=== PATIENT | female | born 1990 | race Caucasian/White ===

== ENCOUNTER 2022-01-03 20:36 | Emergency (ER) | payer OTHER, SELFPAY ==
--- NOTE | ~2022-01-03 | CT_ITS ---
CT lumbar spine wo con DATE: 01/03/2022 21:30 INDICATION: Acute low back pain radiating down both legs TECHNIQUE: Axial images through the lumbar spine. Sagittal and coronal reconstructions. Exam dose: 426.18 mGy-cm total exam DLP. COMPARISON: None FINDINGS: Normal alignment of the lumbar spine. No fracture or bone destruction, spondylolysis or spo ndylolisthesis. Lumbar and lumbosacral interspaces are well preserved. No herniated nucleus pulposus is evident. The sacroiliac joints appear normal. No osteolytic or osteoblastic lesions are detected. IMPRESSION: No significant abnormality Reviewed, dictated and finalized at [facility]. Reviewed, dictated and finalized at [facility]. IMPRESSION: No significant abnormality
[2022-01-03 20:51] VITALS: BP 116/71; PULSE 84; RESP 20; TEMP 36.2; O2SAT 99
--- NOTE | 2022-01-03 20:53 | ED.BACK ---
HPI - Back Pain/Injury General Chief Complaint: Back Pain/Injury Stated Complaint: back pain Time Seen by Provider: 01/03/22 20:54 Source: patient Mode of arrival: ambulatory History of Present Illness HPI Narrative: 31-year-old female, A1, with LMP of 12/28/2021 presents to the ER -- worsening of chronic low back pain. Her back pain started after 1st delivery. She has had it off and on. Recently she had been doing some cleaning at home which involved bending she developed worsening of her low back pain which radiates to both hips. The patient does not have any motor sensory deficits. The patient does not have any fever. No bladder or bowel involvement. MD elicited complaint: back pain Pertinent past history: prior back pain Onset (ago): day(s) ( Worse for the past 3 days) Timing: constant Similar Symptoms Previously: Yes Quality: aching Location: lumbar spine Radiation: other ( radiates to both hips.) Exacerbating factors: immobilization Relieving factors: immobilization Associated symptoms: denies other symptoms Related Data Home Medications Medication Instructions Recorded Confirmed No Home Medications 01/03/22 01/03/22 Allergies Allergy/AdvReac Type Severity Reaction Status Date / Time codeine Allergy Unknown Verified 01/03/22 20:50 Review of Systems Review of Systems: All systems reviewed & are unremarkable except as noted in HPI and below Constitutional: Constitutional: Reports as per HPI and Reports no additional constitutional complaints Eyes: Eyes: Reports as per HPI and Reports no additional eye complaints ENT: Reports system reviewed and no additional complaints, except as documented Cardiovascular: Cardiovascular: Reports as per HPI and Reports no additional cardiovascular complaints Respiratory: Respiratory: Reports as per HPI and Reports no additional respiratory complaints Gastrointestinal: Gastrointestinal: Reports as per HPI and Reports no additional gastrointestinal complaints Genitourinary: Genitourinary: Reports no additional female genitourinary complaints Comments: Had a recent miscarriage. Musculoskeletal: Musculoskeletal: Reports back pain Integumentary/Breasts: Skin/Breast: Reports system reviewed and no additional complaints, except as docu and Reports as per HPI Neurologic: Reports system reviewed and no additional complaints, except as documented Psychiatric: Psychiatric: Reports no additional psychiatric complaints and Reports as per HPI Endocrine: Endocrine: Reports no additional endocrine complaints and Reports as per HPI Hematologic/Lymphatic: Hematologic/Lymphatic: Reports no additional hematologic/lymphatic complaints and Reports as per HPI Allergic/Immunologic: Allergic/Immunologic: Reports no additional allergic/immunologic complaints and Reports as per HPI [facility] Surgical History Surgical History (Updated 01/03/22 @ 21:24 by Cuong Choudhury MD) History of ankle surgery Social History Social History Smoking status: Current every day smoker Exam Const: General: no acute distress and alert Orientation/consciousness: patient oriented x3 HENMT: Head: normal to inspection Eyes: Conjunctivae: conjunctivae normal Pupils: Equal, round and reactive pupils present Neck: Neck: normal visual inspection and no lymphadenopathy Chest: Chest palpation & inspection: normal inspection of the chest Resp: Effort & Inspection: normal respiratory effort Auscultation: clear to auscultation bilaterally Cardio: Rate: regular rate Rhythm: regular rhythm : General: Yes no CVA tenderness Back/Spine/Pelvis: Back: no CVA tenderness Other: no spinal tenderness. Normal range of motion of the lower back. Straight leg raising test is negative on both sides. Bilateral normal knee jerks and ankle jerks. Skin: General skin exam: normal color Rashes: no rashes Neuro: General: patient orient
[2022-01-03 21:13] LABS: Pregnancy On Board Control Positive; Urine Pregnancy Test Negative
[2022-01-03 21:34] LABS: Add Urine Microscopic? YES; Appearance Urine Clear (Clear); Bilirubin Urine Negative (Negative); Blood Urine 2+ (Negative); Color Urine Light Yellow (Yellow); Glucose Urine UA Negative (Negative); Ketones Urine Negative (Negative); Leukocyte Esterase Ur Negative (Negative); Nitrate Urine Negative (Negative); Protein Urine Negative (Negative); Specific Grav Ur >= 1.030 (1.010-1.020); Urobilinogen Urine 0.2 mg/dL (0.2-1.0)
[2022-01-03] MEDS: KETOROLAC 30 MG/ML VIAL (*BKC) IM (21:34)
[2022-01-03 21:38] LABS: Bacteria Urine Trace /hpf; Squamous Epithelial Cell Urine Moderate /hpf (Few); WBC Urine 0-3 /hpf (0-3)
[2022-01-03 22:13] VITALS: BP 118/67; PULSE 78; RESP 18; TEMP 36.2; O2SAT 99
== END 2022-01-03 22:16 | disposition home or self-care (01) ==
PROVIDERS: Emergency Provider Internal Medicine Critical Care Medicine; PCP Family Medicine
DX: M54.50 Low back pain, unspecified (principal)
CPT/HCPCS: 72131; 81001; 81025; 96372; 99284; J1885

== ENCOUNTER 2022-01-09 13:47 | Outpatient (CLI) | payer OTHER, SELFPAY ==
--- NOTE | ~2022-01-09 | XR_ITS ---
XR hip LT 2V w AP pelvis, XR sacrum coccyx min 2V 01/09/2022 14:11 Indication: Chronic low back pain extending to the left leg Procedure: 3 views left hip and 3 views of the sacrum/coccyx Comparison: No prior studies for comparison. Findings: There is anatomic alignment. Pelvic rings are intact. Sacrum and coccyx are within normal l imits without focal mass. Sacral foramen are symmetric. Sacroiliac joints are symmetric. No fracture or traumatic malalignment. No significant soft tissue abnormality. Impression: 1: No significant bone or joint abnormality. Reviewed, dictated and finalized at [facility]. Impression: 1: No significant bone or joint abnormality. Impression: 1: No significant bone or joint abnormality.
== END 2022-01-09 13:48 | disposition home or self-care (01) ==
LOC: CHSIMG 13:51
PROVIDERS: PCP Nurse Practitioner Family; Visit Provider Nurse Practitioner Family
DX: M54.50 Low back pain, unspecified (principal); G89.29 Other chronic pain
CPT/HCPCS: 72220; 73502

== ENCOUNTER 2024-10-03 07:23 | Observation (INO) | payer OTHER, SELFPAY ==
[2024-10-03 07:45] VITALS: BP 94/48; PULSE 78
[2024-10-03 08:00] VITALS: BP 98/54; PULSE 74
[2024-10-03 08:15] VITALS: BP 98/55; PULSE 74
[2024-10-03 08:30] VITALS: BP 112/70; PULSE 77
[2024-10-03 08:45] VITALS: BP 102/66; PULSE 66
[2024-10-03 09:52] VITALS: BMI 25.7
--- NOTE | 2024-10-03 09:53 | OBADM ---
This patient, Michelle Daniels, admitted to the OB room [facility] for observation. Patient/family oriented to hospital policies and general routines including ID bracelet, bed and alarms, visiting hours, pain management, procedures, bathroom and other care routines, personal items, smoking policy, room service/diet, and visiting hours. Patient/Family are encouraged to report perceived risks to care and to ask questions if they do not understand what they are told or what they should do.
--- OUTSIDE RECORDS SUMMARY | 2024-10-06 20:55 | XMS_ITS | Encounter Summary ---
Author Organization [facility] Address [address] [place] [address]. [place], [place] [id number] [place] [id number] Care Team Providers Care Lawyer Probate Name Role Phone Sid Ghosh MD Unavailable [phone] Sid Ghosh MD Primary Care Provider Reason for Referral * Imaging (Routine) - Closed Specialty Diagnoses / Procedures Referred By Tea kaufman Referred To Contact RADIOLOGY Diagnoses Abdominal pain Procedures US ABD LIMITED US RETROPERITONEAL LTD Sid Ghosh MD [address] [place] [phone] Phone: tel: fax: Referral ID Status Reason Start Date Expiration Date Visits Re quested Visits Authorized [id number] Closed 11/13/2022 11/13/2023 1 1 RAL MERCHANDISE MANAGER Reason for Visit * Reason Comments Low Back Pain * Auth/Cert (Routine) Specialty Diagnoses / Procedures Referred By Tea kaufman Referred To Contact Diagnoses Pyelonephritis affecting (HHS/HCC) Pyelonephritis affecting Procedures NONE Karson Santiago MD [address] [place] [phone] Phone: tel: fax: Referral ID Status Reason Start Date Expiration Date Visits Re quested Visits Authorized [id number] 1 1 Encounter Details Date Type Department Care Team (Late st Contact Info) Description 11/12/2022 6:50 PM GENERAL MERCHANDISE MANAGER - 11/13/2022 1:00 PM GENERAL MERCHANDISE MANAGER Hospital Encounter [facility] [address] [place] [address] Karson Santiago MD [address] [place] [phone] Sid Ghosh MD [address] [place] [phone] Low Back Pain Discharge Disposition: Home or Self Care (Routine Discharge) Social History Tobacco Use Types Packs/Day Years Used Date Smoking Tobacco: Every Day Cigarettes 1 15 Smokeless Tobacco: Never Tobacco Cessation:Ready to Q uit: Not Asked; Counseling Given: Not Answered Alcohol Use Standard Drinks/Week Comments Never 0 (1 standard drink = 0.6 oz pur e alcohol) Humiliation, Afraid, Rape, and Kick questionnair e Answer Date Recorded Within the last year, have y ou been afraid of your partner or ex-partner? No 02/10/2021 Within the last year, have y ou been humiliated or emotionally abused in other ways by your partner or ex-partner? No Within the last year, have y ou been kicked, hit, slapped, or otherwise physically hurt by your partner or ex-partner? No 02/10/2021 Within the last year, have y ou been raped or forced to have any kind of sexual activity by your partner or ex-partner? No 02/10/2021 Overall Financial Resource Strain (CARDIA) Answe r Date Recorded How hard is it for you to pa y for the very basics like food, housing, medical care, and heating? Not hard at all 02/10/2021 Hunger Vital Sign Answer Date Recorded Within the past 12 months, y ou worried that your food would run out before you got the money to buy more. Never true 02/11/20 21 Within the past 12 months, t he food you bought just didn't last and you didn't have money to get more. Never true 02/10/2021 PRAPARE - Transportation Answer Date Re corded In the past 12 months, has l ack of transportation kept you from medical appointments or from getting medications? No 01/20 In the past 12 months, has l ack of transportation kept you from meetings, work, or from getting things needed for daily living? No 02/10/2021 Comments Yes Sex and Gender Information Value Date Recorded Sex Assigned at Not on file Legal Sex Female 10:32 AM GENERAL MERCHANDISE MANAGER Gender Identity Not on file Sexual Orientation Not on file COVID-19 Exposure Response Date Recorded In the last 10 days, have yo u been in contact with someone who was confirmed or suspected to have Coronavirus/COVID-19? No / Unsure 11/12/2022 6:27 PM GENERAL MERCHANDISE MANAGER documented as of this encounter Last Filed Vital Signs Vital Sign Reading Time Taken Comments Blood Pressure 88/53 11/13/2022 7:52 AM GENERAL MERCHANDISE MANAGER Pulse 83 11/13/2022 7:52 AM GENERAL MERCHANDISE MANAGER Temperature 36.5 ??C (97.7 ??F) 11/13/2022 12:[address] Respiratory Rate 16 11/13/2022 7:52 AM GENERAL MERCHANDISE MANAGER Oxygen Saturation - - Inhaled Oxygen Concentration - - Weight 70.8 kg (156 lb) 11/12/2022 6:52 PM GENERAL MERCHANDISE MANAGER Height 160 cm (5' 3 ) 11/12/2022 6:52 PM GENERAL MERCHANDISE MANAGER Body Mass Index 27.63 11/12/2022 6:52 PM GENERAL MERCHANDISE MANAGER documented in this encounter Functional Status * RETIRED Are you deaf or do you have serious difficulty hearing Answer Date of Assessment Author Status No 02/10/2021 6:38 AM CDT Activ e * RETIRED Are you blind or do you have serious difficulty seeing, even when wearing glasses? Answer Date of Assessment Author Status No 02/10/2021 6:38 AM CDT Activ e * Do you have serious difficulty walking or climbing stairs? Answer Date of Assessment Author Status No 02/10/2021 6:38 AM CDT Courtney Munguia RN Active * Do you have difficulty dressing or bathing? Answer Date of Assessment Author Status No 02/10/2021 6:38 AM ALDAIRT Courtney Munguia RN Active * Because of a physical, mental, or emotional condition, do you have difficulty doing errands alone such as visiting a doctor's office or shopping? Answer Date of Assessment Author Status No 02/10/2021 6:38 AM ALDAIRT Courtney Munguia RN Active documented as of this encounter Mental Status * Because of a physical, mental, or emotional condition, do you have serious difficulty concentrating, remembering, or making decisions? Answer Entry Date Author Status No 02/10/2021 6:38 AM CDT Courtney Munguia RN Active documented in this encounter Discharge Summaries * Sid Ghosh MD - 11/13/2022 12:22 PM CSTSummary: 28 weeks. cramping. dehydration Images from the original note were not included. Hospital Discharge Summary - SID GHOSH MD Michelle Briones female 1990 Admit Date: 11/12/2022 6:50 PM Discharge Date and Time: 11/13/2022 Admitting Physician: Karson Santiago MD Primary Care Physician: SID GHOSH MD Discharge Physician:SID GHOSH MD Admission Diagnosis: Pyelonephritis affecting [O23.00] Discharge Diagnosis: Principal Problem: Dehydration Active Problems: Cramping affecting , antepartum 28 weeks gestation of Pyelonephritis affecting Resolved Problems: * No resolved hospital problems. * HOSPITAL COURSE: admited at 28 3/7 weeks gestation. She was admitted with a lower abdomen, pelvis and back discomfort. Her urine was dark, but urinalysis showed specific gravity to 1.030 and wbc 0-5 and rbc 0-5. She was treated with IV fluid and IV antibiotics. Monitoring showed no uterine activity. Cervical exam showed a closed long high cervix with no evidence for cervical change. FHR was reassuring. OB US ordered with results pending. She is requesting discharge today. OBJECTIVE: Vitals: Filed Vitals: 11/13/22 0552 11/13/22 0752 11/13/22 0752 11/13/22 1200 BP: (!) 88/53 Pulse: 83 Resp: 16 Temp: 98.8 ??F (37.1 ??C) 98.2 ??F (36.8 ??C) 97.7 ??F (36.5 ??C) TempSrc: Tympanic Weight: Height: Discharge Physical Exam: ?? Constitutional: No acute distress, non-toxic appearance. ?? HEENT: No acute change ?? Respiratory: No respiratory distress, normal breath sounds. No rales. No wheezing. No rhonchi. ?? Cardiovascular: Normal rate, normal rhythm. No murmurs, gallops, or rubs. No chest wall tenderness. ?? GI: Soft. Non-tender. Bowel sounds present. No hepatomegaly, splenomegaly, mass, rebound or guarding. No pulsatile mass. No suprapubic tenderness. ?? Cervix: Spec exam negative. Cervix on single digital exam demonstrated cervix was closed, long, firm and high. ?? Musculoskeletal: No change. ?? Skin: Well hydrated this morning., no rash. ?? Neurologic: Alert & oriented x 3. ?? Psychiatric: Speech and behavior appropriate. Mood normal. Significant Diagnostic Studies: Us pending. Urine culture pending. Discharge Medications: Medication List ASK your doctor about these medications Morning Afternoon Evening Bedtime As Needed ferrous sulfate (65 mg elemental) 325 (65 FE) MG tablet Take 325 mg by mouth daily with breakfast. Last time this was given: 325 mg on November 13, 2022 8:59 AM vitamin (low iron) 27-0.8 MG tablet Take 1 tablet by mouth daily. Last time this was given: 1 tablet on November 13, 2022 8:59 AM Disposition: Home assuming US is reassuring. PATIENT INSTRUCTIONS: Adequate oral hydration. labor precautions reviewed. Follow up within [address] Ghosh. Signed SID GHOSH MD 11/13/2022 RAL MERCHANDISE MANAGER documented in this encounter Medications at Time of Discharge vitamin, low iron, 27-0.8 MG tablet Take 1 tablet by mouth daily. ferrous sulfate, 65 mg elemental, 325 (65 FE) MG tablet Take 1 tablet (325 mg total) by mouth daily with breakfast. 07/04/2023 documented as of this encounter Progress Notes * Sid Ghosh MD - 11/13/2022 12:19 PM CST Subjective Objective RAL MERCHANDISE MANAGER documented in this encounter H&P Notes * Karson Santiago MD - 11/12/2022 9:38 PM CST [facility] OB Admit H&P Michelle Briones / 1990 Date of Admit: 11/12/2022 Attending: Eriberto Santiago cc / Reason for Admit: generalized achiness w/ some localizing left flank pain. HPI: 32-year-old at 28w3d, presenting to L&D c/o Left flank pain w/ generalized aching pain for just over 1 day. Onset y/d with progression then through the day today. Also felt like urine looked different and had some lower abdominal cramping, so came to hospital this evening. Good movement, no vaginal bleeding. No fevers, no nausea. has been overall uncomplicated. labs: B+, antibody neg, HIV Neg, RPR NR, Rub immune - early US: IUP at 8w0d (done on 06/20/22 for GHADA 01/30/23) = LMP date of 06/03/23 - GC/CT Neg 06/14/22 - HepC antibdoy neg - 1hr GTT 129 - 20wkUS: Placenta Posterior. Normal anatomy (cardiac outtracks not well seen) - B12 level 327 (nmL) Medical and Obstetric Hx: x4 at term (uncomplicated). Meds: PNV, iron supplement Allergies: Codeine (suspected rash, as a child) Vitals: Temp 99.1, BP 124/59, p81 Gen: NAD, alert, oriented. Abd: soft, gravid. Nontender SSE: no cervical dilation apparent per RN LABS - CBC: WBC 11.8, Hb 10.0, plt 187 - CMP: AST 18, ALT 13, creat 0.62, glc 94 - UA: +Nit's, +1 protein, 2+ blood, spec grav 1.030, 2+ bacteria A/P 32y/o at 28w3d admitted for generalized achiness w/ concern for possible pyelonephritis 1) Pyelonephritis - dx suspected by abnmL UA with generalized achiness and temp in the 99's as softsymptoms but possible reflexion of systemic signs. In an abundance of caution, it is prudent to tx w/ IV antibiotic (ceftriaxone) and observe through the night (along with IV fluid hydration). - kidney stone would be possible alternative, but +nitrites in the UA make UTI / pyelo more likely. - SSE helps rule out PreTermLabor. 2) FWB- FHT's appropriate for gestational age, reassuring. 3) Dispo - observation admit for IV fluid and ABX as listed above. Cautiously optimistic, if no worsening overnight, likely d/c home tomorrow w/ transition to PO antibiotics. Karson Santiago M.D. RAL MERCHANDISE MANAGER documented in this encounter Plan of Treatment Not on file documented as of this encounter Procedures Procedure Name Priority Date/Time Associated Diagnosis Comments US ABD LIMITED Routine 11/14/2022 3:54 PM GENERAL MERCHANDISE MANAGER Abdominal pain TYPE & SCREEN STAT 11/12/2022 8:15 PM GENERAL MERCHANDISE MANAGER Back pain affecting (HHS/HCC) COMPREHENSIVE METABOLIC PANEL STAT 11/12/2022 8:15 PM GENERAL MERCHANDISE MANAGER Back pain affecting (HHS/HCC) CBC W/DIFF AUTOMATED STAT 11/12/2022 8:15 PM GENERAL MERCHANDISE MANAGER Back pain affecting (HHS/HCC) HC URINALYSIS AUTO W/MICRO Routine 11/12/2022 6:54 PM GENERAL MERCHANDISE MANAGER Back pain affecting (HHS/HCC) URINE BACTERIA CULTURE STAT 6:54 PM GENERAL MERCHANDISE MANAGER Back pain affecting (HHS/HCC) documented in this encounter Results * US ABD LIMITED (11/14/2022 3:54 PM GENERAL MERCHANDISE MANAGER) Anatomical Region Laterality Modality Abdomen Ultrasound 11/14/2022 4:06 PM GENERAL MERCHANDISE MANAGER Impressions 11/14/2022 4:11 PM GENERAL MERCHANDISE MANAGER IMPRESSION: 1. ??Probable left nephrolithiasis. 2. ??Minimal splenomegaly, likely hypervolemia of . 3. ??Otherwise unremarkable. Referred By: SID GHOSH Interpreted By: Mitch Noble MD, 11/14/2022 4:06 PM Narrative 11/14/2022 4:11 PM GENERAL MERCHANDISE MANAGER Examination: Ultrasound of the spleen and left kidney. Exam time: 1500 hours. Clinical history: Left-sided pain. ??Currently . Comparison: Ultrasound of the kidneys and urinary bladder, 2020. Technique: Grayscale and color Doppler images. Findings: The left kidney is normal in size measuring 11.8 x 4.8 x 4.8 cm, similar to previous. ??Cortical thickness and echogenicity appear normal. ??Flow to the left kidney is documented on color Doppler. ??There is a 4-5 mm bright reflector in the interpolar region suspicious for a calculus. ??No renal mass is identified. ??There is no hydronephrosis. ??The spleen is minimally enlarged, measuring 13-14 cm in length, most likely hypervolemia of . ??Splenic echotexture is normal. ??Flow to the spleen is documented on color Doppler. ??Sections through the pancreas are unremarkable. ??No free fluid is seen. Procedure Note Mitch Noble MD - 11/14/2022 Examination: Ultrasound of the spleen and left kidney. Exam time: 1500 hours. Clinical history: Left-sided pain. Currently . Comparison: Ultrasound of the kidneys and urinary bladder, 2020. Technique: Grayscale and color Doppler images. Findings: The left kidney is normal in size measuring 11.8 x 4.8 x 4.8 cm,similar to previous. Cortical thickness and echogenicity appear normal.Flow to the left kidney is documented on color Doppler. There is a 4-5 mmbright reflector in the interpolar region suspicious for a calculus. Norenal mass is identified. There is no hydronephrosis. The spleen isminimally enlarged, measuring 13-14 cm in length, most likely hypervolemiaof . Splenic echotexture is normal. Flow to the spleen isdocumented on color Doppler. Sections through the pancreas areunremarkable. No free fluid is seen. IMPRESSION: 1. Probable left nephrolithiasis. 2. Minimal splenomegaly, likely hypervolemia of . 3. Otherwise unremarkable. Referred By: SID GHOSH Interpreted By: Mitch Noble MD, 11/14/2022 4:06 PM Sid Ghosh MD ULTRASOUND Final Resul t * TYPE & SCREEN (11/12/2022 8:15 PM GENERAL MERCHANDISE MANAGER) ABO/RH B POSITIVE 11/12/2022 9:05 PM GENERAL MERCHANDISE MANAGER [facility] ANTIBODY SCREEN NEGATIVE 11/12/2022 9:05 PM GENERAL MERCHANDISE MANAGER [facility] SAMPLE EXPIRATION 11/15/2022,2 359 11/12/2022 9:05 PM GENERAL MERCHANDISE MANAGER [facility] 11/12/2022 8:15 PM GENERAL MERCHANDISE MANAGER Karson Santiago MD BLOOD BANK TEST ORDERABLES Fi nal Result [facility] [address] [place] [address], * (ABNORMAL) CBC W/DIFF AUTOMATED (11/12/2022 8:15 PM GENERAL MERCHANDISE MANAGER) WBC 11.76(H) 4.00 - 10.80 x10'3/uL 11/12/2022 8:25 PM GENERAL MERCHANDISE MANAGER [facility] RBC 3.37(L) 4.10 - 5.40 x10'6/uL 11/12/2022 8:25 PM GENERAL MERCHANDISE MANAGER [facility] HGB 10.0(L) 12.0 - 16.0 G/DL 11/12/2022 8:25 PM GENERAL MERCHANDISE MANAGER [facility] HCT 30.0(L) 36.0 - 47.0 % 11/12/2022 8:25 PM GENERAL MERCHANDISE MANAGER [facility] MCV 89.0 78.0 - 100.0 FL 11/12/2022 8:25 PM GENERAL MERCHANDISE MANAGER [facility] MCH 29.7 27.0 - 31.0 PG 11/12/2022 8:25 PM GENERAL MERCHANDISE MANAGER [facility] MCHC 33.3 33.0 - 36.0 G/DL 11/12/2022 8:25 PM [facility] RDW 13.5 11.5 - 14.5 % 11/12/2022 8:25 PM GENERAL MERCHANDISE MANAGER [facility] PLT 187 150 - 350 x10'3/uL 11/12/2022 8:25 PM [facility] MPV 10.2 7.4 - 10.4 FL 11/12/2022 8:25 PM GENERAL MERCHANDISE MANAGER [facility] CBC COMMENT NORMAL REFERENCE RANGE NOT ESTABLISHED FOR THE PROPORTIONAL LEUKOCYTE DIFFERENTIAL. 11/12/2022 8:25 PM GENERAL MERCHANDISE MANAGER [facility] NEUTROPHILS % 75.6 % 11/12/2022 8:25 PM [facility] LYMPHOCYTES % 15.4 % 11/12/2022 8:25 PM [facility] MONOCYTES % 5.9 % 11/12/2022 8:25 PM [facility] EOSINOPHILS % 1.4 % 11/12/2022 8:25 PM [facility] BASOPHILS % 0.2 % 11/12/2022 8:25 PM [facility] IMMATURE GRANS % 1.5 % 11/12/19 8:25 PM [facility] NRBC 0.0 % 11/12/2022 8:25 PM [facility] ABS. NEUTROPHILS 8.90(H) 1.60 - 8.30 x10'3/uL 11/12/2022 8:25 PM [facility] ABS. LYMPHOCYTES 1.81 0.80 - 4.70 x10'3/uL 11/12/2022 8:25 PM [facility] ABS. MONOCYTES 0.69 0.00 - 1.50 x10'3/uL 11/12/2022 8:25 PM GENERAL MERCHANDISE MANAGER [facility] ABS. EOSINOPHILS 0.16 0.00 - 0.40 x10'3/uL 11/12/2022 8:25 PM [facility] ABS. BASOPHILS 0.02 0.00 - 0.20 x10'3/uL 11/12/2022 8:25 PM [facility] ABS. IMMATURE GRANULOCYTES 0.18(H) 0.00 - 0.03 x10'3/uL 11/12/2022 8:25 PM GENERAL MERCHANDISE MANAGER [facility] ABS. NUCLEATED RBC'S 0.00 0.00 x10'3/uL 11/12/2022 8:25 PM [facility] 11/12/2022 8:15 PM GENERAL MERCHANDISE MANAGER Karson Santiago MD LABORATORY Final Result [facility] [address] [place] [address], * (ABNORMAL) COMPREHENSIVE METABOLIC PANEL (11/12/2022 8:15 PM GENERAL MERCHANDISE MANAGER) SODIUM S/P/B 135(L) 136 - 145 MMOL/L 11/12/2022 8:38 PM [facility] POTASSIUM S/P/B 3.6 3.5 - 5.1 MMOL/L 11/12/2022 8:38 PM [facility] CHLORIDE S/P/B 101 98 - 107 MMOL/L 11/12/2022 8:38 PM [facility] CO2 27.0 21.0 - 32.0 MMOL/L 11/12/2022 8:38 PM [facility] GLUCOSE 94 70 - 99 MG/DL 11/12/2022 8:38 PM [facility] Comment: FASTING GLUCOSE 100 TO 125 MG/DL IS CONSISTENT WITH IMPAIRED FASTING GLUCOSE. FASTING GLUCOSE >125 MG/DL IS CONSISTENT WITH DIABETES. RANDOM GLUCOSE >200 MG/DL WITH HYPERGLYCEMIC SYMPTOMS IS CONSISTENT WITH DIABETES. PER ADA GUIDELINES BUN 6 6 - 24 MG/DL 11/12/2022 8:38 PM GENERAL MERCHANDISE MANAGER [facility] CREATININE S/P/B 0.62 0.55 - 1.02 MG/DL 11/12/2022 8:38 PM [facility] CALCIUM S/P/B 8.8 8.4 - 10.5 MG/DL 11/12/2022 8:38 PM [facility] BILIRUBIN TOTAL S/P/B 0.2 0.2 - 1.0 MG/DL 11/12/2022 8:38 PM [facility] Comment: THIS ASSAY IS NOT RECOMMENDED FOR PATIENTS UNDERGOING TREATMENT WITH ELTROMBOPAG DUE TO THE POTENTIAL FOR FALSELY ELEVATED RESULTS. ALKALINE PHOSPHATASE S/P/B 93 37 - 98 U/L 11/12/2022 8:38 PM [facility] AST 18 15 - 37 U/L 11/12/2022 8:38 PM [facility] ALT 13(L) 14 - 59 U/L 11/12/2022 8:38 PM [facility] TOTAL PROTEIN S/P/B 6.7 6.4 - 8.2 G/DL 11/12/2022 8:38 PM [facility] ALBUMIN S/P/B 2.7(L) 3.4 - 5.0 G/DL 11/12/2022 8:38 PM [facility] ANION GAP 7.0 5.0 - 15.0 MMOL/L 11/12/2022 8:38 PM [facility] OSMOLALITY (CALC) 277 MOSM/KG 023 8:38 PM [facility] Comment:REFERENCE RANGE NOT ESTABLISHED GFR ESTIMATE >90 >89 ML/MIN/1. 73 M2 11/12/2022 8:38 PM [facility] GFR NOTES GFR REFERENCE S: 11/12/2022 8:38 PM [facility] Comment: THE ESTIMATED GFR IS CALCULATED USING THE 2020 CKD-EPI EQUATION. THE FOLLOWING CATEGORIES FOR GRADING RENAL FUNCTION ARE RECOMMENDED BY THE INTERNATIONAL SOCIETY OF NEPHROLOGY (KDIGO 2012 CLINICAL PRACTICE GUIDELINE). G1,NORMAL OR HIGH: >89 ml/min/1.73 m2 G2,MILDLY DECREASED: 60-89 ml/min/1.73 m2 G3A,MILDLY TO MODERATELY DECREASED: 45-59 ml/min/1.73 m2 G3B,MODERATELY TO SEVERELY DECREASED: 30-44 ml/min/1.73 m2 G4,SEVERELY DECREASED: 15-29 ml/min/1.73 m2 G5,KIDNEY FAILURE: <15 ml/min/1.73 m2 11/12/2022 8:15 PM GENERAL MERCHANDISE MANAGER Karson Santiago MD LABORATORY Final Result Performing Organization Address [facility]/ZIP Co de Phone Number [facility] [address] [place] [id number], * CULTURE URINE (11/12/2022 6:54 PM GENERAL MERCHANDISE MANAGER) SPEC DESCRIPTION URINE CLEAN CATCH 11/12/2022 10:16 PM GENERAL MERCHANDISE MANAGER [facility] SPECIAL REQUESTS NO SPECIAL REQUEST 11/12/2022 10:16 PM GENERAL MERCHANDISE MANAGER [facility] CULTURE RESULT NO GROWTH (< OR = 1,000 CFU/ML) 11/14/2022 10:06 AM GENERAL MERCHANDISE MANAGER [facility] URINE SPECIMEN OBTAINED BY CLEAN CATCH PROCEDURE / Unknown 11/12/2022 6:54 PM GENERAL MERCHANDISE MANAGER 11/13/2022 6:03 AM GENERAL MERCHANDISE MANAGER Karson Santiago MD MICROBIOLOGY - GENERAL ORDERA BLES Final Result Performing Organization Address [facility] Co de Phone Number [facility] [address] [place] [address], [place] [phone] [facility] [address] [place] [address], [place] [phone] * (ABNORMAL) URINALYSIS (11/12/2022 6:54 PM GENERAL MERCHANDISE MANAGER) COLOR (U) DARK YELLOW 11/12/2022 7:34 PM GENERAL MERCHANDISE MANAGER [facility] TRANSPARENCY CLOUDY 11/12/2022 7:34 PM GENERAL MERCHANDISE MANAGER [facility] SPECIFIC GRAVITY (U) 1.030(H) 1.000 - 1.025 11/12/2022 7:34 PM GENERAL MERCHANDISE MANAGER [facility] Comment:EQUAL TO OR GREATER THAN U PH 5.5 5.0 - 8.0 11/12/2022 7:34 PM GENERAL MERCHANDISE MANAGER [facility] LEUKOCYTES (U) NEGATIVE NEGATIVE 11/12/2022 7:34 PM GENERAL MERCHANDISE MANAGER [facility] NITRITES POSITIVE(A) NEGATIVE 11/12/2022 7:34 PM GENERAL MERCHANDISE MANAGER [facility] PROTEIN (U) 1+(A) NEGATIVE 11/12/2022 7:34 PM GENERAL MERCHANDISE MANAGER [facility] URINE GLUCOSE NEGATIVE NEGATIVE 11/12/2022 7:34 PM GENERAL MERCHANDISE MANAGER [facility] KETONES MG/DL (U) 1+(A) NEGATIVE 11/12/2022 7:34 PM GENERAL MERCHANDISE MANAGER [facility] UROBILINOGEN 1.0(H) <1.0 EU/DL 11/12/2022 7:34 PM GENERAL MERCHANDISE MANAGER [facility] BLOOD (U) 2+(A) NEGATIVE 11/12/2022 7:34 PM GENERAL MERCHANDISE MANAGER [facility] WBC/HPF 0-5 0 - 5 /HPF 11/12/2022 7:34 PM GENERAL MERCHANDISE MANAGER [facility] RBC/HPF 0-5 0 - 5 /HPF 11/12/2022 7:34 PM GENERAL MERCHANDISE MANAGER [facility] EPI/LPF MODERATE /LPF 11/12/2022 7:34 PM GENERAL MERCHANDISE MANAGER [facility] BACTERIA (U) 2+ /HPF 11/12/2022 7:34 PM GENERAL MERCHANDISE MANAGER [facility] MUCUS PRESENT 11/12/2022 7:34 PM GENERAL MERCHANDISE MANAGER [facility] BILIRUBIN CONF ICTO (U) NEGATIVE NEGATIVE 11/12/2022 7:34 PM [facility] URINE SPECIMEN OBTAINED BY CLEAN CATCH PROCEDURE / Unknown 11/12/2022 6:54 PM GENERAL MERCHANDISE MANAGER Karson Santiago MD URINE ORDERABLES Final Result [facility] [address] [place] [address], documented in this encounter Visit Diagnoses Diagnosis Dehydration- Primary Back pain affecting (HHS/HCC) Abdominal pain Abdominal pain, unspecified site Pyelonephritis affecting (HHS/HCC) Cramping affecting , antepartum (HHS/HCC) 28 weeks gestation of (HHS/HCC) state, incidental Abdominal pain Abdominal pain, unspecified site documented in this encounter Admitting Diagnoses Diagnosis Pyelonephritis affecting (HHS/HCC) documented in this encounter Administered Medications Inactive Administered Medications - up to 3 most recent administrations Medication Order MAR Action Action Date Dose Rate Site cefTRIAXone (ROCEPHIN) 1 g in sodium chloride 0.9 % 50 mL IVPB 1 g, Intravenous, at 100 mL/hr, Every 24 hours, First dose on Sat11/12/22 at 2115, Until Discontinued New Bag 11/12/2022 10:08 PM GENERAL MERCHANDISE MANAGER 1 g 100 mL/hr cefTRIAXone (ROCEPHIN) 1 g in sodium chloride 0.9 % 50 mL IVPB 1 g, Intravenous, at 100 mL/hr, Every 12 hours, 1 dose, First dose (after last modification) on Sat11/13/22 at 1015 New Bag 11/13/2022 10:20 AM GENERAL MERCHANDISE MANAGER 1 g 100 mL/hr diphenhydrAMINE (BENADRYL) injection 25 mg 25 mg, Intravenous, Once, 1 dose, On Sat11/12/22 at 2315, For IV administration, give no faster than 25 mg/min. Given 11/12/2022 11:14 PM GENERAL MERCHANDISE MANAGER 25 mg diphenhydrAMINE (BENADRYL) injection 25 mg 25 mg, Intravenous, Every 6 hours PRN, Itching, Starting on Sat11/13/22 at 0525, Until Sat11/13/22 at 1541, For IV administration, give no faster than 25 mg/min. Given 11/13/2022 5:38 AM GENERAL MERCHANDISE MANAGER 25 mg ferrous sulfate (65 mg elemental) tablet 325 mg 325 mg, Oral, Daily with breakfast, First dose on Sat11/13/22 at 0800, Until Discontinued Given 11/13/2022 8:59 AM GENERAL MERCHANDISE MANAGER 325 mg vitamin (low iron) 27-0.8 MG tablet 1 tablet 1 tablet, Oral, Daily, First dose on Sat11/13/22 at 0900, Until Discontinued Given 11/13/2022 8:59 AM GENERAL MERCHANDISE MANAGER 1 tablet sodium chloride 0.9% infusion at 125 mL/hr, Intravenous, Continuous, Starting on Sat11/12/22 at 2115, Until Sat11/13/22 at 1541 documented in this encounter Active and Recently Administered Medications Times are shown in GENERAL MERCHANDISE MANAGER. Scheduled Medication Order 11/11/2022 11/12/2022 11/13/2022 cefTRIAXone (ROCEPHIN) 1 g in sodium chloride 0.9 % 50 mL IVPB (CANCELED) 1 g, Intravenous, at 100 mL/hr, Every 24 hours, First dose on Sat11/12/22 at 2115, Until Discontinued 2207 (New Bag - Provider: Nicki Portillo RN)2237 (Infusion Stop Time - Provider: Nicki Portillo RN) cefTRIAXone (ROCEPHIN) 1 g in sodium chloride 0.9 % 50 mL IVPB (COMPLETED) 1 g, Intravenous, at 100 mL/hr, Every 12 hours, 1 dose, First dose (after last modification) on Sat11/13/22 at 1015 1020 (New Bag - Provider: Cristy Menon RN)1050 (Due: Infusion Stop Time - Provider: Cristy Menon RN) diphenhydrAMINE (BENADRYL) injection 25 mg (COMPLETED) 25 mg, Intravenous, Once, 1 dose, On Sat11/12/22 at 2315, For IV administration, give no faster than 25 mg/min. 2314 (Given - Provider: Nicki Portillo RN) ferrous sulfate (65 mg elemental) tablet 325 mg 325 mg, Oral, Daily with breakfast, First dose on Sat11/13/22 at 0800, Until Discontinued 0859 (Given - Provid er: Cristy Menon RN) vitamin (low iron) 27-0.8 MG tablet 1 tablet 1 tablet, Oral, Daily, First dose on Sat11/13/22 at 0900, Until Discontinued 0859 (Given - Provid er: Cristy Menon RN) Continuous Medication Order 11/11/2022 11/12/2022 11/13/2022 sodium chloride 0.9% infusion at 125 mL/hr, Intravenous, Continuous, Starting on Sat11/12/22 at 2115, Until Sat11/13/22 at 1541 2115 (Canceled Entry - Provi christian: Automatic Discharge Provider - Comment: Automatically canceled at discontinue of medication order) PRN Medication Order 11/11/2022 11/12/2022 11/13/2022 diphenhydrAMINE (BENADRYL) injection 25 mg 25 mg, Intravenous, Every 6 hours PRN, Itching, Starting on Sat11/13/22 at 0525, Until Sat11/13/22 at 1541, For IV administration, give no faster than 25 mg/min. 0538 (Given - Provid er: Nicki Portillo RN) documented in this encounter Care Teams Lawyer Probate Relationship Specialty Start Date End Date Sid Ghosh MD [address] [place] [id number] PCP - General FAMILY PRACTICE 08/11/20 Sid Ghosh MD [address] [place] [phone] FAMILY PRACTICE 08/27/18 documented as of this encounter
--- OUTSIDE RECORDS SUMMARY | 2024-10-06 20:55 | XMS_ITS | Encounter Summary ---
Author Organization [facility] Address [address] [place] [address]. [place] [address] [place] [address] Care Team Providers Care Provider Engagement Executive Name Role Phone Sid Solis MD Unavailable [phone] Sid Solis MD Primary Care Provider Reason for Visit * Reason Onset Date Comments Post Call 02/24/2024 Encounter Details Date Type Department Care Team (Late st Contact Info) Description 02/24/[address] [facility] [address] [place] [address] Sid Solis MD [address] [place] [address] Post Call Social History Tobacco Use Types Packs/Day Years Used Date Smoking Tobacco: Every Day Cigarettes 1 15 Smokeless Tobacco: Never Alcohol Use Standard Drinks/Week Comments Not Currently 0 (1 standard drink = 0.6 oz pur e alcohol) B1300 Health Literacy Answer Date Recor ded How often do you need to hav e someone help you when you read instructions, pamphlets, or other written material from your doctor or pharmacy? Sometimes 02/01/2024 [facility] Utilities Answer Date Recorded In the past 12 months has e [employer], gas, oil, or water [employer] threatened to shut off services in your home? No 02/01/2024 Humiliation, Afraid, Rape, and Kick questionnair e Answer Date Recorded Within the last year, have y ou been afraid of your partner or ex-partner? No 02/01/2024 Within the last year, have y ou been humiliated or emotionally abused in other ways by your partner or ex-partner? No Within the last year, have y ou been kicked, hit, slapped, or otherwise physically hurt by your partner or ex-partner? No 02/01/2024 Within the last year, have y ou been raped or forced to have any kind of sexual activity by your partner or ex-partner? No 02/01/2024 Social Connection and Isolat ion Panel [NHANES] Answer Date Recorded In a typical week, how many times do you talk on the phone with family, friends, or neighbors? More than three times a week 02/01/2024 How often do you get togethe r with friends or relatives? Once a week 02/01/2024 How often do you attend chur or taoist services? Never 02/01/2024 Do you belong to any clubs o r organizations such as pentecostal groups, unions, fraternal or athletic groups, or school groups? No 02/01/2024 How often do you attend meet ings of the clubs or organizations you belong to? Never 02/01/2024 Are you , , di vorced, , never , or living with a partner? 02/01/2024 AUDIT-C Answer Date Recorded Q1: How often do you have a drink containing alcohol? Never 02/01/2024 Q2: How many drinks containi ng alcohol do you have on a typical day when you are drinking? Patient does not drink Q3: How often do you have si x or more drinks on one occasion? Never 02/01/2024 Overall Financial Resource Strain (CARDIA) Answe r Date Recorded How hard is it for you to pa y for the very basics like food, housing, medical care, and heating? Not hard at all 02/01/2024 [facility] Occupat ional Health - Occupational Stress Questionnaire Answer Date Recorded Do you feel stress - tense, restless, nervous, or anxious, or unable to sleep at night because your mind is troubled all the time - these days? Not at all 02/01/2024 Exercise Vital Sign Answer Date Recorde d On average, how many days pe r week do you engage in moderate to strenuous exercise (like a brisk walk)? 7 days 02/01/2024 On average, how many minutes do you engage in exercise at this level? 30 min 02/01/2024 Hunger Vital Sign Answer Date Recorded Within the past 12 months, y ou worried that your food would run out before you got the money to buy more. Never true 02/01/20 24 Within the past 12 months, t he food you bought just didn't last and you didn't have money to get more. Never true 02/01/2024 PRAPARE - Transportation Answer Date Re corded In the past 12 months, has l ack of transportation kept you from medical appointments or from getting medications? No 01/19 In the past 12 months, has l ack of transportation kept you from meetings, work, or from getting things needed for daily living? No 02/01/2024 Housing Stability Vital Sign Answer Titus e Recorded In the last 12 months, was t here a time when you were not able to pay the mortgage or rent on time? No 01/17/2023 In the last 12 months, how many places have you lived? 2 01/17/2023 In the last 12 months, was t here a time when you did not have a steady place to sleep or slept in a assisted (including now)? No 01/17/2023 Housing Stability Vital Sign Answer Titus e Recorded In the last 12 months, was t here a time when you were not able to pay the mortgage or rent on time? No 02/01/2024 In the past 12 months, how m any times have you moved where you were living? 1 02/01/2024 At any time in the past 12 m [facility], were you homeless or living in a assisted (including now)? No 02/01/2024 Depression Answer Date Recor ded Last EPDS Total Score 1 02/02/2024 Last EPDS Self Harm Result Hardly ever 02/01 Comments No Sex and Gender Information Value Date Recorded Sex Assigned at Not on file Legal Sex Female 10:32 AM PATIENT SERVICE COORDINATOR Gender Identity Not on file Sexual Orientation Not on file documented as of this encounter Functional Status * Are you deaf or do you have serious difficulty hearing Answer Date of Assessment Author Status No 02/01/2024 7:15 AM Maritza Moyer RN Active * Are you blind or do you have serious difficulty seeing, even when wearing glasses? Answer Date of Assessment Author Status No 02/01/2024 7:15 AM Maritza Moyer RN Active * Do you have serious difficulty walking or climbing stairs? Answer Date of Assessment Author Status No 02/01/2024 7:15 AM Maritza Moyer RN Active * Do you have difficulty dressing or bathing? Answer Date of Assessment Author Status No 02/01/2024 7:15 AM Maritza Moyer RN Active * Because of a physical, mental, or emotional condition, do you have difficulty doing errands alone such as visiting a doctor's office or shopping? Answer Date of Assessment Author Status No 02/01/2024 7:15 AM Maritza Moyer RN Active documented as of this encounter Mental Status * Because of a physical, mental, or emotional condition, do you have serious difficulty concentrating, remembering, or making decisions? Answer Entry Date Author Status No 02/01/2024 7:15 AM Maritza Moyer RN Active documented in this encounter Plan of Treatment Not on file documented as of this encounter Visit Diagnoses Not on filedocumented in this encounter Care Teams Provider Engagement Executive Relationship Specialty Start Date End Date Sid Solis MD [address] [place] [id number] PCP - General FAMILY PRACTICE 08/11/20 Sid Solis MD [address] [place] [phone] FAMILY [facility] 08/27/18 documented as of this encounter
--- OUTSIDE RECORDS SUMMARY | 2024-10-06 20:55 | XMS_ITS | Encounter Summary ---
Author Organization [facility] Address [address] [place] [address]. [place] [address] [place] [address] Care Team Providers Care Administrative Operations Coordinator Name Role Phone Sid Solis MD Unavailable [phone] Sid Solis MD Primary Care Provider Reason for Visit * Auth/Cert (Routine) Specialty Diagnoses / Procedures Referred By Contac t Referred To Contact Diagnoses Uterine contractions (HHS/HCC) Uterine contractions Procedures NONE Referral ID Status Reason Start Date Expiration Date Visits Re quested Visits Authorized [id number] 1 1 Encounter Details Date Type Department Care Team (Late st Contact Info) Description 01/17/2023 7:20 AM CDT Anesthesia Event [facility] [address] [facility] [place] [address] Diana Guillen, ELECTRIC WELL LOGGING OPERATOR [address] [place] [phone] (Work) Anesthesia Record Procedure Summary Procedure Name Responsible Anesthesiologist Anesthesia Start Time Anesthesia Stop Time LABOR EPIDURAL Events Date Time Event Comment 01/17/2023 0720 0720 AN Anesthesia Prepped 0720 Floor Procedure 0729 Epidural Start 08 An Epidural Placement Comple te 09 Epidural Stop Meds Name Total fentaNYL 2 mcg/mL-ROpivacaine 0.2 % epid ural 16.5 mL lidocaine 2%-EPINEPHrine 1:200,000 injec tion 3 mL lidocaine (XYLOCAINE) 1% injection 3 mg * Agents No agents on file. * Blood No blood administrations on file. Lines, Drains, and Airways Type Details Placement Removal Epidural Placement Date: 12/21 ; Placement Time: 802 (created via procedure documentation); Removal Date: 01/17/23; Removal Time: 1200 01/17/23 0803 by Diana Guillen CRNA 01/17/23 1200 by Miesha Zamarripa RN documented in this encounter Social History Tobacco Use Types Packs/Day Years Used Date Smoking Tobacco: Every Day Cigarettes 1 15 Smokeless Tobacco: Never Alcohol Use Standard Drinks/Week Comments Not Currently 0 (1 standard drink = 0.6 oz pur e alcohol) Humiliation, Afraid, Rape, and Kick questionnair e Answer Date Recorded Within the last year, have y ou been afraid of your partner or ex-partner? No 01/17/2023 Within the last year, have y ou been humiliated or emotionally abused in other ways by your partner or ex-partner? No Within the last year, have y ou been kicked, hit, slapped, or otherwise physically hurt by your partner or ex-partner? No 01/17/2023 Within the last year, have y ou been raped or forced to have any kind of sexual activity by your partner or ex-partner? No 01/17/2023 Social Connection and Isolat ion Panel [NHANES] Answer Date Recorded In a typical week, how many times do you talk on the phone with family, friends, or neighbors? More than three times a week 01/17/2023 How often do you get togethe r with friends or relatives? Once a week 01/17/2023 How often do you attend [facility] or orthodox services? Never 01/17/2023 Do you belong to any clubs o r organizations such as oriental orthodox groups, unions, fraternal or athletic groups, or school groups? No 01/17/2023 How often do you attend meet ings of the clubs or organizations you belong to? Never 01/17/2023 Are you , , di vorced, , never , or living with a partner? 01/17/2023 AUDIT-C Answer Date Recorded Q1: How often do you have a drink containing alcohol? Never 01/17/2023 Q2: How many drinks containi ng alcohol do you have on a typical day when you are drinking? Patient does not drink 03/30/202 3 Q3: How often do you have si x or more drinks on one occasion? Never 01/17/2023 Overall Financial Resource Strain (CARDIA) Answe r Date Recorded How hard is it for you to pa y for the very basics like food, housing, medical care, and heating? Not hard at all 01/17/2023 [facility] Occupat ional Health - Occupational Stress Questionnaire Answer Date Recorded Do you feel stress - tense, restless, nervous, or anxious, or unable to sleep at night because your mind is troubled all the time - these days? Not at all 01/17/2023 Exercise Vital Sign Answer Date Recorde d On average, how many days pe r week do you engage in moderate to strenuous exercise (like a brisk walk)? 7 days 01/17/2023 On average, how many minutes do you engage in exercise at this level? 30 min 01/17/2023 Hunger Vital Sign Answer Date Recorded Within the past 12 months, y ou worried that your food would run out before you got the money to buy more. Never true 01/18/20 23 Within the past 12 months, t he food you bought just didn't last and you didn't have money to get more. Never true 01/17/2023 PRAPARE - Transportation Answer Date Re corded In the past 12 months, has l ack of transportation kept you from medical appointments or from getting medications? No 12/21 In the past 12 months, has l ack of transportation kept you from meetings, work, or from getting things needed for daily living? No 01/17/2023 Housing Stability Vital Sign Answer [...] place to sleep or slept in a senior care (including now)? 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 No / Unsure 01/17/2023 6:20 AM CDT documented as of this encounter Functional Status * Question Answer Date of Assessment Author Status Do you have serious difficulty walking or climbing stairs? No 01/17/2023 10:36 AM ALDAIRT Erick Zamarripa i, RN Active * Question Answer Date of Assessment Author Status Do you have difficulty dressing or bathing? No 01/17/2023 10:36 AM CDT Eder Zamarripa RN Active Because of a physical, mental, or emotional condition, do you have difficulty doing errands alone such as visiting a doctor's office or shopping? No 01/17/2023 10:36 AM Erick Barnett i, RN Active * Are you deaf or do you have serious difficulty hearing Answer Date of Assessment Author Status No 01/17/2023 10:36 AM Miesha Barnett RN Active * Are you blind or do you have serious difficulty seeing, even when wearing glasses? Answer Date of Assessment Author Status No 01/17/2023 10:36 AM Miesha Barnett RN Active * Do you have serious difficulty walking or climbing stairs? Answer Date of Assessment Author Status No 01/17/2023 10:36 AM Miesha Barnett RN Active * Do you have difficulty dressing or bathing? Answer Date of Assessment Author Status No 01/17/2023 10:36 AM Miesha Barnett RN Active * Because of a physical, mental, or emotional condition, do you have difficulty doing errands alone such as visiting a doctor's office or shopping? Answer Date of Assessment Author Status No 01/17/2023 10:36 AM Miesha Barnett RN Active documented as of this encounter Mental Status * Question Answer Entry Date Author Status Because of a physical, mental, or emotional condition, do you have serious difficulty concentrating, remembering, or making decisions? No 01/17/2023 10:36 AM Miesha Barnett RN Active * Because of a physical, mental, or emotional condition, do you have serious difficulty concentrating, remembering, or making decisions? Answer Entry Date Author Status No 01/17/2023 10:36 AM CDT Miesha Zamarripa RN Active documented in this encounter Progress Notes * Ld Aviles MD - 01/20/2023 9:52 AM CDT By report, no problems documented in this encounter OR Notes * Anesthesia Postprocedure Evaluation - Ld Aviles MD - 01/20/2023 9:50 AM CDT Anesthesia Post-op Note Michelle Daniels Procedure(s): LABOR EPIDURAL Anesthesia type: epidural There were no vitals filed for this visit. There were no vitals filed for this visit. There were no vitals filed for this visit. There were no vitals filed for this visit. There were no vitals filed for this visit. Comments: By report, no issues No notable events documented. * Anesthesia Procedure Notes - Diana Guillen CRNA - 01/17/2023 8:02 AM CDT Associated Order(s): CSE CSE Date/Time: 01/17/2023 7:20 AM Performed by: Diana Guillen CRNA Authorized by: Diana Guillen CRNA Patient Location: OB Start Time: 01/17/2023 7:20 AM End Time: 01/17/2023 8:02 AM Reason for Block: labor analgesia Staff: Performed by: GERARDO Resident/ELECTRIC WELL LOGGING OPERATOR: Diana Guillen CRNA patient identified, IV checked, risks and benefits discussed, monitors and equipment checked, pre-op evaluation and timeout performed CSE Block: Patient Position: Sitting Prep: Betadine Sterility Prep: Cap, drape, gloves, hand hygiene and mask Sedation Level: no sedation Monitoring: Continuous pulse oximetry and heart rate Approach: Midline Guidance: landmarks Epidural Needle: Injection Technique: CHRIS saline Needle Type: Tuohy Needle Gauge: 18 G Needle Length: 9 cm Needle Insertion Depth: 7 Location: L3-L4 Spinal Needle: Needle Type: Pencil-tip Needle Gauge: 26 G Catheter: Catheter Type: Multi-orifice Catheter Size: 20 G Catheter at Skin Depth: 12 Securement Method: Clear occlusive dressing, stabilization device and surgical tape Test Dose: Negative Assessment: Block Outcome: pain improved Number of Attempts: 1 Procedure Assessment: patient tolerated procedure well with no complications Notes: Discussed risks and benefits of labor CSE with PT. PT voiced understanding. RN at bedside, monitors on, PT moved to sitting position. Lumbar interspace CSE placed: prep, drape. 3ml 1% lido local. Epidural space found without complication using CHRIS with saline. No CSF. Positive CSF with pencan needle. Spinal dose of 1ml 0.2% ropivacaine & 2mcg fentanyl placed without complication @ 0736, pt felt relief from contractions. Catheter advanced into epidural space without complication and test dose given with negative response, catheter secured. [id number] * Anesthesia Preprocedure Evaluation - Diana Guillen CRNA - 01/17/2023 7:20 AM CDT Anesthesia ROS/MED History Reviewed: Patient summary , Anesthesia history , Medications , Labs Pre-Anesthetic State: alert, awake and responds appropriately Pulmonary (+) smoker Cardiovascular neg cardio ROS Neuro/Psych (+) substance use, (marijuana use) GI/Hepatic/Renal neg GI/hepatic/renal ROS Endo/Other (+) blood dyscrasia, (Anemia) GENERAL COMMENTS HX=ANKLE ARTHROSCOPY OPEN RX PROX/MID FING SHFT FX 37weeks 6 days 01/17/23 07:00 WBC: 9.77 RBC: 3.25 (L) HGB: 9.2 (L) HCT: 28.6 (L) MCV: 88.0 MCH: 28.3 MCHC: 32.2 (L) RDW: 14.6 (H) PLT: 162 MPV: 11.1 (H) 01/17/23 06:15 AMPHETAMINE SCREEN (U): NEGATIVE BARBITURATES SCREEN (U): NEGATIVE BENZODIAZEPINES SCREEN (U): NEGATIVE CANNABINOIDS SCREEN (U): NEGATIVE COCAINE METABOLITES (U): NEGATIVE METHADONE (U): NEGATIVE METHAMPHETAMINE SCREEN (U): NEGATIVE OPIATE SCREEN (U): NEGATIVE OXYCODONE SCREEN (U): NEGATIVE PHENCYCLIDINE PCP (U): NEGATIVE TRICYCLIC ANTIDEPRESSANT SCREEN (U): NEGATIVE Physical Evaluation Airway Mallampati: unable to assess Dental No notable dental history Pulmonary Pulmonary exam normal Cardiovascular Cardiovascular exam normal Anesthesia Plan ASA 2 Intravenous Induction Anesthesia type: epidural Plan for Post-op Pain Plan: as per surgeon Informed Consent Anesthetic plan and risks discussed with patient of whom consent was obtained. Consent of blood products not discussed. . documented in this encounter Plan of Treatment Not on file documented as of this encounter Procedures Procedure Name Priority Date/Time Associated Diagnosis Comments CSE BLOCK Routine 01/17/2023 7:20 AM CDT documented in this encounter Results * CSE BLOCK (01/17/2023 7:20 AM CDT) Narrative Diana Guillen CRNA - 01/17/2023 7:20 AM CDT Diana Guillen CRNA ? 01/17/2023 ??8:03 AM CSE Date/Time: 01/17/2023 7:20 AM Performed by: Diana Guillen CRNA Authorized by: Diana Guillen CRNA Patient Location: ??OB Start Time: ??01/17/2023 7:20 AM End Time: ??01/17/2023 8:02 AM Reason for Block: labor analgesia ?? Staff: ??Performed by: ??ELECTRIC WELL LOGGING OPERATOR ??Resident/ELECTRIC WELL LOGGING OPERATOR: ??Diana Guillen CRNA patient identified, IV checked, risks and benefits discussed, monitors and equipment checked, pre-op evaluation and timeout performed ?? CSE Block: ??Patient Position: ??Sitting ??Prep: Betadine ?Sterility Prep: ??Cap, drape, gloves, hand hygiene and mask ??Sedation Level: no sedation ?Monitoring: ??Continuous pulse oximetry and heart rate ??Approach: ??Midline ??Guidance: landmarks ?? Epidural Needle: ??Injection Technique: ??CHRIS saline ??Needle Type: ??Tuohy ??Needle Gauge: ??18 G ??Needle Length: ??9 cm ??Needle Insertion Depth: ??7 ??Location: ??L3-L4 Spinal Needle: ??Needle Type: ??Pencil-tip ??Needle Gauge: ??26 G Catheter: ??Catheter Type: ??Multi-orifice ??Catheter Size: ??20 G ??Catheter at Skin Depth: ??12 ??Securement Method: ??Clear occlusive dressing, stabilization device and surgical tape ??Test Dose: ??Negative Assessment: ??Block Outcome: pain improved ?Number of Attempts: ??1 ??Procedure Assessment: patient tolerated procedure well with no complications ?? Notes: ??Discussed risks and benefits of labor CSE with PT. PT voiced understanding. RN at bedside, monitors on, PT moved to sitting position. Lumbar interspace CSE placed: prep, drape. 3ml 1% lido local. Epidural space found without complication using CHRIS with saline. No CSF. Positive CSF with pencan needle. Spinal dose of 1ml 0.2% ropivacaine & 2mcg fentanyl placed without complication @ 0736, pt felt relief from contractions. Catheter advanced into epidural space without complication and test dose given with negative response, catheter secured. [id number] us Diana Guillen CRNA OR ANESTHESIA Edited Res ult - Final documented in this encounter Visit Diagnoses Not on filedocumented in this encounter Administered Medications Inactive Administered Medications - up to 3 most recent administrations Medication Order MAR Action Action Date Dose Rate Site fentaNYL 2 mcg/mL-ROpivacaine 0.2 % epidural 10 mL/hr, Epidural, Continuous, Starting on Laura 01/17/23 at 0830, Until Sat01/18/23 at 1321, Bolus dose of 5 mL Lockout interval 15 minutes 4 hour limit 80mL *High Alert*, Pre-Delivery New Bag 01/17/2023 7:43 AM CDT 10 mL/hr 10 m L/hr lidocaine (XYLOCAINE) 1 % injection SOLN Infiltration, PRN, Starting on Laura 01/17/23 at 0729, Until 01/20/23 at 0952, Anesthesia Intra-Op Given 01/17/2023 7:29 AM CDT 3 mg lidocaine-EPINEPHrine 2 %-[id number] injection Epidural, PRN, Starting on Laura 01/17/23 at 0739, Until 4/2/23 at 0952, Anesthesia Intra-Op Given 01/17/2023 7:39 AM CDT 3 mLs documented in this encounter Care Teams Administrative Operations Coordinator Relationship Specialty Start Date End Date Sid Solis MD [address] [phone] PCP - General FAMILY PRACTICE 08/11/20 Sid Solis MD [address] [phone] [facility] 08/27/18 documented as of this encounter
--- OUTSIDE RECORDS SUMMARY | 2024-10-06 20:55 | XMS_ITS | Encounter Summary ---
Author Organization [facility] Address [address] [place] [address]. [place], [place] [address] [place], [place] [id number] Care Team Providers Care Metal Cabinet Finisher Name Role Phone Sid Solis MD Unavailable [phone] Sid Solis MD Primary Care Provider [phone] Encounter Details Date Type Department Care Team (Latest Contact Info) Description 02/10/2021 Travel Social History Tobacco Use Types Packs/Day Years Used Date Smoking Tobacco: Every Day Cigarettes Smokeless Tobacco: Never Humiliation, Afraid, Rape, and Kick questionnair e [...] needed for daily living? No 02/10/2021 Comments No Sex and Gender Information Value Date Recorded Sex Assigned at Not on file Legal Sex Female 10:32 AM CCNA Gender Identity Not on file Sexual Orientation Not on file COVID-19 Exposure Response Date Recorded In the last month, have you been in contact with someone who was confirmed or suspected to have Coronavirus / COVID-19? No / Unsure 02/10/2021 6:23 AM CDT documented as of this encounter Functional Status * Question Answer Date of Assessment Author Status Do you have serious difficulty walking or climbing stairs? No 02/10/2021 6:38 AM CDT Courtney Munguia RN A ctive * Question Answer Date of Assessment Author Status Do you have difficulty dressing or bathing? No 02/10/2021 6:38 AM CDT Courtney Munguia RN Active Because of a physical, mental, or emotional condition, do you have difficulty doing errands alone such as visiting a doctor's office or shopping? No 02/10/2021 6:38 AM ALDAIRT Courtney Munguia RN Ac tive * RETIRED Are you deaf or do [...] AM ALDAIRT Courtney Munguia RN Active * Do you have difficulty dressing or bathing? Answer Date of Assessment Author Status No 02/10/2021 6:38 AM ALDAIRT Courtney Munguia RN Active * Because of a physical, mental, or emotional condition, do you have difficulty doing errands alone such as visiting a doctor's office or shopping? Answer Date of Assessment Author Status No 02/10/2021 6:38 AM Courtney Grant RN Active documented as of this encounter Mental Status * Question Answer Entry Date Author Status Because of a physical, mental, or emotional condition, do you have serious difficulty concentrating, remembering, or making decisions? No 02/10/2021 6:38 AM Courtney Grant RN Active * Because of a physical, mental, or emotional condition, do you have serious difficulty concentrating, remembering, or making decisions? Answer Entry Date Author Status No 02/10/2021 6:38 AM Courtney Grant RN Active documented in this encounter Plan of Treatment Not on file documented as of this encounter Visit Diagnoses Not on filedocumented in this encounter Care Teams Metal Cabinet Finisher Relationship Specialty Start Date End Date Sid Solis MD [address] [place] [phone] PCP - General FAMILY PRACTICE 08/11/20 Sid Solis MD [address] [phone] FAMILY PRACTICE 08/27/18 documented as of this encounter
--- OUTSIDE RECORDS SUMMARY | 2024-10-06 20:55 | XMS_ITS | Encounter Summary ---
Author Organization [facility] Address [address] [place] [address]. 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 No / Unsure 02/03/2021 9:21 AM CDT documented as of this encounter Functional Status * Question Answer Date of Assessment Author Status Do you have serious difficulty walking or climbing stairs? No 02/03/2021 6:56 AM CDT Alexa Kumar RN Acti ve * Question Answer Date of Assessment Author Status Do you have difficulty dressing or bathing? No 02/03/2021 6:56 AM CDT Alexa Kumar RN Active Because of a physical, mental, or emotional condition, do you have difficulty doing errands alone such as visiting a doctor's office or shopping? No 02/03/2021 6:56 AM ALDAIRT Chucho Kumar RN Active * RETIRED Are you deaf or do you have serious difficulty hearing Answer Date of Assessment Author Status No 02/03/2021 6:56 AM CDT Activ e * RETIRED Are you blind or do you have serious difficulty seeing, even when wearing glasses? Answer Date of Assessment Author Status No 02/03/2021 6:56 AM CDT Activ e * Do you have serious difficulty walking or climbing stairs? Answer Date of Assessment Author Status No 02/03/2021 6:56 AM CDT Alexa Kumar R N Active * Do you have difficulty dressing or bathing? Answer Date of Assessment Author Status No 02/03/2021 6:56 AM CDT Alexa Kumar R N Active * Because of a physical, mental, or emotional condition, do you have difficulty doing errands alone such as visiting a doctor's office or shopping? Answer Date of Assessment Author Status No 02/03/2021 6:56 AM CDT Alexa Kumar R N Active documented as of this encounter Mental Status * Question Answer Entry Date Author Status Because of a physical, mental, or emotional condition, do you have serious difficulty concentrating, remembering, or making decisions? No 02/03/2021 6:56 AM Alexa Linder RN Active * Because of a physical, mental, or emotional condition, do you have serious difficulty concentrating, remembering, or making decisions? Answer Entry Date Author Status No 02/03/2021 6:56 AM CDAlexa Nova R N Active documented in this encounter Plan of Treatment Not on file documented as of this encounter Visit Diagnoses Not on filedocumented in this encounter Care Teams Bulk Filler Relationship Specialty Start Date End Date Sid Solis MD [address] [place] [phone] PCP - General FAMILY PRACTICE 08/11/20 Sid Solis MD [address] [phone] FAMILY PRACTICE 08/27/18 documented as of this encounter
--- OUTSIDE RECORDS SUMMARY | 2024-10-06 20:55 | XMS_ITS | Encounter Summary ---
Author Organization [facility] Address [address] [place] [address]. [place], [place] [id number] [place] [address] Care Team Providers Care Senior Data Mining Analyst Name Role Phone Sid Ghosh MD Unavailable [phone] Sid Ghosh MD Primary Care Provider [phone] Reason for Referral * Imaging (Routine) - Closed Specialty Diagnoses / Procedures Referred By Contac t Referred To Contact RADIOLOGY Diagnoses Positive test (HHS/HCC) Procedures US OB <14WKS Sid Roca MD [address] [place] [address] Phone: tel: fax: Referral ID Status Reason Start Date Expiration Date V isits Requested Visits Authorized [id number] Closed Ultrasound 07/04/2023 07/04/2024 1 1 Reason for Visit * Imaging (Routine) - Closed Specialty Diagnoses / Procedures Referred By Contac t Referred To Contact RADIOLOGY Diagnoses Positive test (HHS/HCC) Procedures US OB <14WKS Sid Roca MD [address] [place] [address] Phone: tel: fax: Referral ID Status Reason Start Date Expiration Date V isits Requested Visits Authorized [id number] Closed Ultrasound 07/04/2023 07/04/2024 1 1 Encounter Details Date Type Department Care Team (Late st Contact Info) Description 07/05/2023 1:20 PM CDT - 07/05/2023 11:59 PM CDT Hospital Encounter [facility] [address] [place] [address] Sid Ghosh MD [address] [place] [id number] Discharge Disposition: Home or Self Care (Routine [...] week 01/17/2023 How often do you attend chur or baptism services? Never 01/17/2023 Do you belong to any clubs o r organizations such as gnosticist groups, unions, fraternal or athletic groups, or [...] and heating? Not hard at all 01/17/2023 [facility] - Occupational Stress Questionnaire Answer [...] place to sleep or slept in a prison (including now)? No 01/17/2023 Comments Yes Sex and Gender Information Value Date Recorded Sex Assigned at Not on file Legal Sex Female 10:32 AM REMOTE SENSING ANALYST Gender Identity Not on file Sexual Orientation [...] Author Status No 01/17/2023 10:36 AM Miesha Barentt RN Active * Because of a physical, [...] Date Author Status No 01/17/2023 10:36 AM Miesha Barnett RN Active documented in this encounter Medications at Time of Discharge vitamin, low iron, 27-0.8 MG tablet Take 1 tablet by mouth daily. documented as of this encounter Plan of Treatment Not on file documented as of this encounter Procedures Procedure Name Priority Date/Time Associated Diagnosis Comments US OB <14WKS TA Routine 07/05/2023 1:56 PM CDT Positive test (HHS/HCC) documented in this encounter Results * US OB <14WKS TA (07/05/2023 1:56 PM CDT) Anatomical Region Laterality Modality Abdomen Ultrasound 07/05/2023 4:33 PM CDT Impressions 07/05/2023 4:41 PM CDT IMPRESSION: 1. ??Single live intrauterine gestation, size equals dates as detailed above. 2. ??Embryonic heart rate at the upper limits of normal. 3. ??Nonspecific focal heterogeneity uterine body myometrium. Consider short interval follow-up ultrasound in 7-10 days with transvaginal ultrasound as well to better characterize. 4. ??Cervix not demonstrated. Ordered By: SID GHOSH Interpreted By: Nathalie Cintron MD, 07/05/2023 4:33 PM Narrative 07/05/2023 4:41 PM CDT EXAM: OBSTETRIC ULTRASOUND FIRST TRIMESTER Exam Date: 07/05/2023 1:20 PM INDICATION: Gravid female presents for dating ADDITIONAL PERTINENT HISTORY: G 7 ??P 5 Beta-hCG: Not documented Reported LMP: 04/24/2023 TECHNIQUE: Static grayscale transabdominal images obtained and supplemented with Doppler. COMPARISON: None during this UTERUS-PRODUCTS OF CONCEPTION FINDINGS: Enlarged uterus consistent with gravid status. Within the endometrial cavity a gestational sac identified at the level of the fundus. Yolk sac and single live embryo confirmed. Embryonic heart beat is present. Embryonic heart rate measures 169 bpm. This is at the upper limits of normal. Mean crown-rump length measures 32.7 mm. Estimated ultrasound gestational age of 10 weeks weeks and 2 days, range not provided. Gestational age by LMP 10 weeks 2 days. GHADA by ultrasound and LMP both January 29, 2024 There is nonspecific focal heterogeneous mixed echogenicity anterior uterine body myometrium. Maternal cervical canal is not demonstrated ADNEXAE/CUL-DE-SAC FINDINGS: Maternal ovaries are within normal limits for size and morphology. Both ovaries demonstrate vascular spectral waveforms. No suspicious adnexal mass demonstrated. No significant amounts of cul-de-sac free fluid. Procedure Note Nathalie Cintron MD - 07/05/2023 EXAM: OBSTETRIC ULTRASOUND FIRST TRIMESTER Exam Date: 07/05/2023 1:20 PM INDICATION: Gravid female presents for dating ADDITIONAL PERTINENT HISTORY: G 7 P 5 Beta-hCG: Not documented Reported LMP: 04/24/2023 TECHNIQUE: Static grayscale transabdominal images obtained andsupplemented with Doppler. COMPARISON: None during this UTERUS-PRODUCTS OF CONCEPTION FINDINGS: Enlarged uterus consistent with gravid status. Within the endometrial cavity a gestational sac identified at the level ofthe fundus. Yolk sac and single live embryo confirmed. Embryonic heart beat is present. Embryonic heart rate measures 169 bpm. This is at the upper limits ofnormal. Mean crown-rump length measures 32.7 mm. Estimated ultrasound gestational age of 10 weeks weeks and 2 days, rangenot provided. Gestational age by LMP 10 weeks 2 days. GHADA by ultrasound and LMP both January 29, 2024 There is nonspecific focal heterogeneous mixed echogenicity anterioruterine body myometrium. Maternal cervical canal is not demonstrated ADNEXAE/CUL-DE-SAC FINDINGS: Maternal ovaries are within normal limits for size and morphology. Both ovaries demonstrate vascular spectral waveforms. No suspicious adnexal mass demonstrated. No significant amounts of cul-de-sac free fluid. IMPRESSION: 1. Single live intrauterine gestation, size equals dates as detailedabove. 2. Embryonic heart rate at the upper limits of normal. 3. Nonspecific focal heterogeneity uterine body myometrium. Considershort interval follow-up ultrasound in 7-10 days with transvaginalultrasound as well to better characterize. 4. Cervix not demonstrated. Ordered By: SID GHOSH Interpreted By: Nathalie Cintron MD, 07/05/2023 4:33 PM us Sid Ghosh MD ULTRASOUND Final Resul t documented in this encounter Visit Diagnoses Diagnosis Positive test ([facility]/HCC) examination or test, positive result documented in this encounter Care Teams Senior Data Mining Analyst Relationship Specialty Start Date End Date Sid Ghosh MD [address] [phone] PCP - General FAMILY PRACTICE 08/11/20 Sid Ghosh MD [address] [phone] FAMILY PRACTICE 08/27/18 documented as of this encounter
--- OUTSIDE RECORDS SUMMARY | 2024-10-06 20:55 | XMS_ITS | Encounter Summary ---
Author Organization [facility] Address [address] [place] [address]. [place] [address] [place] [address] Care Team Providers Care Chief Radiation Therapist Name Role Phone Sid Solis MD Unavailable [phone] Sid Solis MD Primary Care Provider [phone] Reason for Visit * Reason Comments Vaginal Bleeding Encounter Details Date Type Department Care Team (Late st Contact Info) Description 07/04/2023 7:14 PM CDT - 07/04/2023 8:[address] [facility] [facility] [place] [address] Jacey Guillen MD [address] [place] [address] Vaginal Bleeding Discharge Disposition: Left Against Medical Advice Social History Tobacco Use Types Packs/Day Years [...] How often do you attend chur or faith services? Never 01/17/2023 Do you belong to any clubs o r organizations such as confucianist groups, unions, fraternal or athletic groups, or [...] and heating? Not hard at all 01/17/2023 [facility] - Occupational Stress [...] place to sleep or slept in a chcf (including now)? 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 documented as of this encounter ED Notes * Jacey Guillen MD - 07/04/2023 8:30 PM CDT Chief Complaint Chief Complaint Patient presents with Vaginal Bleeding History of Present Illness Patient is a 32-year-old female presenting with vaginal bleeding. Labs ordered and patient eloped from the ER prior to being seen. Medical History ALLERGIES: Allergies Allergen Reactions Codeine Unknown MEDICATIONS: Prior to Admission medications Medication Sig Start Date End Date Taking? Authorizing Provider vitamin, low iron, 27-0.8 MG tablet Take 1 tablet by mouth daily. Doc [facility] Abstract PAST MEDICAL HISTORY: Past Medical History: Diagnosis Date Anemia PAST SURGICAL HISTORY: Past Surgical History: Procedure Laterality Date ANKLE ARTHROSCOPY Right OPEN RX PROX/MID FING SHFT FX 1998 ORIF FAMILY HISTORY: No family history on file. SOCIAL HISTORY: Social History Tobacco Use Smoking status: Every Day Packs/day: 1.00 Years: 15.00 Pack years: 15.00 Types: Cigarettes Smokeless tobacco: Never Vaping Use Vaping Use: Never used Substance Use Topics Alcohol use: Not Currently Drug use: Yes Types: Marijuana Comment: occasional Review of Systems Review of Systems Physical Exam There were no vitals filed for this visit. Physical Exam Diagnostic Studies / Procedures ELECTROCARDIOGRAMS: No results found for this visit on 07/04/23. LABORATORY STUDIES: No results found for this visit on 07/04/23. IMAGING STUDIES No orders to display ED Course / Medical Decision Making MDM Clinical Impression None Disposition: Data Unavailable Jacey Guillen MD 07/05/23 0717 * Flower Yanes RN - 07/04/2023 7:30 PM CDT Patient presents to the ER with complaints of vaginal bleeding and cramping. The patient is approximately 10 weeks and went to her OBGYN and they were not able to obtain heart tones. The patient has an ultrasound scheduled for tomorrow to verify . The patient states that it is light bleeding, documented in this encounter Plan of Treatment Not on file documented as of this encounter Visit Diagnoses Not on filedocumented in this encounter Care Teams Chief Radiation Therapist Relationship Specialty Start Date End Date Sid Solis MD [address] [place] [phone] PCP - General FAMILY PRACTICE 08/11/20 Sid Solis MD [address] [phone] FAMILY PRACTICE 08/27/18 documented as of this encounter
--- OUTSIDE RECORDS SUMMARY | 2024-10-06 20:55 | XMS_ITS | Encounter Summary ---
Author Organization [facility] Address [address] [place] [address]. [place], [place] [id number] [place], [place] [id number] Care Team Providers Care Bird Cage Assembler Name Role Phone Sid Solis MD Unavailable [phone] Sid Solis MD Primary Care Provider [phone] Encounter Details Date Type Department Care Team (Latest Contact Info) Description 01/17/2023 Travel Social History Tobacco Use Types Packs/Day [...] 01/17/2023 How often do you attend chur ch or confucianism services? Never 01/17/2023 Do you belong to any clubs o r organizations such as religious groups, unions, fraternal or athletic groups, or [...] and heating? Not hard at all 01/17/2023 [facility] - Occupational [...] place to sleep or slept in a long term (including now)? No 01/17/2023 Comments No Sex and Gender Information Value Date Recorded Sex Assigned at Not on file Legal Sex Female 10:32 AM SURGICAL ENDOSCOPIST Gender Identity Not on file Sexual Orientation [...] or climbing stairs? No 01/17/2023 10:36 AM CDT Erick Zamarripa i, RN Active * Question Answer Date of Assessment Author Status Do you have difficulty dressing or bathing? No 01/17/2023 10:36 AM ALDAIRT Eder Zamarripa RN Active Because of a [...] Barnett RN Active documented in this encounter Plan of Treatment Not on file documented as of this encounter Visit Diagnoses Not on filedocumented in this encounter Care Teams Bird Cage Assembler Relationship Specialty Start Date End Date Sid Solis MD [address] [place] [address] PCP - General FAMILY PRACTICE 08/11/20 Sid Solis MD [address] [phone] FAMILY PRACTICE 08/27/18 documented as of this encounter
--- OUTSIDE RECORDS SUMMARY | 2024-10-06 20:55 | XMS_ITS | Encounter Summary ---
Author Organization [facility] Address [address] [place] [address]. [place], [place] [address] [place] [address] Care Team Providers Care Chain Mortiser Operator Name Role Phone Sid Solis MD Unavailable [phone] Sid Solis MD Primary Care Provider Encounter Details Date Type Department Care Team (Late st Contact Info) Description 10/31/2021 Orders Only [facility] [address] [place] [address] Sid Solis MD [address] [place] [address] Social History Tobacco Use Types Packs/Day Years [...] on file Legal Sex Female 10:32 AM SEISMOGRAPH OBSERVER Gender Identity Not on file Sexual Orientation Not on file COVID-19 Exposure Response Date Recorded In the last month, have you been in contact with someone who was confirmed or suspected to have Coronavirus / COVID-19? No / Unsure 11/02/2021 1:22 PM SEISMOGRAPH OBSERVER documented as of this encounter Functional Status * RETIRED Are [...] Date Author Status No 02/10/2021 6:38 AM ALDAIRT Courtney Munguia RN Active documented in this encounter Plan of Treatment Not on file documented as of this encounter Results * (ABNORMAL) HCG QUANT (SERUM)-CHORIONIC GONADOTROPIN (10/31/2021 12:40 PM SEISMOGRAPH OBSERVER) HCG QUANTITATIVE 73,479(H) 0.0 - 6.0 MIU/ML 10/31/2021 2:[address] [facility] Comment: WEEKS OF ? REFERENCE RANGES NON- FEMALE ?0-6 ? 0.2 - 1 ? 5 - 50 ? 1 - 2 ? 50 - 500 ? 2 - 3 ? 100 - 5000 ? 3 - 4 ? 500 - 10,000 ? 4 - 5 ? 1000 - 50,000 ? 5 - 6 ? 10,000 - 100,000 ? 6 - 8 ? 15,000 - 200,000 ? 2 - 3 MONTHS ?10,000 - 100,000 LOW LEVEL HCG VALUES >25 MIU/ML MAY BE INDICATIVE OF EARLY . WHEN BORDERLINE RESULTS ARE ENCOUNTERED, REPEAT TESTING AT 48 HOURS MAY BE INDICATED. 10/31/2021 12:4 0 PM SEISMOGRAPH OBSERVER us Sid Solis MD LABORATORY Final Resul t [facility] [address] [place] [address], documented in this encounter Visit Diagnoses Diagnosis Threatened , antepartum ([facility] Primary Threatened , antepartum documented in this encounter Care Teams Chain Mortiser Operator Relationship Specialty Start Date End Date Sid Solis MD [address] [phone] PCP - General FAMILY PRACTICE 08/11/20 Sid Solis MD [address] [phone] FAMILY PRACTICE 08/27/18 documented as of this encounter
--- OUTSIDE RECORDS SUMMARY | 2024-10-06 20:55 | XMS_ITS | Encounter Summary ---
Author Organization [facility] Address [address] [place] [address]. 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 No / Unsure 02/07/2021 1:45 PM CDT documented as of this encounter Functional [...] Date Author Status No 02/03/2021 6:56 AM CDT Alexa Kumar R N Active documented in this encounter Plan of Treatment Not on file documented as of this encounter Visit Diagnoses Not on filedocumented in this encounter Additional Health Concerns Infection Onset Date Last Indicated Resolved Time COVID-19 Rule Out 02/07/2021 02/07/2021 02/08/2021 12:46 PM CDT documented as of this encounter Care Teams Planer Setter Relationship Specialty Start Date End Date Sid Solis MD [address] [place] [phone] PCP - General FAMILY PRACTICE 08/11/20 Sid Solis MD [address] [phone] FAMILY PRACTICE 08/27/18 documented as of this encounter
--- OUTSIDE RECORDS SUMMARY | 2024-10-06 20:55 | XMS_ITS | Encounter Summary ---
Author Organization [facility] Address [address] [place] [address]. 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 Answer Date of Assessment Author Status No 02/10/2021 6:38 AM ALDAIRT Nilda, Courtney B , RN Active documented as of this encounter Mental Status * Because of a physical, mental, or emotional condition, do you have serious difficulty concentrating, remembering, or making decisions? Answer Entry Date Author Status No 02/10/2021 6:38 AM CDT Courtney Munguia RN Active documented in this encounter Progress Notes * Jaylyn Askew RN - 02/12/2021 6:45 PM CDTSummary: POST DISCHARGE CALL FOLLOW UP CALL TO PT...DENA STATES HER PAIN IS WELL CONTROLLED WITH MOTRIN, MINIMAL BLEEDING NOTED AND SHE IS UP AD [facility] WITHOUT ANY CONCERNS. STATES HER MILK HAS NOT COME IN YET BUT BABY IS NURSING EVERY 2 HOURS. STATES IS DOING WELL...PINK IN COLOR, TRANSITIONAL STOOLS WITH EACH FEEDING AND FREQUENT WETDIAPERS. DENIES ANY CONCERNS. WILL CALL TOMORROW FOR FOLLOW UP APPT WITH DR CASTELLON STAFF. documented in this encounter Plan of Treatment Not on file documented as of this encounter Visit Diagnoses Not on filedocumented in this encounter Care Teams Electrical Tryout Person Relationship Specialty Start Date End Date Sid Solis MD [address] [place] [phone] PCP - General FAMILY PRACTICE 08/11/20 Sid Solis MD [address] [phone] FAMILY PRACTICE 08/27/18 documented as of this encounter
--- OUTSIDE RECORDS SUMMARY | 2024-10-06 20:55 | XMS_ITS | Encounter Summary ---
Author Organization [facility] Address [address] [place] [address]. [place] [address] [place] [address] Care Team Providers Care Junk Dealer Name Role Phone Sid Solis MD Unavailable [phone] Sid Solis MD Primary Care Provider Reason for Visit * Auth/Cert (Routine) Specialty Diagnoses / Procedures Referred By Contac t Referred To Contact Diagnoses Encounter for elective induction of labor (HHS/HCC) Procedures GENERAL Sid Solis MD [address] [facility] [place] [address] Phone: tel: fax: Referral ID Status Reason Start Date Expiration Date Visits Re quested Visits Authorized [id number] 1 1 Encounter Details Date Type Department Care Team (Late st Contact Info) Description 02/01/2024 12:29 PM CDT Anesthesia Event [facility] [address] [facility] [place] [address] Mitch Lopez CRNA [address] [place] [address] Anesthesia Record Procedure Summary Procedure Name Responsible Anesthesiologist Anesthesia Start Time Anesthesia Stop Time LABOR EPIDURAL Events Date Time Event Comment 02/01/2024 1232 1232 Floor Procedure 1232 AN SHAFT TENDER Prepped 1235 Epidural Start 1251 An Epidural Placement Comple te 1730 Epidural Stop Meds Name Total fentaNYL 2 mcg/mL-ropivacaine 0.2 % epid ural 59,599.16 mL BUpivacaine 0.25% (PF) injection 1 mL * Agents No agents on file. * Blood No blood administrations on file. Lines, Drains, and Airways Type Details Placement Removal Epidural Placement Date: 01/19 01/11; Placement Time: 1310 (created via procedure documentation); Placement Location: Lumbar; MRI Compatible: MRI SAFE; Removal Date: 02/01/24; Removal Time: 181202/01/24 1311 by Mitch Lopez CRNA 02/01/241812 by Chance Cobb RN documented in this encounter Social History [...] from your doctor or pharmacy? Sometimes 02/01/2024 [facility] Utilities Answer Date Recorded In the past 12 months has [facility] [employer], oil, or water [employer] threatened to shut off services in your [...] week 02/01/2024 How often do you attend [facility] or mosque services? Never 02/01/2024 Do you belong to any clubs o r organizations such as jewish groups, unions, fraternal or athletic groups, or [...] and heating? Not hard at all 02/01/2024 [facility] [place] [facility] Occupat ional [facility] - Occupational Stress [...] in a prison (including now)? No 01/17/2023 Housing Stability Vital Sign Answer Titus e Recorded In the last 12 months, was t here a time when you were not able to pay the mortgage or rent on time? No 02/01/2024 In the past 12 months, how m any times have you moved where you were living? 1 02/01/2024 At any time in the past 12 m [facility], were you homeless or living in a prison (including now)? No 02/01/2024 Depression Answer Date Recor ded Last EPDS Total Score 1 02/02/2024 Last EPDS Self Harm Result Hardly ever 02/01 Comments No Sex and Gender Information Value Date Recorded Sex Assigned at Not on file Legal Sex Female 10:32 AM [employer] Gender Identity Not on file Sexual Orientation Not on file documented as of this encounter Functional Status * Question Answer Date of Assessment Author Status Do you have serious difficulty walking or climbing stairs? No 02/01/2024 7:15 AM Maritza Moyer RN Activ e * Question Answer Date of Assessment Author Status Do you have difficulty dressing or bathing? No 02/01/2024 7:15 AM Maritza Moyer RN A ctive Because of a physical, mental, or emotional condition, do you have difficulty doing errands alone such as visiting a doctor's office or shopping? No 02/01/2024 7:15 AM Maritza Moyer RN Active * Are you deaf or [...] difficulty concentrating, remembering, or making decisions? No 02/01/2024 7:15 AM Maritza Moyer RN A ctive * Because of a physical, mental, or emotional condition, do you have serious difficulty concentrating, remembering, or making decisions? Answer Entry Date Author Status No 02/01/2024 7:15 AM Maritza Moyer RN Active documented in this encounter OR Notes * Anesthesia Postprocedure Evaluation - Mitch Lopez CRNA - 02/01/2024 1:21 PM CDT Anesthesia Post-op Note Michelle Daniels Procedure(s): LABOR EPIDURAL Anesthesia type: epidural Vitals: 02/01/24 1201 BP: 106/64 Vitals: 02/01/24 1201 Pulse: 77 Vitals: 02/01/24 0630 Resp: 18 Vitals: 02/01/24 0624 Temp: 36.7 ??C There were no vitals filed for this visit. Patient Location: Labor & Delivery Level of Consciousness: awake, alert and oriented Pain Management: adequate analgesia Airway Patency: patent Respiratory Status: spontaneous ventilation and acceptable Cardiovascular Status: acceptable, stable and hemodynamically stable Post-Op Nausea: none Postoperative Hydration: euvolemic No notable events documented. * Anesthesia Preprocedure Evaluation - Mitch Lopez CRNA - 02/01/2024 1:14 PM CDT Anesthesia ROS/MED History Reviewed: Patient summary , Anesthesia history , Medications , Labs Pre-Anesthetic State: alert, awake and responds appropriately Pulmonary Cardiovascular neg cardio ROS Exercise tolerance:good Neuro/Psych neg neuro/psych ROS Substance Use (+) smoker, 1/2 a pack GI/Hepatic/Renal neg GI/hepatic/renal ROS Endo/Other neg endo/other ROS GENERAL COMMENTS Denies CP or SOB Pt reports no concerning health issues being followed at this time NPO Status: Physical Evaluation Airway Mallampati: II TM Distance: >3 FB Neck ROM: normal Dental No notable dental history Pulmonary Pulmonary exam normal Cardiovascular Cardiovascular exam normal STOP-Bang Assessment: Do you snore loudly?: 0 Do you often feel tired or fatigued after your sleep?: 0 Has anyone ever observed you stop breathing in your sleep?: 0 Do you have or are you being treated for high blood pressure?: 0 Recent BMI (Calculated): 27.8 Is BMI greater than 35 kg/m2?: 0=No Age older than 50 years old?: 0=No Is your neck circumference greater than 17 inches (Male) or 16 inches (Female)?: 0 Gender - Male: 0=No STOP-Bang Total Score: 0 Anesthesia Plan ASA 2 Intravenous Induction Anesthesia type: epidural CSE Informed Consent Anesthetic plan and risks discussed with patient and spouse of whom consent was obtained. . * Anesthesia Procedure Notes - Mitch Lopez CRNA - 02/01/2024 1:09 PM CDT Associated Order(s): Labor Epidural Epidural: Procedure Start: 02/01/2024 12:36 PM Procedure Stop: 02/01/2024 12:51 PM Patient location during procedure: OB Reason for block: labor epidural Preanesthetic Checklist Completed: patient identified, site marked, consent, pre-op evaluation, timeout performed, IV checked, risks and benefits discussed and monitors and equipment checked Procedure Information: Patient position: sitting Prep: Betadine Patient monitoring: continuous pulse oximetry, heart rate and non-invasive blood pressure Location: L3-L4 Injection technique: CHRIS saline Placement Location: lumbar Ultrasound-guided Placement: No Needle and Catheter: MRI Compatible: MRI SAFE Needle type: Tuohy Needle gauge: 17 G Needle length: 3.5 in Needle insertion depth: 6.5 cm Catheter type: side hole Catheter size: 20 G Catheter at skin depth: 15 cm Test dose: negative Needle attempts: 1 Assessment Sensory level: T10 Additional Notes Pt to seated. Time out, prep, draped. 3 mls lidocaine local to L3-L4. Positive loss of resistance negative CSF. Itrathecal dose given with #26 GM needle (1 ml of 0.25 Marcaine) Epidural cath threadedeasily 5cm. Epidural cath secured at skin 15cm. Clear sterile tagaderm applied to site. 2 in tape used to secure. Pt tolerated procedure well documented in this encounter Plan of Treatment Not on file documented as of this encounter Procedures Procedure Name Priority Date/Time Associated Diagnosis Comments LABOR EPIDURAL Routine 02/01/2024 1:09 PM CDT documented in this encounter Results * LABOR EPIDURAL (02/01/2024 1:09 PM CDT) Narrative Mitch Lopez CRNA - 02/01/2024 1:09 PM CDT Mitch Lopez CRNA ? 02/01/2024 ??1:11 PM Epidural: Procedure Start: ??02/01/2024 12:36 PM Procedure Stop: 02/01/2024 12:51 PM Patient location during procedure: OB Reason for block: labor epidural Preanesthetic Checklist Completed: patient identified, site marked, consent, pre-op evaluation, timeout performed, IV checked, risks and benefits discussed and monitors and equipment checked Procedure Information: Patient position: sitting Prep: Betadine Patient monitoring: continuous pulse oximetry, heart rate and non-invasive blood pressure Location: L3-L4 Injection technique: CHRIS saline Placement Location: ??lumbar Ultrasound-guided Placement: ??No Needle and Catheter: MRI Compatible: MRI SAFE Needle type: Tuohy Needle gauge: 17 G Needle length: 3.5 in Needle insertion depth: 6.5 cm Catheter type: side hole Catheter size: 20 G Catheter at skin depth: 15 cm Test dose: negative Needle attempts: ??1 Assessment Sensory level: T10 Additional Notes Pt to seated. ??Time out, prep, draped. ??3 mls lidocaine local to L3-L4. ?? Positive loss of resistance negative CSF. ??Itrathecal dose given with #26 GM needle ??(1 ml of 0.25 Marcaine) Epidural cath threaded easily 5cm. ?? Epidural cath secured at skin 15cm. ??Clear sterile tagaderm applied to site. 2 in tape used to secure. Pt tolerated procedure well Mitch Lopez SHAFT TENDER [place] ANESTHESIA Final Res ult documented in this encounter Visit Diagnoses Not on filedocumented in this encounter Administered Medications Inactive Administered Medications - up to 3 most recent administrations Medication Order MAR Action Action Date Dose Rate Site BUpivacaine (PF) (MARCAINE) 0.25 % injection Intrathecal, PRN, Starting on 02/01/24 at 1247, Until Sat02/05/24 at 0901, Anesthesia Intra-Op Given 02/01/2024 12:47 PM CDT 1 mL fentaNYL 2 mcg/mL-ROpivacaine 0.2 % epidural Epidural, Continuous PRN, Starting on 02/01/24 at 1300, Until Sat02/05/24 at 0901, Anesthesia Intra-Op New Bag 02/01/2024 1:00 PM CDT 10 mL/hr 10 mL /hr documented in this encounter Care Teams Junk Dealer Relationship Specialty Start Date End Date Sid Solis MD [address] [place] [id number] PCP - General FAMILY PRACTICE 08/11/20 Sid Solis MD [address] [place] [id number] FAMILY PRACTICE 08/27/18 documented as of this encounter
--- OUTSIDE RECORDS SUMMARY | 2024-10-06 20:55 | XMS_ITS | Encounter Summary ---
Author Organization [facility] Address [address] [place] [address]. [place] [address] [place] [address] Care Team Providers Care Valuation Consultant Name Role Phone Cally Ghosh MD Unavailable [phone] Cally Ghosh MD Primary Care Provider Reason for Visit * Auth/Cert Specialty Diagnoses / Procedures Referred By Contac t Referred To Contact Diagnoses Normal labor and delivery ([facility]/HCC) Normal labor and delivery Referral ID Status Reason Start Date Expiration Date Visits Re quested Visits Authorized [id number] 1 1 Encounter Details Date Type Department Care Team (Late st Contact Info) Description 02/10/2021 6:28 PM CDT - 02/11/2021 10:34 PM CDT Hospital Encounter 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 No / Unsure 02/10/2021 6:23 AM CDT documented as of this encounter Last Filed Vital Signs Vital Sign Reading Time Taken Comments Blood Pressure 123/74 02/11/2021 8:30 PM CDT Pulse 50 02/11/2021 8:30 PM CDT Temperature 36.6 ??C (97.9 ??F) 02/11/2021 8:30 PM CD T Respiratory Rate 18 02/11/2021 8:30 PM CDT Oxygen Saturation 98% 02/11/2021 8:30 PM CDT Inhaled Oxygen Concentration - - Weight 69.4 kg (153 lb) 02/10/2021 6:38 PM CDT Height 160 cm (5' 3 ) 02/10/2021 6:38 PM CDT Body Mass Index 27.1 02/10/2021 6:38 PM CDT documented in this encounter Functional Status * Question Answer [...] or making decisions? No 02/10/2021 6:38 AM ALDAIRT Courtney Munguia RN Active * Because of a physical, mental, or emotional condition, do you have serious difficulty concentrating, remembering, or making decisions? Answer Entry Date Author Status No 02/10/2021 6:38 AM ALDAIRT Courtney Munguia RN Active documented in this encounter Discharge Summaries * Cally Ghosh MD - 02/11/2021 5:58 PM CDTSummary: Full term sponataneous Vaginal Delivery Patient Name Patient CULLEN Briones [id number] Admit date: 02/10/2021 Discharge Date: 02/11/2021 Admission Diagnoses: 40 weeks gestation in active labor. SROM Multiporous Discharge Diagnoses: 40 week delivered. Discharge Disposition: Home with baby and her community resource officer. Hospital Course: Michelle Briones came into labor and delivery in labor with SROM at home.. She had been discharged earlier in the day at her request after receiving a single dose cytotec for a labor induction attempt. She had an epidural and a spontaneous vaginal delivery. Normal APGARS and blood loss. Post course was normal. She is breast feeding. She requested discharge tonight and declined staying until tomorrow. Routing counseling on maternal and care issues were done. . Discharge Exam: No distress. Vital signs stable. Lochia slowed. Discharge Comments: She was again encouraged breast feed.. My routine counseling was reviewed on maternal post and care issues. Office follow up in 48 hours, or return to the hospital if there are any concerns. Patient Instructions: Medication List ASK your doctor about these medications ferrous sulfate (65 mg elemental) 325 (65 FE) MG tablet vitamin (low iron) 27-0.8 MG tablet Activity: nothing in the vagina for 2 weeks and no [address] while on narcotics or having severe pain. She is to stop smoking. She can have medication to lio Follow-up: Please follow-up within the next 2 days or sooner, when your baby is seen, for your routine visit for yourself. We would like the baby to be seen within 48 hours of discharge. Please call the office to confirm your appointment. She is advised to stop smoking and offered counseling and medication to assist with stopping. She is advised to have a COVID vaccine fco, having declined getting it earlier in her . CALLY GHOSH MD 02/11/2021 * Cally Ghosh MD - 02/10/2021 6:49 PM CDTSummary: labor induction attempt. Hospital Discharge Summary - CALLY GHOSH MD Michelle Briones female 1990 Admit Date 02/10/2021 0700 Discharge Date and Time: 02/10/2021 mid afternoon Admitting Physician: Cally Ghosh MD Primary Care Physician: CALLY GHOSH MD Discharge Physician:CALLY GHOSH MD Admission Diagnosis: Full term . Multiparous Maternal Request for Labor induction. Discharge Diagnosis: Active Problems: Full term Not delivered. Resolved Problems: * No resolved hospital problems. * HOSPITAL COURSE: Multiparous admitted on due date for labor induction. She received one dose of cytotec and began jairo. She declined additional dosing when her contractions didn't space to allow for a second dose until in the afternoon, and requested discharge. OBJECTIVE: Vitals: Filed Vitals: 02/10/21 1838 Temp: 97.5 ??F (36.4 ??C) Weight: 69.4 kg (153 lb) Height: 5' 3 (1.6 m) Discharge Physical Exam: Cervix 3 cm 70% cephalic, floating. Discharge Medications: Medication List ASK your doctor about these medications ferrous sulfate (65 mg elemental) 325 (65 FE) MG tablet vitamin (low iron) 27-0.8 MG tablet Disposition: Home. PATIENT INSTRUCTIONS: Return to OB dept with suspicion of labor, Rupture of Membranes, or decreased movement or suspicion of decline in the baby's condition. Follow up Saturday in the office with your doctor provider. Signed CALLY GHOSH MD 02/10/2021 documented in this encounter Medications at Time of Discharge vitamin, low iron, 27-0.8 MG tablet Take 1 tablet by mouth daily. ferrous sulfate, 65 mg elemental, 325 (65 FE) MG tablet Take 1 tablet (325 mg total) by mouth daily with breakfast. 07/04/2023 documented as of this encounter H&P Notes * Cally Ghosh MD - 02/10/2021 6:39 PM CDTSummary: H and P OB HISTORY AND PHYSICAL HPI: Michelle Briones is a 30-year-old at 40w0d gestational age with an Estimated Date of Delivery:02/10/21 by first trimester US who is being admitted for possible labor. She was given cytotec earlier in the day, and discharged with no cervical changes. She is more discomfort and wonders if her bow may be leaking Results No configuration template associated with this profile. Contact your sand system operator. OB History Para Term AB Living 4 3 3 3 SAB TAB Ectopic Molar Multiple Live Births 3 # Outcome Date GA Lbr Lloyd/2nd Weight Sex Delivery Anes PTL Lv 4 Current 3 Term 2 Term 1 Term Past Medical History: Diagnosis Date ??? Anemia Past Surgical History: Procedure Laterality Date ??? ANKLE ARTHROSCOPY Right ??? OPEN RX PROX/MID FING SHFT FX 1998 ORIF No family history on file. Social History Tobacco Use ??? Smoking status: Current Every Day Smoker Years: 15.00 ??? Smokeless tobacco: Never Used Substance Use Topics ??? Alcohol use: Not on file Prior to Admission medications Medication Sig Start Date End Date Taking? Authorizing Provider ferrous sulfate, 65 mg elemental, 325 (65 FE) MG tablet Take 325 mg by mouth daily with breakfast. Doc Abstract vitamin, low iron, 27-0.8 MG tablet Take 1 tablet by mouth daily. Doc Abstract Allergies Allergen Reactions ??? Codeine Unknown ROS: A full 10 point review of systems is negative unless otherwise specified. OBJECTIVE Vital signs There were no vitals filed for this visit. Physical Exam: General: no acute distress HEENT: neck supple Lungs: respirations non-labored Heart: regular rate and rhythm Abdomen: soft, gravid, non-tender to palpation Skin: normal Neuro: normal Cervical Exam: 5 80% -2 Presentations: Cephalic. Labs: Lab Results Component Value Date HGB 10.3 (L) 02/10/2021 PLT 170 02/10/2021 ASSESSMENT/PLAN 30-year-old at 40 weeks gestation, admit for for probable labor. Check for ROM with test swab. - GBS prophylaxis not indicated - FHT: Category 1 - EFW: 7 lbs. CALLY GHOSH MD 02/10/2021 documented in this encounter Procedure Notes * Cally Ghosh MD - 02/10/2021 10:45 PM CDT There was a normal spontaneous vaginal delivery. The baby's head was delivered in a controlled fashion. The airway was cleared on the perineum. The baby was then delivered. Cord blood redistribution was done for one minute, holding the baby in towels for warming at about the level of the placenta. The baby was placed on the maternal abdominal wall. Warming and drying continued. The cord was doubly clamped and cut. The cord blood segment was to be put on ice and then sent to the lab. A cord blood tube was collected and sent to lab. The placenta delivered with gentle traction, maternal expulsion effort with pitocin running. Bimanual compression was done of the uterus and bladder, and clot expressed. There was no laceration. The cervix, vagina, perineum, and rectum were intact. The measured blood loss was at 150 mL in the buttocks drape. There was a three vessel cord. Nursing input on blood from lap sponges being weighed was pending. documented in this encounter Nursing Notes * Alexa Kumar RN - 02/11/2021 10:34 PM CDT D/C to home ambulatory with sig other and infant. * Alexa Kumar RN - 02/11/2021 10:22 PM CDT D/c instructions reviewed with patient at this time. Understanding verbalized. * Amanda Gonzalez RN - 02/11/2021 1:20 PM CDTSummary: education Reviewed mom/baby d/c book with pt. Viewed Safe Sleep DVD. Completed educational paperwork in folder. Pt verb understanding of HCI and f/u care. No c/o. documented in this encounter Plan of Treatment Not on file documented as of this encounter Procedures Procedure Name Priority Date/Time Associated Diagnosis Comments CBC W/DIFF AUTOMATED Routine 02/11/2021 6:55 AM CDT BLOOD GAS, VENOUS, CORD Routine 02/10/2021 10:05 PM CDT BLOOD GAS, ARTERIAL, CORD Routine 02/10/2021 10:05 PM CDT TYPE & SCREEN STAT 02/10/2021 6:55 PM CDT Normal labor and delivery (HHS/HCC) PLACENTAL PROTEIN 12 ROM Routine 02/10/2021 6:40 PM CDT Normal labor and delivery (HHS/HCC) documented in this encounter Results * (ABNORMAL) CBC W/DIFF AUTOMATED (02/11/2021 6:55 AM CDT) WBC 12.0(H) 4.5 - 10.8 x10'3/uL 02/11/2021 7:03 AM CDT [facility] RBC 3.05(L) 4.10 - 5.40 x10'6/uL 02/11/2021 7:03 AM CDT [facility] HGB 9.2(L) 12.0 - 16.0 G/DL 02/11/2021 7:03 AM CDT [facility] HCT 27.4(L) 36.0 - 47.0 % 02/11/2021 7:03 AM CDT [facility] MCV 89.8 78.0 - 100.0 FL 02/11/2021 7:03 AM CDT [facility] MCH 30.2 27.0 - 31.0 PG 02/11/2021 7:03 AM CDT [facility] MCHC 33.6 33.0 - 36.0 G/DL 02/11/2021 7:03 AM CDT [facility] RDW 13.3 11.5 - 14.5 % 02/11/2021 7:03 AM CDT [facility] PLT 145(L) 150 - 350 x10'3/uL 02/11/2021 7:03 AM CDT [facility] MPV 10.8(H) 7.4 - 10.4 FL 02/11/2021 7:03 AM CDT [facility] DIFFERENTIAL COMMENT NORMAL REFERENCE RANGE NOT ESTABLISHED FOR THE PROPORTIONAL LEUKOCYTE DIFFERENTIAL. 02/11/2021 7:03 AM CDT [facility] SEG NEUTROPHILS 73.4 % 7:03 AM CDT [facility] LYMPHOCYTES 19.9 % 02/11/2021 7:03 AM CDT [facility] MONOCYTES 5.3 % 02/11/2021 7:03 AM CDT [facility] EOSINOPHILS 0.8 % 02/11/2021 7:03 AM CDT [facility] BASOPHILS 0.2 % 02/11/2021 7:03 AM CDT [facility] IMMATURE GRANS % 0.4 % 02/12/20 7:03 AM CDT [facility] NRBC 0.0 % 02/11/2021 7:03 AM CDT [facility] ABS. NEUTROPHILS 8.82(H) 1.60 - 8.30 x10'3/uL 02/11/2021 7:03 AM CDT [facility] ABS. LYMPHOCYTES 2.39 0.80 - 4.70 x10'3/uL 02/11/2021 7:03 AM CDT [facility] ABS. MONOCYTES 0.63 0.00 - 1.50 x10'3/uL 02/11/2021 7:03 AM CDT [facility] ABS. EOSINOPHILS 0.09 0.00 - 0.40 x10'3/uL 02/11/2021 7:03 AM CDT [facility] ABS. BASOPHILS 0.02 0.00 - 0.20 x10'3/uL 02/11/2021 7:03 AM CDT [facility] ABS. IMMATURE GRANULOCYTES 0.05(H) 0.00 - 0.03 x10'3/uL 02/11/2021 7:03 AM CDT [facility] ABS. NUCLEATED RBC'S 0.00 0.00 x10'3/uL 02/11/2021 7:03 AM CDT [facility] 02/11/2021 6:55 AM CDT us Cally Ghosh MD LABORATORY Final Resul t Performing Organization Address [facility] Co de Phone Number [facility] [address] [place] [address], * Blood gas, venous, cord (02/10/2021 10:05 PM CDT) PH SENTHIL CORD BLD 7.37 02/10/2021 10:37 PM CDT [facility] PCO2 VENOUS CORD BLD 36.0 MMHG 02/10/2021 10:37 PM CDT [facility] PO2 VENOUS CORD BLD 42.0 MMHG 02/10/2021 10:37 PM CDT [facility] BICARB VENOUS CORD BLD 20.5 MMOL/L 02/10/2021 10:37 PM CDT [facility] BASE DEFICIT VENOUS CORD BLD 3.5 MMOL/L 02/10/2021 10:37 PM CDT [facility] COMMENT REFERENCE RANGES NOT ESTABLISHED FOR CORD BLOOD SPECIMENS 02/10/2021 10:37 PM CDT [facility] 02/10/2021 10:0 5 PM CDT us Cally Ghosh MD LABORATORY Final Resul t Performing Organization Address City/[facility]/ZIP Co de Phone Number [facility] [address] [place] [id number], * Cord Blood Gas, arterial (02/10/2021 10:05 PM CDT) PH ARTERIAL CORD BLD QUANTITY NOT SUFFICIENT 02/10/2021 10:37 PM CDT [facility] PCO2 ARTERIAL CORD BLD QUANTITY NOT SUFFICIENT MMHG 02/10/2021 10:37 PM CDT [facility] PO2 ART CORD BLD QUANTITY NOT SUFFICIENT MMHG 02/10/2021 10:37 PM CDT [facility] BICARB ARTERIAL CORD BLD QUANTITY NOT SUFFICIENT MMOL/L 02/10/2021 10:37 PM CDT [facility] COMMENT REFERENCE RANGES NOT ESTABLISHED FOR CORD BLOOD SPECIMENS 02/10/2021 10:37 PM CDT [facility] 02/10/2021 10:0 5 PM CDT us Cally Ghosh MD LABORATORY Final Resul t Performing Organization Address City/[facility]/ZIP Co de Phone Number [facility] [place] [address], * TYPE & SCREEN (02/10/2021 6:55 PM CDT) ABO/RH B POSITIVE 02/10/2021 7:50 PM CDT [facility] ANTIBODY SCREEN NEGATIVE 02/10/2021 7:50 PM CDT [facility] SAMPLE EXPIRATION 02/13/2021,2 359 02/10/2021 7:50 PM CDT [facility] 02/10/2021 6:55 PM CDT us Cally Ghosh MD BLOOD BANK TEST ORDERABLES Final Result [facility] [address] [place] [address], * PLACENTAL PROTEIN 12 ROM (02/10/2021 6:40 PM CDT) RUPTURE OF MEMBRANES POSITIVE 02/10/2021 6:56 PM CDT [facility] VAGINAL STRUCTURE / Unknown 02/10/2021 6:40 PM CDT us Cally Ghosh MD BODY FLUIDS AND STOOLS CAITLIN GODDARD Final Result [facility] [address] [place] [address], documented in this encounter Visit Diagnoses Diagnosis Normal labor and delivery (HHS/HCC)- Primary Normal delivery Normal labor and delivery (HHS/HCC) Normal delivery Term (HHS/HCC) Smoker Tobacco use disorder documented in this encounter Admitting Diagnoses Diagnosis Normal labor and delivery (HHS/HCC) Normal delivery documented in this encounter Administered Medications Inactive Administered Medications - up to 3 most recent administrations Medication Order MAR Action Action Date Dose Rate Site acetaminophen (TYLENOL) tablet 1,000 mg 1,000 mg, Oral, Every 6 hours PRN, Mild pain (Scale 1 - 3), Starting on 02/11/21 at 0624, Until 02/11/21 at 1817, Maximum dose of acetaminophen is 4000 mg from all sources in 24 hours. Given 02/11/2021 3:10 PM CDT 1,000 mg acetaminophen (TYLENOL) tablet 650 mg 650 mg, Oral, Every 4 hours PRN, Mild pain (Scale 1 - 3), Starting on 02/11/21 at 1813, Until 02/12/21 at 0044, Maximum dose of acetaminophen is 4000 mg from all sources in 24 hours., benzocaine-menthol (DERMOPLAST) 20-0.5 % topical spray 1 spray 1 spray, Topical, 4 times daily PRN, Pain, Perineal discomfort, Starting on 02/10/21 at 2244, Until 02/12/21 at 0044, Do NOT recommend use for pain in infants & children under 2 years. butorphanol (STADOL) injection 1 mg 1 mg, Intravenous, Every 4 hours PRN, Moderate pain (Scale 4 - 7), Starting on Sat02/10/21 at 1842, Until 02/12/21 at 0044 Given 02/10/2021 7:32 PM CDT 1 mg diphenhydrAMINE (BENADRYL) 12.5 MG/5ML elixir 25 mg 25 mg, Oral, Every 6 hours PRN, Itching, Starting on 02/10/21 at 2244, Until 02/12/21 at 0044, Give if unable to swallow tablets/capsules or if patient prefers liquid. diphenhydrAMINE (BENADRYL) capsule 25 mg 25 mg, Oral, Every 6 hours PRN, Itching, Starting on Sat02/10/21 at 2244, Until 02/12/21 at 0044 diphenhydrAMINE (BENADRYL) injection 25 mg 25 mg, Intravenous, Every 6 hours PRN, Itching, Starting on Sat02/10/21 at 2244, Until 02/12/21 at 0044, Give if unable to take PO. For IV administration, give no faster than 25 mg/min. famotidine (PEPCID) tablet 20 mg 20 mg, Oral, Every 12 hours PRN, Other, dyspepsia, Starting on Sat02/10/21 at 1840, Until Sat02/12/21 at 0044 fentaNYL 2 mcg/mL-ROpivacaine 0.2 % epidural 10 mL/hr, Epidural, Continuous, Starting on Sat02/10/21 at 2015, Until Sat02/12/21 at 0044, Bolus dose of 5 mL Lockout interval 15 minutes 4 max bolus doses per hour *High Alert* New Bag 02/10/2021 8:30 PM CDT 10 mL/hr 10 mL/hr ibuprofen (MOTRIN) tablet 600 mg 600 mg, Oral, Every 6 hours PRN, Discomfort, Cramping, Starting on 02/11/21 at 1813, Until 02/12/21 at 0044, Do not order ibuprofen and Vicoprofen (hydrocodone/ibuprofen) together., ibuprofen (MOTRIN) tablet 800 mg 800 mg, Oral, Every 6 hours PRN, Mild pain (Scale 1 - 3), Starting on 02/11/21 at 0621, Until 02/11/21 at 1817 Given 02/11/2021 3:10 PM CDT 800 mg Given 02/11/2021 6:31 AM CDT 800 mg lactated ringers bolus infusion 1,000 mL 1,000 mL, Intravenous, Administer over 30 Minutes, Once, 1 dose, On Sat02/10/21 at 1900, Bolus prior to epidural placement., Pre-Delivery New Bag 02/10/2021 7:22 PM CDT 1,000 mLs lactated ringers bolus infusion 1,000 mL 1,000 mL, Intravenous, Administer over 30 Minutes, Once, 1 dose, On Sat02/10/21 at 2015, If not previously administered, Pre-Delivery New Bag 02/10/2021 9:06 PM CDT 1,000 mLs lactated ringers infusion at 125 mL/hr, Intravenous, Continuous, Starting on Sat02/10/21 at 1900, Until 02/12/21 at 0044, For all patients in active labor with non-vertex presentation, multiple gestation, previous , persistent non-reassuring FHR, Hx post- hemorrhage, active phase longer than 8 hrs and/or patient desires an epidural. lanolin cream Topical, PRN, Irritation, Starting on Sat02/11/21 at 1949, Until Sat02/12/21 at 0044 Given 02/11/2021 8:07 PM CDT iwfeplmij-srcymdwj-suxawkiprzm (MYLANTA MAXIMUM STRENGTH) 0470-0598-539 mg/30mL suspension 10 mL, Oral, Every 6 hours PRN, Indigestion, dyspepsia, Starting on Sat02/10/21 at 1840, Until 02/12/21 at 0044, Shake Well ondansetron (ZOFRAN) injection 4 mg 4 mg, Intravenous, Every 8 hours PRN, Nausea, Vomiting, Starting on Sat02/10/21 at 2244, Until Sat02/12/21 at 0044, Use IV if patient unable to take oral order for ondansetron. ondansetron (ZOFRAN-ODT) disintegrating tablet 8 mg 8 mg, Oral, Every 8 hours PRN, Nausea, Vomiting, Starting on Sat02/10/21 at 2244, Until 02/12/21 at 0044 oxytocin (PITOCIN) 30 units in NS 500 mL infusion 0-300 mL/hr, Intravenous, Continuous, Starting on Sat02/10/21 at 1900, Until Sat02/12/21 at 0044, Initiate during third stage of labor, timing to be determined by delivering provider. Initial rate at 300 ml/hr for the 1st hour, then decrease to 60 mL/hr for the 2nd hour.?? Continue this rate until the fundus is firm or the patient has completed her recovery phase. For uterine atony, increase oxytocin infusion to 600 ml/hr (36 units/hr) for one hour then decrease HAZARDOUS MEDICATION documented in this encounter Active and Recently Administered Medications Times are shown in CDT. Scheduled Medication Order 02/09/2021 02/10/2021 02/11/2021 lactated ringers bolus infusion 1,000 mL (COMPLETED)(Linked Group 1) 1,000 mL, Intravenous, Administer over 30 Minutes, Once, 1 dose, On Sat02/10/21 at 1900, Bolus prior to epidural placement., Pre-Delivery 192 (New Bag - Provider: Vangie Kumar, SARA)210 (Infusion Stop Time - Provider: Alexa Kumar, SARA) lactated ringers bolus infusion 1,000 mL 1,000 mL, Intravenous, Administer over 30 Minutes, Once, 1 dose, On Sat02/10/21 at 2000, If not previously administered 1999 (Canceled Entry - Provi christian: Automatic Discharge Provider - Comment: Automatically canceled at discontinue of medication order) lactated ringers bolus infusion 1,000 mL (COMPLETED) 1,000 mL, Intravenous, Administer over 30 Minutes, Once, 1 dose, On Sat02/10/21 at 2014, If not previously administered, Pre-Delivery 2105 (New Bag - Provider: Vangie Kumar RN)231 (Infusion Stop Time - Provider: Alexa Kumar, SARA) Continuous Medication Order 02/09/2021 02/10/2021 02/11/2021 fentaNYL 2 mcg/mL-ROpivacaine 0.2 % epidural 10 mL/hr, Epidural, Continuous, Starting on Sat02/10/21 at 2015, Until Sat02/12/21 at 0044, Bolus dose of 5 mL Lockout interval 15 minutes 4 max bolus doses per hour *High Alert* 2029 (New Bag - Provider: Lexie Norton CRNA - Comment: Gave 1.0 ml intrathecal at 2013)2205 (Infusion Stop Time - Provider: Lexie Norton CRNA) 0700 (Waste - Provider: Amanda Gonzalez, SARA - Comment: Pyxis will not allow me to enter waste, pharmacy notifiedWasted per story writer and Maggie GREENWOOD) lactated ringers infusion at 125 mL/hr, Intravenous, Continuous, Starting on Sat02/10/21 at 1900, Until 02/12/21 at 0044, For all patients in active labor with non-vertex presentation, multiple gestation, previous , persistent non-reassuring FHR, Hx post- hemorrhage, active phase longer than 8 hrs and/or patient desires an epidural. 1900 (Canceled Entry - Provider: Automatic Discharge Provider - Comment: Automatically canceled at discontinue of medication order) oxytocin (PITOCIN) 30 units in NS 500 mL infusion 0-300 mL/hr, Intravenous, Continuous, Starting on Sat02/10/21 at 1900, Until 02/12/21 at 0044, Initiate during third stage of labor, timing to be determined by delivering provider. Initial rate at 300 ml/hr for the 1st hour, then decrease to 60 mL/hr for the 2nd hour.?? Continue this rate until the fundus is firm or the patient has completed her recovery phase. For uterine atony, increase oxytocin infusion to 600 ml/hr (36 units/hr) for one hour then decrease HAZARDOUS MEDICATION 1899 (Canceled Entry - Provider: Automatic Discharge Provider - Comment: Automatically canceled at discontinue of medication order) PRN Medication Order 02/09/2021 02/10/2021 02/11/2021 acetaminophen (TYLENOL) tablet 1,000 mg (CANCELED) 1,000 mg, Oral, Every 6 hours PRN, Mild pain (Scale 1 - 3), Starting on 02/11/21 at 0624, Until 02/11/21 at 1817, Maximum dose of acetaminophen is 4000 mg from all sources in 24 hours. 1510 (Given - Provid er: Amanda Gonzalez RN) acetaminophen (TYLENOL) tablet 650 mg 650 mg, Oral, Every 4 hours PRN, Mild pain (Scale 1 - 3), Starting on 02/11/21 at 1813, Until 02/12/21 at 0044, Maximum dose of acetaminophen is 4000 mg from all sources in 24 hours., benzocaine-menthol (DERMOPLAST) 20-0.5 % topical spray 1 spray 1 spray, Topical, 4 times daily PRN, Pain, Perineal discomfort, Starting on Sat02/10/21 at 2244, Until 02/12/21 at 0044, Do NOT recommend use for pain in infants & children under 2 years. butorphanol (STADOL) injection 1 mg 1 mg, Intravenous, Every 4 hours PRN, Moderate pain (Scale 4 - 7), Starting on Sat02/10/21 at 1842, Until 02/12/21 at 0044 1932 (Given - Provider: Alexa Kumar RN) diphenhydrAMINE (BENADRYL) 12.5 MG/5ML elixir 25 mg(Linked Group 2) 25 mg, Oral, Every 6 hours PRN, Itching, Starting on Sat02/10/21 at 2244, Until 02/12/21 at 0044, Give if unable to swallow tablets/capsules or if patient prefers liquid. diphenhydrAMINE (BENADRYL) capsule 25 mg(Linked Group 2) 25 mg, Oral, Every 6 hours PRN, Itching, Starting on Sat02/10/21 at 2244, Until 02/12/21 at 0044 diphenhydrAMINE (BENADRYL) injection 25 mg(Linked Group 2) 25 mg, Intravenous, Every 6 hours PRN, Itching, Starting on Sat02/10/21 at 2244, Until 02/12/21 at 0044, Give if unable to take PO. For IV administration, give no faster than 25 mg/min. famotidine (PEPCID) tablet 20 mg 20 mg, Oral, Every 12 hours PRN, Other, dyspepsia, Starting on Sat02/10/21 at 1840, Until 02/12/21 at 0044 ibuprofen (MOTRIN) tablet 600 mg 600 mg, Oral, Every 6 hours PRN, Discomfort, Cramping, Starting on 02/11/21 at 1813, Until 02/12/21 at 0044, Do not order ibuprofen and Vicoprofen (hydrocodone/ibuprofen) together., ibuprofen (MOTRIN) tablet 800 mg (CANCELED) 800 mg, Oral, Every 6 hours PRN, Mild pain (Scale 1 - 3), Starting on 02/11/21 at 0621, Until 02/11/21 at 1817 0631 (Given - Provid er: Alexa Kumar RN)1510 (Given - Provider: Amanda Gonzalez RN) lanolin cream Topical, PRN, Irritation, Starting on 02/11/21 at 1949, Until 02/12/21 at 0044 2006 (Given - Provid er: Alexa Kumar RN) ufiipbiud-qjnkexmt-wqaqdkejv ne (MYL[place] MAXIMUM STRENGTH) 2478-8439-909 mg/30mL suspension 10 mL, Oral, Every 6 hours PRN, Indigestion, dyspepsia, Starting on Sat02/10/21 at 1840, Until 02/12/21 at 0044, Shake Well ondansetron (ZOFRAN) injection 4 mg 4 mg, Intravenous, Every 8 hours PRN, Nausea, Vomiting, Starting on Sat02/10/21 at 2244, Until 02/12/21 at 0044, Use IV if patient unable to take oral order for ondansetron. ondansetron (ZOFRAN-ODT) disintegrating tablet 8 mg 8 mg, Oral, Every 8 hours PRN, Nausea, Vomiting, Starting on Sat02/10/21 at 2244, Until 02/12/21 at 0044 Linked Groups Order Group 1: Patient may have epidural (CANCELED) Routine, Once, On Sat02/10/21 at 1842, For 1 occurrence, Nursing to inform anesthesia of patient's need for epidural, and LR bolus initiated. And lactated ringers bolus infusion 1,000 mL (COMPLETED)Jump to med 1,000 mL, Intravenous, Administer over 30 Minutes, Once, 1 dose, On Sat02/10/21 at 1900, Bolus prior to epidural placement., Pre-Delivery Group 2: diphenhydrAMINE (BENADRYL) injection 25 mgJump to med 25 mg, Intravenous, Every 6 hours PRN, Itching, Starting on Sat02/10/21 at 2244, Until 02/12/21 at 0044, Give if unable to take PO. For IV administration, give no faster than 25 mg/min. Or diphenhydrAMINE (BENADRYL) capsule 25 mgJump to med 25 mg, Oral, Every 6 hours PRN, Itching, Starting on Sat02/10/21 at 2244, Until 02/12/21 at 0044 Or diphenhydrAMINE (BENADRYL) 12.5 MG/5ML elixir 25 mgJump to med 25 mg, Oral, Every 6 hours PRN, Itching, Starting on 02/10/21 at 2244, Until 02/12/21 at 0044, Give if unable to swallow tablets/capsules or if patient prefers liquid. documented in this encounter Care Teams Valuation Consultant Relationship Specialty Start Date End Date Cally Ghosh MD [address] [phone] PCP - General [facility]ILY PRACTICE 08/11/20 Cally Ghosh MD [address] [phone] FAM[facility] PRACTICE 08/27/18 documented as of this encounter
--- OUTSIDE RECORDS SUMMARY | 2024-10-06 20:55 | XMS_ITS | Encounter Summary ---
Author Organization [facility] Address [address] [place] [address]. [place] [address] [place] [address] Care Team Providers Care Assistant Sales Manager Name Role Phone Sid Solis MD Unavailable [phone] Sid Solis MD Primary Care Provider Encounter Details Date Type Department Care Team (Late st Contact Info) Description 11/02/2021 1:22 PM DIGITAL MEDIA BUYER - 11/02/2021 11:59 PM [facility] Hospital Encounter [facility] [address] [place] [address] Sid Solis MD [address] [place] [phone] Discharge Disposition: Home or Self Care (Routine [...] on file Legal Sex Female 10:32 AM DIGITAL MEDIA BUYER Gender Identity Not on file Sexual Orientation Not on file COVID-19 Exposure Response Date Recorded In the last month, have you been in contact with someone who was confirmed or suspected to have Coronavirus / COVID-19? No / Unsure 11/02/2021 1:22 PM DIGITAL MEDIA BUYER documented as of this encounter Functional Status [...] Grant RN Active documented in this encounter Medications at Time of Discharge vitamin, low iron, 27-0.8 MG tablet Take 1 tablet by mouth daily. ferrous sulfate, 65 mg elemental, 325 (65 FE) MG tablet Take 1 tablet (325 mg total) by mouth daily with breakfast. 07/04/2023 documented as of this encounter Plan of Treatment Not on file documented as of this encounter Procedures Procedure Name Priority Date/Time Associated Diagnosis Comments HCG QUANT (SERUM)-CHORIONIC GONADOTROPIN Routine 11/02/2021 1:37 PM DIGITAL MEDIA BUYER Miscarriage, threatened, early (HHS/HCC) documented in this encounter Results * (ABNORMAL) HCG QUANT (SERUM)-CHORIONIC GONADOTROPIN (11/02/2021 1:37 PM DIGITAL MEDIA BUYER) Pathologist [facility] HCG QUANTITATIVE 56,561(H) 0.0 - 6.0 MIU/ML 11/02/2021 2:28 PM DIGITAL MEDIA BUYER [facility] Comment: WEEKS OF ? REFERENCE [...] TESTING AT 48 HOURS MAY BE INDICATED. 11/02/2021 1:37 PM DIGITAL MEDIA BUYER us Sid Solis MD LABORATORY Final Resul t [facility] [address] [place] [address], documented in this encounter Visit Diagnoses Diagnosis Miscarriage, threatened, early ([facility]) Threatened , unspecified as to episode of care documented in this encounter Care Teams Assistant Sales Manager Relationship Specialty Start Date End Date Sid Solis MD [address] [place] [phone] PCP - General FAMILY PRACTICE 08/11/20 Sid Solis MD [address] [place] [phone] FAMILY PRACTICE 08/27/18 documented as of this encounter
--- OUTSIDE RECORDS SUMMARY | 2024-10-06 20:55 | XMS_ITS | Encounter Summary ---
Author Organization [facility] Address [address] [place] [address]. [place], [place] [id number] [place] [address] Care Team Providers Care Liner Worker Name Role Phone Sid Solis MD Unavailable [phone] Sid Solis MD Primary Care Provider [phone] Encounter Details Date Type Department Care Team (Latest Contact Info) Description 02/01/2024 Travel Social History Tobacco Use Types Packs/Day [...] from your doctor or pharmacy? Sometimes 02/01/2024 [facility] Utilities Answer Date Recorded In the past 12 months has [facility] [employer], gas, oil, or water [employer] threatened to shut off services in your [...] How often do you attend chur or holiness services? Never 02/01/2024 Do you belong to any clubs o r organizations such as yazdanism groups, unions, fraternal or athletic groups, or [...] and heating? Not hard at all 02/01/2024 [facility] - Occupational [...] place to sleep or slept in a care home (including now)? No 01/17/2023 Housing Stability Vital Sign Answer Titus e Recorded In the last 12 months, was t here a time when you were not able to pay the mortgage or rent on time? No 02/01/2024 In the past 12 months, how m any times have you moved where you were living? 1 02/01/2024 At any time in the past 12 m [facility], were you homeless or living in a care home (including now)? 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
--- OUTSIDE RECORDS SUMMARY | 2024-10-06 20:55 | XMS_ITS | Encounter Summary ---
Author Organization [facility] Address [address] [place] [address]. 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 No / Unsure 11/02/2021 1:22 PM QUARRY EXTRACTION WORKER documented as of this encounter Functional Status [...] on filedocumented in this encounter Care Teams Recruiting Operations Consultant Relationship Specialty Start Date End Date Sid Solis MD [address] [phone] PCP - General FAMILY PRACTICE 08/11/20 Sid Solis MD [address] [phone] FAMILY PRACTICE 08/27/18 documented as of this encounter
--- OUTSIDE RECORDS SUMMARY | 2024-10-06 20:55 | XMS_ITS | Encounter Summary ---
Author Organization [facility] Address [address] [place] [address]. [place] [id number] [place], [place] [id number] Care Team Providers Care Delivery Representative Name Role Phone Sid Solis MD Unavailable [phone] Sid Solis MD Primary Care Provider [phone] Encounter Details Date Type Department Care Team (Latest Contact Info) Description 01/15/2023 Travel Social History Tobacco Use Types Packs/Day Years Used Date Smoking Tobacco: Every Day Cigarettes 1 15 Smokeless Tobacco: Never Alcohol Use Standard Drinks/Week Comments Not Currently 0 (1 standard drink = 0.6 oz pur e alcohol) Humiliation, Afraid, Rape, and Kick questionnair e Answer Date Recorded Within the last year, have y ou been afraid of your partner or ex-partner? No 01/15/2023 Within the last year, have y ou been humiliated or emotionally abused in other ways by your partner or ex-partner? No Within the last year, have y ou been kicked, hit, slapped, or otherwise physically hurt by your partner or ex-partner? No 01/15/2023 Within the last year, have y ou been raped or forced to have any kind of sexual activity by your partner or ex-partner? No 01/15/2023 Social Connection and Isolat ion Panel [NHANES] Answer Date Recorded In a typical week, how many times do you talk on the phone with family, friends, or neighbors? More than three times a week 01/15/2023 How often do you get togethe r with friends or relatives? Once a week 01/15/2023 How often do you attend chur ch or alevism services? Never 01/15/2023 Do you belong to any clubs o r organizations such as latter day groups, unions, fraternal or athletic groups, or school groups? No 01/15/2023 How often do you attend meet ings of the clubs or organizations you belong to? Never 01/15/2023 Are you , , di vorced, , never , or living with a partner? 01/15/2023 AUDIT-C Answer Date Recorded Q1: How often do you have a drink containing alcohol? Never 01/15/2023 Q2: How many drinks containi ng alcohol do you have on a typical day when you are drinking? Patient does not drink Q3: How often do you have si x or more drinks on one occasion? Never 01/15/2023 Overall Financial Resource Strain (CARDIA) Answe r Date Recorded How hard is it for you to pa y for the very basics like food, housing, medical care, and heating? Not hard at all 01/15/2023 [facility] - Occupational Stress Questionnaire Answer Date Recorded Do you feel stress - tense, restless, nervous, or anxious, or unable to sleep at night because your mind is troubled all the time - these days? Not at all 01/15/2023 Exercise Vital Sign Answer Date Recorde d On average, how many days pe r week do you engage in moderate to strenuous exercise (like a brisk walk)? 7 days 01/15/2023 On average, how many minutes do you engage in exercise at this level? 30 min 01/15/2023 Hunger Vital Sign Answer Date Recorded Within the past 12 months, y ou worried that your food would run out before you got the money to buy more. Never true 01/16/20 23 Within the past 12 months, t he food you bought just didn't last and you didn't have money to get more. Never true 01/15/2023 PRAPARE - Transportation Answer Date Re corded In the past 12 months, has l ack of transportation kept you from medical appointments or from getting medications? No 12/20 In the past 12 months, has l ack of transportation kept you from meetings, work, or from getting things needed for daily living? No 01/15/2023 Housing Stability Vital Sign Answer Titus e Recorded In the last 12 months, was t here a time when you were not able to pay the mortgage or rent on time? No 01/15/2023 In the last 12 months, how many places have you lived? 2 01/15/2023 In the last 12 months, was t here a time when you did not have a steady place to sleep or slept in a long-term (including now)? 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 No / Unsure 01/15/2023 8:32 PM CDT documented as of this encounter [...] AM CDT Courtney Munguia RN Active documented as of [...] on filedocumented in this encounter Care Teams Delivery Representative Relationship Specialty Start Date End Date Sid Solis MD [address] [phone] PCP - General [facility] 08/11/20 Sid Solis MD [address] [phone] [facility] 08/27/18 documented as of this encounter
--- OUTSIDE RECORDS SUMMARY | 2024-10-06 20:55 | XMS_ITS | Encounter Summary ---
Author Organization [facility] Address [address] [place] [address]. [place] [address] [place] [address] Care Team Providers Care Top Former Name Role Phone Cally Ghosh MD Unavailable [phone] Cally Ghosh MD Primary Care Provider Reason for Visit * Reason Comments Contractions * Auth/Cert (Routine) Specialty Diagnoses / Procedures Referred By Tea t Referred To Contact Diagnoses Uterine contractions (HHS/HCC) Uterine contractions Procedures NONE Referral ID Status Reason Start Date Expiration Date Visits Re quested Visits Authorized [id number] 1 1 Encounter Details Date Type Department Care Team (Late st Contact Info) Description 01/17/2023 6:10 AM CDT - 01/18/2023 10:05 AM CDT Hospital Encounter [facility] [address] [place] [address] Cally Ghosh MD [address] [place] [address] Contractions Discharge Disposition: Home or Self Care (Routine [...] How often do you attend chur or restorationist services? Never 01/17/2023 Do you belong to any clubs o r organizations such as synagogue groups, unions, fraternal or athletic groups, or [...] and heating? Not hard at all 01/17/2023 [facility] - Occupational [...] place to sleep or slept in a custodial (including now)? 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 No / Unsure 01/17/2023 6:20 AM CDT documented as of this encounter Last Filed Vital Signs Vital Sign Reading Time Taken Comments Blood Pressure 125/63 01/18/2023 8:30 AM CDT Pulse 60 01/18/2023 8:30 AM CDT Temperature 36.7 ??C (98.1 ??F) 01/18/2023 8:30 AM CD T Respiratory Rate 16 01/18/2023 8:30 AM CDT Oxygen Saturation 97% 01/18/2023 8:30 AM CDT Inhaled Oxygen Concentration - - Weight 73.9 kg (163 lb) 01/17/2023 6:17 AM CDT Height 160 cm (5' 3 ) 01/17/2023 6:17 AM CDT Body Mass Index 28.87 01/17/2023 6:17 AM CDT documented in this encounter Functional Status * Question Answer Date of Assessment Author Status Do you have serious difficulty walking or climbing stairs? No 01/17/2023 10:36 AM Erick Barnett i, RN Active * Question Answer Date of Assessment Author Status Do you have difficulty dressing or bathing? No 01/17/2023 10:36 AM Eder Barnett RN Active Because of a physical, mental, [...] Zamarripa RN Active documented in this encounter Discharge Summaries * Cally Ghosh MD - 01/18/2023 10:05 AM CDTSummary: at Term Images from the original note were not included. Patient Name Patient CULLEN Daniels [id number] Admit date: 01/17/2023 Discharge Date: 01/18/2023 Admission Diagnoses: 37 6/7 weeks admitted in labor. Chronic Anemia Discharge Diagnoses: Multiparous. Normal Spontaneous Vaginal Delivery Acute and Chronic Anemia Discharge Disposition: Home with her and baby. Hospital Course: Michelle Daniels had a vaginal delivery without complications. Her hospital course was uneventful. She had no orthostatic symptoms. She was discharged at her request post day 1.. Discharge Exam: No distress. Vital signs stable. Lochia slowed. Hemoglobin was 9.2 on admission and 8.0 on day of discharge. Discharge Comments: She was again encouraged to breast feed though she was declining, and is bottlefeeding. My routine counseling was reviewed with her on maternal post and care issues. She is to be on iron supplement and vitamin b 12 oral. Follow up hemoglobin will be done in the office. Patient Instructions: Medication List ASK your doctor about these medications Morning Afternoon Evening Bedtime As Needed ferrous sulfate (65 mg elemental) 325 (65 FE) MG tablet Take 1 tablet (325 mg total) by mouth daily with breakfast. vitamin (low iron) 27-0.8 MG tablet Take 1 tablet by mouth daily. vitamin B-12 500 MCG tablet Commonly known as: CYANOCOBALAMIN Take 0.5 tablets (250 mcg total) by mouth daily. Activity: nothing in the vagina for 2 weeks and no [address] while on narcotics or having severe pain. Follow-up: Please follow-up within the next 2 days or sooner, when your baby is seen, for your routine visit for yourself. We would like the baby to be seen within 48 hours of discharge. Please call the office to confirm an appointment for Saturday, and ongoing care, as the 48 hour visit will be on the OB unit on Saturday when the office is closed. CALLY GHOSH MD 01/19/2023 documented in this encounter Medications at Time of Discharge vitamin, low iron, 27-0.8 MG tablet Take 1 tablet by mouth daily. ferrous sulfate, 65 mg elemental, 325 (65 FE) MG tablet Take 1 tablet (325 mg total) by mouth daily with breakfast. 07/04/2023 vitamin B-12 (CYANOCOBALAMIN) 500 MCG tablet Take 0.5 tablets (250 mcg total) by mouth daily. 07/04/2023 documented as of this encounter Progress Notes * Cory Kauffman Nurse Manager [employer] - 01/18/2023 10:34 AM CDT Problem: Discharge Planning Goal: Discharge to home Outcome: Completed Goal: Knowledge of caring for self- Outcome: Completed Problem: Safety Goal: Knowledge of Safety Outcome: Completed Problem: Pain Goal: Knowledge of pain management Outcome: Completed Problem: Feeding Your [place] Goal: Knowledge of Outcome: Completed Goal: Knowledge of formula feeding Outcome: Completed Cosigned by Maritza Escamilla RN at 01/18/2023 10:41 AM CDT * Clarissa Weathers RN - 01/18/2023 12:30 AM CDT Problem: Discharge Planning Goal: Discharge to home Outcome: Progressing Goal: Knowledge of caring for self- Outcome: Progressing Problem: Safety Goal: Knowledge of Safety Outcome: Progressing Problem: Pain Goal: Knowledge of pain management Outcome: Progressing Problem: Feeding Your [place] Goal: Knowledge of Outcome: Progressing Goal: Knowledge of formula feeding Outcome: Progressing * Miesha Zamarripa RN - 01/17/2023 10:33 AM CDT Problem: Discharge Planning Goal: Discharge to home Outcome: Progressing Goal: Knowledge of caring for self- Outcome: Progressing Problem: Safety Goal: Knowledge of Safety Outcome: Progressing Problem: Pain Goal: Knowledge of pain management Outcome: Progressing Problem: Feeding Your [place] Goal: Knowledge of Outcome: Progressing Goal: Knowledge of formula feeding Outcome: Progressing documented in this encounter H&P Notes * Cally Ghosh MD - 01/17/2023 8:15 AM CDTSummary: Multip at term in labor OB HISTORY AND PHYSICAL HPI: Michelle Daniels is a 32-year-old at 37w6d gestational age with an Estimated Date of Delivery: 02/01/23 by 8 week us who is being admitted for labor with cervical change with painful contractions. BOWI issues: Kidney stone. Anemia, chronic. Results No configuration template associated with this profile. Contact your space systems operations craftsman. OB History Para Term AB Living 6 4 4 4 SAB IAB Ectopic Molar Multiple Live Births 1 0 4 # Outcome Date GA Lbr Lloyd/2nd Weight Sex Delivery Anes PTL Lv 6 Current 5 Molar 11/2021 4 Term 02/10/21 40w0d 04:24 / 00:11 3612 g (7 lb 15.4 oz) F Vag-Spont EPI, IV Narcotics TRACI 3 Term 2 Term 1 Term Past Medical History: Diagnosis Date ??? Anemia Past Surgical History: Procedure Laterality Date ??? ANKLE ARTHROSCOPY Right ??? OPEN RX PROX/MID FING SHFT FX 1998 ORIF No family history on file. Social History Tobacco Use ??? Smoking status: Every Day Packs/day: 1.00 Years: 15.00 Pack years: 15.00 Types: Cigarettes ??? Smokeless tobacco: Never Substance Use Topics ??? Alcohol use: Not Currently Prior to Admission medications Medication Sig Start Date End Date Taking? Authorizing Provider ferrous sulfate, 65 mg elemental, 325 (65 FE) MG tablet Take 1 tablet (325 mg total) by mouth dailywith breakfast. Doc [facility] vitamin, low iron, 27-0.8 MG tablet Take 1 tablet by mouth daily. Doc [facility] vitamin B-12 (CYANOCOBALAMIN) 500 MCG tablet Take 0.5 tablets (250 mcg total) by mouth daily. GENERICPROVIDER, DEFAULT HISTORY Allergies Allergen Reactions ??? Codeine Unknown ROS: A full 10 point review of systems is negative unless otherwise specified. OBJECTIVE Vital signs Filed Vitals: 01/17/23 0743 01/17/23 0744 01/17/23 0747 01/17/23 0748 BP: 112/58 105/59 Pulse: 84 91 77 78 Temp: SpO2: 100% 99% Weight: Height: Physical Exam: General: no acute distress HEENT: neck supple Lungs: respirations non-labored Heart: regular rate and rhythm Abdomen: soft, gravid, non-tender to palpation Skin: normal Neuro: normal Cervical Exam: 5 cm bow bulging Presentations: Cephalic by us. Labs: Lab Results Component Value Date HGB 9.2 (L) 01/17/2023 PLT 162 01/17/2023 ALT 13 (L) 11/12/2022 AST 18 11/12/2022 ASSESSMENT/PLAN 32-year-old at 37 6/7 weeks gestation, admit for labor. - GBS prophylaxis not indicated with negative screen - FHT: Category one - EFW: 6 3/4 lbs CALLY GHOSH MD 01/17/2023 documented in this encounter Procedure Notes * Cally Ghosh MD - 01/17/2023 9:36 AM CDTSummary: Delivery Information for Amanda Daniels Gestational Age: 37w6d Labor Event Times Labor onset date/time: 01/17/23 0300 Dilation complete date/time: decision date/time: Labor Events labor?: No Rupture of Membranes Rupture date/time: Rupture type: Bulging Labor Details First cervical ripening date/time: Induction date/time: Augmentation date/time: QBL at Delivery Mother: Michelle Daniels #[id number] Start of Mother's Information QBL at Delivery QBL at Delivery -- End of Mother's Information Mother: Michelle Daniels #[id number] Vaginal Sponge Counts Initial count personnel: SARA FAITH 01/17/23 0650 Initial count verified by: SARA STRONGberry picker machine operator Method: Epidural Delivery Providers Delivering clinician: Cally Ghosh MD Delivery () date/time: 01/17/23921 Now Details: The perineum was warmed prior to delivery with a lap soaked with warm water. There was a normal spontaneous vaginal delivery. The baby's head was delivered in a controlled fashion. The airway was cleared on the perineum. The baby was then delivered. Cord blood redistribution was done for one minute, holding the baby in towels for warming at about the level of the placenta. The baby was placed onthe maternal abdominal wall. Warming and drying continued. The cord was doubly clamped and cut. Thecord blood segment was to be put on ice and then sent to the lab. A cord blood tube was collected and sent to lab. The placenta delivered with gentle traction, maternal expulsion effort with pitocin running. TXA was given.Bimanual compression was done of the uterus and bladder, and clot expressed. There was no Laceration. The cervix, vagina, perineum, and rectum were intact. The measured blood loss was at 50 mL in the buttocks drape. There was a three vessel cord. Nursing input on blood from lap sponges being weighed was pending. documented in this encounter Nursing Notes * Miesha Zamarripa RN - 01/17/2023 12:00 PM CDT UP TO BR WITH ASSIST, VOID AND PERICARE DONE, TO 436 AMBULATORY IN STABLE CONDITION, ORIENTED TO ROOM AND CALL LIGHT, INSTRUCTED TO CALL WHEN NEXT GETTING UP, VOICES UNDERSTANDING documented in this encounter Plan of Treatment Pending Results Name Type Priority Associated Diagnoses Date /Time RBC UNITS, 2 Units Blood Bank STAT 2022 7:00 AM CDT documented as of this encounter Procedures Procedure Name Priority Date/Time Associated Diagnosis Comments CBC W/DIFF AUTOMATED Routine 01/18/2023 5:15 AM CDT TYPE & SCREEN STAT 01/17/2023 7:00 AM CDT Normal labor and delivery (HHS/HCC) CBC W/DIFF AUTOMATED STAT 01/17/2023 7:00 AM CDT Normal labor and delivery (HHS/HCC) DRUG SCREEN RAPID Routine 01/17/2023 6:1 5 AM CDT Uterine contractions (HHS/HCC) HC URINALYSIS AUTO W/MICRO STAT 01/17/2023 6:15 AM CDT Uterine contractions (HHS/HCC) NONSTRESS TEST Routine 01/17/2023 6:13 AM CDT Uterine contractions (HHS/HCC) documented in this encounter Results * (ABNORMAL) CBC W/DIFF AUTOMATED (01/18/2023 5:15 AM CDT) Pathologist [facility] WBC 10.25 4.00 - 10.80 x10'3/uL 01/18/2023 6:[address] [facility] RBC 2.87(L) 4.10 - 5.40 x10'6/uL 01/18/2023 6:[address] [facility] HGB 8.0(L) 12.0 - 16.0 G/DL 01/18/2023 6:[address] [facility] HCT 25.2(L) 36.0 - 47.0 % 01/18/2023 6:[address] [facility] MCV 87.8 78.0 - 100.0 FL 01/18/2023 6:[address] [facility] MCH 27.9 27.0 - 31.0 PG 01/18/2023 6:[address] [facility] MCHC 31.7(L) 33.0 - 36.0 G/DL 01/18/2023 6:[address] [facility] RDW 14.4 11.5 - 14.5 % 01/18/2023 6:[address] [facility] PLT 147(L) 150 - 350 x10'3/uL 01/18/2023 6:[address] [facility] MPV 11.5(H) 7.4 - 10.4 FL 01/18/2023 6:[address] [facility] CBC COMMENT NORMAL REFERENCE RANGE NOT ESTABLISHED FOR THE PROPORTIONAL LEUKOCYTE DIFFERENTIAL. 01/18/2023 6:[address] [facility] NEUTROPHILS % 62.6 % 01/18/2023 6:[address] [facility] LYMPHOCYTES % 27.3 % 01/18/2023 6:[address] [facility] MONOCYTES % 7.2 % 01/18/2023 6:[address] [facility] EOSINOPHILS % 2.0 % 01/18/2023 6:[address] [facility] BASOPHILS % 0.2 % 01/18/2023 6:[address] [facility] IMMATURE GRANS % 0.7 % 01/19/20 6:[address] [facility] NRBC 0.0 % 01/18/2023 6:[address] [facility] ABS. NEUTROPHILS 6.41 1.60 - 8.30 x10'3/uL 01/18/2023 6:[address] [facility] ABS. LYMPHOCYTES 2.80 0.80 - 4.70 x10'3/uL 01/18/2023 6:[address] [facility] ABS. MONOCYTES 0.74 0.00 - 1.50 x10'3/uL 01/18/2023 6:[address] [facility] ABS. EOSINOPHILS 0.21 0.00 - 0.40 x10'3/uL 01/18/2023 6:[address] [facility] ABS. BASOPHILS 0.02 0.00 - 0.20 x10'3/uL 01/18/2023 6:[address] [facility] ABS. IMMATURE GRANULOCYTES 0.07(H) 0.00 - 0.03 x10'3/uL 01/18/2023 6:[address] [facility] ABS. NUCLEATED RBC'S 0.00 0.00 x10'3/uL 01/18/2023 6:[address] [facility] 01/18/2023 5:15 AM CDT us Cally Ghosh MD LABORATORY Final Resul t [facility] [address] [place] [address], * TYPE & SCREEN (01/17/2023 7:00 AM CDT) UNITS ORDERED 2 01/17/2023 8:[address] [facility] ABO/RH B POSITIVE 01/17/2023 7:[address] [facility] ANTIBODY SCREEN NEGATIVE 7:[address] [facility] SAMPLE EXPIRATION 01/20/2023,235 9 01/17/2023 7:[address] [facility] BLOOD UNIT NUMBER [id number] 01/17/2023 8:[address] [facility] PRODUCT: PC LEUKO PHERE BAG1 01/17/2023 8:[address] [facility] UNIT DIVISION 00 01/17/2023 8:[address] [facility] BLOOD UNIT STATUS UNIT RELEASED 01/22/2023 12:[address] [facility] TRANSFUSION STATUS OK TO TRANSFUSE 01/17/2023 8:[address] [facility] CROSSMATCH COMPATIBLE 01/17/2023 8:[address] [facility] BLOOD UNIT NUMBER [id number] 01/17/2023 8:[address] [facility] PRODUCT: PC LEUKOPOOR 01/17/2023 8:[address] [facility] UNIT DIVISION 00 01/17/2023 8:[address] [facility] BLOOD UNIT STATUS UNIT RELEASED 01/22/2023 12:[address] [facility] TRANSFUSION STATUS OK TO TRANSFUSE 01/17/2023 8:[address] [facility] CROSSMATCH COMPATIBLE 01/17/2023 8:[address] [facility] 01/17/2023 7:00 AM CDT Cally Ghosh MD BLOOD BANK TEST ORDERABLES Final Result [facility] [address] [place] [address], * (ABNORMAL) CBC W/DIFF AUTOMATED (01/17/2023 7:00 AM CDT) WBC 9.77 4.00 - 10.80 x10'3/uL 01/17/2023 7:[address] [facility] RBC 3.25(L) 4.10 - 5.40 x10'6/uL 01/17/2023 7:[address] [facility] HGB 9.2(L) 12.0 - 16.0 G/DL 01/17/2023 7:[address] [facility] HCT 28.6(L) 36.0 - 47.0 % 01/17/2023 7:[address] [facility] MCV 88.0 78.0 - 100.0 FL 01/17/2023 7:[address] [facility] MCH 28.3 27.0 - 31.0 PG 01/17/2023 7:[address] [facility] MCHC 32.2(L) 33.0 - 36.0 G/DL 01/17/2023 7:[address] [facility] RDW 14.6(H) 11.5 - 14.5 % 01/17/2023 7:[address] [facility] PLT 162 150 - 350 x10'3/uL 01/17/2023 7:[address] [facility] MPV 11.1(H) 7.4 - 10.4 FL 01/17/2023 7:[address] [facility] CBC COMMENT NORMAL REFERENCE RANGE NOT ESTABLISHED FOR THE PROPORTIONAL LEUKOCYTE DIFFERENTIAL. 01/17/2023 7:[address] [facility] NEUTROPHILS % 69.8 % 01/17/2023 7:[address] [facility] LYMPHOCYTES % 21.5 % 01/17/2023 7:[address] [facility] MONOCYTES % 7.0 % 01/17/2023 7:[address] [facility] EOSINOPHILS % 1.0 % 01/17/2023 7:[address] [facility] BASOPHILS % 0.1 % 01/17/2023 7:[address] [facility] IMMATURE GRANS % 0.6 % 01/18/20 7:[address] [facility] NRBC 0.0 % 01/17/2023 7:[address] [facility] ABS. NEUTROPHILS 6.82 1.60 - 8.30 x10'3/uL 01/17/2023 7:[address] [facility] ABS. LYMPHOCYTES 2.10 0.80 - 4.70 x10'3/uL 01/17/2023 7:[address] [facility] ABS. MONOCYTES 0.68 0.00 - 1.50 x10'3/uL 01/17/2023 7:[address] [facility] ABS. EOSINOPHILS 0.10 0.00 - 0.40 x10'3/uL 01/17/2023 7:[address] [facility] ABS. BASOPHILS 0.01 0.00 - 0.20 x10'3/uL 01/17/2023 7:[address] [facility] ABS. IMMATURE GRANULOCYTES 0.06(H) 0.00 - 0.03 x10'3/uL 01/17/2023 7:[address] [facility] ABS. NUCLEATED RBC'S 0.00 0.00 x10'3/uL 01/17/2023 7:[address] [facility] 01/17/2023 7:00 AM CDT Cally Ghosh MD LABORATORY Final Resul t [facility] [address] [place] [address], * DRUG SCREEN RAPID (01/17/2023 6:15 AM CDT) Pathologist [facility] CANNABINOIDS SCREEN (U) NEGATIVE NEGATIVE 01/17/2023 7:[address] [facility] PHENCYCLIDINE PCP (U) NEGATIVE NEGATIVE 01/17/2023 7:[address] [facility] COCAINE METABOLITES (U) NEGATIVE NEGATIVE 01/17/2023 7:[address] [facility] METHAMPHETAMINE SCREEN (U) NEGATIVE NEGATIVE 01/17/2023 7:[address] [facility] OPIATE SCREEN (U) NEGATIVE NEGATIVE 023 7:[address] [facility] AMPHETAMINE SCREEN (U) NEGATIVE NEGATIVE 01/17/2023 7:[address] [facility] BENZODIAZEPINES SCREEN (U) NEGATIVE NEGATIVE 01/17/2023 7:[address] [facility] TRICYCLIC ANTIDEPRESSANT SCREEN (U) NEGATIVE NEGATIVE 01/17/2023 7:[address] [facility] METHADONE (U) NEGATIVE NEGATIVE 01/17/2023 7:[address] [facility] BARBITURATES SCREEN (U) NEGATIVE NEGATIVE 01/17/2023 7:[address] [facility] OXYCODONE SCREEN (U) NEGATIVE NEGATIVE 01/17/2023 7:[address] [facility] PROPOXYPHENE SCREEN (U) NEGATIVE NEGATIVE 01/17/2023 7:[address] [facility] URINE TOX COMMENT THIS TEST METHODOLOGY IS DESIGNED AND OFFERED A RAPID TURNAROUND, QUALITATIVE SCREENING PROCEDURE TO AID IN THE IMMEDIATE MEDICAL ASSESSMENT OF PATIENTS SUSPECTED OF SUBSTANCE ABUSE. 01/17/2023 7:[address] [facility] Comment: CLINICAL CONSIDERATION AND PROFESSIONAL JUDGMENT MUST BE APPLIED TO ANY DRUG OF ABUSE TEST RESULT, BOTH POSITIVE AND NEGATIVE. CONFIRMATORY QUANTITATIVE RESULTS ARE AVAILABLE THROUGH OUR REFERENCE LAB[facility]. URINE SPECIMEN / Unknown 01/17/2023 6:15 AM CDT us Cally Ghosh MD URINE ORDERABLES Final Resu lt [facility] [address] [place] [address], * (ABNORMAL) URINALYSIS (01/17/2023 6:15 AM CDT) COLOR (U) YELLOW 01/17/2023 7:[address] [facility] TRANSPARENCY CLEAR 01/17/2023 7:[address] [facility] SPECIFIC GRAVITY (U) 1.020 1.000 - 1.025 01/17/2023 7:[address] [facility] U PH 7.0 5.0 - 8.0 01/17/2023 7:[address] [facility] LEUKOCYTES (U) NEGATIVE NEGATIVE 01/17/2023 7:[address] [facility] NITRITES NEGATIVE NEGATIVE 01/17/2023 7:[address] [facility] PROTEIN (U) TRACE(A) NEGATIVE 01/17/2023 7:[address] [facility] URINE GLUCOSE NEGATIVE NEGATIVE 01/17/2023 7:[address] [facility] KETONES MG/DL (U) TRACE(A) NEGATIVE 01/17/2023 7:[address] [facility] UROBILINOGEN 0.2 <1.0 EU/DL 01/17/2023 7:[address] [facility] BILIRUBIN (U) NEGATIVE NEGATIVE 01/17/2023 7:[address] [facility] BLOOD (U) 2+(A) NEGATIVE 01/17/2023 7:[address] [facility] WBC/HPF 0-5 0 - 5 /HPF 01/17/2023 7:[address] [facility] RBC/HPF 10-20(A) 0 - 5 /HPF 01/17/2023 7:[address] [facility] EPI/LPF MANY /LPF 01/17/2023 7:[address] [facility] BACTERIA (U) 2+ /HPF 01/17/2023 7:[address] [facility] MUCUS PRESENT 01/17/2023 7:[address] [facility] URINE SPECIMEN OBTAINED BY CLEAN CATCH PROCEDURE / Unknown 01/17/2023 6:15 AM CDT us Cally Ghosh MD URINE ORDERABLES Final Resu lt [facility] [address] [place] [address], documented in this encounter Visit Diagnoses Diagnosis Uterine contractions (HHS/HCC)- Primary Cramping affecting , antepartum (HHS/HCC) Uterine contractions (HHS/HCC) Normal labor and delivery (HHS/HCC) Normal delivery documented in this encounter Admitting Diagnoses Diagnosis Uterine contractions (HHS/HCC) documented in this encounter Administered Medications Inactive Administered Medications - up to 3 most recent administrations Medication Order MAR Action Action Date Dose Rate Site acetaminophen (TYLENOL) tablet 1,000 mg 1,000 mg, Oral, Every 6 hours PRN, Mild pain (Scale 1 - 3), Starting on Laura 01/17/23 at 1018, Until Sat01/18/23 at 1321, Maximum dose of acetaminophen is 4000 mg from all sources in 24 hours., Given 01/18/2023 8:26 AM CDT 1,000 mg Given 01/18/2023 2:48 AM CDT 1,000 mg Given 01/17/2023 8:13 PM CDT 1,000 mg benzocaine-menthol (DERMOPLAST) 20-0.5 % topical spray 1 spray 1 spray, Topical, 4 times daily PRN, Pain, Perineal discomfort, Starting on Laura 01/17/23 at 1016, Until Sat01/18/23 at 1321, Do NOT recommend use for pain in infants & children under 2 years., butorphanol (STADOL) injection 1 mg 1 mg, Intravenous, Every 4 hours PRN, Moderate pain (Scale 4 - 7), Starting on Laura 01/17/23 at 0632, Until Sat01/18/23 at 1321, Pre-Delivery diphenhydrAMINE (BENADRYL) 12.5 MG/5ML elixir 25 mg 25 mg, Oral, Every 6 hours PRN, Itching, Starting on Laura 01/17/23 at 1016, Until Sat01/18/23 at 1321, Give if unable to swallow tablets/capsules or if patient prefers liquid., diphenhydrAMINE (BENADRYL) capsule 25 mg 25 mg, Oral, Every 6 hours PRN, Itching, Starting on Laura 01/17/23 at 1016, Until Sat01/18/23 at 1321, diphenhydrAMINE (BENADRYL) injection 25 mg 25 mg, Intravenous, Every 6 hours PRN, Itching, Starting on Laura 01/17/23 at 1016, Until Sat01/18/23 at 1321, Give if unable to take PO. For IV administration, give no faster than 25 mg/min., famotidine (PEPCID) tablet 20 mg 20 mg, Oral, Every 12 hours PRN, Other, dyspepsia, Starting on Laura 01/17/23 at 0630, Until Sat01/18/23 at 1321, First choice for dyspepsia, Pre-Delivery fentaNYL 2 mcg/mL-ROpivacaine 0.2 % epidural 10 mL/hr, Epidural, Continuous, Starting on Laura 01/17/23 at 0830, Until Sat01/18/23 at 1321, Bolus dose of 5 mL Lockout interval 15 minutes 4 hour limit 80mL *High Alert*, Pre-Delivery New Bag 01/17/2023 7:43 AM CDT 10 mL/hr 10 mL/hr ibuprofen (MOTRIN) tablet 600 mg 600 mg, Oral, Every 6 hours PRN, Mild pain (Scale 1 - 3), Starting on Laura 01/17/23 at 1018, Until Sat01/18/23 at 1321, Given 01/18/2023 8:26 AM CDT 600 mg Given 01/18/2023 2:48 AM CDT 600 mg Given 01/17/2023 8:13 PM CDT 600 mg lactated ringers infusion at 125 mL/hr, Intravenous, Continuous, Starting on Laura 01/17/23 at 0700, Until Sat01/18/23 at 1321, For all patients in active labor with non-vertex presentation, multiple gestation, previous , persistent non-reassuring FHR, Hx post- hemorrhage, active phase longer than 8 hrs and/or patient desires an epidural., Pre-Delivery New Bag 01/17/2023 8:54 AM CDT 125 mL/hr New Bag 01/17/2023 7:40 AM CDT 999 mL/hr New Bag 01/17/2023 6:39 AM CDT 1,000 mLs 999 mL/hr cvfpnbxnu-aawgzxsc-zztisnilyyj ([place] [employer]UM [employer]ENGTH) 3452-2843-391 mg/30mL suspension 10 mL, Oral, Every 6 hours PRN, Indigestion, dyspepsia, Starting on Laura 01/17/23 at 0630, Until Sat01/18/23 at 1321, May give in between doses of famotidine for dyspepsia, Pre-Delivery ondansetron (ZOFRAN) injection 4 mg 4 mg, Intravenous, Every 8 hours PRN, Nausea, Vomiting, Starting on Laura 01/17/23 at 0630, Until Sat01/18/23 at 1321, If unable to take PO., Pre-Delivery ondansetron (ZOFRAN) injection 4 mg 4 mg, Intravenous, Every 8 hours PRN, Nausea, Vomiting, Starting on Laura 01/17/23 at 1016, Until Sat01/18/23 at 1321, Use IV if patient unable to take oral order for ondansetron., ondansetron (ZOFRAN-ODT) disintegrating tablet 8 mg 8 mg, Oral, Every 8 hours PRN, Nausea, Vomiting, Starting on Laura 01/17/23 at 0630, Until Sat01/18/23 at 1321, Pre-Delivery ondansetron (ZOFRAN-ODT) disintegrating tablet 8 mg 8 mg, Oral, Every 8 hours PRN, Nausea, Vomiting, Starting on Laura 01/17/23 at 1016, Until Sat01/18/23 at 1321, oxytocin (PITOCIN) 30 units in NS 500 mL infusion 0-300 mL/hr, Intravenous, Continuous, Starting on Laura 01/17/23 at 0700, Until Sat01/18/23 at 1321, Initiate during third stage of labor, timing to be determined by delivering provider. Initial rate at 300 ml/hr for the 1st hour, then decrease to 60 mL/hr for the 2nd hour.?? Continue this rate until the fundus is firm or the patient has completed her recovery phase. For uterine atony, increase oxytocin infusion to 600 ml/hr (36 units/hr) for one hour then decrease. HAZARDOUS MEDICATION: wear single chemotherapy approved gloves., Pre-Delivery Rate/Dose Change 01/17/2023 10:32 AM CDT 60 mL/hr 60 mL/hr Rate/Dose Change 01/17/2023 9:23 AM CDT 300 mL/hr 300 mL/ hr New Bag 01/17/2023 7:57 AM CDT 0 mL/hr 0 mL/hr tranexamic acid (CYKLOKAPRON) injection 1,000 mg 1,000 mg, Intravenous, Once, 1 dose, On Laura 01/17/23 at 1015, If giving IV push, do not inject faster than 1 mL/min (100 mg/min) to avoid hypotension. Given 01/17/2023 9:25 AM CDT 1,000 mg documented in this encounter Active and Recently Administered Medications Times are shown in CDT. Scheduled Medication Order 01/16/2023 01/17/2023 01/18/2023 lactated ringers bolus infusion 1,000 mL(Linked Group 1) 1,000 mL, Intravenous, Administer over 30 Minutes, Once, 1 dose, On Laura 01/17/23 at 0700, Bolus prior to epidural placement., Pre-Delivery 0700 (Canceled Entry - Provi christian: Automatic Discharge Provider - Comment: Automatically canceled at discontinue of medication order) lactated ringers bolus infusion 1,000 mL 1,000 mL, Intravenous, Administer over 30 Minutes, Once, 1 dose, On Laura 01/17/23 at 0830, If not previously administered, Pre-Delivery 0830 (Canceled Entry - Provi christian: Automatic Discharge Provider - Comment: Automatically canceled at discontinue of medication order) tranexamic acid (CYKLOKAPRON) injection 1,000 mg (COMPLETED) 1,000 mg, Intravenous, Once, 1 dose, On Laura 01/17/23 at 1015, If giving IV push, do not inject faster than 1 mL/min (100 mg/min) to avoid hypotension. 0925 (Given - Provider: Erick Zamarripa, SARA) Continuous Medication Order 01/16/2023 01/17/2023 01/18/2023 fentaNYL 2 mcg/mL-ROpivacaine 0.2 % epidural 10 mL/hr, Epidural, Continuous, Starting on Laura 01/17/23 at 0830, Until 01/18/23 at 1321, Bolus dose of 5 mL Lockout interval 15 minutes 4 hour limit 80mL *High Alert*, Pre-Delivery 0743 (New Bag - Provider: Diana Guillen CRNA - Comment: 5 ml bolus given then another 5 ml bolus 5 mins later)0922 (Infusion Stop Time - Provider: Ld Aviles MD) lactated ringers infusion at 125 mL/hr, Intravenous, Continuous, Starting on Laura 01/17/23 at 0700, Until 01/18/23 at 1321, For all patients in active labor with non-vertex presentation, multiple gestation, previous , persistent non-reassuring FHR, Hx post- hemorrhage, active phase longer than 8 hrs and/or patient desires an epidural., Pre-Delivery 0639 (New Bag - Provider: Clarissa Weathers RN)0739 (Infusion Stop Time - Provider: Miesha Zamarripa RN)0740 (New Bag - Provider: Miesha Zamarripa, SARA)0853 (Infusion Stop Time - Provider: Miesha Zamarripa, RN)0854 (New Bag - Provider: Miesha Zamarripa, SARA)1200 (Infusion Stop Time - Provider: Miesha Zamarripa, SARA) oxytocin (PITOCIN) 30 units in NS 500 mL infusion 0-300 mL/hr, Intravenous, Continuous, Starting on Laura 01/17/23 at 0700, Until Sat01/18/23 at 1321, Initiate during third stage of labor, timing to be determined by delivering provider. Initial rate at 300 ml/hr for the 1st hour, then decrease to 60 mL/hr for the 2nd hour.?? Continue this rate until the fundus is firm or the patient has completed her recovery phase. For uterine atony, increase oxytocin infusion to 600 ml/hr (36 units/hr) for one hour then decrease. HAZARDOUS MEDICATION: wear single chemotherapy approved gloves., Pre-Delivery 0757 (New Bag - Provider: Miesha Zamarripa, RN)0923 (Rate/Dose Change - Provider: Miesha Zamarripa, RN)1032 (Rate/Dose Change - Provider: Miesha Zamarripa, RN)1200 (Infusion Stop Time - Provider: Miesha Zamarripa, RN) PRN Medication Order 01/16/2023 01/17/2023 01/18/2023 acetaminophen (TYLENOL) tablet 1,000 mg 1,000 mg, Oral, Every 6 hours PRN, Mild pain (Scale 1 - 3), Starting on Laura 01/17/23 at 1018, Until Sat01/18/23 at 1321, Maximum dose of acetaminophen is 4000 mg from all sources in 24 hours., 1317 (Given - Provider: Miesha Zamarripa RN)2012 (Given - Provider: Clarissa Weathers, RN) 024 (Given - Provider: Clarissa Weathers, SARA)0826 (Given - Provider: Cory Kauffman, Nurse Manager [employer]) benzocaine-menthol (DERMOPLAST) 20-0.5 % topical spray 1 spray 1 spray, Topical, 4 times daily PRN, Pain, Perineal discomfort, Starting on Laura 01/17/23 at 1016, Until Sat01/18/23 at 1321, Do NOT recommend use for pain in infants & children under 2 years., butorphanol (STADOL) injection 1 mg 1 mg, Intravenous, Every 4 hours PRN, Moderate pain (Scale 4 - 7), Starting on Laura 01/17/23 at 0632, Until Sat01/18/23 at 1321, Pre-Delivery diphenhydrAMINE (BENADRYL) 12.5 MG/5ML elixir 25 mg(Linked Group 2) 25 mg, Oral, Every 6 hours PRN, Itching, Starting on Laura 01/17/23 at 1016, Until Sat01/18/23 at 1321, Give if unable to swallow tablets/capsules or if patient prefers liquid., diphenhydrAMINE (BENADRYL) capsule 25 mg(Linked Group 2) 25 mg, Oral, Every 6 hours PRN, Itching, Starting on Laura 01/17/23 at 1016, Until Sat01/18/23 at 1321, diphenhydrAMINE (BENADRYL) injection 25 mg(Linked Group 2) 25 mg, Intravenous, Every 6 hours PRN, Itching, Starting on Laura 01/17/23 at 1016, Until Sat01/18/23 at 1321, Give if unable to take PO. For IV administration, give no faster than 25 mg/min., famotidine (PEPCID) tablet 20 mg 20 mg, Oral, Every 12 hours PRN, Other, dyspepsia, Starting on Laura 01/17/23 at 0630, Until Sat01/18/23 at 1321, First choice for dyspepsia, Pre-Delivery ibuprofen (MOTRIN) tablet 600 mg 600 mg, Oral, Every 6 hours PRN, Mild pain (Scale 1 - 3), Starting on Laura 01/17/23 at 1018, Until Sat01/18/23 at 1321, 1317 (Given - Provider: Miesha Zamarripa RN)2012 (Given - Provider: Clarissa Weathers RN) 024 (Given - Provider: Clarissa Weathers RN)08 (Given - Provider: Cory Kauffman, Nurse Manager [employer]) xizmpgpnz-dqfuacgx-ptyppmein ne ([place] [employer]IMUM STRENGTH) 9711-4023-403 mg/30mL suspension 10 mL, Oral, Every 6 hours PRN, Indigestion, dyspepsia, Starting on Laura 01/17/23 at 0630, Until Sat01/18/23 at 1321, May give in between doses of famotidine for dyspepsia, Pre-Delivery ondansetron (ZOFRAN) injection 4 mg 4 mg, Intravenous, Every 8 hours PRN, Nausea, Vomiting, Starting on Laura 01/17/23 at 0630, Until Sat01/18/23 at 1321, If unable to take PO., Pre-Delivery ondansetron (ZOFRAN) injection 4 mg 4 mg, Intravenous, Every 8 hours PRN, Nausea, Vomiting, Starting on Laura 01/17/23 at 1016, Until Sat01/18/23 at 1321, Use IV if patient unable to take oral order for ondansetron., ondansetron (ZOFRAN-ODT) disintegrating tablet 8 mg 8 mg, Oral, Every 8 hours PRN, Nausea, Vomiting, Starting on Laura 01/17/23 at 0630, Until Sat01/18/23 at 1321, Pre-Delivery ondansetron (ZOFRAN-ODT) disintegrating tablet 8 mg 8 mg, Oral, Every 8 hours PRN, Nausea, Vomiting, Starting on Laura 01/17/23 at 1016, Until Sat01/18/23 at 1321, Linked Groups Order Group 1: Patient may have epidural (CANCELED) Routine, Once, On Laura 01/17/23 at 0633, For 1 occurrence, Nursing to inform anesthesia of patient's need for epidural, and LR bolus initiated., Pre-Delivery And lactated ringers bolus infusion 1,000 mLJump to med 1,000 mL, Intravenous, Administer over 30 Minutes, Once, 1 dose, On Laura 01/17/23 at 0700, Bolus prior to epidural placement., Pre-Delivery Group 2: diphenhydrAMINE (BENADRYL) injection 25 mgJump to med 25 mg, Intravenous, Every 6 hours PRN, Itching, Starting on Laura 01/17/23 at 1016, Until Sat01/18/23 at 1321, Give if unable to take PO. For IV administration, give no faster than 25 mg/min., Or diphenhydrAMINE (BENADRYL) capsule 25 mgJump to med 25 mg, Oral, Every 6 hours PRN, Itching, Starting on Laura 01/17/23 at 1016, Until Sat01/18/23 at 1321, Or diphenhydrAMINE (BENADRYL) 12.5 MG/5ML elixir 25 mgJump to med 25 mg, Oral, Every 6 hours PRN, Itching, Starting on Laura 01/17/23 at 1016, Until Sat01/18/23 at 1321, Give if unable to swallow tablets/capsules or if patient prefers liquid., documented in this encounter Care Teams Top Former Relationship Specialty Start Date End Date Cally Ghosh MD [address] [place] [phone] PCP - General FAMILY PRACTICE 08/11/20 Cally Ghosh MD [address] [place] [phone] FAMILY PRACTICE 08/27/18 documented as of this encounter
--- OUTSIDE RECORDS SUMMARY | 2024-10-06 20:55 | XMS_ITS | Encounter Summary ---
Author Organization [facility] Address [address] [place] [address]. 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
--- OUTSIDE RECORDS SUMMARY | 2024-10-06 20:55 | XMS_ITS | Encounter Summary ---
Author Organization [facility] Address [address] [place] [address]. [place], [place] [id number] [place] [id number] Care Team Providers Care Time Analysis Clerk Name Role Phone Cally Ghosh MD Unavailable [phone] Cally Ghosh MD Primary Care Provider [phone] Reason for Visit * Reason Comments Induction * Auth/Cert (Routine) Specialty Diagnoses / Procedures Referred By Tea t Referred To Contact Diagnoses Encounter for elective induction of labor ([facility]) Procedures GENERAL Cally Ghosh MD [address] [place] [address] Phone: tel: fax: Referral ID Status Reason Start Date Expiration Date Visits Re quested Visits Authorized [id number] 1 1 Encounter Details Date Type Department Care Team (Late st Contact Info) Description 02/01/2024 6:12 AM CDT - 02/02/2024 6:30 PM CDT Hospital Encounter [facility] [address] [place] [address] Cally Ghosh MD [address] [place] [address] Induction Discharge Disposition: Home or Self Care (Routine [...] from your doctor or pharmacy? Sometimes 02/01/[address] [facility] Utilities Answer Date Recorded In the past 12 months has e [employer], gas, oil, or water [employer] threatened to shut off services in your [...] 02/01/2024 How often do you attend chur ch or episcopalian services? Never 02/01/2024 Do you belong to any clubs o r organizations such as mu-ism groups, unions, fraternal or athletic groups, or [...] and heating? Not hard at all 02/01/2024 [facility] [place] of Occupat ional Health - Occupational Stress [...] any time in the past 12 m [facility], were you homeless or living in a care home (including now)? No 02/01/2024 Depression Answer Date Recor ded Last EPDS Total Score 1 02/02/2024 Last EPDS Self Harm Result Hardly ever 02/01 Comments No Sex and Gender Information Value Date Recorded Sex Assigned at Not on file Legal Sex Female 10:32 AM [employer]LECT[employer] Gender Identity Not on file Sexual Orientation Not on file documented as of this encounter Last Filed Vital Signs Vital Sign Reading Time Taken Comments Blood Pressure 115/68 02/02/2024 4:35 PM CDT Pulse 62 02/02/2024 4:35 PM CDT Temperature 36.6 ??C (97.8 ??F) 02/02/2024 4:35 PM CD T Respiratory Rate 17 02/02/2024 4:35 PM CDT Oxygen Saturation 98% 02/02/2024 4:35 PM CDT Inhaled Oxygen Concentration - - Weight 71.2 kg (157 lb) 02/01/2024 6:17 AM CDT Height 160 cm (5' 3 ) 02/01/2024 6:17 AM CDT Body Mass Index 27.81 02/01/2024 6:17 AM CDT documented in this encounter Functional Status * Question Answer Date of Assessment Author Status Do you have serious difficulty walking or climbing stairs? No 02/01/2024 7:15 AM CDT Maritza Escamilla RN Activ e * Question Answer Date of Assessment Author Status Do you have difficulty dressing or bathing? No 02/01/2024 7:15 AM ALDAIRT Maritza Escamilla RN A ctive Because of a physical, mental, or emotional condition, do you have difficulty doing errands alone such as visiting a doctor's office or shopping? No 02/01/2024 7:15 AM ALDAIRT Maritza Escamilla RN Active * Are you deaf or do you have serious difficulty hearing Answer Date of Assessment Author Status No 02/01/2024 7:15 AM ALDAIRT Maritza Escamilla RN Active * Are you blind or [...] Moyer RN Active documented in this encounter Discharge Summaries * Cally Ghosh MD - 02/02/2024 1:09 PM CDTSummary: Grand multiporous delivered. Post Hemorrhage. Images from the original note were not included. Patient Name Patient MRMarci Daniels [id number] Admit date: 02/01/2024 Discharge Date: 02/02/2024 Admission Diagnoses: 40 3/7 weeks. . Grand Multiparity. Desire for induction. Discharge Diagnoses: 40 3/7 weeks gestation, . Grand Multiparity. Hemorrhage secondary to Uterine Atony. Discharge Disposition: Home in care of family with continuous observation by someone for at least two more days. . Methergine 0.2 mg tid for 6 more days. Iron supplementation and folic acid or vitamins. Hospital Course: Michelle Daniels had a vaginal delivery, without complications, with minimal blood loss. About five hours after delivery she passed a series of two large blood clots with active bleeding. She was treated with IV fluid bolusing, IV Pitocin, IV Methergin and the IM methergine. MTP initiated. She received 2 units PRBC and a unit of FFP. Her bleeding stopped, the uterus returned to expected size, and remained firm and contracted through the remainder of her stay. Discharge Exam: No distress. Vital signs stable. Lochia slowed. Discharge Comments: She was again encouraged breast feed.. My routine counseling was reviewed on maternal post and care issues. Patient Instructions: Medication List ASK your doctor about these medications Morning Afternoon Evening Bedtime As Needed vitamin (low iron) 27-0.8 MG tablet Take 1 tablet by mouth daily. Activity: nothing in the vagina for 2 weeks and no driving while recovering. Follow-up: Please follow-up within the next 2 days or sooner, when your baby is seen, for your routine visit for yourself. Remain with family or friends for support and go to the ER if bleeding starts again or you feel dizzy, or light headed or there is suspicion of a problem or low blood pressure. Take Methergine tid for 6 more days 0.2 mg. Iron supplement 325 mg and folic acid or your vitamins and good nutrition. Counseling is done on risk of recurrence of post hemorrhage, uterine infection, depression family planning, care. Repeat cbc in 2 days in office. CALLY GHOSH MD 02/02/2024 documented in this encounter Discharge Instructions * Discharge Instructions* Jordyn Philip RN - 02/02/2024 5:28 PM CDT Patient given discharge education via Health and Baby Care booklet provided by hospital. This RN emphasizes education on Pre-e S&S, PP hemorrhage, and PP depression. Patient is able to take 1000mg tylenol and 800mg motrin together qhours for pain. * Attachments The following attachments cannot be sent through Care Everywhere. * Vaginal Delivery Discharge Instructions (Portuguese) * BLEEDING (INDIAN) documented in this encounter Medications at Time of Discharge ferrous sulfate, 65 mg elemental, 325 (65 FE) MG tablet Take 1 tablet (325 mg total) by mouth daily with breakfast. 30 tablet 02/02/2024 folic acid (FOLVITE) 1 MG tablet Take 1 tablet (1 mg total) by mouth daily. 30 tablet 02/02/2024 vitamin, low iron, 27-0.8 MG tablet Take 1 tablet by mouth daily. methylergonovine (METHERGINE) 0.2 MG tablet Take 1 tablet (0.2 mg total) by mouth every 8 (eight) hours for 6 days. 18 tablet 02/02/2024 02/08/2024 methylergonovine (METHERGINE) 0.2 MG tablet Take 1 tablet (0.2 mg total) by mouth every 8 (eight) hours for 6 days. 18 tablet 02/02/2024 02/08/2024 documented as of this encounter Progress Notes * Jordyn Philip RN - 02/02/2024 6:21 PM CDT VSS. Bleeding scant, fundus firm. Patient demonstrates appropriate care of herself and . Sheis both formula and breast feeding. She shows appropriate knowledge of both feedings. Pain is beingwell managed with pain medication given at hospital, RN educates patient that it will help more if she takes both tylenol 1000mg and motrin 800mg together, which is approved by Dr ghosh. She verbalizes understanding of how to properly take her medication that was sent to pharmacy and also sent home with directions on how to take at home. Patient verbalizes readiness for discharged * Sharlene Rouse RN - 02/02/2024 4:22 AM CDT Problem: Discharge Planning Goal: Discharge to home Outcome: Progressing Goal: Knowledge of caring for self- Outcome: Progressing Problem: Safety Goal: Knowledge of Safety Outcome: Progressing Problem: Pain Goal: Knowledge of pain management Outcome: Progressing Problem: Feeding Your Spur Goal: Knowledge of formula feeding Outcome: Progressing * Sharlene Rouse RN - 02/02/2024 4:10 AM CDT Problem: OB Discharge Planning- Risk Conditions Goal: Knowledge of discharge/instructions Outcome: Adequate for Discharge Problem: OB Anxiety Goal: Alleviation of anxiety Outcome: Adequate for Discharge Problem: OB Blood Pressure-Elevated Goal: Absence of/or decrease in neurologic irritibility Outcome: Adequate for Discharge Problem: OB Hemodynamic Instability (Bleeding/Risk of) Goal: Hemodynamically stable Outcome: Adequate for Discharge Problem: OB Infection, Risk of Goal: Free of infection Outcome: Adequate for Discharge Problem: OB Mobility-Impaired Goal: Knowledge of prescribed activities Outcome: Adequate for Discharge Goal: Intact skin Outcome: Adequate for Discharge Problem: OB Nausea/Vomiting Goal: Absence of nausea and vomiting Outcome: Adequate for Discharge Goal: Electrolytes within specified parameters Outcome: Adequate for Discharge Problem: OB Pain-Acute Goal: Achieve acceptable pain level Outcome: Adequate for Discharge Pt delivered at 1700 02/01/24 * Cally Ghosh MD - 02/01/2024 10:45 PM CDTSummary: hemorrhage five hours after delivery. Patient passed a large clot about five hours after an . It is noted that there was no vaginal or cervical laceration and the placenta delivered intact. This is presumed uterine atony. She had a single bp reading under 70 systolic when the clot and active bleeding occurred. IV Fluid bolusing started, Pitocin initiated, and TXA, given. MTP initiated. She had a second clot and more bleeding. Methergine 0.2 mg IV given. Measured blood loss total by staff is 2815 ml to this point. At this point pt is alert and oriented, blood pressure is 125 systolic, Uterus if firm/hard, two FB below umbilicus and there is scant to no vaginal bleeding. Blood is being given with an order for a second unit and one unit of FFP. For the moment I am holding on the FRANK device with the marked improvement in theuterine firmness and response. A rutherford catheter is being placed. Labs drawn and pending. * Jordyn Philip RN - 02/01/2024 6:25 PM CDT Patient had successful vaginal delivery. Vital signs stable. Pain managed well with epidural duringlabor. Headache being treated with tylenol. Patient has been nauseous since delivery, treated with zofran. Bleeding is moderate, fundus firm. Problem: OB Discharge Planning- Risk Conditions Goal: Knowledge of discharge/instructions Outcome: Progressing Problem: OB Anxiety Goal: Alleviation of anxiety Outcome: Progressing Problem: OB Blood Pressure-Elevated Goal: Stable blood pressure Outcome: Completed Problem: OB Coping-Ineffective, Individual Goal: Effective coping Outcome: Completed Problem: OB Hemodynamic Instability (Bleeding/Risk of) Goal: Hemodynamically stable Outcome: Progressing Problem: OB Infection, Risk of Goal: Free of infection Outcome: Progressing Problem: OB Mobility-Impaired Goal: Knowledge of prescribed activities Outcome: Progressing Goal: Intact skin Outcome: Progressing Problem: OB Nausea/Vomiting Goal: Absence of nausea and vomiting Outcome: Progressing Goal: Electrolytes within specified parameters Outcome: Progressing Problem: OB Pain-Acute Goal: Achieve acceptable pain level Outcome: Progressing documented in this encounter H&P Notes * Cally Ghosh MD - 02/01/2024 9:14 AM CDTSummary: 40 3/7 weeks. Grand Multiparity. OB HISTORY AND PHYSICAL HPI: Michelle Daniels is a 33-year-old at 40w3d gestational age with an Estimated Date of Delivery: 01/29/24 by a 10 2/7 week ultrasound who is being admitted for induction. This could be considered elective, but she is a grand multip who has passed her due date, still smoking cigarettes, and lives at a distance. It can be asserted that this is an indicated induction. issues: Grand multiparity. Persistent smoking about one pack a day through . Results No configuration template associated with this profile. Contact your systems support officer. OB History Para Term AB Living 7 5 5 1 5 SAB IAB Ectopic Molar Multiple Live Births 1 0 0 5 # Outcome Date GA Lbr Lloyd/2nd Weight Sex Type Anes PTL Lv 7 Current 6 Term 01/17/23 37w6d 06:13 / 00:09 3374 g (7 lb 7 oz) F Vag-Spont EPI N TRACI Comments: 36CM CHEST 5 SAB 10/25/21 4 Term 02/10/21 40w0d 04:24 / 00:11 3612 g (7 lb 15.4 oz) F Vag-Spont EPI, IV Narcotics TRACI 3 Term 08/29/16 41w0d 3515 g (7 lb 12 oz) F Vag-Spont N TRACI 2 Term 02/19/11 40w0d 3572 g (7 lb 14 oz) M Vag-Spont N TRACI 1 Term 07/30/09 41w0d 3544 g (7 lb 13 oz) F Vag-Spont N TRACI Past Medical History: Diagnosis Date Anemia Past Surgical History: Procedure Laterality Date ANKLE ARTHROSCOPY Right OPEN RX PROX/MID FING SHFT FX 1998 ORIF No family history on file. Social History Tobacco Use Smoking status: Every Day Current packs/day: 1.00 Average packs/day: 1 pack/day for 15.0 years (15.0 ttl pk-yrs) Types: Cigarettes Smokeless tobacco: Never Substance Use Topics Alcohol use: Not Currently Prior to Admission medications Medication Sig Start Date End Date Taking? Authorizing Provider vitamin, low iron, 27-0.8 MG tablet Take 1 tablet by mouth daily. Doc [facility] Abstract Allergies Allergen Reactions Codeine Unknown ROS: A full 10 point review of systems is negative unless otherwise specified. OBJECTIVE Vital signs Filed Vitals: 02/01/24 0617 02/01/24 0624 02/01/24 0624 02/01/24 0630 BP: 109/72 Pulse: 90 Resp: 18 Temp: 98.1 ??F (36.7 ??C) Weight: 71.2 kg (157 lb) Height: 1.6 m (5' 3 ) Physical Exam: General: no acute distress HEENT: neck supple Lungs: respirations non-labored Heart: regular rate and rhythm Abdomen: soft, gravid, non-tender to palpation Skin: normal Neuro: Normal. Cervical Exam: 2 cm 80% high. Presentations: cephalic Labs: Lab Results Component Value Date HGB 10.6 (L) 02/01/2024 PLT 219 02/01/2024 ALT 13 (L) 11/12/2022 AST 18 11/12/2022 ASSESSMENT/PLAN 33-year-old at 40 3/7 weeks gestation, admit for labor induction. - GBS prophylaxis screen negative. Not indicated. - FHT: Category one - EFW: 7 lbs. CALLY GHOSH MD 02/01/2024 documented in this encounter Procedure Notes * Cally Ghosh MD - 02/01/2024 5:15 PM CDTSummary: Delivery Information for Vicki Daniels Gestational Age: 40w3d Labor Events labor?: No Rupture of Membranes Rupture date/time: 02/01/24 1638 Rupture type: SROM, Bulging Fluid color: Thick Meconium Fluid odor: No (odorless) Labor Details Labor type: Induced Onset of Labor Induction: Oxytocin First cervical ripening date/time: Induction date/time: 02/01/24 0700 Indications for induction: Elective Augmentation date/time: Was labor allowed to proceed with plans for an attempted vaginal ?: Yes Labor complications: None Delivery (Maternal) Episiotomy: None Perineal lacerations: None Vaginal laceration: No Cervical laceration: No QBL at Delivery Mother: Michelle Daniels Kiki #[id number] Start of Mother's Information QBL at Delivery QBL at Delivery -- End of Mother's Information Mother: Michelle Daniels Kiki #[id number] Vaginal Sponge Counts Initial count personnel: CHANCE COLBERT Final count personnel: JORDYN PHILIP Presentation and Position Presentation: Vertex Pain Management Method: Epidural Delivery Providers Delivering clinician: Cally Ghosh MD Provider Role Jordyn Philpi RN Labor Nurse Chance Colbert, Nurse Data Analyst Etl Developer II Labor Nurse Maritza Escamilla RN Nursery Nurse Delivery (Spur) date/time: 02/01/24 1700 Now Details: Trial of labor?: Yes There was a normal spontaneous vaginal delivery. The baby's head was delivered in a controlled fashion. Meconium had been present in a fore bag that was released prior to delivery. The airway was cleared on the perineum. [...] intact. The measured blood loss was at 100 mL in the buttocks drape (with 900 ml of amniotic fluid. ) There was a three vessel cord. Nursing input on blood from lap sponges being weighed was pending. documented in this encounter Nursing Notes * Jordyn Philip RN - 02/02/2024 6:14 PM CDT Patient given discharge education via Health and Baby Care booklet provided by [facility]. This RN emphasizes education on Pre-e S&S, PP hemorrhage, and PP depression. 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 She verbalizes understanding of all education given. * Jordyn Philip RN - 02/02/2024 7:37 AM CDT Patient up for the first time since delivery. She states that she is feeling well. Not feeling dizzy. Ambulated well to bathroom with 1 assist. Bleeding small, fundus firm. Education given on merrill care and how much bleeding is too much. Patient verbalizes understanding. * Sridevi Nath RN - 02/02/2024 6:23 AM CDT Call received from Dr. Ghosh requesting update on patient bleeding through the night. Orders received to give PO methergine today and tomorrow, repeat H&H at noon, remove rutherford catheter and move pt to her PP room. States he will be in later today to check on her. * Sharlene Rouse RN - 02/01/2024 9:45 PM CDT RN CALLED INTO PT ABOUT 2141; PT STATES SHE FELT A CLOT AND A GUSH; RN PERFORMS FUNDAL MASSAGE AND EXPELS TWO LARGE CLOTS AND MODERATE BLEEDING; BLEEDING LESSENED WITH FUNDAL MASSAGE; ADDITIONAL 770 QBL NOTED AT THIS TIME; PJ WAS CALL AT 2146, SEE ORDERS WHILE RN WAS GETTING MEDICATIONS, PT CALLS OUT AGAIN WITH ANOTHER GUSH, MODERATE AMOUNT OF BLEEDINGAND CLOTS; 2ND RN CALLED INTO ROOM WHILE THIS RN GAVE MEDICATION; 2ND RN STARTS FUNDAL MASSAGE AND EXPELLED MANY LARGE CLOTS; ADDITIONAL 1580 QBL; PT BECOMES DIAPHORETIC AND VITALS SIGN TREND DOWN; PT TIRED BUT ALERT PJ CALLED UNIT TO START MTP AND TRANSFUSE 1 UNIT; SEE ORDERS PJ ON UNIT AROUND 2224; SEE ORDERS FOR ADDITIONAL ORDERS documented in this encounter Plan of Treatment Pending Results Name Type Priority Associated Diagnoses Date /Time RBC UNITS, 2 Units Blood Bank STAT 2023 6:28 AM CDT RBC UNITS, 4 Units Blood Bank STAT 2023 6:28 PM CDT RBC UNITS, 6 Units Blood Bank STAT 2023 6:28 PM CDT Scheduled Orders Name Type Priority Associated Diagnoses Orde r Schedule RBC UNITS, 2 Units Blood Bank STAT Once f or 1 Occurrences starting 02/01/2024 until 02/01/2024 RBC UNITS, 4 Units Blood Bank STAT Once f or 1 Occurrences starting 02/01/2024 until 02/01/2024 RBC UNITS, 6 Units Blood Bank STAT Once f or 1 Occurrences starting 02/01/2024 until 02/01/2024 documented as of this encounter Procedures Procedure Name Priority Date/Time Associated Diagnosis Comments HEMOGLOBIN AND HEMATOCRIT TIMED 02/02/2024 12:16 PM CDT CBC W/DIFF AUTOMATED TIMED 02/02/2024 4:09 AM CDT TRANSFUSE FRESH FROZEN PLASMA STAT 02/02/2024 1:50 AM CDT TRANSFUSE RED BLOOD CELLS STAT 02/02/2024 12:16 AM CDT PARTIAL THROMBOPLASTIN TIME,PTT STAT 02/01/2024 10:35 PM CDT PROTHROMBIN TIME, VENOUS STAT 02/01/2024 10:35 PM CDT COMPREHENSIVE METABOLIC PANEL Routine 02/01/2024 10:35 PM CDT LACTIC ACID STAT 02/01/2024 10:35 PM CDT FIBRINOGEN STAT 02/01/2024 10:35 PM CDT CBC W/DIFF AUTOMATED STAT 02/01/2024 10:35 PM CDT MAGNESIUM STAT 02/01/2024 10:35 PM CDT TRANSFUSE RED BLOOD CELLS STAT 02/01/2024 10:26 PM CDT ORDER FRESH FROZEN PLASMA STAT 02/01/2024 6:28 AM CDT TYPE & SCREEN STAT 02/01/2024 6:28 AM CDT Encounter for elective induction of labor ([facility]/HCC) CBC W/DIFF AUTOMATED STAT 02/01/2024 6:28 AM CDT Encounter for elective induction of labor ([facility]) GROUP B STREP MOLECULAR Routine 01/07/2024 documented in this encounter Results * (ABNORMAL) HEMOGLOBIN AND HEMATOCRIT (02/02/2024 12:16 PM CDT) HGB 8.8(L) 12.0 - 16.0 G/DL 02/02/2024 12:25 PM CDT [facility] HCT 25.4(L) 36.0 - 47.0 % 02/02/2024 12:25 PM CDT [facility] 02/02/2024 12:1 6 PM CDT us Cally Ghosh MD LABORATORY Final Resul t [facility] [address] [place] [address], * (ABNORMAL) CBC W/DIFF AUTOMATED (02/02/2024 4:09 AM CDT) WBC 13.66(H) 4.00 - 10.80 x10'3/uL 02/02/2024 4:22 AM CDT [facility] RBC 3.20(L) 4.10 - 5.40 x10'6/uL 02/02/2024 4:22 AM CDT [facility] HGB 9.1(L) 12.0 - 16.0 G/DL 02/02/2024 4:22 AM CDT [facility] HCT 27.0(L) 36.0 - 47.0 % 02/02/2024 4:22 AM CDT [facility] MCV 84.4 78.0 - 100.0 FL 02/02/2024 4:22 AM CDT [facility] MCH 28.4 27.0 - 31.0 PG 02/02/2024 4:22 AM CDT [facility] MCHC 33.7 33.0 - 36.0 G/DL 02/02/2024 4:22 AM CDT [facility] RDW 14.6(H) 11.5 - 14.5 % 02/02/2024 4:22 AM CDT [facility] PLT 141(L) 150 - 350 x10'3/uL 02/02/2024 4:22 AM CDT [facility] MPV 11.5(H) 7.4 - 10.4 FL 02/02/2024 4:22 AM CDT [facility] CBC COMMENT NORMAL REFERENCE RANGE NOT ESTABLISHED FOR THE PROPORTIONAL LEUKOCYTE DIFFERENTIAL. 02/02/2024 4:22 AM CDT [facility] NEUTROPHILS % 73.8 % 02/02/2024 4:22 AM CDT [facility] LYMPHOCYTES % 19.8 % 02/02/2024 4:22 AM CDT [facility] MONOCYTES % 5.5 % 02/02/2024 4:22 AM CDT [facility] EOSINOPHILS % 0.4 % 02/02/2024 4:22 AM CDT [facility] BASOPHILS % 0.1 % 02/02/2024 4:22 AM CDT [facility] IMMATURE GRANS % 0.4 % 02/02/20 4:22 AM CDT [facility] NRBC 0.0 % 02/02/2024 4:22 AM CDT [facility] ABS. NEUTROPHILS 10.09(H) 1.60 - 8.30 x10'3/uL 02/02/2024 4:22 AM CDT [facility] ABS. LYMPHOCYTES 2.70 0.80 - 4.70 x10'3/uL 02/02/2024 4:22 AM CDT [facility] ABS. MONOCYTES 0.75 0.00 - 1.50 x10'3/uL 02/02/2024 4:22 AM CDT [facility] ABS. EOSINOPHILS 0.05 0.00 - 0.40 x10'3/uL 02/02/2024 4:22 AM CDT [facility] ABS. BASOPHILS 0.02 0.00 - 0.20 x10'3/uL 02/02/2024 4:22 AM CDT [facility] ABS. IMMATURE GRANULOCYTES 0.05(H) 0.00 - 0.03 x10'3/uL 02/02/2024 4:22 AM CDT [facility] ABS. NUCLEATED RBC'S 0.00 0.00 x10'3/uL 02/02/2024 4:22 AM CDT [facility] 02/02/2024 4:09 AM CDT Cally Ghosh MD LABORATORY Final Resul t [facility] [address] [place] [address], [place] [phone] * TRANSFUSE FRESH FROZEN PLASMA (02/02/2024 3:04 AM CDT) us Cally Ghosh MD NURSING TREATMENT ORDERABLE S - BLOOD ADMIN Final Result * TRANSFUSE FRESH FROZEN PLASMA, 1 Units (02/02/2024 3:04 AM CDT) us Cally Ghosh MD NURSING TREATMENT ORDERABLE S - BLOOD ADMIN Final Result * TRANSFUSE RED BLOOD CELLS (02/02/2024 1:38 AM CDT) us Cally Ghosh MD NURSING TREATMENT ORDERABLE S - BLOOD ADMIN Final Result * TRANSFUSE RED BLOOD CELLS, 1 Units (02/02/2024 1:38 AM CDT) us Cally Ghosh MD NURSING TREATMENT ORDERABLE S - BLOOD ADMIN Final Result * TRANSFUSE RED BLOOD CELLS (02/01/2024 11:52 PM CDT) us Cally Ghosh MD NURSING TREATMENT ORDERABLE S - BLOOD ADMIN Final Result * TRANSFUSE RED BLOOD CELLS, 1 Units (02/01/2024 11:52 PM CDT) us Cally Ghosh MD NURSING TREATMENT ORDERABLE S - BLOOD ADMIN Final Result * (ABNORMAL) COMPREHENSIVE METABOLIC PANEL (02/01/2024 10:35 PM CDT) [facility] SODIUM S/P/B 129(L) 136 - 145 MMOL/L 02/01/2024 11:02 PM CDT [facility] POTASSIUM S/P/B 4.1 3.5 - 5.1 MMOL/L 02/01/2024 11:02 PM CDT [facility] CHLORIDE S/P/B 99 98 - 107 MMOL/L 02/01/2024 11:02 PM CDT [facility] CO2 23.0 21.0 - 32.0 MMOL/L 02/01/2024 11:02 PM CDT [facility] GLUCOSE 82 70 - 99 MG/DL 02/01/2024 11:02 PM CDT [facility] Comment: FASTING GLUCOSE 100 TO 125 MG/DL IS CONSISTENT WITH IMPAIRED FASTING GLUCOSE. FASTING GLUCOSE >125 MG/DL IS CONSISTENT WITH DIABETES. RANDOM GLUCOSE >200 MG/DL WITH HYPERGLYCEMIC SYMPTOMS IS CONSISTENT WITH DIABETES. PER ADA GUIDELINES BUN 8 6 - 24 MG/DL 02/01/2024 11:02 PM [facility] CREATININE S/P/B 0.59 0.55 - 1.02 MG/DL 02/01/2024 11:02 PM [facility] CALCIUM S/P/B 8.2(L) 8.4 - 10.5 MG/DL 02/01/2024 11:02 PM [facility] BILIRUBIN TOTAL S/P/B 0.5 0.2 - 1.0 MG/DL 02/01/2024 11:02 [facility] Comment: THIS ASSAY IS NOT RECOMMENDED FOR PATIENTS UNDERGOING TREATMENT WITH ELTROMBOPAG DUE TO THE POTENTIAL FOR FALSELY ELEVATED RESULTS. ALKALINE PHOSPHATASE S/P/B 91 37 - 98 U/L 02/01/2024 11:02 PM [facility] AST 14(L) 15 - 37 U/L 02/01/2024 11:02 PM [facility] ALT 6(L) 14 - 59 U/L 02/01/2024 11:02 PM [facility] TOTAL PROTEIN S/P/B 4.6(L) 6.4 - 8.2 G/DL 02/01/2024 11:02 PM [facility] ALBUMIN S/P/B 1.9(L) 3.4 - 5.0 G/DL 02/01/2024 11:02 PM [facility] ANION GAP 7.0 5.0 - 15.0 MMOL/L 02/01/2024 11:02 PM [facility] OSMOLALITY (CALC) 265 MOSM/KG 024 11:02 PM [facility] Comment:REFERENCE RANGE NOT ESTABLISHED GFR ESTIMATE >90 >89 ML/MIN/1. 73 M2 02/01/2024 11:02 PM [facility] GFR NOTES GFR REFERENCE S: 02/01/2024 11:02 PM CDT [facility] Comment: THE ESTIMATED GFR IS CALCULATED [...] ml/min/1.73 m2 G5,KIDNEY FAILURE: <15 ml/min/1.73 m2 02/01/2024 10:3 5 PM CDT us Cally Ghosh MD LABORATORY Final Resul t Performing Organization Address [facility] Co de Phone Number [facility] [address] [place] [address], * (ABNORMAL) FIBRINOGEN (02/01/2024 10:35 PM CDT) FIBRINOGEN 193(L) 200 - 393 MG/DL 02/02/2024 12:19 AM CDT [facility] 02/01/2024 10:3 5 PM CDT us Cally Ghosh MD LABORATORY Final Resul t Performing Organization Address [facility] de Phone Number [facility] [address] [place] [address], * LACTIC ACID (02/01/2024 10:35 PM CDT) LACTIC ACID VENOUS 1.9 0.4 - 2.0 MMOL/L 02/01/2024 11:04 PM CDT [facility] 02/01/2024 10:3 5 PM CDT us Cally Ghosh MD LABORATORY Final Resul t [facility] [address] [place] [address], * (ABNORMAL) MAGNESIUM (02/01/2024 10:35 PM CDT) Pathologist [facility] [place] MAGNESIUM 1.2(L) 1.8 - 2.4 MG/DL 02/01/2024 11:02 PM CDT [facility] 02/01/2024 10:3 5 PM CDT Cally Ghosh MD LABORATORY Final Resul t Performing Organization Address City/[facility]/ZIP Co de Phone Number [facility] [address] [place] [address], * (ABNORMAL) CBC W/DIFF AUTOMATED (02/01/2024 10:35 PM CDT) Pathologist [facility] [place] WBC 16.01(H) 4.00 - 10.80 x10'3/uL 02/01/2024 11:45 PM CDT [facility] RBC 2.72(L) 4.10 - 5.40 x10'6/uL 02/01/2024 11:45 PM CDT [facility] HGB 8.0(L) 12.0 - 16.0 G/DL 02/01/2024 11:45 PM CDT [facility] HCT 23.8(L) 36.0 - 47.0 % 02/01/2024 11:45 PM CDT [facility] MCV 87.5 78.0 - 100.0 FL 02/01/2024 11:45 PM CDT [facility] MCH 29.4 27.0 - 31.0 PG 02/01/2024 11:45 PM CDT [facility] MCHC 33.6 33.0 - 36.0 G/DL 02/01/2024 11:45 PM CDT [facility] RDW 14.4 11.5 - 14.5 % 02/01/2024 11:45 PM CDT [facility] PLT 153 150 - 350 x10'3/uL 02/01/2024 11:45 PM CDT [facility] MPV 11.0(H) 7.4 - 10.4 FL 02/01/2024 11:45 PM CDT [facility] CBC COMMENT NORMAL REFERENCE RANGE NOT ESTABLISHED FOR THE PROPORTIONAL LEUKOCYTE DIFFERENTIAL. 02/01/2024 11:45 PM CDT [facility] NEUTROPHILS % 69.5 % 02/01/2024 11:45 PM CDT [facility] LYMPHOCYTES % 21.3 % 02/01/2024 11:45 PM CDT [facility] MONOCYTES % 7.8 % 02/01/2024 11:45 PM CDT [facility] EOSINOPHILS % 0.6 % 02/01/2024 11:45 PM CDT [facility] BASOPHILS % 0.1 % 02/01/2024 11:45 PM CDT [facility] IMMATURE GRANS % 0.7 % 02/01/20 11:45 PM CDT [facility] NRBC 0.0 % 02/01/2024 11:45 PM CDT [facility] ABS. NEUTROPHILS 11.12(H) 1.60 - 8.30 x10'3/uL 02/01/2024 11:45 PM CDT [facility] ABS. LYMPHOCYTES 3.41 0.80 - 4.70 x10'3/uL 02/01/2024 11:45 PM CDT [facility] ABS. MONOCYTES 1.25 0.00 - 1.50 x10'3/uL 02/01/2024 11:45 PM CDT [facility] ABS. EOSINOPHILS 0.09 0.00 - 0.40 x10'3/uL 02/01/2024 11:45 PM CDT [facility] ABS. BASOPHILS 0.02 0.00 - 0.20 x10'3/uL 02/01/2024 11:45 PM CDT [facility] ABS. IMMATURE GRANULOCYTES 0.12(H) 0.00 - 0.03 x10'3/uL 02/01/2024 11:45 PM CDT [facility] ABS. NUCLEATED RBC'S 0.00 0.00 x10'3/uL 02/01/2024 11:45 PM CDT [facility] 02/01/2024 10:3 5 PM CDT us Cally Ghosh MD LABORATORY Final Resul t Performing Organization Address City/[facility]/ZIP Co de Phone Number [facility] [address] [place] [address], * THROMBOPLASTIN TIME PARTIAL,PTT (02/01/2024 10:35 PM CDT) PTT 28.0 25.1 - 36.5 SEC 02/02/2024 12:19 AM CDT [facility] Comment:THERAPEUTIC RANGE: 4 6.2-77.0 SEC 02/01/2024 10:3 5 PM CDT us Cally Ghosh MD LABORATORY Final Resul t Performing Organization Address [facility] Co de Phone Number [facility] [address] [place] [address], * PROTHROMBIN TIME, VENOUS (02/01/2024 10:35 PM CDT) PROTIME 11.8 9.4 - 12.5 SEC 02/02/2024 12:19 AM CDT [facility] INR 1.0 0.8 - 1.0 02/02/2024 12:19 AM CDT [facility] 02/01/2024 10:3 5 PM CDT us Cally Ghosh MD LABORATORY Final Resul t Performing Organization Address City/[facility] Co de Phone Number [facility] [address] [place] [address], * ORDER FRESH FROZEN PLASMA, 1 Units (02/01/2024 6:28 AM CDT) UNITS ORDERED 1 02/01/2024 10:33 PM CDT [facility] BLOOD UNIT NUMBER [id number] 02/01/2024 11:21 PM CDT [facility] PRODUCT: THAWED APHERESIS PLASMA 02/01/2024 11:21 PM CDT [facility] UNIT DIVISION 00 02/01/2024 11:21 PM CDT [facility] BLOOD UNIT STATUS TRANSFUSED,FINAL 02/03/2024 2:37 AM CDT [facility] ISSUE DATE/TIME [id number] 2:37 AM CDT [facility] PRODUCT CODE [id number] 02/03/2024 2:37 AM CDT [facility] ABO/RH Unit B NEG 02/03/2024 2:37 AM CDT [facility] ABO/RH UNIT ISBT CODE 1700 02/03/2024 2:37 AM CDT [facility] BLOOD UNIT EXPIRATION DATE [id number] 02/03/2024 2:37 AM CDT [facility] ISSUING PHYSICIAN [id number]^RUDOLPH ON^CALLY^Eric 02/03/2024 2:37 AM CDT [facility] TRANSFUSION STATUS OK TO TRANSFUSE 02/01/2024 11:21 PM CDT [facility] 02/01/2024 6:28 AM CDT Cally Ghosh MD BLOOD BANK PRODUCT ORDERABL ES Final Result [facility] [address] [place] [address], * TYPE & SCREEN (02/01/2024 6:28 AM CDT) UNITS ORDERED 10 02/02/2024 1:30 AM CDT [facility] ABO/RH B POSITIVE 02/01/2024 7:18 AM CDT [facility] ANTIBODY SCREEN NEGATIVE 7:18 AM CDT [facility] SAMPLE EXPIRATION 02/04/2024,2359 02/01/2024 7:18 AM CDT [facility] BLOOD UNIT NUMBER [id number] 02/01/2024 5:23 PM CDT [facility] PRODUCT: PC LEUKOPOOR 02/01/2024 5:23 PM CDT [facility] UNIT DIVISION 00 02/01/2024 5:23 PM CDT [facility] BLOOD UNIT STATUS TRANSFUSED,FINAL 02/03/2024 2:37 AM CDT [facility] ISSUE DATE/TIME [id number] 024 2:37 AM CDT [facility] PRODUCT CODE [id number] 02/03/2024 2:37 AM CDT [facility] ABO/RH Unit B POS 02/03/2024 2:37 AM CDT [facility] ABO/RH UNIT ISBT CODE 7300 02/03/2024 2:37 AM CDT [facility] BLOOD UNIT EXPIRATION DATE [id number] 02/03/2024 2:37 AM CDT [facility] ISSUING PHYSICIAN [id number]^RUDOLPH ON^CALLY^W 02/03/2024 2:37 AM CDT [facility] TRANSFUSION STATUS OK TO TRANSFUSE 02/01/2024 5:23 PM CDT [facility] CROSSMATCH COMPATIBLE 02/01/2024 5:23 PM CDT [facility] BLOOD UNIT NUMBER [id number] 02/01/2024 5:25 PM CDT [facility] PRODUCT: PC LEUKOPOOR 02/01/2024 5:25 PM CDT [facility] UNIT DIVISION 00 02/01/2024 5:25 PM CDT [facility] BLOOD UNIT STATUS TRANSFUSED,FINAL 02/03/2024 2:37 AM CDT [facility] ISSUE DATE/TIME [id number] 024 2:37 AM CDT [facility] PRODUCT CODE [id number] 02/03/2024 2:37 AM CDT [facility] ABO/RH Unit B POS 02/03/2024 2:37 AM CDT [facility] ABO/RH UNIT ISBT CODE 7300 02/03/2024 2:37 AM CDT [facility] BLOOD UNIT EXPIRATION DATE [id number] 02/03/2024 2:37 AM CDT [facility] ISSUING PHYSICIAN [id number]^GALDAMEZ ON^CALLY^W 02/03/2024 2:37 AM CDT [facility] TRANSFUSION STATUS OK TO TRANSFUSE 02/01/2024 5:25 PM CDT [facility] CROSSMATCH COMPATIBLE 02/01/2024 5:25 PM CDT [facility] BLOOD UNIT NUMBER [id number] 02/01/2024 11:46 PM CDT [facility] PRODUCT: PC LEUKOPOOR 02/01/2024 11:46 PM CDT [facility] UNIT DIVISION 00 02/01/2024 11:46 PM CDT [facility] BLOOD UNIT STATUS UNIT RELEASED 02/04/2024 5:42 AM CDT [facility] TRANSFUSION STATUS OK TO TRANSFUSE 02/01/2024 11:46 PM CDT [facility] CROSSMATCH COMPATIBLE 02/01/2024 11:46 PM CDT [facility] BLOOD UNIT NUMBER [id number] 02/01/2024 11:46 PM CDT [facility] PRODUCT: PC LEUKOPOOR 02/01/2024 11:46 PM CDT [facility] UNIT DIVISION 00 02/01/2024 11:46 PM CDT [facility] BLOOD UNIT STATUS UNIT RELEASED 02/04/2024 5:42 AM CDT [facility] TRANSFUSION STATUS OK TO TRANSFUSE 02/01/2024 11:46 PM CDT [facility] CROSSMATCH COMPATIBLE 02/01/2024 11:46 PM CDT [facility] BLOOD UNIT NUMBER [id number] 02/02/2024 1:30 AM CDT [facility] PRODUCT: PC LEUKOPOOR 02/02/2024 1:30 AM CDT [facility] UNIT DIVISION 00 02/02/2024 1:30 AM CDT [facility] BLOOD UNIT STATUS UNIT RELEASED 02/04/2024 5:42 AM CDT [facility] TRANSFUSION STATUS OK TO TRANSFUSE 02/02/2024 1:30 AM CDT [facility] CROSSMATCH COMPATIBLE 02/02/2024 1:30 AM CDT [facility] BLOOD UNIT NUMBER [id number] 02/02/2024 1:30 AM CDT [facility] PRODUCT: PC LEUKOPOOR 02/02/2024 1:30 AM CDT [facility] UNIT DIVISION 02/02/2024 1:30 AM CDT [facility] BLOOD UNIT STATUS UNIT RELEASED 02/04/2024 5:42 AM CDT [facility] TRANSFUSION STATUS OK TO TRANSFUSE 02/02/2024 1:30 AM CDT [facility] CROSSMATCH COMPATIBLE 02/02/2024 1:30 AM CDT [facility] BLOOD UNIT NUMBER [id number] 02/02/2024 1:30 AM CDT [facility] PRODUCT: PC LEUKOPOOR 02/02/2024 1:30 AM CDT [facility] UNIT DIVISION 02/02/2024 1:30 AM CDT [facility] BLOOD UNIT STATUS UNIT RELEASED 02/04/2024 5:42 AM CDT [facility] TRANSFUSION STATUS OK TO TRANSFUSE 02/02/2024 1:30 AM CDT [facility] CROSSMATCH COMPATIBLE 02/02/2024 1:30 AM CDT [facility] BLOOD UNIT NUMBER [id number] 02/02/2024 1:30 AM CDT [facility] PRODUCT: PC LEUKOPOOR 02/02/2024 1:30 AM CDT [facility] UNIT DIVISION 02/02/2024 1:30 AM CDT [facility] BLOOD UNIT STATUS UNIT RELEASED 02/04/2024 5:42 AM CDT [facility] TRANSFUSION STATUS OK TO TRANSFUSE 02/02/2024 1:30 AM CDT [facility] CROSSMATCH COMPATIBLE 02/02/2024 1:30 AM CDT [facility] BLOOD UNIT NUMBER [id number] 02/02/2024 1:30 AM CDT [facility] PRODUCT: PC LEUKOPOOR 02/02/2024 1:30 AM CDT [facility] UNIT DIVISION 00 02/02/2024 1:30 AM CDT [facility] BLOOD UNIT STATUS UNIT RELEASED 02/04/2024 5:42 AM CDT [facility] TRANSFUSION STATUS OK TO TRANSFUSE 02/02/2024 1:30 AM CDT [facility] CROSSMATCH COMPATIBLE 02/02/2024 1:30 AM CDT [facility] BLOOD UNIT NUMBER [id number] 02/02/2024 1:30 AM CDT [facility] PRODUCT: PC LEUKOPOOR 02/02/2024 1:30 AM CDT [facility] UNIT DIVISION 00 02/02/2024 1:30 AM CDT [facility] BLOOD UNIT STATUS UNIT RELEASED 02/04/2024 5:42 AM CDT [facility] TRANSFUSION STATUS OK TO TRANSFUSE 02/02/2024 1:30 AM CDT [facility] CROSSMATCH COMPATIBLE 02/02/2024 1:30 AM CDT [facility] 02/01/2024 6:28 AM CDT us Cally Ghosh MD BLOOD BANK TEST ORDERABLES Final Result [facility] [email or web address] [place] [address], * (ABNORMAL) CBC W/DIFF AUTOMATED (02/01/2024 6:28 AM CDT) [facility] WBC 11.37(H) 4.00 - 10.80 x10'3/uL 02/01/2024 6:37 AM CDT [facility] RBC 3.62(L) 4.10 - 5.40 x10'6/uL 02/01/2024 6:37 AM CDT [facility] HGB 10.6(L) 12.0 - 16.0 G/DL 02/01/2024 6:37 AM CDT [facility] HCT 31.5(L) 36.0 - 47.0 % 02/01/2024 6:37 AM CDT [facility] MCV 87.0 78.0 - 100.0 FL 02/01/2024 6:37 AM CDT [facility] MCH 29.3 27.0 - 31.0 PG 02/01/2024 6:37 AM CDT [facility] MCHC 33.7 33.0 - 36.0 G/DL 02/01/2024 6:37 AM CDT [facility] RDW 14.3 11.5 - 14.5 % 02/01/2024 6:37 AM CDT [facility] PLT 219 150 - 350 x10'3/uL 02/01/2024 6:37 AM CDT [facility] MPV 11.6(H) 7.4 - 10.4 FL 02/01/2024 6:37 AM CDT [facility] CBC COMMENT NORMAL REFERENCE RANGE NOT ESTABLISHED FOR THE PROPORTIONAL LEUKOCYTE DIFFERENTIAL. 02/01/2024 6:37 AM CDT [facility] NEUTROPHILS % 63.1 % 02/01/2024 6:37 AM CDT [facility] LYMPHOCYTES % 28.8 % 02/01/2024 6:37 AM CDT [facility] MONOCYTES % 6.7 % 02/01/2024 6:37 AM CDT [facility] EOSINOPHILS % 0.9 % 02/01/2024 6:37 AM CDT [facility] BASOPHILS % 0.1 % 02/01/2024 6:37 AM CDT [facility] IMMATURE GRANS % 0.4 % 02/01/20 6:37 AM CDT [facility] NRBC 0.0 % 02/01/2024 6:37 AM CDT [facility] ABS. NEUTROPHILS 7.17 1.60 - 8.30 x10'3/uL 02/01/2024 6:37 AM CDT [facility] ABS. LYMPHOCYTES 3.28 0.80 - 4.70 x10'3/uL 02/01/2024 6:37 AM CDT [facility] ABS. MONOCYTES 0.76 0.00 - 1.50 x10'3/uL 02/01/2024 6:37 AM CDT [facility] ABS. EOSINOPHILS 0.10 0.00 - 0.40 x10'3/uL 02/01/2024 6:37 AM CDT [facility] ABS. BASOPHILS 0.01 0.00 - 0.20 x10'3/uL 02/01/2024 6:37 AM CDT [facility] ABS. IMMATURE GRANULOCYTES 0.05(H) 0.00 - 0.03 x10'3/uL 02/01/2024 6:37 AM CDT [facility] ABS. NUCLEATED RBC'S 0.00 0.00 x10'3/uL 02/01/2024 6:37 AM CDT [facility] 02/01/2024 6:28 AM CDT Cally Ghosh MD LABORATORY Final Resul t [facility] [email or web address] [place] [address], * GROUP B STREP MOLECULAR (01/07/2024) GROUP B STREP DNA negative ANOVAGINAL us Default History Genericprovider MICROBIOLOGY - G ENERAL ORDERABLES Final Result documented in this encounter Visit Diagnoses Diagnosis Encounter for elective induction of labor ([facility])- Primary Encounter for elective induction of labor ([facility]/HCC) Hemorrhage affecting sixth ([facility]/HCC) hemorrhage ([facility]/HCC) Other immediate hemorrhage, unspecified as to episode of care documented in this encounter Admitting Diagnoses Diagnosis Encounter for elective induction of labor ([facility]) documented in this encounter Administered Medications Inactive Administered Medications - up to 3 most recent administrations Medication Order MAR Action Action Date Dose Rate Site acetaminophen (TYLENOL) tablet 650 mg 650 mg, Oral, Every 4 hours PRN, Mild pain (Scale 1 - 3), Starting on 02/01/24 at 1805, Until 02/02/24 at 2043, Maximum dose of acetaminophen is 4000 mg from all sources in 24 hours., Given 02/02/2024 12:53 PM CDT 650 mg Given 02/02/2024 6:08 AM CDT 650 mg Given 02/02/2024 12:35 AM CDT 650 mg benzocaine-menthol (DERMOPLAST) 20-0.5 % topical spray 1 spray 1 spray, Topical, 4 times daily PRN, Pain, Perineal discomfort, Starting on 02/01/24 at 1805, Until 02/02/24 at 2043, Do NOT recommend use for pain in infants & children under 2 years., diphenhydrAMINE (BENADRYL) 12.5 MG/5ML elixir 25 mg 25 mg, Oral, Every 6 hours PRN, Itching, Starting on 02/01/24 at 1805, Until 02/02/24 at 2043, Give if unable to swallow tablets/capsules or if patient prefers liquid., diphenhydrAMINE (BENADRYL) capsule 25 mg 25 mg, Oral, Every 6 hours PRN, Itching, Starting on 02/01/24 at 1805, Until 02/02/24 at 2043, Given 02/01/2024 9:22 PM CDT 25 mg diphenhydrAMINE (BENADRYL) injection 25 mg 25 mg, Intravenous, Every 6 hours PRN, Itching, Starting on 02/01/24 at 1805, Until 02/02/24 at 2043, Give if unable to take PO. For IV administration, give no faster than 25 mg/min., fentaNYL (SUBLIMAZE) injection 50 mcg 50 mcg, Intravenous, Once, 1 dose, On 02/01/24 at 2330, If intravenous (IV) route has been ordered, give over 1-2 minutes. Given 02/01/2024 11:06 PM CDT 50 mcg fentaNYL (SUBLIMAZE) injection 50 mcg 50 mcg, Intravenous, Every 2 hours PRN, Severe pain (Scale 8 - 10), Starting on 02/01/24 at 2320, Until 02/02/24 at 2043, If intravenous (IV) route has been ordered, give over 1-2 minutes. Given 02/02/2024 2:06 AM CDT 50 mcg ibuprofen (MOTRIN) 400 MG tablet 1 dose, Starting on 02/01/24 at 2039, Until 02/01/24 at 2044, Created by cabinet lynneide ibuprofen (MOTRIN) tablet 800 mg 800 mg, Oral, Every 6 hours PRN, Mild pain (Scale 1 - 3), Starting on 02/01/24 at 2038, Until 02/02/24 at 2043 Given 02/02/2024 5:10 PM CDT 800 mg Given 02/02/2024 9:26 AM CDT 800 mg Given 02/02/2024 3:40 AM CDT 800 mg lactated ringers bolus infusion 1,000 mL 1,000 mL, Intravenous, Administer over 30 Minutes, Once, 1 dose, On 02/01/24 at 0645, Bolus prior to epidural placement., Pre-Delivery New Bag 02/01/2024 7:53 AM CDT 1,000 mLs lactated ringers bolus infusion 1,000 mL 1,000 mL, Intravenous, Administer over 30 Minutes, Once, 1 dose, On 02/01/24 at 1330, If not previously administered, Pre-Delivery New Bag 02/01/2024 10:01 PM CDT 1,000 mLs lactated ringers infusion at 125 mL/hr, Intravenous, Continuous, Starting on 02/01/24 at 0645, Until 02/02/24 at 2043, For all patients in active labor with non-vertex presentation, multiple gestation, previous , persistent non-reassuring FHR, Hx post- hemorrhage, active phase longer than 8 hrs and/or patient desires an epidural., Pre-Delivery New Bag 02/01/2024 11:07 PM CDT 150 mL/hr Rate/Dose Change 02/01/2024 3:58 PM CDT 500 mL/ hr New Bag 02/01/2024 3:39 PM CDT 125 mL/hr methylergonovine (METHERGINE) 0.2 MG/ML injection 1 dose, Starting on 02/01/24 at 2221, Until 02/01/24 at 2226, Created by cabinet override HAZARDOUS MEDICATION: wear single chemotherapy approved gloves. methylergonovine (METHERGINE) injection 0.2 mg 0.2 mg, Intramuscular, Once, 1 dose, On 02/01/24 at 2245, HAZARDOUS MEDICATION: wear single chemotherapy approved gloves. Given 02/01/2024 10:26 PM CDT 0.2 mg methylergonovine (METHERGINE) injection 0.2 mg 0.2 mg, Intramuscular, Once, 1 dose, On 02/02/24 at 0600, HAZARDOUS MEDICATION: wear single chemotherapy approved gloves. Given 02/02/2024 6:08 AM CDT 0.2 mg Left Anterior Thigh methylergonovine (METHERGINE) injection 0.2 mg 0.2 mg, Intramuscular, Once, 1 dose, On 02/02/24 at 0200, HAZARDOUS MEDICATION: wear single chemotherapy approved gloves. Given 02/02/2024 2:08 AM CDT 0.2 mg Right Anterior Thigh methylergonovine (METHERGINE) tablet 0.2 mg 0.2 mg, Oral, Every 6 hours scheduled (4 times per day), 3 doses, First dose on Sat02/02/24 at 1200, Last dose on Sat02/03/24 at 0000, HAZARDOUS MEDICATION: wear single chemotherapy approved gloves. Do not open or split. If crushing, use approved closed-system crushing device for hazardous medications. Given 02/02/2024 6:07 PM CDT 0.2 mg Given 02/02/2024 12:54 PM CDT 0.2 mg methylergonovine (METHERGINE) tablet 0.2 mg 0.2 mg, Oral, 3 times daily, 3 doses, First dose on Sat02/03/24 at 0900, Last dose on Sat02/03/24 at 2100, HAZARDOUS MEDICATION: wear single chemotherapy approved gloves. Do not open or split. If crushing, use approved closed-system crushing device for hazardous medications. ondansetron (ZOFRAN) injection 4 mg 4 mg, Intravenous, Every 8 hours PRN, Nausea, Vomiting, Starting on 02/01/24 at 0616, Until 02/01/24 at 1841, If unable to take PO., Pre-Delivery Given 02/01/2024 5:39 PM CDT 4 mg ondansetron (ZOFRAN) injection 4 mg 4 mg, Intravenous, Every 8 hours PRN, Nausea, Vomiting, Starting on 02/01/24 at 1805, Until 02/02/24 at 2044, Use IV if patient unable to take oral order for ondansetron., oxytocin (PITOCIN) 30 units in NS 500 mL infusion 0-300 pratima-units/min (0-300 mL/hr), Intravenous, Continuous, Starting on 02/01/24 at 0645, Until 02/01/24 at 0915, Start at 2 pratima-unit/min. Increase by 2 pratima-unit/min every 30 minutes until adequate contraction defined as 3-5 contractions in 10 minutes or cervical change occurs. Max dose of 30 pratima-units/min. Notify provider when dose has reached 20 pratima-unit/min. RN to adjust dose based upon maternal and/or response. If uterine tachysystole occurs WITH reassuring FHR then: -Decrease oxytocin rate by half -If tachysystole does not resolve within 15 minutes after initial intervention, stop oxytocin infusion and notify provider If uterine tachysystole occurs when the FHR is NOT reassuring: -Stop the oxytocin infusion. -Follow guidelines below for resumption of oxytocin when tachysystole resolved: If oxytocin is stopped due to tachysystole for less than 30 minutes resume oxytocin at half the rate at time it was stopped. If oxytocin is stopped due to tachysystole for longer than 30 minutes resume oxytocin at the initial ordered dose. If stopped for less than 30 minutes resume at half the rate at time it was stopped If stopped for more than 30 minutes resume at the initial dose ordered. Following delivery infuse any remaining oxytocin at 300ml/hr (300 pratima-units/min) for the fist hour, then decrease to 60 ml/r (60 pratima-units/min) for the 2nd hour. Continue this rate until the fundus is firm or the patient has completed her recovery phase. HAZARDOUS MEDICATION: wear single chemotherapy approved gloves., Pre-Delivery New Bag 02/01/2024 7:54 AM CDT 0 pratima-units/min 0 mL/hr oxytocin (PITOCIN) 30 units in NS 500 mL infusion 0-300 pratima-units/min (0-300 mL/hr), Intravenous, Continuous, Starting on 02/01/24 at 0945, Until 02/02/24 at 0631, Start at 6 pratima-unit/min. Increase by 3 pratima-unit/min every 30 minutes until adequate contraction defined as 3-5 contractions in 10 minutes or cervical change occurs. Max dose of 30 pratima-units/min. Notify provider when dose has reached 20 pratima-unit/min. RN to adjust dose based upon maternal and/or response. If uterine tachysystole occurs with reassuring FHR then: -Decrease oxytocin rate by half -If tachysystole does not resolve within 15 minutes after initial intervention, stop oxytocin infusion and notify provider If uterine tachysystole occurs when the FHR is NOT reassuring: -Stop the oxytocin infusion. -Follow guidelines below for resumption of oxytocin when tachysystole resolved: If oxytocin is stopped due to tachysystole for less than 30 minutes resume oxytocin at half the rate at time it was stopped. If oxytocin is stopped due to tachysystole for longer than 30 minutes resume oxytocin at the initial ordered dose. If stopped for less than 30 minutes resume at half the rate at time it was stopped If stopped for more than 30 minutes resume at the initial dose ordered. Following delivery infuse any remaining oxytocin at 300ml/hr (300 pratima-units/min) for the fist hour, then decrease to 60 ml/r (60 pratima-units/min) for the 2nd hour. Continue this rate until the fundus is firm or the patient has completed her recovery phase. HAZARDOUS MEDICATION: wear single chemotherapy approved gloves., Pre-Delivery Rate/Dose Change 02/02/2024 12:07 AM CDT 60 pratima-units/min 60 mL/hr New Bag 02/01/2024 11:07 PM CDT 300 pratima-units/min 300 mL/hr oxytocin (PITOCIN) 30 units in NS 500 mL infusion 300 mL/hr, Intravenous, Once, 1 dose, On 02/01/24 at 2215, HAZARDOUS MEDICATION: wear single chemotherapy approved gloves. New Bag 02/01/2024 10:01 PM CDT 999 mL/hr 999 mL/hr sodium chloride 0.9 % infusion 1 dose, Starting on 02/01/24 at 2227, Until 02/01/24 at 2226, Created by cabinet override sodium chloride 0.9% infusion at 10 mL/hr, Intravenous, Continuous, Starting on 02/01/24 at 2230, Until 02/02/24 at 2044, Infuse at TKO rate Restarted 02/02/2024 1:50 AM CDT 10 mL/hr sodium chloride 0.9% infusion at 10 mL/hr, Intravenous, Continuous, Starting on 02/01/24 at 2330, Until 02/02/24 at 2044, Infuse at TKO rate Restarted 02/02/2024 12:16 AM CDT 10 mL/hr sodium chloride 0.9% infusion at 10 mL/hr, Intravenous, Continuous, Starting on 02/01/24 at 2345, Until 02/02/24 at 2044, Infuse at TKO rate New Bag 02/01/2024 10:26 PM CDT 250 mLs 10 mL/hr tranexamic acid (CYKLOKAPRON) 1000 MG/10ML injection 1 dose, Starting on 02/01/24 at 2158, Until 02/01/24 at 2214, Created by cabinet override tranexamic acid (CYKLOKAPRON) injection 1,000 mg 1,000 mg, Intravenous, Once, 1 dose, On 02/01/24 at 2215, If giving IV push, do not inject faster than 1 mL/min (100 mg/min) to avoid hypotension. Given 02/01/2024 10:04 PM CDT 1,000 mg documented in this encounter Active and Recently Administered Medications Times are shown in CDT. Scheduled Medication Order 01/31/2024 02/01/2024 02/02/2024 fentaNYL (SUBLIMAZE) injection 50 mcg (COMPLETED) 50 mcg, Intravenous, Once, 1 dose, On 02/01/24 at 2330, If intravenous (IV) route has been ordered, give over 1-2 minutes. 2306 (Given - Provider: Sharlene Rouse RN) lactated ringers bolus infusion 1,000 mL (COMPLETED)(Linked Group 1) 1,000 mL, Intravenous, Administer over 30 Minutes, Once, 1 dose, On 02/01/24 at 0645, Bolus prior to epidural placement., Pre-Delivery 0753 (New Bag - Provider: Chance Colbert, Nurse Data Analyst Etl Developer II)0853 (Due: Infusion Stop Time - Provider: Chance Colbert, Nurse Data Analyst Etl Developer II) lactated ringers bolus infusion 1,000 mL (COMPLETED) 1,000 mL, Intravenous, Administer over 30 Minutes, Once, 1 dose, On 02/01/24 at 1330, If not previously administered, Pre-Delivery 2201 (New Bag - Provider: Sharlene Rouse RN)2231 (Due: Infusion Stop Time - Provider: Sharlene Rouse RN) methylergonovine (METHERGINE) injection 0.2 mg (COMPLETED) 0.2 mg, Intramuscular, Once, 1 dose, On 02/01/24 at 2245, HAZARDOUS MEDICATION: wear single chemotherapy approved gloves. 2226 (Given - Provider: Sharlene Rouse RN) methylergonovine (METHERGINE) injection 0.2 mg (COMPLETED) 0.2 mg, Intramuscular, Once, 1 dose, On 02/02/24 at 0600, HAZARDOUS MEDICATION: wear single chemotherapy approved gloves. 0608 (Given - Provid er: Sharlene Rouse RN) methylergonovine (METHERGINE) injection 0.2 mg (COMPLETED) 0.2 mg, Intramuscular, Once, 1 dose, On 02/02/24 at 0200, HAZARDOUS MEDICATION: wear single chemotherapy approved gloves. 0208 (Given - Provid er: Sharlene Rouse RN) methylergonovine (METHERGINE) tablet 0.2 mg 0.2 mg, Oral, Every 6 hours scheduled (4 times per day), 3 doses, First dose on 02/02/24 at 1200, Last dose on 02/03/24 at 0000, HAZARDOUS MEDICATION: wear single chemotherapy approved gloves. Do not open or split. If crushing, use approved closed-system crushing device for hazardous medications. 1254 (Given - Provid er: Jordyn Philip, RN)1807 (Given - Provider: Jordyn Philip RN) methylergonovine (METHERGINE) tablet 0.2 mg 0.2 mg, Oral, 3 times daily, 3 doses, First dose on Sat02/03/24 at 0900, Last dose on Sat02/03/24 at 2100, HAZARDOUS MEDICATION: wear single chemotherapy approved gloves. Do not open or split. If crushing, use approved closed-system crushing device for hazardous medications. oxytocin (PITOCIN) 30 units in NS 500 mL infusion (COMPLETED) 300 mL/hr, Intravenous, Once, 1 dose, On 02/01/24 at 2215, HAZARDOUS MEDICATION: wear single chemotherapy approved gloves. 2200 (New Bag - Provider: Sharlene Rouse RN - Comment: BOLUS DUE TO BLEEDING) tranexamic acid (CYKLOKAPRON) injection 1,000 mg (COMPLETED) 1,000 mg, Intravenous, Once, 1 dose, On 02/01/24 at 2215, If giving IV push, do not inject faster than 1 mL/min (100 mg/min) to avoid hypotension. 2203 (Given - Provider: Sharlene Rouse RN) Continuous Medication Order 01/31/2024 02/01/2024 02/02/2024 lactated ringers infusion at 125 mL/hr, Intravenous, Continuous, Starting on 02/01/24 at 0645, Until 02/02/24 at 2044, For all patients in active labor with non-vertex presentation, multiple gestation, previous , persistent non-reassuring FHR, Hx post- hemorrhage, active phase longer than 8 hrs and/or patient desires an epidural., Pre-Delivery 0900 (New Bag - Provider: Chance Colbert, Nurse Data Analyst Etl Developer II)1535 (Infusion Stop Time - Provider: Chance Colbert, Nurse Data Analyst Etl Developer II)1539 (New Bag - Provider: Chance Colbert, Nurse Data Analyst Etl Developer II)1558 (Rate/Dose Change - Provider: Chance Colbert, Nurse Data Analyst Etl Developer II)2307 (New Bag - Provider: Sharlene Rouse RN - Comment: PER PJ) oxytocin (PITOCIN) 30 units in NS 500 mL infusion (CANCELED) 0-300 pratima-units/min (0-300 mL/hr), Intravenous, Continuous, Starting on 02/01/24 at 0645, Until 02/01/24 at 0915, Start at 2 pratima-unit/min. Increase by 2 pratima-unit/min every 30 minutes until adequate contraction defined as 3-5 contractions in 10 minutes or cervical change occurs. Max dose of 30 pratima-units/min. Notify provider when dose has reached 20 pratima-unit/min. RN to adjust dose based upon maternal and/or response. If uterine tachysystole occurs WITH reassuring FHR then: -Decrease oxytocin rate by half -If tachysystole does not resolve within 15 minutes after initial intervention, stop oxytocin infusion and notify provider If uterine tachysystole occurs when the FHR is NOT reassuring: -Stop the oxytocin infusion. -Follow guidelines below for resumption of oxytocin when tachysystole resolved: If oxytocin is stopped due to tachysystole for less than 30 minutes resume oxytocin at half the rate at time it was stopped. If oxytocin is stopped due to tachysystole for longer than 30 minutes resume oxytocin at the initial ordered dose. If stopped for less than 30 minutes resume at half the rate at time it was stopped If stopped for more than 30 minutes resume at the initial dose ordered. Following delivery infuse any remaining oxytocin at 300ml/hr (300 pratima-units/min) for the fist hour, then decrease to 60 ml/r (60 pratima-units/min) for the 2nd hour. Continue this rate until the fundus is firm or the patient has completed her recovery phase. HAZARDOUS MEDICATION: wear single chemotherapy approved gloves., Pre-Delivery 6174 (New Bag - Provider: Chance Colbert, Nurse Data Analyst Etl Developer II) oxytocin (PITOCIN) 30 units in NS 500 mL infusion (CANCELED) 0-300 pratima-units/min (0-300 mL/hr), Intravenous, Continuous, Starting on 02/01/24 at 0945, Until 02/02/24 at 0631, Start at 6 pratima-unit/min. Increase by 3 pratima-unit/min every 30 minutes until adequate contraction defined as 3-5 contractions in 10 minutes or cervical change occurs. Max dose of 30 pratima-units/min. Notify provider when dose has reached 20 pratima-unit/min. RN to adjust dose based upon maternal and/or response. If uterine tachysystole occurs with reassuring FHR then: -Decrease oxytocin rate by half -If tachysystole does not resolve within 15 minutes after initial intervention, stop oxytocin infusion and notify provider If uterine tachysystole occurs when the FHR is NOT reassuring: -Stop the oxytocin infusion. -Follow guidelines below for resumption of oxytocin when tachysystole resolved: If oxytocin is stopped due to tachysystole for less than 30 minutes resume oxytocin at half the rate at time it was stopped. If oxytocin is stopped due to tachysystole for longer than 30 minutes resume oxytocin at the initial ordered dose. If stopped for less than 30 minutes resume at half the rate at time it was stopped If stopped for more than 30 minutes resume at the initial dose ordered. Following delivery infuse any remaining oxytocin at 300ml/hr (300 pratima-units/min) for the fist hour, then decrease to 60 ml/r (60 pratima-units/min) for the 2nd hour. Continue this rate until the fundus is firm or the patient has completed her recovery phase. HAZARDOUS MEDICATION: wear single chemotherapy approved gloves., Pre-Delivery 2307 (New Bag - Provider: Sharlene Rouse RN) 0007 (Rate/Dose Change - Provider: Sharlene Rouse RN)0230 (Infusion Stop Time - Provider: Sharlene Rouse RN) sodium chloride 0.9% infusion at 10 mL/hr, Intravenous, Continuous, Starting on 02/01/24 at 2230, Until 02/02/24 at 2044, Infuse at TKO rate 0150 (Restarted - Provider: Sharlene Rouse RN - Comment: GIVEN WITH BLOOD)0258 (Infusion Stop Time - Provider: Sharlene Rouse RN) sodium chloride 0.9% infusion at 10 mL/hr, Intravenous, Continuous, Starting on 02/01/24 at 2330, Until 02/02/24 at 2044, Infuse at TKO rate 0016 (Restarted - Provider: Sharlene Rouse RN - Comment: GIVEN WITH BLOOD)0136 (Infusion Stop Time - Provider: Sharlene Rouse RN) sodium chloride 0.9% infusion at 10 mL/hr, Intravenous, Continuous, Starting on 02/01/24 at 2345, Until 02/02/24 at 2043, Infuse at TKO rate 2226 (New Bag - Provider: Sharlene Rouse RN - Comment: GIVEN WITH BLOOD)2340 (Infusion Stop Time - Provider: Sharlene Rouse RN) PRN Medication Order 01/31/2024 02/01/2024 02/02/2024 acetaminophen (TYLENOL) tablet 650 mg 650 mg, Oral, Every 4 hours PRN, Mild pain (Scale 1 - 3), Starting on 02/01/24 at 1805, Until 02/02/24 at 2043, Maximum dose of acetaminophen is 4000 mg from all sources in 24 hours., 1806 (Given - Provider: Jordyn Philip RN) 0035 (Given - Provider: Sharlene Rouse RN)0608 (Given - Provider: Sharlene Rouse RN)1253 (Given - Provider: Jordyn Philip RN) benzocaine-menthol (DERMOPLAST) 20-0.5 % topical spray 1 spray 1 spray, Topical, 4 times daily PRN, Pain, Perineal discomfort, Starting on 02/01/24 at 1805, Until 02/02/24 at 2043, Do NOT recommend use for pain in infants & children under 2 years., diphenhydrAMINE (BENADRYL) 12.5 MG/5ML elixir 25 mg(Linked Group 2) 25 mg, Oral, Every 6 hours PRN, Itching, Starting on 02/01/24 at 1805, Until 02/02/24 at 2043, Give if unable to swallow tablets/capsules or if patient prefers liquid., 2121 (See Alternative - Provider: Sharlene Rouse RN) diphenhydrAMINE (BENADRYL) capsule 25 mg(Linked Group 2) 25 mg, Oral, Every 6 hours PRN, Itching, Starting on 02/01/24 at 1805, Until 02/02/24 at 2043, 2121 (Given - Provider: Sharlene Rouse RN) diphenhydrAMINE (BENADRYL) injection 25 mg(Linked Group 2) 25 mg, Intravenous, Every 6 hours PRN, Itching, Starting on 02/01/24 at 1805, Until 02/02/24 at 2043, Give if unable to take PO. For IV administration, give no faster than 25 mg/min., 2121 (See Alternative - Provider: Sharlene Rouse RN) fentaNYL (SUBLIMAZE) injection 50 mcg 50 mcg, Intravenous, Every 2 hours PRN, Severe pain (Scale 8 - 10), Starting on 02/01/24 at 2320, Until 02/02/24 at 2043, If intravenous (IV) route has been ordered, give over 1-2 minutes. 0206 (Given - Provid er: Sharlene Rouse RN) ibuprofen (MOTRIN) tablet 800 mg 800 mg, Oral, Every 6 hours PRN, Mild pain (Scale 1 - 3), Starting on 02/01/24 at 2038, Until 02/02/24 at 2043 2044 (Given - Provider: Sharlene Rouse RN) 0340 (Given - Provider: Sharlene Rouse RN)0926 (Given - Provider: Yani Qureshi RN)1710 (Given - Provider: Jordyn Philip, SARA) ondansetron (ZOFRAN) injection 4 mg (CANCELED) 4 mg, Intravenous, Every 8 hours PRN, Nausea, Vomiting, Starting on 02/01/24 at 0616, Until 02/01/24 at 1841, If unable to take PO., Pre-Delivery 1739 (Given - Provider: Jordyn Philip, RN) ondansetron (ZOFRAN) injection 4 mg 4 mg, Intravenous, Every 8 hours PRN, Nausea, Vomiting, Starting on 02/01/24 at 1805, Until 02/02/24 at 2043, Use IV if patient unable to take oral order for ondansetron., Linked Groups Order Group 1: Patient may have epidural (CANCELED) Routine, Once, On 02/01/24 at 0617, For 1 occurrence, Nursing to inform anesthesia of patient's need for epidural, and LR bolus initiated., Pre-Delivery And lactated ringers bolus infusion 1,000 mL (COMPLETED)Jump to med 1,000 mL, Intravenous, Administer over 30 Minutes, Once, 1 dose, On 02/01/24 at 0645, Bolus prior to epidural placement., Pre-Delivery Group 2: diphenhydrAMINE (BENADRYL) injection 25 mgJump to med 25 mg, Intravenous, Every 6 hours PRN, Itching, Starting on 02/01/24 at 1805, Until 02/02/24 at 2044, Give if unable to take PO. For IV administration, give no faster than 25 mg/min., Or diphenhydrAMINE (BENADRYL) capsule 25 mgJump to med 25 mg, Oral, Every 6 hours PRN, Itching, Starting on 02/01/24 at 1805, Until 02/02/24 at 2044, Or diphenhydrAMINE (BENADRYL) 12.5 MG/5ML elixir 25 mgJump to med 25 mg, Oral, Every 6 hours PRN, Itching, Starting on 02/01/24 at 1805, Until 02/02/24 at 2044, Give if unable to swallow tablets/capsules or if patient prefers liquid., documented in this encounter Care Teams Time Analysis Clerk Relationship Specialty Start Date End Date Cally Ghosh MD [address] [place] [phone] PCP - General FAMILY PRACTICE 08/11/20 Cally Ghosh MD [address] [phone] FAMILY PRACTICE 08/27/18 documented as of this encounter
--- OUTSIDE RECORDS SUMMARY | 2024-10-06 20:55 | XMS_ITS | Encounter Summary ---
Author Organization [facility] Address [address] [place] [address]. [place] [address] [place] [address] Care Team Providers Care Barrel Tester And Drainer Name Role Phone Sid Solis MD Unavailable [phone] Sid Solis MD Primary Care Provider Encounter Details Date Type Department Care Team (Late st Contact Info) Description 02/09/2021 Pre-Procedure Call 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 No 02/10/2021 6:38 AM CDT Courtney Munguia RN Ac tive * RETIRED [...] or making decisions? No 02/10/2021 6:38 AM CDT Courtney Munguia [...] on filedocumented in this encounter Care Teams Barrel Tester And Drainer Relationship Specialty Start Date End Date Sid Solis MD [address] [place] [id number] PCP - General FAMILY PRACTICE 08/11/20 Sid Solis MD [address] [place] [id number] FAMILY PRACTICE 08/27/18 documented as of this encounter
--- OUTSIDE RECORDS SUMMARY | 2024-10-06 20:55 | XMS_ITS | Encounter Summary ---
Author Organization [facility] Address [address] [place] [address]. [place], [place] [id number] [place], [place] [id number] Care Team Providers Care Drapery Worker Name Role Phone Sid Solis MD Unavailable Sid Solis MD Primary Care Provider [phone] Encounter Details Date Type Department Care Team (Latest Contact Info) Description 07/04/2023 Travel Social History Tobacco Use Types Packs/Day [...] often do you attend chur ch or oriental orthodox services? Never 01/17/2023 Do you belong to any clubs o r organizations such as sikh groups, unions, fraternal or athletic groups, or [...] and heating? 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
--- OUTSIDE RECORDS SUMMARY | 2024-10-06 20:55 | XMS_ITS | Encounter Summary ---
Author Organization [facility] Address [address] [place] [address]. [place] [address] [place] [address] Care Team Providers Care Ironworker Foreman Name Role Phone Sid Solis MD Unavailable [phone] Sid Solis MD Primary Care Provider Encounter Details Date Type Department Care Team (Late st Contact Info) Description 06/22/2022 Orders Only 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
--- OUTSIDE RECORDS SUMMARY | 2024-10-06 20:55 | XMS_ITS | Encounter Summary ---
Author Organization [facility] Address [address] [place] [address]. 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 No / Unsure 10/31/2021 12:15 PM COMPUTER SECURITY COORDINATOR documented as of this encounter Functional Status [...] on filedocumented in this encounter Care Teams Smelter Liner Relationship Specialty Start Date End Date Sid Solis MD [address] [phone] PCP - General FAMILY PRACTICE 08/11/20 Sid Solis MD [address] [phone] FAMILY PRACTICE 08/27/18 documented as of this encounter
--- OUTSIDE RECORDS SUMMARY | 2024-10-06 20:55 | XMS_ITS | Encounter Summary ---
Author Organization [facility] Address [address] [place] [address]. [place] [address] [place] [address] Care Team Providers Care Director Drug Name Role Phone Sid Solis MD Unavailable [phone] Sid Solis MD Primary Care Provider Reason for Visit * Reason Onset Date Comments Post Call 01/25/2023 Encounter Details Date Type Department Care Team (Late st Contact Info) Description 01/25/2023 Telephone [facility] [address] [place] [address] Sid Solis MD [address] [place] [address] Post Call Social History Tobacco [...] How often do you attend chur or mandaeism services? Never 01/17/2023 Do you belong to any clubs o r organizations such as hinduism groups, unions, fraternal or athletic groups, or [...] and heating? Not hard at all 01/17/2023 [facility] - Occupational Stress Questionnaire Answer Date [...] place to sleep or slept in a snf (including now)? 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 Answer Date of Assessment Author Status No 01/17/2023 10:36 AM CDT Miesha Zamarripa RN Active * Do you have serious difficulty walking or climbing stairs? Answer Date of Assessment Author Status No 01/17/2023 10:36 AM ALDAIRT Miesha Zamarripa RN Active * Do you have difficulty dressing or bathing? Answer Date of Assessment Author Status No 01/17/2023 10:36 AM CDT Miesha Zamarripa RN Active * Because of a physical, mental, or emotional condition, do you have difficulty doing errands alone such as visiting a doctor's office or shopping? Answer Date of Assessment Author Status No 01/17/2023 10:36 AM Miesha Barnett, RN Active documented as of this encounter [...] on filedocumented in this encounter Care Teams Director Drug Relationship Specialty Start Date End Date Sid Solis MD [address] [phone] PCP - General FAMILY PRACTICE 08/11/20 Sid Solis MD [address] [phone] FAMILY PRACTICE 08/27/18 documented as of this encounter
--- OUTSIDE RECORDS SUMMARY | 2024-10-06 20:55 | XMS_ITS | Encounter Summary ---
Author Organization [facility] Address [address] [place] [address]. [place] [address] [place] [address] Care Team Providers Care Groover And Turner Name Role Phone Sid Solis MD Unavailable [phone] Sid Solis MD Primary Care Provider Reason for Visit * Reason Comments Complications Encounter Details Date Type Department Care Team (Late st Contact Info) Description 11/26/2021 1:26 PM MOLD WASHER - 11/26/2021 7:00 PM [facility] [address] [facility] [place] [address] Joselo Kumar, DO [address] [place] [address] Complications Discharge Disposition: Home or Self Care (Routine [...] on file Legal Sex Female 10:32 AM MOLD WASHER Gender Identity Not on file Sexual Orientation Not on file COVID-19 Exposure Response Date Recorded In the last 10 days, have yo u been in contact with someone who was confirmed or suspected to have Coronavirus/COVID-19? No / Unsure 11/26/2021 1:42 PM MOLD WASHER documented as of this encounter Last Filed Vital Signs Vital Sign Reading Time Taken Comments Blood Pressure 84/56 11/26/2021 6:30 PM MOLD WASHER Pulse 77 11/26/2021 5:38 PM MOLD WASHER Temperature 36 ??C (96.8 ??F) 11/26/2021 1:33 PM MOLD WASHER Respiratory Rate 22 11/26/2021 1:33 PM MOLD WASHER Oxygen Saturation 100% 11/26/2021 6:30 PM MOLD WASHER Inhaled Oxygen Concentration - - Weight 68 kg (150 lb) 11/26/2021 1:33 PM MOLD WASHER Height 160 cm (5' 3 ) 11/26/2021 1:33 PM MOLD WASHER Body Mass Index 26.57 11/26/2021 1:33 PM MOLD WASHER documented in this encounter Functional Status * [...] RN Active documented in this encounter Discharge Instructions * Discharge Instructions* Joselo Kumar DO - 11/26/2021 5:17 PM MOLD WASHER Take prescribed ibuprofen every 8 hours. Return immediately to the emergency department if your symptoms begin to worsen such as using 2 or more pads per hour for blood flow, uncontrolled pain, or feeling like you might pass out. WASHER * Attachments The following attachments cannot be sent through Care Everywhere. * Miscarriage Discharge Instructions (Belarusian) documented in this encounter Medications at Time of Discharge vitamin, low iron, 27-0.8 MG tablet Take 1 tablet by mouth daily. ferrous sulfate, 65 mg elemental, 325 (65 FE) MG tablet Take 1 tablet (325 mg total) by mouth daily with breakfast. 07/04/2023 documented as of this encounter ED Notes * China Webb RN - 11/26/2021 6:48 PM CST Walks to restroom without difficulty WASHER * China Webb RN - 11/26/2021 4:50 PM CST Asking to eat. states contractions have slowed and are not as painful. WASHER * Luiza Miller RN - 11/26/2021 3:[address] kumar discusses with dr yates WASHER * China Webb RN - 11/26/2021 3:28 PM CST Patient saturates peripad and under linen. Linens changed,new peripad placed WASHER * China Webb RN - 11/26/2021 3:09 PM CST States more relaxed, but pain is still 10 dr kumar aware. WASHER * China Webb RN - 11/26/2021 2:[address] kumar aware patient saturates peripad WASHER * China Webb RN - 11/26/2021 2:[address] kumar aware pain remains 10 . sbp 100 WASHER * China Webb RN - 11/26/2021 1:45 PM CST To ED with vaginal bleeding and cramping that worsened today.. Patient is 12 weeks , was diagnosed with blighted ovum. WASHER * Joselo Kumar DO - 11/26/2021 1:23 PM CST Chief Complaint Chief Complaint Patient presents with ??? Complications History of Present Illness 31-year-old female presents to the emergency department reporting vaginal bleeding. She states that she is approximately 12 weeks , but had an ultrasound 2 to 3 weeks ago that showed an empty sac. She reports that she has had some mild spotting since then, but then started flowingblood this morning. She has since become weak and dizzy. Patient denies nausea. She reports intensecramping pain in her lower abdomen. Patient reports that this is her fifth and she has had no previous miscarriages. 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 Codeine Unknown MEDICATIONS: Prior to Admission medications Medication Sig Start Date End Date Taking? Authorizing Provider ferrous sulfate, 65 mg elemental, 325 (65 FE) MG tablet Take 325 mg by mouth daily with breakfast. Doc Abstract vitamin, low iron, 27-0.8 MG tablet Take 1 tablet by mouth daily. Doc Abstract PAST MEDICAL HISTORY: Past Medical History: Diagnosis Date ??? Anemia PAST SURGICAL HISTORY: Past Surgical History: Procedure Laterality Date ??? ANKLE ARTHROSCOPY Right ??? OPEN RX PROX/MID FING SHFT FX [facility] FAMILY HISTORY: No family history on file. SOCIAL HISTORY: Social History Tobacco Use ??? Smoking status: Current Every Day Smoker Years: 15.00 ??? Smokeless tobacco: Never Used Substance Use Topics ??? Alcohol use: Not on file ??? Drug use: Not on file Review of Systems Review of Systems All other systems reviewed and are negative. Physical Exam Filed Vitals: 11/26/21 1738 11/26/21 1800 11/26/21 1830 11/26/21 1902 BP: 92/57 91/54 (!) 84/56 95/55 Pulse: 77 Resp: Temp: TempSrc: SpO2: 98% 98% 100% Weight: Height: Physical Exam Vitals and nursing note reviewed. Constitutional: General: She is not in acute distress. Appearance: She is well-developed. She is not diaphoretic. HENT: Head: Normocephalic and atraumatic. Eyes: Conjunctiva/sclera: Conjunctivae normal. Pulmonary: Effort: Pulmonary effort is normal. No respiratory distress. Breath sounds: Normal breath sounds. Abdominal: General: Bowel sounds are normal. There is no distension. Palpations: Abdomen is soft. Tenderness: There is abdominal tenderness (lower abdomen). Neurological: Mental Status: She is alert and oriented to person, place, and time. Psychiatric: Behavior: Behavior normal. Thought Content: Thought content normal. Judgment: Judgment normal. Diagnostic Studies / Procedures ELECTROCARDIOGRAMS: No results found for this visit on 11/26/21. LABORATORY STUDIES: Results for orders placed or performed during the hospital encounter of 11/26/21 CBC W/DIFF AUTOMATED Result Value Ref Range WBC 11.6 (H) 4.0 - 10.8 x10'3/uL RBC 3.77 (L) 4.10 - 5.40 x10'6/uL HGB 11.1 (L) 12.0 - 16.0 G/DL HCT 33.5 (L) 36.0 - 47.0 % MCV 88.9 78.0 - 100.0 FL MCH 29.4 27.0 - 31.0 PG MCHC 33.1 33.0 - 36.0 G/DL RDW 13.1 11.5 - 14.5 % PLT 164 150 - 350 x10'3/uL MPV 10.5 (H) 7.4 - 10.4 FL Differential Comment NORMAL REFERENCE RANGE NOT ESTABLISHED FOR THE PROPORTIONAL LEUKOCYTE DIFFERENTIAL. SEG NEUTROPHILS 84.9 % LYMPHOCYTES 10.7 % MONOCYTES 3.2 % EOSINOPHILS 0.7 % BASOPHILS 0.1 % IMMATURE GRANS 0.4 % NRBC 0.0 % ABS. NEUTROPHILS 9.81 (H) 1.60 - 8.30 x10'3/uL ABS. LYMPHOCYTES 1.24 0.80 - 4.70 x10'3/uL ABS. MONOCYTES 0.37 0.00 - 1.50 x10'3/uL ABS. EOSINOPHILS 0.08 0.00 - 0.40 x10'3/uL ABS. BASOPHILS 0.01 0.00 - 0.20 x10'3/uL ABS. IMMATURE GRANULOCYTES 0.05 (H) 0.00 - 0.03 x10'3/uL ABS. NUCLEATED RBC'S 0.00 0.00 x10'3/uL COMPREHENSIVE METABOLIC PANEL Result Value Ref Range SODIUM 141 136 - 145 MMOL/L POTASSIUM 4.0 3.5 - 5.1 MMOL/L CHLORIDE S/P/B 104 98 - 107 MMOL/L CO2 22.3 21.0 - 32.0 MMOL/L GLUCOSE 93 70 - 99 MG/DL BUN 9 6 - 24 MG/DL CREATININE S/P/B 0.59 0.55 - 1.02 MG/DL CALCIUM 7.8 (L) 8.4 - 10.5 MG/DL BILIRUBIN TOTAL S/P/B 0.4 0.2 - 1.0 MG/DL ALKALINE PHOSPHATASE S/P/B 61 37 - 98 U/L AST 13 (L) 15 - 37 U/L ALT 15 14 - 59 U/L TOTAL PROTEIN S/P/B 6.2 (L) 6.4 - 8.2 G/DL ALBUMIN S/P/B 2.8 (L) 3.4 - 5.0 G/DL ANION GAP 14.7 5.0 - 15.0 MMOL/L OSMOLALITY (CALC) 290 MOSM/KG eGFR Non-Afr. Amer. >90 >89 ML/MIN/1.73 M2 eGFR Afr. Amer. >90 >89 ML/MIN/1.73 M2 GFR NOTES GFR REFERENCES: HCG QUANT (SERUM)-CHORIONIC GONADOTROPIN Result Value Ref Range HCG, QUANTITATIVE 606 (H) 0.0 - 6.0 MIU/ML HEMOGLOBIN AND HEMATOCRIT Result Value Ref Range HGB 10.0 (L) 12.0 - 16.0 G/DL HCT 30.6 (L) 36.0 - 47.0 % IMAGING STUDIES No orders to display ED Course / Medical Decision Making MDM Number of Diagnoses or Management Options Incomplete : established and worsening Amount and/or Complexity of Data Reviewed Clinical lab tests: reviewed and ordered Discuss the patient with other providers: yes Risk of Complications, Morbidity, and/or Mortality Presenting problems: low Diagnostic procedures: low Management options: moderate Patient Progress Patient progress: improved ED Course as of Nov 26 1914 Sun Nov 26, [address] Yates over the phone. She recommends patient follow-up as an outpatient tomorrow as long as she does not develop any hemodynamic instability. High-dose NSAIDs can be used for cramping pain. [JW] 1958 Patient reevaluated. She states that she feels much better now. She is able to sit up without any dizziness or presyncopal symptoms. Pain is much better controlled. Uterine tenderness is decreased. Patient was able to stand and walk earlier without difficulty. 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 Return precautions emphatically reinforced and patient expresses understanding. She will be started on 800 mg of ibuprofen every 8 hours until follow-up with her barrel centerer. [JW] 1914 Patient's hemoglobin rechecked prior to discharge. It is fallen to 10.0 which seems appropriate for the amount of fluids that she has received. Blood pressure prior to discharge is 95/55. Patient continues mentating normally. She denies any dizziness or weakness. She is offered admission for observation, but states that she would prefer to be at home. Return precautions reiterated and patient acknowledges. [JW] ED Course User Index [JW] Joselo Kumar DO Clinical Impression Incomplete (Primary) Disposition: Discharge Joselo Kumar DO 11/26/211914 WASHER documented in this encounter Plan of Treatment Not on file documented as of this encounter Procedures Procedure Name Priority Date/Time Associated Diagnosis Comments HEMOGLOBIN AND HEMATOCRIT STAT 11/26/2021 5:51 PM MOLD WASHER COMPREHENSIVE METABOLIC PANEL STAT 11/26/2021 2:18 PM MOLD WASHER HCG QUANT (SERUM)-CHORIONIC GONADOTROPIN STAT 11/26/2021 2:18 PM MOLD WASHER CBC W/DIFF AUTOMATED STAT 11/26/2021 2:18 PM MOLD WASHER documented in this encounter Results * (ABNORMAL) HEMOGLOBIN AND HEMATOCRIT (11/26/2021 5:51 PM MOLD WASHER) HGB 10.0(L) 12.0 - 16.0 G/DL 11/26/2021 5:58 PM MOLD WASHER [facility] HCT 30.6(L) 36.0 - 47.0 % 11/26/2021 5:58 PM MOLD WASHER [facility] 11/26/2021 5:51 PM MOLD WASHER Joselo Kumar DO LABORATORY Final Result Performing Organization Address [facility] Co de Phone Number [facility] [address] [place] [place] [address], * (ABNORMAL) HCG QUANT (SERUM)-CHORIONIC GONADOTROPIN (11/26/2021 2:18 PM MOLD WASHER) HCG QUANTITATIVE 606(H) 0.0 - 6.0 MIU/ML 11/26/2021 3:27 PM MOLD WASHER [facility] Comment: WEEKS OF ? REFERENCE RANGES [...] TESTING AT 48 HOURS MAY BE INDICATED. 11/26/2021 2:18 PM MOLD WASHER us Joselo Kumar DO LABORATORY Final Result [facility] [address] [place] [address], * (ABNORMAL) COMPREHENSIVE METABOLIC PANEL (11/26/2021 2:18 PM MOLD WASHER) SODIUM S/P/B 141 136 - 145 MMOL/L 11/26/2021 3:27 PM [facility] POTASSIUM S/P/B 4.0 3.5 - 5.1 MMOL/L 11/26/2021 3:27 PM [facility] CHLORIDE S/P/B 104 98 - 107 MMOL/L 11/26/2021 3:27 PM [facility] CO2 22.3 21.0 - 32.0 MMOL/L 11/26/2021 3:27 PM [facility] GLUCOSE 93 70 - 99 MG/DL 11/26/2021 3:27 PM [facility] Comment: FASTING GLUCOSE 100 TO 125 MG/DL IS CONSISTENT WITH IMPAIRED FASTING GLUCOSE. FASTING GLUCOSE >125 MG/DL IS CONSISTENT WITH DIABETES. RANDOM GLUCOSE >200 MG/DL WITH HYPERGLYCEMIC SYMPTOMS IS CONSISTENT WITH DIABETES. PER ADA GUIDELINES BUN 9 6 - 24 MG/DL 11/26/2021 3:27 PM [facility] CREATININE S/P/B 0.59 0.55 - 1.02 MG/DL 11/26/2021 3:27 PM [facility] CALCIUM S/P/B 7.8(L) 8.4 - 10.5 MG/DL 11/26/2021 3:27 PM [facility] BILIRUBIN TOTAL S/P/B 0.4 0.2 - 1.0 MG/DL 11/26/2021 3:27 PM [facility] Comment: THIS ASSAY IS NOT RECOMMENDED FOR PATIENTS UNDERGOING TREATMENT WITH ELTROMBOPAG DUE TO THE POTENTIAL FOR FALSELY ELEVATED RESULTS. ALKALINE PHOSPHATASE S/P/B 61 37 - 98 U/L 11/26/2021 3:27 PM [facility] AST 13(L) 15 - 37 U/L 11/26/2021 3:27 PM [facility] ALT 15 14 - 59 U/L 11/26/2021 3:27 PM MOLD WASHER [facility] TOTAL PROTEIN S/P/B 6.2(L) 6.4 - 8.2 G/DL 11/26/2021 3:27 PM [facility] ALBUMIN S/P/B 2.8(L) 3.4 - 5.0 G/DL 11/26/2021 3:27 PM MOLD WASHER [facility] ANION GAP 14.7 5.0 - 15.0 MMOL/L 11/26/2021 3:27 PM MOLD WASHER [facility] OSMOLALITY (CALC) 290 MOSM/KG 022 3:27 PM MOLD WASHER [facility] Comment:REFERENCE RANGE NOT ESTABLISHED EGFR NON-AFR. AMER. >90 >89 ML/MIN/1. 73 M2 11/26/2021 3:27 PM MOLD WASHER [facility] EGFR AFR. AMER. >90 >89 ML/MIN/1. 73 M2 11/26/2021 3:27 PM [facility] GFR NOTES GFR REFERENCE S: 11/26/2021 3:27 PM [facility] Comment: THE ESTIMATED GFR IS CALCULATED USING THE 2009 CKD-EPI EQUATION. THE FOLLOWING CATEGORIES FOR GRADING RENAL FUNCTION ARE RECOMMENDED BY THE INTERNATIONAL SOCIETY OF NEPHROLOGY (KDIGO 2012 CLINICAL PRACTICE GUIDELINE). G1,NORMAL OR HIGH: >89 ml/min/1.73 m2 G2,MILDLY DECREASED: 60-89 ml/min/1.73 m2 G3A,MILDLY TO MODERATELY DECREASED: 45-59 ml/min/1.73 m2 G3B,MODERATELY TO SEVERELY DECREASED: 30-44 ml/min/1.73 m2 G4,SEVERELY DECREASED: 15-29 ml/min/1.73 m2 G5,KIDNEY FAILURE: <15 ml/min/1.73 m2 11/26/2021 2:18 PM MOLD WASHER us Joselo Kumar DO LABORATORY Final Result [facility] [address] [place] [address], * (ABNORMAL) CBC W/DIFF AUTOMATED (11/26/2021 2:18 PM MOLD WASHER) WBC 11.6(H) 4.0 - 10.8 x10'3/uL 11/26/2021 2:40 PM MOLD WASHER [facility] RBC 3.77(L) 4.10 - 5.40 x10'6/uL 11/26/2021 2:40 PM MOLD WASHER [facility] HGB 11.1(L) 12.0 - 16.0 G/DL 11/26/2021 2:40 PM [facility] HCT 33.5(L) 36.0 - 47.0 % 11/26/2021 2:40 PM [facility] MCV 88.9 78.0 - 100.0 FL 11/26/2021 2:40 PM [facility] MCH 29.4 27.0 - 31.0 PG 11/26/2021 2:40 PM [facility] MCHC 33.1 33.0 - 36.0 G/DL 11/26/2021 2:40 PM [facility] RDW 13.1 11.5 - 14.5 % 11/26/2021 2:40 PM [facility] PLT 164 150 - 350 x10'3/uL 11/26/2021 2:40 PM [facility] MPV 10.5(H) 7.4 - 10.4 FL 11/26/2021 2:40 PM [facility] DIFFERENTIAL COMMENT NORMAL REFERENCE RANGE NOT ESTABLISHED FOR THE PROPORTIONAL LEUKOCYTE DIFFERENTIAL. 11/26/2021 2:40 PM [facility] SEG NEUTROPHILS 84.9 % 2:40 PM [facility] LYMPHOCYTES 10.7 % 11/26/2021 2:40 PM [facility] MONOCYTES 3.2 % 11/26/2021 2:40 PM [facility] EOSINOPHILS 0.7 % 11/26/2021 2:40 PM [facility] BASOPHILS 0.1 % 11/26/2021 2:40 PM MOLD WASHER [facility] IMMATURE GRANS % 0.4 % 11/26/19 2:40 PM MOLD WASHER [facility] NRBC 0.0 % 11/26/2021 2:40 PM MOLD WASHER [facility] ABS. NEUTROPHILS 9.81(H) 1.60 - 8.30 x10'3/uL 11/26/2021 2:40 PM MOLD WASHER [facility] ABS. LYMPHOCYTES 1.24 0.80 - 4.70 x10'3/uL 11/26/2021 2:40 PM MOLD WASHER [facility] ABS. MONOCYTES 0.37 0.00 - 1.50 x10'3/uL 11/26/2021 2:40 PM MOLD WASHER [facility] ABS. EOSINOPHILS 0.08 0.00 - 0.40 x10'3/uL 11/26/2021 2:40 PM MOLD WASHER [facility] ABS. BASOPHILS 0.01 0.00 - 0.20 x10'3/uL 11/26/2021 2:40 PM MOLD WASHER [facility] ABS. IMMATURE GRANULOCYTES 0.05(H) 0.00 - 0.03 x10'3/uL 11/26/2021 2:40 PM MOLD WASHER [facility] ABS. NUCLEATED RBC'S 0.00 0.00 x10'3/uL 11/26/2021 2:40 PM MOLD WASHER [facility] 11/26/2021 2:18 PM MOLD WASHER Joselo Kumar DO LABORATORY Final Result [facility] [address] [place] [address], documented in this encounter Visit Diagnoses Diagnosis Incomplete ([facility])- Primary Legally unspecified , incomplete, without mention of complication documented in this encounter Administered Medications Inactive Administered Medications - up to 3 most recent administrations Medication Order MAR Action Action Date Dose Rate Site ibuprofen (MOTRIN) 400 MG tablet 1 dose, Starting on 11/26/21 at 1851, Until 11/26/21 at 1857, Created by cabinet override ibuprofen (MOTRIN) tablet 800 mg 800 mg, Oral, Once, 1 dose, On 11/26/21 at 1730 Given 11/26/2021 5:34 PM MOLD WASHER 800 mg ibuprofen (MOTRIN) tablet 800 mg 800 mg, Oral, Q8H, 1 dose, First dose on 11/26/21 at 1730 Given 11/26/2021 6:57 PM MOLD WASHER 800 mg ketorolac (TORADOL) injection 30 mg 30 mg, Intravenous, Once, 1 dose, On 11/26/21 at 1545, For IV administration, give over 15 seconds. Given 11/26/2021 3:39 PM MOLD WASHER 30 mg Right Arm morphine injection 4 mg 4 mg, Intravenous, Once, 1 dose, On 11/26/21 at 1400 Given 11/26/2021 1:56 PM MOLD WASHER 4 mg sodium chloride 0.9% bolus infusion SOLN 1,000 mL 1,000 mL, Intravenous, Administer over 15 Minutes, Once, 1 dose, On 11/26/21 at 1400 New Bag 11/26/2021 1:56 PM MOLD WASHER 1,000 mLs 999 mL/hr Right Arm sodium chloride 0.9% bolus infusion SOLN 1,000 mL 1,000 mL, Intravenous, Administer over 15 Minutes, Once, 1 dose, On 11/26/21 at 1615 New Bag 11/26/2021 4:09 PM MOLD WASHER 1,000 mLs documented in this encounter Active and Recently Administered Medications Times are shown in MOLD WASHER. Scheduled Medication Order 11/24/2021 11/25/2021 11/26/2021 ibuprofen (MOTRIN) tablet 800 mg (COMPLETED) 800 mg, Oral, Once, 1 dose, On 11/26/21 at 1730 1734 (Given - Provid er: China Webb RN) ibuprofen (MOTRIN) tablet 800 mg (COMPLETED) 800 mg, Oral, Q8H, 1 dose, First dose on 11/26/21 at 1730 1857 (Given - Provid er: China Webb RN - Comment: med sent home) ketorolac (TORADOL) injection 30 mg (COMPLETED) 30 mg, Intravenous, Once, 1 dose, On 11/26/21 at 1545, For IV administration, give over 15 seconds. 1539 (Given - Provid er: China Webb RN) morphine injection 4 mg (COMPLETED) 4 mg, Intravenous, Once, 1 dose, On 11/26/21 at 1400 1356 (Given - Provid er: China Webb RN) morphine injection 4 mg 4 mg, Intravenous, Once, 1 dose, On 11/26/21 at 1515 1703 (Not Given - Pr ovider: China Webb RN - Reason: Order parameters not met - Comment: sbp in [address]s. dr kumar orders toradol) sodium chloride 0.9% bolus infusion SOLN 1,000 mL (COMPLETED) 1,000 mL, Intravenous, Administer over 15 Minutes, Once, 1 dose, On 11/26/21 at 1400 1356 (New Bag - Prov ider: China Webb RN)1509 (Infusion Stop Time - Provider: China Webb RN) sodium chloride 0.9% bolus infusion SOLN 1,000 mL (COMPLETED) 1,000 mL, Intravenous, Administer over 15 Minutes, Once, 1 dose, On 11/26/21 at 1615 1609 (New Bag - Prov ider: Elzbieta Webster RN)1650 (Infusion Stop Time - Provider: China Webb RN) documented in this encounter Care Teams Groover And Turner Relationship Specialty Start Date End Date Sid Solis MD [address] [place] [id number] PCP - General FAMILY PRACTICE 08/11/20 Sid Solis MD [address] [place] [id number] FAMILY PRACTICE 08/27/18 documented as of this encounter
--- OUTSIDE RECORDS SUMMARY | 2024-10-06 20:55 | XMS_ITS | Encounter Summary ---
Author Organization [facility] Address [address] [place] [address]. [place] [address] [place] [address] Care Team Providers Care Manager Auto Name Role Phone Sid oSlis MD Unavailable [phone] Sid Solis MD Primary Care Provider Encounter Details Date Type Department Care Team (Late st Contact Info) Description 02/03/2021 7:45 AM CDT Anesthesia Event [place] [facility] [address] [place] [address] Lexie Norton, HYDRAULIC JACK MECHANIC [address] [place], [place] [id number] Anesthesia Record Procedure Summary Procedure Name Responsible Anesthesiologist Anesthesia Start Time Anesthesia Stop Time LABOR EPIDURAL Events Date Time Event Comment 02/03/2021 0745 AN HYDRAULIC JACK MECHANIC Prepped 0747 02/10/2021 1955 Floor Procedure 2000 Epidural Start 2018 An Epidural Placement Comple te 2205 Epidural Stop Meds Name Total lidocaine 1.5%-EPINEPHrine 1:200,000 inj ection 3 mL fentaNYL 2 mcg/mL-ROpivacaine 0.2 % epid ural 15.83 mL * Agents No agents on file. * Blood No blood administrations on file. 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 Gender Identity Not on file Sexual Orientation [...] 02/03/2021 6:56 AM CDT Alexa Kumar R Marci Active documented as of this encounter Mental [...] R N Active documented in this encounter OR Notes * Anesthesia Postprocedure Evaluation - Lexie Norton CRNA - 02/11/2021 11:11 AM CDT Anesthesia Post-op Note Michelle Briones Procedure(s): LABOR EPIDURAL Anesthesia type: epidural Vitals: 02/11/21 09 BP: 115/72 Vitals: 02/11/21 09 Pulse: 58 Vitals: 02/11/21 0900 Resp: 18 Vitals: 02/11/21899 Temp: 35.5 ??C Vitals: 02/11/21 0400 SpO2: 97% Patient Location: Labor & Delivery Level of Consciousness: awake, alert and oriented Pain Management: adequate analgesia Airway Patency: patent Respiratory Status: acceptable, room air and spontaneous ventilation Cardiovascular Status: acceptable, blood pressure returned to baseline and stable Post-Op Nausea: none Postoperative Hydration: euvolemic Complications: no anesthesia complication Comments: Patient has regained full motor and sensory function following epidural removal. .Patientwas told to use heat/ice for discomfort at the epidural insertion site if needed. Patient instructed to call L & D for any questions regarding anesthesia and one of the anesthesia providers wouldbe contacted. * Anesthesia Procedure Notes - Lexie Norton CRNA - 02/10/2021 8:33 PM CDT Associated Order(s): CSE CSE Block: Date/Time: 02/10/2021 8:14 PM Patient location during procedure: OB Reason for block: labor and procedure for pain Preanesthetic Checklist: Completed: patient identified, site marked, surgical consent, pre-op evaluation, timeout performed,IV checked, risks and benefits discussed and monitors and equipment checked Procedure Information: Placement Location: lumbar Patient position: sitting Prep: betadine Patient monitoring: continuous pulse oximetry, heart rate and non-invasive blood pressure Approach: midline Ultrasound-guided Placement: No Spinal Needle: Needle type: pencil-tip Needle gauge: 26 G Needle length: 5 cm Epidural Needle: Injection technique: CHRIS saline Needle type: Tuohy Needle gauge: 18 G Needle length: 3.5 in Needle insertion depth: 7.5 cm Location: L3-4 Needle attempts: 1 Catheter: MRI Compatible: MRI SAFE Catheter type: multi-orifice Catheter size: 20 G Catheter at skin depth: 15 cm Test dose: negative and lidocaine 1.5% with epinephrine 1-to-200,000 Assessment: Sensory level: T6 Events: cerebrospinal fluid Additional Notes: Risks explained: difficult placement, may be ineffective, severe headaches, back pain, nausea, bleeding, infection, nerve damage. Benefits explained to patient: may lower labor contraction pain. Patient wishes to proceed. Antiseptic prep. 3ml 1% lido local. Positive loss of resistance. No CSF. Positive CSF with small gauge pencil point spinal needle. Catheter in 7.5 cm easily. Negative test dose. Good pain relief. Secured at 15 cm at the skin. * Anesthesia Preprocedure Evaluation - Lexie Norton CRNA - 02/03/2021 7:46 AM CDT Anesthesia ROS/MED History Reviewed: Patient summary , ECG, Family history anesthesia, Anesthesia history , Medications , Labs , Images/Studies Pre-Anesthetic State: alert, awake and responds appropriately Pulmonary (+) smoker Cardiovascular neg cardio ROS Exercise tolerance:good Neuro/Psych neg neuro/psych ROS GI/Hepatic/Renal neg GI/hepatic/renal ROS Endo/Other (+) blood dyscrasia, (Anemia) GENERAL COMMENTS HGB/HCT 10.3/.30.5 PLT 176 Physical Evaluation Airway Mallampati: II TM Distance: >3 FB Neck ROM: normal Dental No notable dental history Pulmonary Pulmonary exam normal Breath sounds clear to auscultation Cardiovascular Rhythm: regular Rate: normal Cardiovascular exam normal Anesthesia Plan ASA 2 Induction Anesthesia type: epidural CSE v epidural Informed Consent Anesthetic plan and risks discussed with patient of whom consent was obtained. Use of blood products discussed with patient of whom consent was obtained. . documented in this encounter Plan of Treatment Not on file documented as of this encounter Procedures Procedure Name Priority Date/Time Associated Diagnosis Comments CSE BLOCK Routine 02/10/2021 8:33 PM CDT documented in this encounter Results * CSE BLOCK (02/10/2021 8:33 PM CDT) Narrative Lexie Norton CRNA - 02/10/2021 8:33 PM CDT Lexie Norton CRNA ? 02/10/2021 ??8:35 PM CSE Block: Date/Time: ??02/10/2021 8:14 PM Patient location during procedure: OB Reason for block: labor and procedure for pain Preanesthetic Checklist: Completed: patient identified, site marked, surgical consent, pre-op evaluation, timeout performed, IV checked, risks and benefits discussed and monitors and equipment checked Procedure Information: Placement Location: ??lumbar Patient position: sitting Prep: betadine Patient monitoring: continuous pulse oximetry, heart rate and non-invasive blood pressure Approach: midline Ultrasound-guided Placement: ??No Spinal Needle: Needle type: pencil-tip Needle gauge: 26 G Needle length: 5 cm Epidural Needle: Injection technique: CHRIS saline Needle type: Tuohy Needle gauge: 18 G Needle length: 3.5 in Needle insertion depth: 7.5 cm Location: L3-4 Needle attempts: ??1 Catheter: MRI Compatible: MRI SAFE Catheter type: multi-orifice Catheter size: 20 G Catheter at skin depth: 15 cm Test dose: negative and lidocaine 1.5% with epinephrine 1-to-200,000 Assessment: Sensory level: T6 Events: cerebrospinal fluid Additional Notes: Risks explained: difficult placement, may be ineffective, severe headaches, back pain, nausea, bleeding, infection, nerve damage. Benefits explained to patient: may lower labor contraction pain. Patient wishes to proceed. Antiseptic prep. 3ml 1% lido local. Positive loss of resistance. No CSF. Positive CSF with small gauge pencil point spinal needle. ??Catheter in 7.5 cm easily. Negative test dose. Good pain relief. Secured at 15 cm at the skin. Lexie Norton HYDRAULIC JACK MECHANIC MS ANESTHESIA Final Result documented in this encounter Visit Diagnoses Not [...] 8:30 PM CDT 10 mL/hr 10 mL/hr lidocaine-EPINEPHrine 1.5 %-1:[id number] injection Epidural, PRN, Starting on Sat02/10/21 at 2018, Until 02/11/21 at 1113, Anesthesia Intra-Op Given 02/10/2021 8:18 PM CDT 3 mLs documented in this encounter Care Teams Manager Auto Relationship Specialty Start Date End Date Sid Solis MD [address] [phone] PCP - General FAMILY PRACTICE 08/11/20 Sid Solis MD [address] [phone] FAMILY PRACTICE 08/27/18 documented as of this encounter
--- OUTSIDE RECORDS SUMMARY | 2024-10-06 20:55 | XMS_ITS | Encounter Summary ---
Author Organization [facility] Address [address] [place] [address]. 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 No / Unsure 11/12/2022 6:27 PM DRAPERY OPERATOR documented as of this encounter Functional Status [...] Author Status No 02/10/2021 6:38 AM CDT Nilda, Courtney B , RN Active documented in this encounter Plan of Treatment Not on file documented as of this encounter Visit Diagnoses Not on filedocumented in this encounter Care Teams Building Custodial Supervisor Relationship Specialty Start Date End Date Sid Solis MD [address] [phone] PCP - General FAMILY PRACTICE 08/11/20 Sid Solis MD [address] [phone] [facility] 08/27/18 documented as of this encounter
--- OUTSIDE RECORDS SUMMARY | 2024-10-06 20:55 | XMS_ITS | Encounter Summary ---
Author Organization [facility] Address [address] [place] [address]. [place], [place] [address] [place] [address] Care Team Providers Care Knobber Name Role Phone Sid Solis MD Unavailable [phone] Sid Solis MD Primary Care Provider Encounter Details Date Type Department Care Team (Late st Contact Info) Description 11/02/2021 Orders Only 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 No / Unsure 11/02/2021 1:22 PM APPLICATION DEFENSE MANAGER documented as of this encounter Functional Status [...] HCG QUANT (SERUM)-CHORIONIC GONADOTROPIN (11/02/2021 1:37 PM APPLICATION DEFENSE MANAGER) HCG QUANTITATIVE 56,561(H) 0.0 - 6.0 MIU/ML 11/02/2021 2:28 PM APPLICATION DEFENSE MANAGER [facility] Comment: WEEKS OF ? REFERENCE RANGES [...] HOURS MAY BE INDICATED. 11/02/2021 1:37 PM APPLICATION DEFENSE MANAGER us Sid Solis MD LABORATORY Final Resul t [facility] [address] [place] [address], documented in this encounter Visit Diagnoses Diagnosis Miscarriage, threatened, early ([facility])- Primary Threatened , unspecified as to episode of care documented in this encounter Care Teams Knobber Relationship Specialty Start Date End Date Sid Solis MD [address] [phone] PCP - General FAMILY PRACTICE 08/11/20 Sid Solis MD [address] [phone] FAMILY PRACTICE 08/27/18 documented as of this encounter
--- OUTSIDE RECORDS SUMMARY | 2024-10-06 20:55 | XMS_ITS | Encounter Summary ---
Author Organization [facility] Address [address] [place] [address]. [place] [address] [place] [address] Care Team Providers Care Customer Experience Leader Name Role Phone Sid Solis MD Unavailable [phone] Sid Solis MD Primary Care Provider Encounter Details Date Type Department Care Team (Late st Contact Info) Description 02/07/2021 1:45 PM CDT - 02/07/2021 11:59 PM CDT Hospital Encounter [facility] [address] [place] [address] Sid Solis MD [address] [place] [address] Discharge Disposition: Home or Self Care (Routine Discharge) Social History Tobacco Use Types Packs/Day Years Used Date Smoking Tobacco: Every Day Cigarettes Smokeless Tobacco: Never Comments Yes Sex and Gender Information Value Date Recorded Sex Assigned at Not on file Legal Sex Female 10:32 AM MANAGER WOUND Gender Identity Not on file Sexual Orientation [...] R N Active documented in this encounter Medications at [...] Procedure Name Priority Date/Time Associated Diagnosis Comments CORONAVIRUS (COVID 19) Routine 02/07/2021 1:51 PM CDT Supervision of other normal ([facility]) documented in this encounter Results * PRE-SURGICAL/PRE-PROCEDURE CORONAVIRUS (COVID 19) (02/07/2021 1:51 PM CDT) CORONAVIRUS SARS COV 2 PCR (RESP) NOT DETECTED NOT DETECTED 02/08/2021 12:46 PM CDT [facility] Comment: A Not Detected (negative) test result for this test means that SARS-CoV-2 RNA was not present in the specimen above the limit of detection. A negative result does not rule out the possibility of COVID-19 and should not be used as the sole basis for treatment or patient management decisions. If COVID-19 is still suspected, based on exposure history together with other clinical findings, re-testing should be considered in consultation with public health authorities. Laboratory test results should always be considered in the context of clinical observations and epidemiological data in making a final diagnosis and patient management decisions. This patient specimen was tested using an FDA EUA pooling method. Negative results from pooled testing should not be treated as definitive. If the patient's clinical signs and symptoms are inconsistent with a negative result or results are necessary for patient management, then the patient should be considered for individual testing. In very rare cases, estimated at about 8 in 1,000 (0.8%) or less patient specimens with low viral loads may not be detected in sample pools due to the decreased sensitivity of pooled testing. Please review the Fact Sheets and FDA authorized labeling available for health care providers and patients using the following websites: https://www.iTherX.MyTwinPlace/home/Covid-19/HCP/rc- ujyc-nzz1-lpcs-sheet.html https://www.iTherX.MyTwinPlace/home/Covid-19/Patients/ nv-hnjm-cmg2-fact-sheet.html This test has been authorized by the FDA under an Emergency Use Authorization (EUA) for use by authorized laboratories. Due to the current public health emergency, [facility] is receiving a high volume of samples from a wide variety of swabs and media for COVID-19 testing. In order to serve patients during this public health crisis, samples from appropriate clinical sources are being tested. Negative test results derived from specimens received in non-commercially manufactured viral collection and transport media, or in media and sample collection kits not yet authorized by FDA for COVID-19 testing should be cautiously evaluated and the patient potentially subjected to extra precautions such as additional clinical monitoring, including collection of an additional specimen. Methodology: ??Nucleic Acid Amplification Test (NAAT) includes RT-PCR or TMA Additional information about COVID-19 can be found at the [facility] website: www.Encision.MyTwinPlace/Covid19. Test performed at [facility] [address] [place], [place] ??[address] Director: VANDANA MÉNDEZ DO,MPH FIRST TEST NO 02/07/2021 1:50 PM CDT [facility] EMPLOYED IN HEALTHCARE NO 02/07/2021 1:50 PM CDT [facility] SYMPTOMATIC DEFINED BY CDC NO 02/07/2021 1:50 PM CDT [facility] DATE OF SYMPTOM ONSET UNKNOWN 02/07/2021 1:52 PM CDT [facility] HOSPITALIZATION STATUS NO 02/07/2021 1:50 PM CDT [facility] PATIENT IN ICU NO 02/07/2021 1:50 PM CDT [facility] RESIDENT OF [facility] NO 02/07/2021 1:50 PM CDT [facility] 02/07/2021 1:50 PM CDT [facility] PATIENT'S RACE WHITE OR 02/07/2021 1:50 PM CDT [facility] ETHNICITY NONHISPANIC 02/07/2021 1:50 PM CDT [facility] SOURCE (QST) NASOPHARYNGEAL SWAB 02/07/2021 1:50 PM CDT [facility] NASOPHARYNGEAL SWAB / Unknown 02/07/2021 1:51 PM CDT Sid Solis MD MICROBIOLOGY - [facility] Final Result [facility] [address] [place] [address], [employer] [address] documented in this encounter Visit Diagnoses Diagnosis Supervision of other normal ([facility]) Supervision of other normal documented in this encounter Additional Health Concerns Infection Onset Date Last Indicated Resolved Time COVID-19 Rule Out 02/07/2021 02/07/2021 02/08/2021 12:46 PM CDT documented as of this encounter Care Teams Customer Experience Leader Relationship Specialty Start Date End Date Sid Solis MD [facility] [place] [phone] PCP - General FAMILY PRACTICE 08/11/20 Sid Solis MD [facility] [place] [address] FAMILY PRACTICE 08/27/18 documented as of this encounter
--- OUTSIDE RECORDS SUMMARY | 2024-10-06 20:55 | XMS_ITS | Encounter Summary ---
Author Organization [facility] Address [address] [place] [address]. [place], [place] [address] [place] [address] Care Team Providers Care Oven Attendant Name Role Phone Sid Ghosh MD Unavailable [phone] Sid Ghosh MD Primary Care Provider Reason for Referral * Imaging (Routine) - Closed Specialty Diagnoses / Procedures Referred By Tea kaufman Referred To Contact RADIOLOGY Diagnoses Abdominal pain Procedures [facility] Sid Ghosh MD [address] [place] [address] Phone: tel: fax: Referral ID Status Reason Start Date Expiration Date Visits Re quested Visits Authorized [id number] Closed 11/14/2022 11/14/2023 1 1 REEZE OPERATOR Reason for Visit * Auth/Cert (Routine) Specialty Diagnoses / Procedures Referred By Tea kaufman Referred To Contact Diagnoses Pyelonephritis affecting (HHS/HCC) Pyelonephritis affecting Procedures NONE Karson Santiago MD [address] [place] [address] Phone: tel: fax: Referral ID Status Reason Start Date Expiration Date Visits Re quested Visits Authorized [id number] 1 1 Encounter Details Date Type Department Care Team (Late st Contact Info) Description 11/14/2022 2:30 PM SOYFREEZE OPERATOR - 11/14/2022 11:59 PM SOYFREEZE OPERATOR Hospital Encounter 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 No / Unsure 11/14/2022 2:28 PM SOYFREEZE OPERATOR documented as of this encounter Functional [...] Name Priority Date/Time Associated Diagnosis Comments US [facility] TA Routine 11/14/2022 3:54 PM SOYFREEZE OPERATOR Abdominal pain US ABD LIMITED Routine 11/14/2022 3:54 PM SOYFREEZE OPERATOR Abdominal pain documented in this encounter Results * US [facility] TA (11/14/2022 3:54 PM SOYFREEZE OPERATOR) Anatomical Region Laterality Modality Abdomen Ultrasound 11/14/2022 4:22 PM SOYFREEZE OPERATOR Impressions 11/14/2022 4:29 PM SOYFREEZE OPERATOR IMPRESSION: 1. Living gupta fetus in vertex presentation. Mean gestational age of the fetus by ultrasound criteria is approximately 28.5 weeks. 2. ??Grade II posterior placenta. 3. ??Low normal amniotic fluid volume with NERI as described. Referred By: SID GHOSH Interpreted By: Mitch Noble MD, 11/14/2022 4:22 PM Narrative 11/14/2022 4:29 PM SOYFREEZE OPERATOR Examination: Limited OB ultrasound. Exam time: 1510 hours. Clinical history: 28-29 weeks gestational age by dates. ?? staging. Comparison: None. Technique: Grayscale, M-mode and color Doppler images. Findings: There is a gupta fetus in vertex presentation. Mean gestational age of the fetus by ultrasound criteria is approximately 28.5 weeks. Specific dating parameters are as follows: BPD: 28 weeks, 4 days +/- ??2 weeks, 2 days. HC: ??28 weeks, 0 days +/- 2 weeks, 1 days. AC: 28 weeks, 0 days +/- 2 weeks, 2 days. FL: 28 weeks, 6 days +/- 2 weeks, 1 days. heart motion is documented at a rate of 144 BPM. Estimated weight is 1201 +/- 175 g. GHADA by ultrasound is 02/03/2023. Late stage gestation precludes detailed anatomic assessment. ??No obvious anomaly is demonstrated. ??Good movement is documented per the galley worker's notes. A grade II placenta lies posteriorly without previa or abruption. The amniotic fluid volume appears low normal. ??The calculated NERI is 95 mm approximating the 5th percentile for gestational age. ??Maximum vertical pocket is 30 mm. ?? Procedure Note Mitch Noble MD - 11/14/2022 Examination: Limited OB ultrasound. Exam time: 1510 hours. Clinical history: 28-29 weeks gestational age by dates. staging. Comparison: None. Technique: Grayscale, M-mode and color Doppler images. Findings: There is a gupta fetus in vertex presentation. Meangestational age of the fetus by ultrasound criteria is approximately 28.5weeks. Specific dating parameters are as follows: BPD: 28 weeks, 4 days +/- 2 weeks, 2 days. HC: 28 weeks, 0 days +/- 2 weeks, 1 days. AC: 28 weeks, 0 days +/- 2 weeks, 2 days. FL: 28 weeks, 6 days +/- 2 weeks, 1 days. heart motion is documented at a rate of 144 BPM. Estimated fetalweight is 1201 +/- 175 g. GHADA by ultrasound is 02/03/2023. Late stage gestation precludes detailed anatomic assessment. No obviousanomaly is demonstrated. Good movement is documented per thesonographer's notes. A grade II placenta lies posteriorly without previa or abruption. Theamniotic fluid volume appears low normal. The calculated NERI is 95 mmapproximating the 5th percentile for gestational age. Maximum verticalpocket is 30 mm. IMPRESSION: 1. Living gupta fetus in vertex presentation. Mean gestational age ofthe fetus by ultrasound criteria is approximately 28.5 weeks. 2. Grade II posterior placenta. 3. Low normal amniotic fluid volume with NERI as described. Referred By: SID GHOSH Interpreted By: Mitch Noble MD, 11/14/2022 4:22 PM Sid Ghosh MD ULTRASOUND Final Resul t documented in this encounter Visit Diagnoses Diagnosis Abdominal pain Abdominal pain, unspecified site documented in this encounter Care Teams Oven Attendant Relationship Specialty Start Date End Date Sid Ghosh MD [address] [place] [phone] PCP - General FAMILY PRACTICE 08/11/20 Sid Ghosh MD [address] [phone] FAMILY PRACTICE 08/27/18 documented as of this encounter
--- OUTSIDE RECORDS SUMMARY | 2024-10-06 20:55 | XMS_ITS | Encounter Summary ---
Author Organization [facility] Address [address] [place] [address]. [place] [address] [place] [address] Care Team Providers Care Trimmer Hand Name Role Phone Sid Ghosh MD Unavailable [phone] Sid Ghosh MD Primary Care Provider [phone] Reason for Visit * Reason Comments Induction * Auth/Cert Specialty Diagnoses / Procedures Referred By Contac t Referred To Contact Diagnoses ([facility]) Referral ID Status Reason Start Date Expiration Date Visits Re quested Visits Authorized [id number] 1 1 Encounter Details Date Type Department Care Team (Late st Contact Info) Description 02/10/2021 6:27 AM CDT - 02/10/2021 4:00 PM T Hospital Encounter [facility] [address] [place], [place] [id number] Sid Ghosh MD [address] [place] [address] Induction Discharge Disposition: Home or [...] on file Legal Sex Female 10:32 AM [employer] Gender Identity Not on file Sexual Orientation Not on file COVID-19 Exposure Response Date Recorded In the last month, have you been in contact with someone who was confirmed or suspected to have Coronavirus / COVID-19? No / Unsure 02/10/2021 6:23 AM CDT documented as of this encounter Last Filed Vital Signs Vital Sign Reading Time Taken Comments Blood Pressure 103/63 02/10/2021 3:47 PM CDT Pulse 76 02/10/2021 3:47 PM CDT Temperature 36.6 ??C (97.9 ??F) 02/10/2021 4:00 PM CD T Respiratory Rate 18 02/10/2021 4:00 PM CDT Oxygen Saturation - - Inhaled Oxygen Concentration - - Weight - - Height - - Body Mass Index - - documented in this encounter Functional Status * Question Answer Date of Assessment Author Status Do you have serious difficulty walking or climbing stairs? No 02/10/2021 6:38 AM CDT Courtney Munguia, RN A ctive * Question Answer Date of Assessment Author Status Do you have difficulty dressing or bathing? No 02/10/2021 6:38 AM ALDAIRT Courtney Munguia RN Active Because of a [...] Grant RN Active documented in this encounter Discharge Summaries * Sid Ghosh MD - 02/10/2021 4:00 PM CDTSummary: discharge summary Hospital Discharge Summary - SID GHOSH MD Michelle Casonestevan female 1990 Admit Date: 02/10/2021 8 am Discharge Date and Time: 02/10/2021 1600 Note that this discharge summary is to be associate with admission on the morning of 02/10/2021. Admitting Physician: Sid Ghosh MD Primary Care Physician: SID GHOSH MD Discharge Physician:SID GHOSH MD Admission Diagnosis: 40 week week gestation Multiparous Desire for elective induction Discharge Diagnosis: Active Problems: 40 week Undelivered HOSPITAL COURSE: She received one dose of cytotec vaginal. She contracted too frequently for additional dosing untilmid afternoon. At that time she declined an additional dose and requested discharge home. OBJECTIVE: Vitals: Filed Vitals: 02/10/21183502/10/211837 BP: 121/75 Pulse: 78 Temp: 97.5 ??F (36.4 ??C) Weight: 69.4 kg (153 lb) Height: 5' 3 (1.6 m) Discharge Physical Exam: cx 3 cm 70% floating. Category 1 tracing reported to me. Discharge Medications: Medication List ASK your doctor about these medications ferrous sulfate (65 mg elemental) 325 (65 FE) MG tablet vitamin (low iron) 27-0.8 MG tablet Disposition: home. PATIENT INSTRUCTIONS: Return to OB if there is suspicion of ROM, Bleeding, Labor, Decline in movement or well beingor suspicion of any problem Follow up Saturday with your doctor. Signed SID GHOSH MD 02/10/2021 documented in this encounter Discharge Instructions * Discharge Instructions* Amanda Gonzalez RN - 02/10/2021 3:39 PM CDT Patient Education How to Tell When Labor Starts The Basics Written by the doctors and editors at [facility] What is labor???--??Labor is the way your body prepares to give when you are . Labor usually starts on its own between 37 and 42 weeks of . Your due date is at 40 weeks. A that lasts 37 to 42 weeks is called a term . When labor starts before 37 weeks, doctors call it labor. What are the signs that labor is starting???--??The different signs that labor is starting can include the following: ?? The baby moves lower (or drops ) in your belly. ?? You have increased vaginal discharge that is thick, mucus-like, or slightly bloody. ( Vaginal discharge is the term doctors use to describe the fluid that comes out of the vagina.) The increased vaginal discharge is sometimes called a mucus plug or a bloody show. ?? Your water breaks. During , your baby is in a sac in your uterus and surrounded by a fluid called amniotic fluid. This sac typically breaks open sometime before your baby is born. When it breaks open, the fluid inside comes out of your vagina. This can feel like a big gush or just atrickle of fluid. ?? You have low back pain or belly cramps. ?? You start having contractions. During a contraction, the uterus tightens. This can be painful and make your belly feel hard. After a contraction, the uterus relaxes and the pain goes away. Some people have [place] contractions or false-labor contractions. These feel like contractions, but they are not true contractions. They do not mean that you are in labor. How can I tell if I'm having true contractions???--??It can be hard to tell if you are having true contractions or [place] contractions. But here are some ways to help tell the difference. ?? True contractions come every few minutes and get more frequent over time. [place] contractions can come every few minutes, but they don't get more frequent over time. ?? True contractions don't go away, even when you rest. [place] contractions usually go away when you rest. ?? True contractions will get stronger and more painful over time. [place] contractions usually don't get stronger or more painful over time. ?? True contractions might be felt in your back and front. [place] contractions are usually only in front. If you are still not sure whether you are having true contractions, call your doctor or line operator. What should I do if I start having contractions???--??If you start having contractions, you should time them to see how far apart they are. That way, you can tell if they get more frequent. You can time your contractions by keeping track of the time when each contraction starts. If you have a clock with a second hand or a timer on your smartphone, you can also time how long each contraction lasts. Your doctor or line operator will want to know how far apart your contractions are and how long they last. When should I call my doctor or line operator???--??Call your doctor or line operator if you think you are in labor. You should also call if any of the following things happen: ?? You have blood, mucus, or fluid leaking from your vagina. ?? You have 6 or more contractions in 1 hour. (That means your contractions are 10 minutes apart orless.) ?? Your contractions are getting stronger and are painful. Your doctor or line operator will probably want to see you to do an exam. To tell if you are in labor, they will check your cervix to see if it is opening ( dilated ) and thinning out. They will see how frequent your contractions are. They might also do other tests. What if my labor starts too soon???--??If you start having any symptoms of labor before 37 weeks, call your doctor right away. They might want to give you medicine to try to stop your labor. What if my labor doesn't start on its own???--??If your labor doesn't start on its own, your doctorwill talk to you about your options. They might try to start your labor with medicines. This is called inducing labor. How long will my labor last???--??If it's your first baby, your labor will probably last for many hours. If it's not your first baby, your labor will probably be shorter. All topics are updated as new evidence becomes available and our peer review process is complete. This topic retrieved from [employer] on: Dec 20, 2020. Topic 95264 Version 9.0 Release: 29.1.3 - C29.60 ?2020??[employer]. and/or its affiliates.??All rights reserved. Consumer Information Use and Disclaimer This information is not specific medical advice and does not replace information you receive from your health care provider. This is only a brief summary of general information. It does NOT include all information about conditions, illnesses, injuries, tests, procedures, treatments, therapies, discharge instructions or life-style choices that may apply to you. You must talk with your health care provider for complete information about your health and treatment options. This information should not be used to decide whether or not to accept your health care provider's advice, instructions or recommendations. Only your health care provider has the knowledge and training to provide advice that is right for you.The use of [employer] content is governed by the [employer] Terms of Use. ??2020 [employer]. All rights reserved. Copyright ?2020??[employer] and/or its affiliates.??All rights reserved. documented in this encounter Medications at Time of Discharge vitamin, low iron, 27-0.8 MG tablet Take 1 tablet by mouth daily. ferrous sulfate, 65 mg elemental, 325 (65 FE) MG tablet Take 1 tablet (325 mg total) by mouth daily with breakfast. 07/04/2023 documented as of this encounter H&P Notes * Sid Ghosh MD - 02/10/2021 9:30 AM CDT OB HISTORY AND PHYSICAL HPI: Michelle Briones is a 30-year-old at 40w0d gestational age with an Estimated Date of Delivery:02/10/21 by first trimester us for elective labor induction at her request. issues: Unsuccessful labor induction at 39 weeks. Results No configuration template associated with this profile. Contact your solar energy system installer helper. OB History Para Term AB Living 4 [...] otherwise specified. OBJECTIVE Vital signs Filed Vitals: 02/10/21 1838 Temp: 97.5 ??F (36.4 ??C) Weight: 69.4 kg (153 lb) Height: 5' 3 (1.6 m) Physical Exam: General: no acute distress HEENT: neck supple Lungs: respirations non-labored Heart: regular rate and rhythm Abdomen: soft, gravid, non-tender to palpation Skin: normal Neuro: normal Cervical Exam: 2 cm 60% post floating Presentations: [facility] Labs: Lab Results Component Value Date HGB 10.3 (L) 02/10/2021 PLT 170 02/10/2021 ASSESSMENT/PLAN 30-year-old at 40 weeks gestation, admit for labor induction attempt. Plan is for cytotec. - GBS prophylaxis not indicated - FHT: Category 1 - EFW: 7 lbs SID GHOSH MD 02/10/2021 documented in this encounter Nursing Notes * Amanda Gonzalez RN - 02/10/2021 1:28 PM CDTSummary: doc halo Images from the original note were not included. Update on Michelle: UC regular 5 in 10 minutes, so I am holding the 1200 dose of cytotec. VSS, FHT cat 1. Pain level #2, cramping. She continues to walk and use labor ball. Read 02/10/2021 12:55 PM 02/10/2021 12:55 PM Any change in cervix? 02/10/2021 12:56 PM Or descent of head? 02/10/2021 1:03 PM ve: 3 cm, -3, 70% Read 02/10/2021 1:03 PM 02/10/2021 1:16 PM Tight to cervix? 02/10/2021 1:20 PM no Read 02/10/2021 1:22 PM * Amanda Gonzalez RN - 02/10/2021 7:36 AM CDTSummary: orders Images from the original note were not included. Good morning Dr. Ghosh, Michelle Briones is here for induction. Will you be up to see her soon? The induction form/permit is from 02/03. What is your plan? Thank you, Yenni Read 02/10/2021 7:20 AM 02/10/2021 7:20 AM Plan is to see if we can get her into labor. 02/10/2021 7:21 AM Please check her cervix and the baby???s fhr 02/10/2021 7:23 AM Please have her sign a new consent. 02/10/2021 7:25 AM We have a reactive nst, and fetus is cephalic. VE 2cm, thick, posterior, -3. Read 02/10/2021 7:26 AM 02/10/2021 7:28 AM Confirm gbs was neg which I believe it was. Give her vaginal Cytotec. I???ll be in in about 45 minutes.. I???m working on office lab reviews from home. * Amanda Gonzalez RN - 02/10/2021 7:36 AM CDTSummary: ORDERS PT. ADMITTED WITHOUT INDUCTION ORDERS OR CONSENT. DR. GHOSH NOTIFIED PER DOC HALO, SEE NOTES documented in this encounter Plan of Treatment Not on file documented as of this encounter Procedures Procedure Name Priority Date/Time Associated Diagnosis Comments TYPE & SCREEN Routine 02/10/2021 6:44 AM CDT CBC W/DIFF AUTOMATED STAT 02/10/2021 6:44 AM CDT (HHS/HCC) HC URINALYSIS AUTO W/MICRO STAT 02/10/2021 6:40 AM CDT (HHS/HCC) documented in this encounter Results * TYPE & SCREEN (02/10/2021 6:44 AM CDT) ABO/RH B POSITIVE 02/10/2021 7:43 AM CDT [facility] ANTIBODY SCREEN NEGATIVE 02/10/2021 7:43 AM CDT [facility] SAMPLE EXPIRATION 02/13/2021,2 359 02/10/2021 7:43 AM CDT [facility] 02/10/2021 6:44 AM CDT Sid Ghosh MD BLOOD BANK TEST ORDERABLES Final Result Performing Organization Address City/State/[facility] Co de Phone Number [facility] [place] [address], * (ABNORMAL) CBC W/DIFF AUTOMATED (02/10/2021 6:44 AM CDT) WBC 9.7 4.5 - 10.8 x10'3/uL 02/10/2021 6:56 AM CDT [facility] RBC 3.45(L) 4.10 - 5.40 x10'6/uL 02/10/2021 6:56 AM CDT [facility] HGB 10.3(L) 12.0 - 16.0 G/DL 02/10/2021 6:56 AM CDT [facility] HCT 30.9(L) 36.0 - 47.0 % 02/10/2021 6:56 AM CDT [facility] MCV 89.6 78.0 - 100.0 FL 02/10/2021 6:56 AM CDT [facility] MCH 29.9 27.0 - 31.0 PG 02/10/2021 6:56 AM CDT [facility] MCHC 33.3 33.0 - 36.0 G/DL 02/10/2021 6:56 AM CDT [facility] RDW 13.6 11.5 - 14.5 % 02/10/2021 6:56 AM CDT [facility] PLT 170 150 - 350 x10'3/uL 02/10/2021 6:56 AM CDT [facility] MPV 11.2(H) 7.4 - 10.4 FL 02/10/2021 6:56 AM CDT [facility] DIFFERENTIAL COMMENT NORMAL REFERENCE RANGE NOT ESTABLISHED FOR THE PROPORTIONAL LEUKOCYTE DIFFERENTIAL. 02/10/2021 6:56 AM CDT [facility] SEG NEUTROPHILS 64.8 % 6:56 AM CDT [facility] LYMPHOCYTES 27.6 % 02/10/2021 6:56 AM CDT [facility] MONOCYTES 6.1 % 02/10/2021 6:56 AM CDT [facility] EOSINOPHILS 0.9 % 02/10/2021 6:56 AM CDT [facility] BASOPHILS 0.1 % 02/10/2021 6:56 AM CDT [facility] IMMATURE GRANS % 0.5 % 02/11/20 6:56 AM CDT [facility] NRBC 0.0 % 02/10/2021 6:56 AM CDT [facility] ABS. NEUTROPHILS 6.30 1.60 - 8.30 x10'3/uL 02/10/2021 6:56 AM CDT [facility] ABS. LYMPHOCYTES 2.68 0.80 - 4.70 x10'3/uL 02/10/2021 6:56 AM CDT [facility] ABS. MONOCYTES 0.59 0.00 - 1.50 x10'3/uL 02/10/2021 6:56 AM CDT [facility] ABS. EOSINOPHILS 0.09 0.00 - 0.40 x10'3/uL 02/10/2021 6:56 AM CDT [facility] ABS. BASOPHILS 0.01 0.00 - 0.20 x10'3/uL 02/10/2021 6:56 AM CDT [facility] ABS. IMMATURE GRANULOCYTES 0.05(H) 0.00 - 0.03 x10'3/uL 02/10/2021 6:56 AM CDT [facility] ABS. NUCLEATED RBC'S 0.00 0.00 x10'3/uL 02/10/2021 6:56 AM CDT [facility] 02/10/2021 6:44 AM CDT us Sid Ghosh MD LABORATORY Final Resul t [facility] [address] [place] [address], * (ABNORMAL) URINALYSIS (02/10/2021 6:40 AM CDT) COLOR (U) DARK YELLOW 02/10/2021 7:11 AM CDT [facility] TRANSPARENCY CLOUDY 02/10/2021 7:11 AM CDT [facility] SPECIFIC GRAVITY (U) 1.030(H) 1.000 - 1.025 02/10/2021 7:11 AM CDT [facility] Comment:EQUAL TO OR GREATER THAN U PH 6.5 5.0 - 8.0 02/10/2021 7:11 AM CDT [facility] LEUKOCYTES (U) 1+(A) NEGATIVE 02/10/2021 7:11 AM CDT [facility] NITRITES NEGATIVE NEGATIVE 02/10/2021 7:11 AM CDT [facility] PROTEIN (U) 1+(A) NEGATIVE 02/10/2021 7:11 AM CDT [facility] URINE GLUCOSE NEGATIVE NEGATIVE 02/10/2021 7:11 AM CDT [facility] KETONES MG/DL (U) TRACE(A) NEGATIVE 02/10/2021 7:11 AM CDT [facility] UROBILINOGEN 1.0(H) <1.0 EU/DL 02/10/2021 7:11 AM CDT [facility] BILIRUBIN (U) NEGATIVE NEGATIVE 02/10/2021 7:11 AM CDT [facility] BLOOD (U) 2+(A) NEGATIVE 02/10/2021 7:11 AM CDT [facility] WBC/HPF 20-50(A) 0 - 5 /HPF 02/10/2021 7:11 AM CDT [facility] RBC/HPF 5-10(A) 0 - 5 /HPF 02/10/2021 7:11 AM CDT [facility] EPI/HPF MANY /LPF 02/10/2021 7:11 AM CDT [facility] BACTERIA (U) 3+ /HPF 02/10/2021 7:11 AM CDT [facility] MUCUS PRESENT 02/10/2021 7:11 AM CDT [facility] URINE SPECIMEN OBTAINED BY CLEAN CATCH PROCEDURE / Unknown 02/10/2021 6:40 AM CDT us Sid Ghosh MD URINE ORDERABLES Final Resu lt [facility] [address] [place] [address], documented in this encounter Visit Diagnoses Diagnosis (HHS/HCC)- Primary state, incidental (HHS/HCC) state, incidental documented in this encounter Admitting Diagnoses Diagnosis (HHS/HCC) state, incidental documented in this encounter Administered Medications Inactive Administered Medications - up to 3 most recent administrations Medication Order MAR Action Action Date Dose Rate Site famotidine (PEPCID) tablet 20 mg 20 mg, Oral, Every 12 hours PRN, Other, dyspepsia, Starting on Sat02/10/21 at 0629, Until Sat02/10/21 at 1828, Pre-Delivery lactated ringers infusion at 125 mL/hr, Intravenous, Continuous, Starting on Sat02/10/21 at 0700, Until Sat02/10/21 at 1828, For all patients in active labor with non-vertex presentation, multiple gestation, previous , persistent non-reassuring FHR, Hx post- hemorrhage, active phase longer than 8 hrs and/or patient desires an epidural., Pre-Delivery otszlyjwg-wbfktyes-aaydshbxvlw (MYLANTA MAXIMUM STRENGTH) 8540-1386-228 mg/30mL suspension 10 mL, Oral, Every 6 hours PRN, Indigestion, dyspepsia, Starting on Sat02/10/21 at 0629, Until Sat02/10/21 at 1828, Shake Well, Pre-Delivery miSOPROStol (CYTOTEC) Split tab 25 mcg 25 mcg, Vaginal, Every 4 hours PRN, Other, cervical ripening, Starting on Sat02/10/21 at 0629, Until Sat02/10/21 at 1827, Hold dose if adequate contraction pattern defined as 3-5 contractions in 10 minutes or cervical change occurs. Keep patient recumbent for 30 minutes post placement., Pre-Delivery Given 02/10/2021 7:56 AM CDT 25 mcg ondansetron (ZOFRAN) injection 4 mg 4 mg, Intravenous, Every 8 hours PRN, Nausea, Vomiting, Starting on Sat02/10/21 at 0629, Until Sat02/10/21 at 1827, If unable to take PO., Pre-Delivery ondansetron (ZOFRAN-ODT) disintegrating tablet 8 mg 8 mg, Oral, Every 8 hours PRN, Nausea, Vomiting, Starting on Sat02/10/21 at 0629, Until Sat02/10/21 at 1827, Pre-Delivery oxytocin (PITOCIN) 30 units in NS 500 mL infusion 0-300 pratima-units/min (0-300 mL/hr), Intravenous, Continuous PRN, After last misoprostol administration, according to protocol, Starting on Sat02/10/21 at 0629, Until Sat02/10/21 at 1827, Start at 2 pratima-unit/min. Increase by 2 pratima-unit/min every 30 minutes until adequate contraction defined as 3-5 contractions in 10 minutes or cervical change occurs. Max dose of 30 pratima-units/min. Notify provider when dose has reached 20 pratima-unit/min. RN to adjust dose based upon maternal and/or response. If uterine tachysystole occurs with reassuring FHR:, -Decrease oxytocin rate by half -If tachysystole [...] infuse any remaining oxytocin at 300ml/hr (300 praitma-units/min) for the fist hour, then decrease to 60 ml/r (60 pratima-units/min) for the 2nd hour. Continue this rate until the fundus is firm or the patient has completed her recovery phase. HAZARDOUS MEDICATION HAZARDOUS MEDICATION, Pre-Delivery oxytocin (PITOCIN) 30 units in NS 500 mL infusion 0-300 mL/hr, Intravenous, Continuous, Starting on Sat02/10/21 at 0700, Until Sat02/10/21 at 1828, Initiate during third stage of labor, timing [...] Administered Medications Times are shown in CDT. Continuous Medication Order 02/08/2021 02/09/2021 02/10/2021 lactated ringers infusion at 125 mL/hr, Intravenous, Continuous, Starting on Sat02/10/21 at 0700, Until Sat02/10/21 at 1828, For all patients in active labor with non-vertex presentation, multiple gestation, previous , persistent non-reassuring FHR, Hx post- hemorrhage, active phase longer than 8 hrs and/or patient desires an epidural., Pre-Delivery 0700 (Canceled Entry - Provider: Automatic Discharge Provider - Comment: Automatically canceled at discontinue of medication order) oxytocin (PITOCIN) 30 units in NS 500 mL infusion 0-300 mL/hr, Intravenous, Continuous, Starting on Sat02/10/21 at 0700, Until Sat02/10/21 at 182, Initiate during third stage of labor, timing [...] for one hour then decrease HAZARDOUS MEDICATION 0700 (Canceled Entry - Provider: Automatic Discharge Provider - Comment: Automatically canceled at discontinue of medication order) PRN Medication Order 02/08/2021 02/09/2021 02/10/2021 famotidine (PEPCID) tablet 20 mg 20 mg, Oral, Every 12 hours PRN, Other, dyspepsia, Starting on Sat02/10/21 at 0629, Until Sat02/10/21 at 1827, Pre-Delivery senpdarta-gfzdynvt-oodsbzxbsyd (MYLANTA MAXIMUM STRENGTH) [id number] mg/30mL suspension 10 mL, Oral, Every 6 hours PRN, Indigestion, dyspepsia, Starting on Sat02/10/21 at 0629, Until Sat02/10/21 at 1827, Shake Well, Pre-Delivery miSOPROStol (CYTOTEC) Split tab 25 mcg 25 mcg, Vaginal, Every 4 hours PRN, Other, cervical ripening, Starting on Sat02/10/21 at 0629, Until Sat02/10/21 at 1827, Hold dose if adequate contraction pattern defined as 3-5 contractions in 10 minutes or cervical change occurs. Keep patient recumbent for 30 minutes post placement., Pre-Delivery 0756 (Given - Provid er: Amanda Gonzalez RN) ondansetron (ZOFRAN) injection 4 mg 4 mg, Intravenous, Every 8 hours PRN, Nausea, Vomiting, Starting on Sat02/10/21 at 0629, Until Sat02/10/21 at 1827, If unable to take PO., Pre-Delivery ondansetron (ZOFRAN-ODT) disintegrating tablet 8 mg 8 mg, Oral, Every 8 hours PRN, Nausea, Vomiting, Starting on Sat02/10/21 at 0629, Until Sat02/10/21 at 1828, Pre-Delivery oxytocin (PITOCIN) 30 units in NS 500 mL infusion 0-300 pratima-units/min (0-300 mL/hr), Intravenous, Continuous PRN, After last misoprostol administration, according to protocol, Starting on Sat02/10/21 at 0629, Until Sat02/10/21 at 1828, Start at 2 pratima-unit/min. Increase by 2 pratima-unit/min every 30 minutes until adequate contraction defined as 3-5 contractions in 10 minutes or cervical change occurs. Max dose of 30 pratima-units/min. Notify provider when dose has reached 20 pratima-unit/min. RN to adjust dose based upon maternal and/or response. If uterine tachysystole occurs with reassuring FHR:, -Decrease oxytocin rate by half -If tachysystole [...] patient has completed her recovery phase. HAZARDOUS MEDICATION HAZARDOUS MEDICATION, Pre-Delivery documented in this encounter Care Teams Trimmer Hand Relationship Specialty Start Date End Date Sid Ghosh MD [address] [place] [id number] PCP - General FAMILY PRACTICE 08/11/20 Sid Ghosh MD [address] [place], [place] [id number] FAMILY PRACTICE 08/27/18 documented as of this encounter
--- OUTSIDE RECORDS SUMMARY | 2024-10-06 20:55 | XMS_ITS | Encounter Summary ---
Author Organization [facility] Address [address] [place] [address]. 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 Comment: A Not Detected (negative) test result [...] providers and patients using the following websites: https://www.[employer].Akeneo/home/Covid-19/HCP/rc- yggg-nww0-tugy-sheet.html https://www.[employer].Akeneo/home/Covid-19/Patients/ bm-spln-mvv3-fact-sheet.html This test has been authorized by the FDA under an Emergency Use Authorization (EUA) for use by authorized laboratories. Due to the current public health emergency, [facility] is receiving a high volume of samples [...] about COVID-19 can be found at the [facility] website: www.[employer].Akeneo/Covid19. Test performed at [facility] [id number] [place] [address] ??[phone] Director: VANDANA MÉNDEZ DO,MPH FIRST TEST NO 02/07/2021 1:50 PM CDT [facility] EMPLOYED IN HEALTHCARE NO 02/07/2021 1:50 PM CDT [facility] SYMPTOMATIC DEFINED BY CDC NO 02/07/2021 1:50 PM CDT [facility] DATE OF SYMPTOM ONSET UNKNOWN 02/07/2021 1:52 PM CDT [facility] HOSPITALIZATION STATUS NO 02/07/2021 1:50 PM CDT [facility] PATIENT IN ICU NO 02/07/2021 1:50 PM CDT [facility] RESIDENT OF [facility] 02/07/2021 1:50 PM CDT [facility] 02/07/2021 1:50 PM CDT [facility] PATIENT'S RACE WHITE OR 02/07/2021 1:50 PM CDT [facility] ETHNICITY NONHISPANIC 02/07/2021 1:50 PM CDT [facility] SOURCE (QST) NASOPHARYNGEAL SWAB 02/07/2021 1:50 PM CDT [facility] NASOPHARYNGEAL SWAB / Unknown 02/07/2021 1:51 PM CDT us Sid Solis MD MICROBIOLOGY - [facility] Final Result [facility] [address] [place] [address], [facility] [address] documented in this encounter Visit Diagnoses Diagnosis Supervision of other normal ([facility])- Primary Supervision of other normal documented in this encounter Additional Health Concerns Infection Onset Date Last Indicated Resolved Time COVID-19 Rule Out 02/07/2021 02/07/2021 02/08/2021 12:46 PM CDT documented as of this encounter Care Teams Director Public Relationship Specialty Start Date End Date Sid Solis MD [address] [place] [phone] PCP - General FAMILY PRACTICE 08/11/20 Sid Solis MD [address] [place] [phone] FAMILY PRACTICE 08/27/18 documented as of this encounter
--- OUTSIDE RECORDS SUMMARY | 2024-10-06 20:55 | XMS_ITS | Encounter Summary ---
Author Organization [facility] Address [address] [place] [address]. 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 No / Unsure 10/31/2021 12:15 PM TELETYPE TELEGRAPHER documented as of this encounter Functional Status [...] Diagnosis Comments HCG QUANT (SERUM)-CHORIONIC GONADOTROPIN Routine 10/31/2021 12:40 PM TELETYPE TELEGRAPHER Threatened , antepartum (HHS/HCC) documented in this encounter Results * (ABNORMAL) HCG QUANT (SERUM)-CHORIONIC GONADOTROPIN (10/31/2021 12:40 PM TELETYPE TELEGRAPHER) Pathologist [facility] HCG QUANTITATIVE 73,479(H) 0.0 - 6.0 MIU/ML 10/31/2021 2:03 PM TELETYPE TELEGRAPHER [facility] Comment: WEEKS OF ? REFERENCE [...] MAY BE INDICATED. 10/31/2021 12:4 0 PM TELETYPE TELEGRAPHER us Sid Solis MD LABORATORY Final Resul t [facility] [address] [place] [address], documented in this encounter Visit Diagnoses Diagnosis Threatened , antepartum ([facility]) Threatened , antepartum documented in this encounter Care Teams Kier Pleater Relationship Specialty Start Date End Date Sid Solis MD [address] [place] [phone] PCP - General FAMILY PRACTICE 08/11/20 Sid Solis MD [address] [place] [address] FAMILY PRACTICE 08/27/18 documented as of this encounter
--- OUTSIDE RECORDS SUMMARY | 2024-10-06 20:55 | XMS_ITS | Encounter Summary ---
Author Organization [facility] Address [address] [place] [address]. [place] [address] [place] [address] Care Team Providers Care Speech And Language Specialist Name Role Phone Sid Solis MD Unavailable [phone] Sid Solis MD Primary Care Provider Reason for Visit * Reason Comments Ruptured Membranes Encounter Details Date Type Department Care Team (Late st Contact Info) Description 01/15/2023 8:38 PM CDT - 01/15/2023 10:02 PM T Hospital Encounter [facility] [address] [place] [address] Sid Solis MD [address] [place] [address] Alexa Yates MD [address] [place] [address] Ruptured Membranes Discharge Disposition: Home or Self Care (Routine Discharge) Social History Tobacco Use Types Packs/Day Years Used Date Smoking Tobacco: Every Day Cigarettes 1 15 Smokeless Tobacco: Never Tobacco Cessation:Ready to Q uit: Not Asked; Counseling Given: Not Answered Alcohol Use Standard Drinks/Week Comments Not Currently [...] 01/15/2023 How often do you attend chur or jew services? Never 01/15/2023 Do you belong to any clubs o r organizations such as orthodoxy groups, unions, fraternal or athletic groups, or [...] and heating? Not hard at all 01/15/2023 [facility] - Occupational Stress [...] place to sleep or slept in a skilled nursing (including now)? 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 No / Unsure 01/15/2023 8:32 PM CDT documented as of this encounter Last Filed Vital Signs Vital Sign Reading Time Taken Comments Blood Pressure 109/58 01/15/2023 9:00 PM CDT Pulse 97 01/15/2023 9:00 PM CDT Temperature 36.8 ??C (98.2 ??F) 01/15/2023 9:00 PM CD T Respiratory Rate 18 01/15/2023 9:30 PM CDT Oxygen Saturation - - Inhaled [...] documented in this encounter Discharge Instructions * Attachments The following attachments cannot be sent through Care Everywhere. * How to Tell When Labor Starts (Lithuanian) documented in this encounter Medications at Time [...] daily. 07/04/2023 documented as of this encounter Plan of Treatment Not on file documented as of this encounter Procedures Procedure Name Priority Date/Time Associated Diagnosis Comments PLACENTAL PROTEIN 12 ROM Routine 01/15/2023 8:59 PM CDT Amniotic fluid leaking ([facility]/HCC) HC URINALYSIS AUTO W/MICRO STAT 01/15/2023 8:59 PM CDT Amniotic fluid leaking (HHS/HCC) documented in this encounter Results * PLACENTAL PROTEIN 12 ROM (01/15/2023 8:59 PM CDT) RUPTURE OF MEMBRANES NEGATIVE 01/15/2023 9:40 PM CDT [facility] VAGINAL STRUCTURE / Unknown 01/15/2023 8:59 PM CDT us Alexa Yates MD BODY FLUIDS AND STOOLS ORDERABLE S Final Result [facility] [address] [place] [address], * (ABNORMAL) URINALYSIS (01/15/2023 8:59 PM CDT) COLOR (U) YELLOW 01/15/2023 9:27 PM CDT [facility] TRANSPARENCY CLEAR 01/15/2023 9:27 PM CDT [facility] SPECIFIC GRAVITY (U) 1.020 1.000 - 1.025 01/15/2023 9:27 PM CDT [facility] U PH 6.5 5.0 - 8.0 01/15/2023 9:27 PM CDT [facility] LEUKOCYTES (U) NEGATIVE NEGATIVE 01/15/2023 9:27 PM CDT [facility] NITRITES NEGATIVE NEGATIVE 01/15/2023 9:27 PM CDT [facility] PROTEIN (U) TRACE(A) NEGATIVE 01/15/2023 9:27 PM CDT [facility] URINE GLUCOSE NEGATIVE NEGATIVE 01/15/2023 9:27 PM CDT [facility] KETONES MG/DL (U) TRACE(A) NEGATIVE 01/15/2023 9:27 PM CDT [facility] UROBILINOGEN 1.0(H) <1.0 EU/DL 01/15/2023 9:27 PM CDT [facility] BILIRUBIN (U) NEGATIVE NEGATIVE 01/15/2023 9:27 PM CDT [facility] BLOOD (U) 2+(A) NEGATIVE 01/15/2023 9:27 PM CDT [facility] WBC/HPF NONE SEEN(A) 0 - 5 /HPF 01/15/2023 9:27 PM CDT [facility] RBC/HPF 5-10(A) 0 - 5 /HPF 01/15/2023 9:27 PM CDT [facility] EPI/LPF MANY /LPF 01/15/2023 9:27 PM CDT [facility] BACTERIA (U) TRACE /HPF 01/15/2023 9:27 PM CDT [facility] MUCUS PRESENT 01/15/2023 9:27 PM CDT [facility] URINE SPECIMEN OBTAINED BY CLEAN CATCH PROCEDURE / Unknown 01/15/2023 8:59 PM CDT us Alexa Yates MD URINE ORDERABLES Final Result [facility] [address] [place] [address], documented in this encounter Visit Diagnoses Diagnosis (HHS/HCC)- Primary state, incidental Amniotic fluid leaking (HHS/HCC) Premature rupture of membranes in , unspecified as to episode of care documented in this encounter Care Teams Speech And Language Specialist Relationship Specialty Start Date End Date Sid Solis MD [address] [place] [address] PCP - General FAMILY PRACTICE 08/11/20 Sid Solis MD [address] [place] [address] FAMILY PRACTICE 08/27/18 documented as of this encounter
--- OUTSIDE RECORDS SUMMARY | 2024-10-06 20:55 | XMS_ITS | Encounter Summary ---
Author Organization [facility] Address [address] [place] [address]. 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 No / Unsure 11/14/2022 2:28 PM SENIOR CONTROLS ENGINEER documented as of this encounter Functional Status * RETIRED Are you deaf or do you have serious difficulty hearing Answer Date of Assessment Author Status No 02/10/2021 6:38 AM CDT Activ e * RETIRED Are you blind or do you have serious difficulty seeing, even when wearing glasses? Answer Date of Assessment Author Status No 02/10/2021 6:38 AM CDT Acti ve * Do you have serious difficulty walking [...] on filedocumented in this encounter Care Teams Residency Program Coordinator Relationship Specialty Start Date End Date Sid Solis MD [address] [address] PCP - General FAMILY PRACTICE 08/11/20 Sid Solis MD [address] [address] [facility] 08/27/18 documented as of this encounter
--- OUTSIDE RECORDS SUMMARY | 2024-10-06 20:55 | XMS_ITS | Encounter Summary ---
Author Organization [facility] Address [address] [place] [address]. [place] [address] [place] [address] Care Team Providers Care Dural Mechanic Name Role Phone Sid Solis MD Unavailable [phone] Sid Solis MD Primary Care Provider Reason for Visit * Auth/Cert Specialty Diagnoses / Procedures Referred By Tea t Referred To Contact Diagnoses ([facility]) Referral ID Status Reason Start Date Expiration Date Visits Re quested Visits Authorized [id number] 1 1 Encounter Details Date Type Department Care Team (Late st Contact Info) Description 02/10/2021 6:23 AM CDT - 02/10/2021 6:26 AM T Hospital Encounter [facility] [address] [place] [address] Sid Solis MD [address] [place] [address] Discharge Disposition: Home or Self [...] on file 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
--- OUTSIDE RECORDS SUMMARY | 2024-10-06 20:55 | XMS_ITS | Clinical Summary ---
Author Organization [facility] Address [address] [place] [address]. [place], [place] [address] [place] [address] Care Team Providers Care Bag Cutter Name Role Phone Sid Solis MD Unavailable [phone] Sid Solis MD Primary Care Provider Allergies Active Allergy Reactions Criticality Noted Date Comments Codeine Unknown 09/17/2018 Medications vitamin, low iron, 27-0.8 MG tablet Take 1 tablet by mouth daily. Active folic acid (FOLVITE) 1 MG tablet Take 1 tablet (1 mg total) by mouth daily. 30 tablet 02/02/2024 Active ferrous sulfate, 65 mg elemental, 325 (65 FE) MG tablet Take 1 tablet (325 mg total) by mouth daily with breakfast. 30 tablet 02/02/2024 Active Active Problems Problem Noted Date Diagnosed Date Hemorrhage affecting sixth ([facility]) 0 02/01/2024 Overview (02/01/2024): Started about five hours after delivery. The placenta had delivered intact. hemorrhage ([facility]) 02/01/2024 Uterine contractions ([facility]) 01/17/2023 Cramping affecting , antepartum ([facility]/ C) 11/13/2022 28 weeks gestation of ([facility]) 2022 Dehydration 11/13/2022 Overview (11/13/2022): Specific gravity 1.030 Dark colored urine Pyelonephritis affecting ([facility]) ([facility]) 02/10/2021 Normal labor and delivery ([facility]) 02/10/2021 Term ([facility]) 02/10/2021 Overview (02/10/2021): EDC 02/10/2021 Smoker 02/10/2021 Encounter for elective induction of labor ([facility]) 02/03/2021 Social History Tobacco Use Types Packs/Day Years [...] from your doctor or pharmacy? Sometimes 02/01/2024 [facility] Utilities Answer Date Recorded In the past 12 months has e [employer], [employer], or water [employer] threatened to shut off services in your [...] week 02/01/2024 How often do you attend [facility] or taoism services? Never 02/01/2024 Do you belong to any clubs o r organizations such as buddhist groups, unions, fraternal or athletic groups, or [...] and heating? Not hard at all 02/01/2024 [facility] - Occupational [...] in a skilled nursing (including now)? No 01/17/2023 Housing Stability Vital Sign Answer Titus e Recorded In the last 12 months, was t here a time when you were not able to pay the mortgage or rent on time? No 02/01/2024 In the past 12 months, how m any times have you moved where you were living? 1 02/01/2024 At any time in the past 12 m [facility], were you homeless or living in a skilled nursing (including now)? 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 Gender Identity Not on file Sexual Orientation Not on file Last Filed Vital Signs Vital Sign Reading [...] Mass Index 27.81 02/01/2024 6:17 AM CDT Plan of Treatment Health Maintenance Due Date Last Done Comments Cervical Cancer Screening Pap Smear (Age 30 to 64) Every 3 Years 1991 Annual Physical 1994 Pneumococcal Vaccine: Pediatrics (0 to 5 Years) and At-Risk Patients (6 to 64 Years) (1 of 2 - PCV) 1997 HPV Vaccines (2 - 3-dose series) 07/23/2007 06/25/2007 Hepatitis C 2009 DTaP, Tdap and Td Vaccines (1 - Tdap) 2010 03/21/1996, 05/21/1993, 05/31/1992, Additional history exists Hepatitis B Vaccines (1 of 3 - 19+ 3-dose series) 2010 Cervical Cancer Screening Pap with HPV Testing (Age 30 to 64) Every 5 Years 2021 Cervical Cancer Screening with HPV 2021 COVID-19 Vaccine ( - 2023- season) 2024 Influenza Adult (#1) 2024 Meningococcal Vaccine Aged Out No anup rainer eligible based on patient's age to complete this topic RSV Immunizations Under 20 Months Aged Out No longer eligible based on patient's age to complete this topic Insurance Advance Directives * Full Code (Latest Code Status on File) Date Activated Date Inactivated Comments 02/01/2024 6:16 AM 02/02/2024 8:44 PM * Full Code Date Activated Date Inactivated Comments 01/17/2023 6:34 AM 01/18/2023 1:26 PM * Full Code Date Activated Date Inactivated Comments 11/12/2022 8:54 PM 11/13/2022 3:41 PM * Full Code Date Activated Date Inactivated Comments 02/10/2021 6:44 PM 02/12/2021 12:49 AM * Full Code Date Activated Date Inactivated Comments 02/10/2021 6:31 AM 02/10/2021 6:29 PM Care Teams Bag Cutter Relationship Specialty Start Date End Date Sid Solis MD [address] [place] [address] PCP - General FAMILY PRACTICE 08/11/20 Sid Solis MD [address] [address] FAMILY PRACTICE 08/27/18
--- OUTSIDE RECORDS SUMMARY | 2024-10-06 20:56 | XMS_ITS | Encounter Summary ---
Author Organization [facility] Address [address] [place] [address]. 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 No / Unsure 12/27/2020 2:21 PM PORTAINER OPERATOR documented as of this encounter Plan of Treatment Not on file documented as of this encounter Visit Diagnoses Not on filedocumented in this encounter Care Teams Resident Care Assistant Relationship Specialty Start Date End Date Sid Solis MD [address] [place] [address] PCP - General FAMILY PRACTICE 08/11/20 Sid Solis MD [address] [place] [phone] FAMILY PRACTICE 08/27/18 documented as of this encounter
--- OUTSIDE RECORDS SUMMARY | 2024-10-06 20:56 | XMS_ITS | Encounter Summary ---
Author Organization [facility] Address [address] [place] [address]. [place], [place] [address] [place] [address] Care Team Providers Care Program Advocate Name Role Phone Jose Elias Alxeander MD Unavailable Unavailab Sid Maldonado MD Unavailable [phone] Encounter Details Date Type Department Care Team (Late st Contact Info) Description 02/27/2017 Abstract [facility] [address] [place], [place] [id number] Ann Mata, [employer]- [address] [place] [address] Social History Tobacco Use Types Packs/Day Years Used Date Smoking Tobacco: Never Assessed Comments Unknown Sex and Gender Information Value Date Recorded Sex Assigned at Not on file 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
--- OUTSIDE RECORDS SUMMARY | 2024-10-06 20:56 | XMS_ITS | Encounter Summary ---
Author Organization [facility] Address [address] [place] [address]. [place] [address] [place] [address] Care Team Providers Care Control Officer Name Role Phone Jose Elias Alexander MD Unavailable Unavailab Sid Maldonado MD Unavailable [phone] Encounter Details Date Type Department Care Team (Late st Contact Info) Description 08/29/[address] 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
--- OUTSIDE RECORDS SUMMARY | 2024-10-06 20:56 | XMS_ITS | Encounter Summary ---
Author Organization [facility] Address [address] [place] [address]. 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
--- OUTSIDE RECORDS SUMMARY | 2024-10-06 20:56 | XMS_ITS | Encounter Summary ---
Author Organization [facility] Address [address] [place] [address]. [place] [address] [place] [address] Care Team Providers Care Senior Php Developer Name Role Phone Jose Elias Alexander MD Unavailable Unavailab Sid Maldonado MD Unavailable [phone] Encounter Details Date Type Department Care Team (Late st Contact Info) Description 08/04/[address] 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
--- OUTSIDE RECORDS SUMMARY | 2024-10-06 20:56 | XMS_ITS | Encounter Summary ---
Author Organization [facility] Address [address] [place] [address]. [place] [address] [place] [address] Care Team Providers Care Peanut Blancher Name Role Phone Sid Solis MD Unavailable [phone] Sid Solis MD Primary Care Provider [phone] Reason for Referral * (Routine) - Closed Specialty Diagnoses / Procedures Referred By Contac t Referred To Contact Diagnoses Racing heart beat Procedures Event Monitor 30 Days Sid Solis MD [address] [place] [address] Phone: tel: fax: Referral ID Status Reason Start Date Expiration Date Visits Re quested Visits Authorized [id number] Closed 12/23/2020 01/23/2022 1 1 E OPERATOR Encounter Details Date Type Department Care Team (Late st Contact Info) Description 12/23/2020 Transcribe Orders [facility] Pre Access Team [address] [place] [address] Sid Solis MD [address] [place] [address] Social History Tobacco Use Types Packs/Day Years Used Date Smoking Tobacco: Every Day Cigarettes Smokeless Tobacco: Never Comments Yes Sex and Gender Information Value Date Recorded Sex Assigned at Not on file 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 No / Unsure 12/23/2020 12:14 PM GLOVE OPERATOR documented as of this encounter Plan of Treatment Not on file documented as of this encounter Visit Diagnoses Diagnosis Racing heart beat- Primary Tachycardia, unspecified documented in this encounter Care Teams Peanut Blancher Relationship Specialty Start Date End Date Sid Solis MD [address] [address] PCP - General FAMILY PRACTICE 08/11/20 Sid Solis MD [address] [address] FAMILY PRACTICE 08/27/18 documented as of this encounter
--- OUTSIDE RECORDS SUMMARY | 2024-10-06 20:56 | XMS_ITS | Encounter Summary ---
Author Organization [facility] Address [address] [place] [address]. [place], [place] [address] [place] [address] Care Team Providers Care Field Cane Scaler Name Role Phone Jose Elias Alexander MD Unavailable Unavailab Sid Maldonado MD Unavailable Reason for Visit * Reason Comments ECG (SCAN) Encounter Details Date Type Department Care Team (Late st Contact Info) Description 09/02/2018 Scan [facility] [address] [place] [address] Scanned, Documents ECG (SCAN) Social History Tobacco Use Types Packs/Day Years Used Date Smoking Tobacco: Never Assessed Comments Unknown Sex and Gender Information Value Date Recorded Sex Assigned at Not on file 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 Gender Identity Not on file Sexual Orientation Not on file documented as of this encounter Plan of Treatment Not on file documented as of this encounter Procedures Procedure Name Priority Date/Time Associated Diagnosis Comments ECG GENERIC (SCAN ORDER) Routine 09/02/2018 documented in this encounter Results * ECG (09/02/2018) us Documents Scanned SCANNING Final Result documented in this encounter Visit Diagnoses Not on filedocumented in this encounter Care Teams Field Cane Scaler Relationship Specialty Start Date End Date Jose Elias Alexander MD INTERVENTIONAL CARDIOLOGY 08/27/18 9 Sid Solis MD [address] [place] [address] FAMILY PRACTICE 08/27/18 documented as of this encounter
--- OUTSIDE RECORDS SUMMARY | 2024-10-06 20:56 | XMS_ITS | Encounter Summary ---
Author Organization [facility] Address [address] [place] [address]. [place] [address] [place] [address] Care Team Providers Care Hat Cone Inspector Name Role Phone Jose Elias Alexander MD Unavailable Unavailab Sid Maldonado MD Unavailable Encounter Details Date Type Department Care Team (Late st Contact Info) Description 03/02/2009 Abstract [facility] [address] [place], [place] [id number] Saw Salazar MD [address] [place] [address] Social History Tobacco Use Types Packs/Day Years Used Date Smoking Tobacco: Never Assessed Comments Unknown Sex and Gender Information Value Date Recorded Sex Assigned at Not on file 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 Gender Identity Not on file Sexual Orientation Not on file documented as of this encounter Plan of Treatment Not on file documented as of this encounter Visit Diagnoses Diagnosis Other current maternal conditions classifiable elsewhere, antepartum ([facility]) Other current maternal conditions classifiable elsewhere, antepartum documented in this encounter Care Teams Hat Cone Inspector Relationship Specialty Start Date End Date Jose Elias Alexander MD INTERVENTIONAL CARDIOLOGY 08/27/18 9 Sid Solis MD [address] [place] [address] FAMILY PRACTICE 08/27/18 documented as of this encounter
--- OUTSIDE RECORDS SUMMARY | 2024-10-06 20:56 | XMS_ITS | Encounter Summary ---
Author Organization [facility] Address [address] [place] [address]. [place] [address] [place] [address] Care Team Providers Care Distribution Tech Name Role Phone Jose Elias Alexander MD Unavailable Unavailab Sid Maldonado MD Unavailable [phone] Encounter Details Date Type Department Care Team (Late st Contact Info) Description 02/11/[address] 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
--- OUTSIDE RECORDS SUMMARY | 2024-10-06 20:56 | XMS_ITS | Encounter Summary ---
Author Organization [facility] Address [address] [place] [address]. [place], [place] [address] [place] [address] Care Team Providers Care Health Inspector Food Name Role Phone Jose Elias Alexander MD Unavailable Unavailab Sid Maldonado MD Unavailable [phone] Mundo Raines MD Unavailable Unavailable Encounter Details Date Type Department Care Team (Late st Contact Info) Description 01/16/2017 Abstract [facility] [address] [place] [address] Cecilio Mata FNP-BC [address] [place] [address] Social History Tobacco Use Types Packs/Day Years Used Date Smoking Tobacco: Never Assessed Comments Unknown Sex and Gender Information Value Date Recorded Sex Assigned at Not on file 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 Gender Identity Not on file Sexual Orientation Not on file documented as of this encounter Last Filed Vital Signs Vital Sign Reading Time Taken Comments Blood Pressure 135/81 01/16/2017 4:16 PM CDT Pulse 89 01/16/2017 4:16 PM CDT Temperature - - Respiratory Rate - - Oxygen Saturation - - Inhaled Oxygen Concentration - - Weight 54.4 kg (120 lb) 01/16/2017 4:16 PM CDT Height 160 cm (5' 3 ) 01/16/2017 4:16 PM CDT Body Mass Index 21.26 01/16/2017 4:16 PM CDT documented in this encounter Progress Notes * SEEMA Newsome - 01/16/2017 2:45 PM CDT Reason For Visit New Patient Visit Referred By / Reason Name: ER physician Reason: Chief Complaint 1. Foot Problem Chief Complaint: The patient presents to the office today with RIGHT foot injury. History of Present Illness HPI: Patient presents to clinic today for complaints of RIGHT foot injury. She reports that she stepped on her foot wrong on 01-11-17. She was seen in the ER and placed in a short leg splint and non weight bearing on crutches. She was referred to our clinic. She states that her pain is located on the outside of her foot. She came into clinic with splint non-weight bearing on crutches. She has somenumbness and tingling to her whole foot. She is taking Valley and Ibuprofen for pain. She is currently unemployed and raising a 4 month old. Review of Systems See HPI for pertinent positives. Active Problems 1. Foot fracture, right (825.20) (S92.901A) Past Medical History 1. History of Broken bones (829.0) (T14.8) Surgical History 1. History of Ankle Surgery 2. History of Eye Surgery Family History Family History 1. No pertinent family history Social History ?? Alcohol use (V49.89) (Z78.9) ?? Current every day smoker (305.1) (F17.200) ?? Primary language is Tajik ?? Single ?? Unemployed (V62.0) (Z56.0) Current Meds 1. Meloxicam 15 MG Oral Tablet; Therapy: (Recorded:16Jan2017) to Recorded Allergies 1. codeine Vitals Recorded: 16Jan2017 04:16PM Heart Rate 89 Systolic 135 Diastolic 81 Not able to obtain height Patient stated height Patient stated height Height 5 ft 3 in Weight 120 lb BMI Calculated 21.26 BSA Calculated 1.56 Unable to obtain weight Patient stated weight Patient stated weight Physical Exam Constitutional: alert and in no acute distress. Neurological:. the patient was oriented to person, place, and time. mood and affect were appropriate. Eyes: the sclera and conjunctiva were normal. ENT: hearing was normal. Pulmonary: no respiratory distress. Right Foot: EXAM today reveals lateral tenderness over the 5th metatarsal tuberosity, mild swelling, stiff ROM, moderate ecchymosis, NVI. Results/Data Views: of the right foot. XRAY today reveals 5th metatarsal tuberosity fracture in stable alignment. Findings: Assessment 1. Closed nondisplaced fracture of fifth metatarsal bone of right foot, initial encounter (825.25) (S92.792A) Plan Closed nondisplaced fracture of fifth metatarsal bone of right foot, initial encounter 1. Hydrocodone-Acetaminophen 7.5-325 MG Oral Tablet (Valley); TAKE 1 TABLET EVERY 6 HOURS NEEDED FOR PAIN Rx By: Cecilio Mata; Dispense: 8 Days ; #:30 Tablet; Refill: 0; For: Closed nondisplaced fracture of fifth metatarsal bone of right foot, initial encounter; SHITAL = N; Print Rx 2. Continue with our present treatment plan.; Status:Complete; Done: 16Jan2017 Ordered; For:Closed nondisplaced fracture of fifth metatarsal bone of right foot, initial encounter; Ordered By:Cecilio Mata; 3. You need to quit smoking.; Status:Complete; Done: 16Jan2017 Ordered; For:Closed nondisplaced fracture of fifth metatarsal bone of right foot, initial encounter; Ordered By:Cecilio Mata; Fitted and applied post op shoe prior to leaving the office. Encouraged to use the crutches for a couple of days until able to apply full weight bearing in the post op shoe then may stop using the crutches. Discussed the need to stop Ibuprofen and given a script for Valley. She will follow up in 2 weeks for reevaluation. To Do For Next Visit: xray. XR Foot 3+ View Rt; Status:Resulted - Requires Verification; Done: [id number] 12:00AM Due:15Feb2017;Ordered; For:Foot fracture, right; Ordered By:Cecilio Mata; Signatures Electronically signed by : WICHO Chu; Jan 18 2017 9:59AM FROG CATCHER (Author) documented in this encounter Plan of Treatment Not on file documented as of this encounter Procedures Procedure Name Priority Date/Time Associated Diagnosis Comments XR FOOT RT 3V Routine 01/16/2017 5:37 PM CDT documented in this encounter Results * XR FOOT RT 3V (01/16/2017 5:37 PM CDT) Anatomical Region Laterality Modality Foot Radiographic Vane ging 01/16/2017 5:37 PM CDT 01/16/2017 5:37 PM CDT Narrative 01/16/2017 5:[address] [facility] ?? [address] ?? [place], [place] ? Patient Name: DENA AGUIRRE Date of : 1990 ?? Med Rec #: [id number] ??Age/Sex: 26/F ?Pt. Location: ORTHO ?? Attending Provider: CECILIO MATA NP ?? Ordering Provider: CECILIO MATA NP ? Study Date Order Number Procedure ?? 01/16/17 [id number] XR Foot 3 or more View Rt ? Signed ? Date: 01/16/2017 12:00 AM ? Exam: XR Foot 3 or more View Rt ? Comparison: Right foot radiography dated 01/12/2017. ? Technique: 3 views right foot. ? History: Follow-up fifth metatarsal fracture. ? Findings: There is a nondisplaced transverse fracture the base of the fifth metatarsal that is unchanged. There is new bone formation. Partially visualized is a screw distal tibia. There is no appreciable arthritis. There is mild forefoot swelling. ? Impression: Unchanged transverse nondisplaced fracture base of fifth metatarsal. ? Electronically Signed By: DARRYL ORANTES MD 01/16/17 173 ? Dictated On: 01/16/17 1737 ?? Interpreted By: DARRYL ORANTES MD ?? Transcribed On: 01/16/17 1737 - [facility] ?? Procedure Note Ramon Quan MD - 01/08/[address] Patient Name: DENA AGUIRRE Date of : 1990 Med Rec #: [id number] Age/Sex: 26/F Pt. Location: ORTHO Attending Provider: CECILIO MATA NP Ordering Provider: CECILIO MATA NP Study Date Order Number Procedure 01/16/17 [id number] XR Foot 3 or more View Rt Signed Date: 01/16/2017 12:00 AM Exam: XR Foot 3 or more View Rt Comparison: Right foot radiography dated 01/12/2017. Technique: 3 views right foot. History: Follow-up fifth metatarsal fracture. Findings: There is a nondisplaced transverse fracture the base of thefifth metatarsal that is unchanged. There is new bone formation. Partially visualized is a screwdistal tibia. There is no appreciable arthritis. There is mild forefoot swelling. Impression: Unchanged transverse nondisplaced fracture base of fifthmetatarsal. Electronically Signed By: DARRYL ORANTES MD 01/16/171737 Dictated On: 01/16/171736 Interpreted By: DARRYL ORANTES MD Transcribed On: 01/16/17 173 - [facility] us Cecilio Mata WELDING EQUIPMENT SALES REPRESENTATIVE-BC GENERAL IMAGING Final Resu lt documented in this encounter Visit Diagnoses Not on filedocumented in this encounter Care Teams Health Inspector Food Relationship Specialty Start Date End Date Jose Elias Alexander MD INTERVENTIONAL CARDIOLOGY 08/27/18 9 Sid Solis MD [address] [place] [address] FAMILY PRACTICE 08/27/18 Mundo Raines MD [address] [place] [address] INTERVENTIONAL CARDIOLOGY 11/11/18 10/28/19 documented as of this encounter
--- OUTSIDE RECORDS SUMMARY | 2024-10-06 20:56 | XMS_ITS | Encounter Summary ---
Author Organization [facility] Address [address] [place] [address]. [place] [address] [place] [address] Care Team Providers Care Sales Expert Name Role Phone Jose Elias Alexander MD Unavailable Unavailab Sid Maldonado MD Unavailable [phone] Encounter Details Date Type Department Care Team (Late st Contact Info) Description 08/08/[address] 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
--- OUTSIDE RECORDS SUMMARY | 2024-10-06 20:56 | XMS_ITS | Encounter Summary ---
Author Organization [facility] Address [address] [place] [address]. 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 Sex Female 10:32 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 Gender Identity Not on file Sexual Orientation Not on file documented as of this encounter Plan of Treatment Not on file documented as of this encounter Visit Diagnoses Not on filedocumented in this encounter Additional Health Concerns Infection Onset Date Last Indicated Resolved Time COVID-19 Rule Out 01/31/2021 01/31/2021 02/01/2021 3:25 PM CDT COVID-19 Rule Out 02/07/2021 02/07/2021 02/08/2021 12:46 PM CDT documented as of this encounter Care Teams Assembler Dc Field Yoke Relationship Specialty Start Date End Date Sid Solis MD [address] [place] [phone] PCP - General FAMILY PRACTICE 08/11/20 Sid Solis MD [address] [address] FAMILY PRACTICE 08/27/18 Mundo Raines MD [address] [address] INTERVENTIONAL CARDIOLOGY 11/11/18 10/28/19 documented as of this encounter
--- OUTSIDE RECORDS SUMMARY | 2024-10-06 20:56 | XMS_ITS | Encounter Summary ---
Author Organization [facility] Address [address] [place] [address]. 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 Sex Female 10:32 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
--- OUTSIDE RECORDS SUMMARY | 2024-10-06 20:56 | XMS_ITS | Encounter Summary ---
Author Organization [facility] Address [address] [place] [address]. [place] [address] [place] [address] Care Team Providers Care Prototype Fabricator Name Role Phone Sid Ghosh MD Unavailable [phone] Sid Ghosh MD Primary Care Provider Reason for Visit * Reason Comments Elective Induction o f labor Encounter Details Date Type Department Care Team (Late st Contact Info) Description 02/03/2021 6:20 AM CDT - 02/03/2021 7:41 PM CDT Hospital Encounter [facility] [address] [place] [address] Sid Ghosh MD [address] [place] [phone] (Elective Induction of labor) Discharge Disposition: Home or Self Care (Routine Discharge) Social History Tobacco Use Types Packs/Day Years Used Date Smoking Tobacco: Every Day Cigarettes Smokeless Tobacco: Never Comments Yes Sex and Gender Information Value Date Recorded Sex Assigned at Not on file 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 No / Unsure 02/03/2021 9:21 AM CDT documented as of this encounter Last Filed Vital Signs Vital Sign Reading Time Taken Comments Blood Pressure 103/61 02/03/2021 4:08 PM CDT Pulse 72 02/03/2021 4:08 PM CDT Temperature 36.6 ??C (97.8 ??F) 02/03/2021 7:02 AM CD T Respiratory Rate 20 02/03/2021 7:02 AM CDT Oxygen Saturation - - Inhaled Oxygen Concentration - - Weight 68 kg (150 lb) 02/03/2021 5:00 AM CDT Height 160 cm (5' 3 ) 02/03/2021 5:00 AM CDT Body Mass Index 26.57 02/03/2021 5:00 AM CDT documented in this encounter Functional [...] office or shopping? No 02/03/2021 6:56 AM CDT Chucho Kumar RN Active * RETIRED Are [...] or making decisions? No 02/03/2021 6:56 AM CDT Alexa Kumar RN Active * Because of a physical, mental, or emotional condition, do you have serious difficulty concentrating, remembering, or making decisions? Answer Entry Date Author Status No 02/03/2021 6:56 AM CDT Alexa Kumar R N Active documented in this encounter Discharge Summaries * Sid Ghosh MD - 02/03/2021 7:41 PM CDT Hospital Discharge Summary - SID GHOSH MD Michelle Briones female 1990 Admit Date: 02/03/2021 6:20 AM Discharge Date and Time:02/03/21 Admitting Physician: Sid Ghosh MD Primary Care Physician: SID GHOSH MD Discharge Physician:SID GHOSH MD Admission Diagnosis: Encounter for elective induction of labor [Z34.90] Discharge Diagnosis: Active Problems: Encounter for elective induction of labor Resolved Problems: * No resolved hospital problems. * HOSPITAL COURSE: Michelle received one dose of cytotec and this initiated contractions that persisted though the day.When they spaced sufficiently to offer another dose of cytotec, Her cervix was found to have made only small changes, and she declined additional cytotec offered, electing to be discharged home for expectant management. OBJECTIVE: Vitals: Filed Vitals: 02/03/21 0634 02/03/21 0702 02/03/21 1407 02/03/21 1608 BP: 116/69 116/69 108/67 103/61 Pulse: 98 98 84 72 Resp: 20 Temp: 97.8 ??F (36.6 ??C) Weight: Height: Discharge Physical Exam: Cervix was 2 cm 60% soft, mid, -3. cephalic Category 1 fhr Discharge Medications: Medication List ASK your doctor about these medications ferrous sulfate (65 mg elemental) 325 (65 FE) MG tablet vitamin (low iron) 27-0.8 MG tablet Disposition: Home for self carte PATIENT INSTRUCTIONS: Return with suspicion of labor, srom, bleeding, decrease in movement, or any other maternal or related concerns. Follow up Saturday with Dr. Ghosh in the office. Signed SID GHOSH MD 02/04/2021 documented in this encounter Discharge Instructions * Attachments The following attachments cannot be sent through Care Everywhere. * How to Tell When Labor Starts ([place]) documented in this encounter Medications at Time of Discharge vitamin, low iron, 27-0.8 MG tablet Take 1 tablet by mouth daily. ferrous sulfate, 65 mg elemental, 325 (65 FE) MG tablet Take 1 tablet (325 mg total) by mouth daily with breakfast. 07/04/2023 documented as of this encounter H&P Notes * Sid Ghosh MD - 02/03/2021 7:59 AM CDT OB HISTORY AND PHYSICAL HPI: Michelle Briones is a 30-year-old at 39w0d gestational age with an Estimated Date of Delivery:02/10/21 by 6 5/7 weeks us who is being admitted for cervical ripening and elective induction as offered and at her request. Results No configuration template associated with this profile. Contact your director of healthcare systems. OB History Para Term AB Living 4 [...] otherwise specified. OBJECTIVE Vital signs Filed Vitals: 02/03/21 0500 02/03/21 0634 02/03/21 0634 02/03/21 0702 BP: 116/69 116/69 Pulse: 98 98 Resp: 18 20 Temp: 96.3 ??F (35.7 ??C) 97.8 ??F (36.6 ??C) Weight: 68 kg (150 lb) Height: 5' 3 (1.6 m) Physical Exam: General: no acute distress HEENT: neck supple Lungs: respirations non-labored Heart: regular rate and rhythm Abdomen: soft, gravid, non-tender to palpation Skin: normal Neuro: normal Cervical Exam: 2 cm 60% soft anterior -3 Presentations: cephalic Labs: Lab Results Component Value Date HGB 10.3 (L) 02/03/2021 PLT 176 02/03/2021 ASSESSMENT/PLAN 30-year-old at 39 weeks gestation, admit for cervical ripening and labor induction. - GBS prophylaxis not indicated with screen negative - FHT: Category 1 - EFW: 6 1/2 lbs SID GHOSH MD 02/03/2021 documented in this encounter Plan of Treatment Not on file documented as of this encounter Procedures Procedure Name Priority Date/Time Associated Diagnosis Comments TYPE & SCREEN STAT 02/03/2021 6:44 AM CDT ([facility]) CBC W/DIFF AUTOMATED STAT 02/03/2021 6:44 AM CDT ([facility]) HC URINALYSIS AUTO W/MICRO STAT 02/03/2021 6:30 AM CDT ([facility]) documented in this encounter Results * TYPE & SCREEN (02/03/2021 6:44 AM CDT) ABO/RH B POSITIVE 02/03/2021 7:43 AM CDT [facility] ANTIBODY SCREEN NEGATIVE 02/03/2021 7:43 AM CDT [facility] SAMPLE EXPIRATION 02/06/2021,2 359 02/03/2021 7:43 AM CDT [facility] 02/03/2021 6:44 AM CDT Sid Ghosh MD BLOOD BANK TEST ORDERABLES Final Result [facility] [address] [place] [address], * (ABNORMAL) CBC W/DIFF AUTOMATED (02/03/2021 6:44 AM CDT) WBC 9.8 4.5 - 10.8 x10'3/uL 02/03/2021 6:55 AM CDT [facility] RBC 3.41(L) 4.10 - 5.40 x10'6/uL 02/03/2021 6:55 AM CDT [facility] HGB 10.3(L) 12.0 - 16.0 G/DL 02/03/2021 6:55 AM CDT [facility] HCT 30.5(L) 36.0 - 47.0 % 02/03/2021 6:55 AM CDT [facility] MCV 89.4 78.0 - 100.0 FL 02/03/2021 6:55 AM CDT [facility] MCH 30.2 27.0 - 31.0 PG 02/03/2021 6:55 AM CDT [facility] MCHC 33.8 33.0 - 36.0 G/DL 02/03/2021 6:55 AM CDT [facility] RDW 13.7 11.5 - 14.5 % 02/03/2021 6:55 AM CDT [facility] PLT 176 150 - 350 x10'3/uL 02/03/2021 6:55 AM CDT [facility] MPV 11.2(H) 7.4 - 10.4 FL 02/03/2021 6:55 AM CDT [facility] DIFFERENTIAL COMMENT NORMAL REFERENCE RANGE NOT ESTABLISHED FOR THE PROPORTIONAL LEUKOCYTE DIFFERENTIAL. 02/03/2021 6:55 AM CDT [facility] SEG NEUTROPHILS 62.7 % 6:55 AM CDT [facility] LYMPHOCYTES 29.8 % 02/03/2021 6:55 AM CDT [facility] MONOCYTES 6.0 % 02/03/2021 6:55 AM CDT [facility] EOSINOPHILS 0.9 % 02/03/2021 6:55 AM CDT [facility] BASOPHILS 0.1 % 02/03/2021 6:55 AM CDT [facility] IMMATURE GRANS % 0.5 % 02/04/20 6:55 AM CDT [facility] NRBC 0.0 % 02/03/2021 6:55 AM CDT [facility] ABS. NEUTROPHILS 6.13 1.60 - 8.30 x10'3/uL 02/03/2021 6:55 AM CDT [facility] ABS. LYMPHOCYTES 2.91 0.80 - 4.70 x10'3/uL 02/03/2021 6:55 AM CDT [facility] ABS. MONOCYTES 0.59 0.00 - 1.50 x10'3/uL 02/03/2021 6:55 AM CDT [facility] ABS. EOSINOPHILS 0.09 0.00 - 0.40 x10'3/uL 02/03/2021 6:55 AM CDT [facility] ABS. BASOPHILS 0.01 0.00 - 0.20 x10'3/uL 02/03/2021 6:55 AM CDT [facility] ABS. IMMATURE GRANULOCYTES 0.05(H) 0.00 - 0.03 x10'3/uL 02/03/2021 6:55 AM CDT [facility] ABS. NUCLEATED RBC'S 0.00 0.00 x10'3/uL 02/03/2021 6:55 AM CDT [facility] 02/03/2021 6:44 AM CDT us Sid Ghosh MD LABORATORY Final Resul t [facility] [address] [place] [address], * (ABNORMAL) URINALYSIS (02/03/2021 6:30 AM CDT) COLOR (U) DARK YELLOW 02/03/2021 6:53 AM CDT [facility] TRANSPARENCY CLOUDY 02/03/2021 6:53 AM CDT [facility] SPECIFIC GRAVITY (U) 1.025 1.000 - 1.025 02/03/2021 6:53 AM CDT [facility] U PH 7.0 5.0 - 8.0 02/03/2021 6:53 AM CDT [facility] LEUKOCYTES (U) NEGATIVE NEGATIVE 02/03/2021 6:53 AM CDT [facility] NITRITES NEGATIVE NEGATIVE 02/03/2021 6:53 AM CDT [facility] PROTEIN (U) NEGATIVE NEGATIVE 02/03/2021 6:53 AM CDT [facility] URINE GLUCOSE NEGATIVE NEGATIVE 02/03/2021 6:53 AM CDT [facility] KETONES MG/DL (U) TRACE(A) NEGATIVE 02/03/2021 6:53 AM CDT [facility] UROBILINOGEN 2.0(H) <1.0 EU/DL 02/03/2021 6:53 AM CDT [facility] BILIRUBIN (U) NEGATIVE NEGATIVE 02/03/2021 6:53 AM CDT [facility] BLOOD (U) 1+(A) NEGATIVE 02/03/2021 6:53 AM CDT [facility] WBC/HPF 5-10(A) 0 - 5 /HPF 02/03/2021 6:53 AM CDT [facility] RBC/HPF 5-10(A) 0 - 5 /HPF 02/03/2021 6:53 AM CDT [facility] EPI/HPF MANY /LPF 02/03/2021 6:53 AM CDT [facility] BACTERIA (U) 2+ /HPF 02/03/2021 6:53 AM CDT [facility] MUCUS PRESENT 02/03/2021 6:53 AM CDT [facility] AMORPHOUS SEDIMENT PHOSPHATES 02/03/2021 6:53 AM CDT [facility] URINE SPECIMEN FROM URETHRA / Unknown 02/03/2021 6:30 AM CDT Sid Ghosh MD URINE ORDERABLES Final Resu lt [facility] [address] [place] [address], documented in this encounter Visit Diagnoses Diagnosis (HHS/HCC)- Primary state, incidental Encounter for elective induction of labor ([facility]) documented in this encounter Admitting Diagnoses Diagnosis Encounter for elective induction of labor ([facility]) documented in this encounter Administered Medications Inactive Administered Medications - up to 3 most recent administrations Medication Order MAR Action Action Date Dose Rate Site lactated ringers infusion at 125 mL/hr, Intravenous, Continuous, Starting on Sat02/03/21 at 0700, Until Sat02/03/21 at 215, For all patients in active labor with non-vertex presentation, multiple gestation, previous , persistent non-reassuring FHR, Hx post- hemorrhage, active phase longer than 8 hrs and/or patient desires an epidural., Pre-Delivery zwqwvdloj-xjapthhw-xriviclacvm (MYLANTA MAXIMUM STRENGTH) [id number] mg/30mL suspension 10 mL, Oral, Every 6 hours PRN, Indigestion, dyspepsia, Starting on Sat02/03/21 at 0623, Until Sat02/03/21 at 2156, Shake Well, Pre-Delivery miSOPROStol (CYTOTEC) Split tab 25 mcg 25 mcg, Vaginal, Every 4 hours PRN, Other, cervical ripening, Starting on Sat02/03/21 at 0623, Until Sat02/03/21 at 2156, Hold dose if adequate contraction pattern defined as 3-5 contractions in 10 minutes or cervical change occurs. Keep patient recumbent for 30 minutes post placement., Pre-Delivery Given 02/03/2021 7:40 AM CDT 25 mcg miSOPROStol (CYTOTEC) split tab 50 mcg 50 mcg, Oral, Every 4 hours PRN, Other, cervical ripening, Starting on Sat02/03/21 at 0624, Until Sat02/03/21 at 2156, Hold dose if adequate contraction pattern defined as 3-5 contractions in 10 minutes or cervical change occurs., Pre-Delivery ondansetron (ZOFRAN) injection 4 mg 4 mg, Intravenous, Every 8 hours PRN, Nausea, Vomiting, Starting on Sat02/03/21 at 0623, Until Sat02/03/21 at 2155, If unable to take PO., Pre-Delivery ondansetron (ZOFRAN-ODT) disintegrating tablet 8 mg 8 mg, Oral, Every 8 hours PRN, Nausea, Vomiting, Starting on Sat02/03/21 at 0623, Until Sat02/03/21 at 2155, Pre-Delivery oxytocin (PITOCIN) 30 units in NS 500 mL infusion 0-300 pratima-units/min (0-300 mL/hr), Intravenous, Continuous PRN, After last misoprostol administration, according to protocol, Starting on Sat02/03/21 at 0623, Until Sat02/03/21 at 2155, Start at 2 pratima-unit/min. Increase by 2 [...] infusion 0-300 mL/hr, Intravenous, Continuous, Starting on Sat02/03/21 at 0700, Until Sat02/03/21 at 2156, Initiate during third stage of labor, timing [...] are shown in CDT. Scheduled Medication Order 02/01/2021 02/02/2021 02/03/2021 lactated ringers bolus infusion 1,000 mL(Linked Group 1) 1,000 mL, Intravenous, Administer over 30 Minutes, Once, 1 dose, On Sat02/03/21 at 0700, Bolus prior to epidural placement., Pre-Delivery 0700 (Canceled Entry - Provider: Automatic Discharge Provider - Comment: Automatically canceled at discontinue of medication order) Continuous Medication Order 02/01/2021 02/02/2021 02/03/2021 lactated ringers infusion at 125 mL/hr, Intravenous, Continuous, Starting on Sat02/03/21 at 0700, Until Sat02/03/21 at 2156, For all patients in active labor with non-vertex presentation, multiple gestation, previous , persistent non-reassuring FHR, Hx post- hemorrhage, active phase longer than 8 hrs and/or patient desires an epidural., Pre-Delivery 0700 (Canceled Entry - Provider: Automatic Discharge Provider - Comment: Automatically canceled at discontinue of medication order) oxytocin (PITOCIN) 30 units in NS 500 mL infusion 0-300 mL/hr, Intravenous, Continuous, Starting on Sat02/03/21 at 0700, Until Sat02/03/21 at 2156, Initiate during third stage of labor, timing [...] discontinue of medication order) PRN Medication Order 02/01/2021 02/02/2021 02/03/2021 ytahhejdr-szkkzzot-matejuvwbee (MYLANTA MAXIMUM STRENGTH) [id number] mg/30mL suspension 10 mL, Oral, Every 6 hours PRN, Indigestion, dyspepsia, Starting on Sat02/03/21 at 0623, Until Sat02/03/21 at 2155, Shake Well, Pre-Delivery miSOPROStol (CYTOTEC) Split tab 25 mcg 25 mcg, Vaginal, Every 4 hours PRN, Other, cervical ripening, Starting on Sat02/03/21 at 0623, Until Sat02/03/21 at 2155, Hold dose if adequate contraction pattern defined as 3-5 contractions in 10 minutes or cervical change occurs. Keep patient recumbent for 30 minutes post placement., Pre-Delivery 0740 (Given - Provid er: Jordyn Philip RN) miSOPROStol (CYTOTEC) split tab 50 mcg 50 mcg, Oral, Every 4 hours PRN, Other, cervical ripening, Starting on Sat02/03/21 at 0624, Until Sat02/03/21 at 2155, Hold dose if adequate contraction pattern defined as 3-5 contractions in 10 minutes or cervical change occurs., Pre-Delivery ondansetron (ZOFRAN) injection 4 mg 4 mg, Intravenous, Every 8 hours PRN, Nausea, Vomiting, Starting on Sat02/03/21 at 0623, Until Sat02/03/21 at 215, If unable to take PO., Pre-Delivery ondansetron (ZOFRAN-ODT) disintegrating tablet 8 mg 8 mg, Oral, Every 8 hours PRN, Nausea, Vomiting, Starting on Sat02/03/21 at 0623, Until Sat02/03/21 at 215, Pre-Delivery oxytocin (PITOCIN) 30 units in NS 500 mL infusion 0-300 pratima-units/min (0-300 mL/hr), Intravenous, Continuous PRN, After last misoprostol administration, according to protocol, Starting on Sat02/03/21 at 0623, Until Sat02/03/21 at 2156, Start at 2 pratima-unit/min. Increase by 2 [...] recovery phase. HAZARDOUS MEDICATION HAZARDOUS MEDICATION, Pre-Delivery Linked Groups Order Group 1: Patient may have epidural (CANCELED) Routine, Once, On Sat02/03/21 at 0627, For 1 occurrence, Nursing to inform anesthesia of patient's need for epidural, and LR bolus initiated., Pre-Delivery And lactated ringers bolus infusion 1,000 mLJump to med 1,000 mL, Intravenous, Administer over 30 Minutes, Once, 1 dose, On Sat02/03/21 at 0700, Bolus prior to epidural placement., Pre-Delivery documented in this encounter Care Teams Prototype Fabricator Relationship Specialty Start Date End Date Sid Gohsh MD [address] [phone] PCP - General FAMILY PRACTICE 08/11/20 Sid Ghosh MD [address] [phone] FAMILY PRACTICE 08/27/18 documented as of this encounter
--- OUTSIDE RECORDS SUMMARY | 2024-10-06 20:56 | XMS_ITS | Encounter Summary ---
Author Organization [facility] Address [address] [place] [address]. [place], [place] [address] [place] [address] Care Team Providers Care Line Construction Supervisor Name Role Phone Unavailable Primary Care Provider Unavailabl e Encounter Details Date Type Department Care Team (Late st Contact Info) Description 02/19/2011 Abstract [facility] [address] [place] [address] Sid Solis MD [address] [facility] [place] [address] Social History Tobacco Use Types Packs/Day Years Used Date Smoking Tobacco: Never Assessed Comments Unknown Sex and Gender Information Value Date Recorded Sex Assigned at Not on file 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
--- OUTSIDE RECORDS SUMMARY | 2024-10-06 20:56 | XMS_ITS | Encounter Summary ---
Author Organization [facility] Address [address] [place] [address]. [place] [address] [place] [address] Care Team Providers Care Bond Trader Name Role Phone Jose Elias Alexander MD Unavailable Unavailab Sid Maldonado MD Unavailable [phone] Encounter Details Date Type Department Care Team (Late st Contact Info) Description 01/10/[address] [facility] [address] [place] [address] Sid Solis MD [address] [place] [id number] Social History Tobacco Use Types Packs/Day Years Used Date Smoking Tobacco: Never Assessed Comments Unknown Sex and Gender Information Value Date Recorded Sex Assigned at Not on file Legal Sex Female 10:32 AM MOUNTER Gender Identity Not on file Sexual Orientation Not on file documented as of this encounter Plan of Treatment Not on file documented as of this encounter Visit Diagnoses Diagnosis Encounter for supervision of other normal , first trimester (HHS/HCC) documented in this encounter Care Teams Bond Trader Relationship Specialty Start Date End Date Jose Elias Alexander MD INTERVENTIONAL CARDIOLOGY 08/27/18 9 Sid Solis MD [address] [place] [phone] FAMILY PRACTICE 08/27/18 documented as of this encounter
--- OUTSIDE RECORDS SUMMARY | 2024-10-06 20:56 | XMS_ITS | Encounter Summary ---
Author Organization [facility] Address [address] [place] [address]. [place] [address] [place] [address] Care Team Providers Care Sample Tailor Name Role Phone Jose Elias Alexander MD Unavailable Unavailab Sid Maldonado MD Unavailable [phone] Encounter Details Date Type Department Care Team (Late st Contact Info) Description 09/07/[address] 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
--- OUTSIDE RECORDS SUMMARY | 2024-10-06 20:56 | XMS_ITS | Encounter Summary ---
Author Organization [facility] Address [address] [place] [address]. [place], [place] [address] [place] [address] Care Team Providers Care Naval Architect Specialist Name Role Phone Jose Elias Alexander MD Unavailable Unavailab Sid Maldonado MD Unavailable [phone] Reason for Visit * Reason Comments Lab (SCAN) Encounter Details Date Type Department Care Team (Late st Contact Info) Description 08/26/2018 Scan [facility] [address] [place] [address] Scanned, Documents Lab (SCAN) Social History Tobacco Use Types Packs/Day Years Used Date Smoking Tobacco: Never Assessed Comments Unknown Sex and Gender Information Value Date Recorded Sex Assigned at Not on file 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 Gender Identity Not on file Sexual Orientation Not on file documented as of this encounter Plan of Treatment Not on file documented as of this encounter Procedures Procedure Name Priority Date/Time Associated Diagnosis Comments OUTSIDE LAB (SCAN ORDER) Routine 08/26/2018 documented in this encounter Results * OUTSIDE LAB (08/26/2018) 08/26/2018 us Documents Scanned SCANNING Final Result documented in this encounter Visit Diagnoses Not on filedocumented in this encounter Care Teams Naval Architect Specialist Relationship Specialty Start Date End Date Jose Elias Alexander MD INTERVENTIONAL CARDIOLOGY 08/27/18 Sid Duong MD [address] [place] [phone] FAMILY PRACTICE 08/27/18 documented as of this encounter
--- OUTSIDE RECORDS SUMMARY | 2024-10-06 20:56 | XMS_ITS | Encounter Summary ---
Author Organization [facility] Address [address] [place] [address]. [place], [place] [address] [place], [place] [id number] Care Team Providers Care Maintenance Equipment Operator Name Role Phone Jose Elias Alexander MD Unavailable Unavailab Sid Maldonado MD Unavailable [phone] Reason for Visit * Reason Onset Date Comments Other 09/23/2018 Encounter Details Date Type Department Care Team (Late st Contact Info) Description 09/23/2018 Telephone [facility] [address] [place] [address] Jose Elias Alexander MD Other Social History Tobacco Use Types Packs/Day Years Used Date Smoking Tobacco: Never Assessed Comments Unknown Sex and Gender Information Value Date Recorded Sex Assigned at Not on file Legal Sex Female 10:32 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 Solis's office and spoke to Alexa ren patient did not show up for her appt 09/17. Sending missed/cancelled letters E EDITOR documented in this encounter Plan of Treatment Not on file documented as of this encounter Visit Diagnoses Not on filedocumented in this encounter Care Teams Maintenance Equipment Operator Relationship Specialty Start Date End Date Jose Elias Alexander MD INTERVENTIONAL CARDIOLOGY 08/27/18 9 Sid Solis MD [address] [place], [place] [address] [place] [address] FAMILY PRACTICE 08/27/18 documented as of this encounter
--- OUTSIDE RECORDS SUMMARY | 2024-10-06 20:56 | XMS_ITS | Encounter Summary ---
Author Organization [facility] Address [address] [place] [address]. [place], [place] [address] [place] [address] Care Team Providers Care Casino Games Dealer Name Role Phone Jose Elias Alexander MD Unavailable Unavailab Sid Maldonado MD Unavailable [phone] Encounter Details Date Type Department Care Team (Late st Contact Info) Description 02/13/2017 Abstract [facility] [address] [place], [place] [id number] Ann Mata, AT HOME INDEPENDENT CALL CENTER AGENT- [address] [place] [address] Social History Tobacco Use Types Packs/Day Years Used Date Smoking Tobacco: Never Assessed Comments Unknown Sex and Gender Information Value Date Recorded Sex Assigned at Not on file Legal Sex Female 10:32 AM INSPECTION AND TESTING SUPERVISOR Gender Identity Not on file Sexual Orientation Not on file documented as of this encounter Plan of Treatment Not on file documented as of this encounter Visit Diagnoses Diagnosis Nondisplaced fracture of fifth metatarsal bone with routine healing Aftercare for healing traumatic fracture of lower leg documented in this encounter Care Teams Casino Games Dealer Relationship Specialty Start Date End Date Jose Elias Alexander MD INTERVENTIONAL CARDIOLOGY 08/27/18 9 Sid Solis MD [address] [place] [address] FAMILY PRACTICE 08/27/18 documented as of this encounter
--- OUTSIDE RECORDS SUMMARY | 2024-10-06 20:56 | XMS_ITS | Encounter Summary ---
Author Organization [facility] Address [address] [place] [address]. 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 No / Unsure 01/31/2021 11:44 AM CDT documented as of this encounter Plan of Treatment Not on file documented as of this encounter Visit Diagnoses Not on filedocumented in this encounter Additional Health Concerns Infection Onset Date Last Indicated Resolved Time COVID-19 Rule Out 01/31/2021 01/31/2021 02/01/2021 3:25 PM CDT documented as of this encounter Care Teams Marketing Intelligence Manager Relationship Specialty Start Date End Date [place] [address] [place] [address] PCP - General FAMILY PRACTICE 08/11/20 [place] [address] FAMILY PRACTICE 08/27/18 documented as of this encounter
--- OUTSIDE RECORDS SUMMARY | 2024-10-06 20:56 | XMS_ITS | Encounter Summary ---
Author Organization [facility] Address [facility] [place] [place], [place] [address] [place] [address] Care Team Providers Care Key Operator Name Role Phone Jose Elias Alexander MD Unavailable Unavailab Sid Maldonado MD Unavailable [phone] Mundo Raines MD Unavailable Unavailable Encounter Details Date Type Department Care Team (Late st Contact Info) Description 02/27/2017 Abstract [facility] [address] [place] [phone] Cecilio Mata FNP-BC [address] [facility] [place] [address] Social History Tobacco Use Types Packs/Day Years Used Date Smoking Tobacco: Never Assessed Comments Unknown Sex and Gender Information Value Date Recorded Sex Assigned at Not on file 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 History of Present Illness HPI: Patient returns to clinic today for follow up RIGHT foot injury. She came into clinic in regular shoes and reports no pain. She states that after prolonged walking her foot will be achy but overall doing well. She denies any numbness or tingling. PREVIOUS HISTORY 02-13-17 Patient returns to clinic for follow up RIGHT foot injury. She came into clinic with a post op shoe in place. She reports that she is having very little pain. She denies any numbness or tingling. PREVIOUS HISTORY 01-30-17 Patient returns to clinic today for follow up RIGHT foot injury. She came into clinic with post op shoe in place. She stated that she stopped using the crutches the very nextday after her last visit and has been walking in the shoe since. She reports that she is doing better and the pain is more tolerable. She denies any numbness or tingling. PREVIOUS HISTORY 01-16-17 Patient presents to clinic today for complaints [...] splint non-weight bearing on crutches. She has some numbness and tingling to her whole foot. She is taking [place] and Ibuprofen for pain. She is currently unemployed and raising a 4 month old. Review of Systems See HPI for pertinent positives. Active Problems 1. Closed nondisplaced fracture of fifth metatarsal bone of right foot, initial encounter (825.25) (S92.354A) 2. Closed nondisplaced fracture of fifth metatarsal bone of right foot, sequela (825.25) (S92.354S) 3. Foot fracture, right (825.20) (S92.901A) Past Medical History 1. History of Broken bones (829.0) (T14.8) Surgical History 1. History of Ankle Surgery 2. History of Eye Surgery Family History Family History 1. No pertinent family history Social History ?? Alcohol use (V49.89) (Z78.9) ?? Current every day smoker (305.1) (F17.200) ?? Primary language is Hungarian ?? Single ?? Unemployed (V62.0) (Z56.0) Current Meds 1. Cephalexin 500 MG Oral Capsule; TAKE 1 CAPSULE THREE TIMES A DAY; Therapy: [id number] to Recorded 2. Hydrocodone-Acetaminophen 5-325 MG Oral Tablet; TAKE 1 TABLET BY MOUTH EVERY 6 HOURS NEEDED FOR PAIN (MODERATE 4-7); Therapy: [id number] to Recorded 3. Hydrocodone-Acetaminophen 7.5-325 MG Oral Tablet ([place]); TAKE 1 TABLET EVERY 6 HOURS NEEDED FOR PAIN; Therapy: 16Jan2017 to (Evaluate:24Jan2017); Last Rx:16Jan2017 Ordered 4. Meloxicam 15 MG Oral Tablet; Therapy: (Recorded:16Jan2017) to Recorded 5. Metoclopramide HCl - 10 MG Oral Tablet; TAKE 1 TAB 3 TIMES A DAY [id number], THEN 1 TAB 2X A DAY, X1WEEK, THEN 1; Therapy: 03Sep2016 to Recorded 6. TraMADol HCl - 50 MG Oral Tablet; TAKE 1 TABLET BY MOUTH EVERY 4 HOURS NEEDED FOR PAIN; Therapy: 01Sep2016 to Recorded 7. Tri-Estarylla 0.18/0.215/0.25 MG-35 MCG Oral Tablet; TAKE 1 TABLET EVERY DAY; Therapy: 05Nov2016 to Recorded Allergies 1. codeine Physical Exam Constitutional: alert and in no acute distress. Neurological:. the patient was oriented to person, place, and time. mood and affect were appropriate. Eyes: the sclera and conjunctiva were normal. ENT: hearing was normal. Pulmonary: no respiratory distress. Skin: no injuries or skin lesions on the right lower extremity. Right Foot: EXAM today reveals non tender over 5th metatarsal, no ecchymosis, no swelling, NVI. Results/Data Views: of the right foot. XRAY today reveals progressive healing in stable alignment Findings: Assessment 1. Closed nondisplaced fracture of fifth metatarsal bone of right foot, sequela (825.25) (S92.354S) Plan Closed nondisplaced fracture of fifth metatarsal bone of right foot, sequela 1. XR Foot 3+ View Rt; Status:Active; Requested for:25Feb2017; 2. Continue with our present treatment plan.; Status:Complete; Done: 27Feb2017 02:45PM 3. You may continue or resume your normal level of activity.; Status:Complete; Done: 27Feb2017 02:45PM She is showing no pain or tenderness with good yovany healing. AAT. Follow up PRN. Signatures Electronically signed by : WICHO Chu; Feb 27 2017 2:46PM VETERINARY BACTERIOLOGIST (Author) documented in this encounter Plan of Treatment Not on file documented as of this encounter Procedures Procedure Name Priority Date/Time Associated Diagnosis Comments XR FOOT RT 3V Routine 02/27/2017 3:57 PM CDT documented in this encounter Results * XR FOOT RT 3V (02/27/2017 3:57 PM CDT) Anatomical Region Laterality Modality Foot Radiographic Vane ging 02/27/2017 3:57 PM CDT 02/27/2017 3:57 PM CDT Narrative 02/27/2017 4:55 PM CDT [facility] ?? [facility] [place], [place] ? Patient Name: DENA AGUIRRE Date of : 1990 ?? Med Rec #: [id number] ??Age/Sex: 26/F ?Pt. Location: ORTHO ?? Attending Provider: CECILIO MATA NP ?? Ordering Provider: CECILIO MATA NP ? Study Date Order Number Procedure ?? 02/27/17 [id number] XR Foot 3 or more View Rt ? Signed ? Examination: Right foot. ? Exam time: 1410 hours. ? Clinical history: Fracture follow-up. ? Comparison: 02/13/2017. ? Technique: Three views. ? Findings: Nondisplaced transverse fracture through the base of the fifth metatarsal is again noted in stable alignment. There is some further obscuration of the medial aspect of the fracture line, indicating healing. No new fracture is identified. Previous ORIF of the medial malleolus again noted. No other significant bone or joint abnormality is noted. ? IMPRESSION: ?? Further healing of fifth metatarsal fracture with stable alignment. ? Electronically Signed By: GEORGE RIVERA MD 02/27/17 1653 ? Dictated On: 02/27/171556 ?? Interpreted By: GEORGE RIVERA MD ?? Transcribed On: 02/27/171556 - INF[facility] ?? Procedure Note Ramon Quan MD - 01/08/[address] Patient Name: DENA AGUIRRE Date of : 1990 Med Rec #: [id number] Age/Sex: 26/F Pt. Location: ORTHO Attending Provider: CECILIO MATA NP Ordering Provider: CECILIO MATA NP Study Date Order Number Procedure 02/27/17 [id number] XR Foot 3 or more View Rt Signed Examination: Right foot. Exam time: 1410 hours. Clinical history: Fracture follow-up. Comparison: 02/13/2017. Technique: Three views. Findings: Nondisplaced transverse fracture through the base of the fifthmetatarsal is again noted in stable alignment. There is some further obscuration of the medialaspect of the fracture line, indicating healing. No new fracture is identified. Previous ORIF of themedial malleolus again noted. No other significant bone or joint abnormality is noted. IMPRESSION: Further healing of fifth metatarsal fracture with stable alignment. Electronically Signed By: GEORGE RIVERA MD 02/27/17 165 Dictated On: 02/27/171556 Interpreted By: GEORGE RIVERA MD Transcribed On: 02/27/171556 - [facility] us Cecilio Mata TANK FURNACE OPERATOR-BC GENERAL IMAGING Final Resu lt documented in this encounter Visit Diagnoses Not on filedocumented in this encounter Care Teams Key Operator Relationship Specialty Start Date End Date Jose Elias Alexander MD INTERVENTIONAL CARDIOLOGY 08/27/18 9 Sid Solis MD [facility] [place] [address] FAMILY PRACTICE 08/27/18 Mundo Raines MD [address] [facility] [place] [address] INTERVENTIONAL CARDIOLOGY 11/11/18 10/28/19 documented as of this encounter
--- OUTSIDE RECORDS SUMMARY | 2024-10-06 20:56 | XMS_ITS | Encounter Summary ---
Author Organization [facility] Address [address] [place] [address]. [place] [address] [place] [address] Care Team Providers Care Body Artist Name Role Phone Jose Elias Alexander MD Unavailable Unavailab Sid Maldonado MD Unavailable [phone] Encounter Details Date Type Department Care Team (Late st Contact Info) Description 09/06/[address] 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
--- OUTSIDE RECORDS SUMMARY | 2024-10-06 20:56 | XMS_ITS | Encounter Summary ---
Author Organization [facility] Address [address] [place] [address]. [place] [address] [place] [address] Care Team Providers Care Tennis Ball Cover Cementer Name Role Phone Sid Solis MD Unavailable [phone] Sid Solis MD Primary Care Provider Encounter Details Date Type Department Care Team (Late st Contact Info) Description 01/31/2021 Orders Only [facility] [address] [place] [address] Sid Solis MD [address] [place] [address] Social History Tobacco Use Types Packs/Day Years Used Date Smoking Tobacco: Every Day Cigarettes Smokeless Tobacco: Never Comments Yes Sex and Gender Information Value Date Recorded Sex Assigned at Not on file 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 No / Unsure 02/03/2021 9:21 AM CDT documented as of this encounter Functional Status documented as of this encounter Mental Status * Question Answer Entry Date Author Status Because of a physical, mental, or emotional condition, do you have serious difficulty concentrating, remembering, or making decisions? No 02/03/2021 6:56 AM CDT Alexa Kumar RN Active documented in this encounter Plan of Treatment Not on file documented as of this encounter Results * PRE-SURGICAL/PRE-PROCEDURE CORONAVIRUS (COVID 19) (01/31/2021 11:51 AM CDT) CORONAVIRUS SARS COV 2 PCR (RESP) NOT DETECTED NOT DETECTED 02/01/2021 3:25 PM CDT [email or web address] Comment: A Not Detected (negative) test result for this test means that SARS- CoV-2 RNA was not present in the specimen above the limit of detection. A negative result does not rule out the possibility of COVID-19 and should not be used as the sole basis for treatment or patient management decisions. ??If COVID-19 is still suspected, based on exposure history together with other clinical findings, re-testing should be considered in consultation with public health authorities. Laboratory test results should always be considered in the context of clinical observations and epidemiological data in making a final diagnosis and patient management decisions. Please review the Fact Sheets and FDA authorized labeling available for health care providers and patients using the following websites: https://www.Digital H2O.Social Median/home/Covid-19/HCP/QuestIVD/fact- sheet.html https://www.Digital H[employer]O.Social Median/home/Covid-19/Patients/ QuestIVD/fact-sheet.html This test has been authorized by the FDA under an Emergency Use Authorization (EUA) for use by authorized laboratories. Due to the current public health emergency, [facility] is receiving a high volume of samples [...] about COVID-19 can be found at the [facility] website: www.Uzabase.Social Median/Covid19. Test performed at [email or web address] [address] [place], [place] ??[address] Director: VANDANA MÉNDEZ DO,MPH FIRST TEST NO 01/31/2021 11:50 AM CDT [facility] EMPLOYED IN HEALTHCARE NO 01/31/2021 11:50 AM CDT [facility] SYMPTOMATIC DEFINED BY CDC NO 01/31/2021 11:50 AM CDT [facility] DATE OF SYMPTOM ONSET UNKNOWN 01/31/2021 11:52 AM CDT [facility] HOSPITALIZATION STATUS NO 01/31/2021 11:50 AM CDT [facility] PATIENT IN ICU NO 01/31/2021 11:50 AM CDT [facility] RESIDENT OF [facility] NO 01/31/2021 11:50 AM CDT [facility] 01/31/2021 11:50 AM CDT [facility] PATIENT'S RACE WHITE OR 01/31/2021 11:50 AM CDT [facility] ETHNICITY NONHISPANIC 01/31/2021 11:50 AM CDT [facility] SOURCE (QST) NASOPHARYNGEAL SWAB 01/31/2021 11:50 AM CDT [facility] NASOPHARYNGEAL SWAB / Unknown 01/31/2021 11:51 AM CDT Sid Solis MD MICROBIOLOGY - [facility] Final Result [facility] [address] [place], [place] [address] [phone] [email or web address] [address] documented in this encounter Visit Diagnoses Diagnosis Pre-op testing- Primary Preoperative examination, unspecified documented in this encounter Additional Health Concerns Infection Onset Date Last Indicated Resolved Time COVID-19 Rule Out 01/31/2021 01/31/2021 02/01/2021 3:25 PM CDT documented as of this encounter Care Teams Tennis Ball Cover Cementer Relationship Specialty Start Date End Date Sid Solis MD [address] [facility] [place] [phone] PCP - General FAMILY PRACTICE 08/11/20 Sid Solis MD [address] [place] [address] FAMILY PRACTICE 08/27/18 documented as of this encounter
--- OUTSIDE RECORDS SUMMARY | 2024-10-06 20:56 | XMS_ITS | Encounter Summary ---
Author Organization [facility] Address [facility]ly [facility]. [place], [place] [address] [place] [address] Care Team Providers Care Brake Tester Name Role Phone Jose Elias Alexander MD Unavailable Unavailab Sid Maldonado MD Unavailable [phone] Mundo Raines MD Unavailable Unavailable Encounter Details Date Type Department Care Team (Latest Contact Info) Description 01/30/2017 Abstract [facility] Ann Mata REGIONAL EXTENSION SERVICE SPECIALIST-BC [address] [address] [place] [id number] Social History Tobacco Use Types Packs/Day Years Used Date Smoking Tobacco: Never Assessed Comments Unknown Sex and Gender Information Value Date Recorded Sex Assigned at Not on file 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 History of Present Illness HPI: Patient returns to clinic today for follow up RIGHT foot injury. She came into clinic with post op shoe in place. She stated that she stopped using the crutches the very next day after her last visit and has been [...] to her whole foot. She is taking [place] and Ibuprofen for pain. She is currently [...] smoker (305.1) (F17.200) ?? Primary language is Beninese ?? Single ?? Unemployed (V62.0) (Z56.0) Current Meds 1. Cephalexin 500 MG Oral Capsule; TAKE 1 CAPSULE THREE TIMES A DAY; Therapy: 04Sep2016 to Recorded 2. Hydrocodone-Acetaminophen 7.5-325 MG Oral Tablet; TAKE 1 TABLET EVERY 6 HOURS NEEDED FOR PAIN; Therapy: 16Jan2017 to (Evaluate:24Jan2017); Last Rx:16Jan2017 Ordered 3. Meloxicam 15 MG Oral Tablet; Therapy: (Recorded:16Jan2017) to Recorded 4. Metoclopramide HCl - 10 MG Oral Tablet; TAKE 1 TAB 3 TIMES A DAY [id number], THEN 1 TAB 2X A DAY, X1WEEK, THEN 1; Therapy: 03Sep2016 to Recorded 5. TraMADol HCl - 50 MG Oral Tablet; TAKE 1 TABLET BY MOUTH EVERY 4 HOURS NEEDED FOR PAIN; Therapy: 01Sep2016 to Recorded 6. Tri-Estarylla 0.18/0.215/0.25 MG-35 MCG Oral Tablet; TAKE 1 TABLET EVERY DAY; Therapy: 05Nov2016 to Recorded Allergies 1. codeine Physical Exam Constitutional: alert and in no acute distress. Neurological:. the patient was oriented to person, place, and time. mood and affect were appropriate. Eyes: the sclera and conjunctiva were normal. ENT: hearing was normal. Pulmonary: no respiratory distress. Right Foot: EXAM today reveals tenderness at the 5th metatarsal base, mild ecchymosis, good ankle ROM, motor and sensation intact, mild swelling, NVI. Results/Data Views: of the right foot. XRAY today reveals 5th metatarsal fracture in stable alignment with signsof healing appreciated. Findings: Assessment 1. Closed nondisplaced fracture of fifth metatarsal bone of right foot, sequela (825.25) (S92.354S) Plan Closed nondisplaced fracture of fifth metatarsal bone of right foot, sequela 1. Continue with our present treatment plan.; Status:Complete; Done: 30Jan2017 2. XR Foot 3+ View Rt; Status:Active; Requested for:30Jan2017; She will continue with the post op shoe weight bearing as tolerated. She will follow up in 2 weeks for reevaluation. To Do For Next Visit: xray. Signatures Electronically signed by : WICHO Chu; Jan 30 2017 2:56PM JIGGER MACHINE OPERATOR (Author) documented in this encounter Plan of Treatment Not on file documented as of this encounter Visit Diagnoses Not on filedocumented in this encounter Care Teams Brake Tester Relationship Specialty Start Date End Date Jose Elias Alexander MD INTERVENTIONAL CARDIOLOGY 08/27/18 9 Sid Solis MD [address] [place] [address] FAMILY [facility] 08/27/18 Mundo Raines MD [address] [address] INTERVENTIONAL CARDIOLOGY 11/11/18 10/28/19 documented as of this encounter
--- OUTSIDE RECORDS SUMMARY | 2024-10-06 20:56 | XMS_ITS | Encounter Summary ---
Author Organization [facility] Address Formerly [facility]. [place], [place] [address] [place] [address] Care Team Providers Care Granulator Operator Name Role Phone Jose Elias Alexander MD Unavailable Unavailab Sid Maldonado MD Unavailable [phone] Mundo Raines MD Unavailable Unavailable Encounter Details Date Type Department Care Team (Late st Contact Info) Description 02/13/2017 Abstract [facility] [address] [place] [id number] Cecilio Mata FNP-BC [address] [facility] [place] [address] Social History Tobacco Use Types Packs/Day Years Used Date Smoking Tobacco: Never Assessed Comments Unknown Sex and Gender Information Value Date Recorded Sex Assigned at Not on file Legal Sex Female 10:32 AM 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 History of Present Illness HPI: Patient returns to clinic for follow up RIGHT foot injury. She came into clinic with a post opshoe in place. She reports that she is [...] to her whole foot. She is taking [place] and Ibuprofen for pain. She is currently [...] smoker (305.1) (F17.200) ?? Primary language is Citizen Of [place] ?? Single ?? Unemployed (V62.0) (Z56.0) Current Meds 1. Cephalexin 500 MG Oral Capsule; TAKE 1 CAPSULE THREE TIMES A DAY; Therapy: [id number] to Recorded 2. Hydrocodone-Acetaminophen 7.5-325 MG Oral Tablet; TAKE 1 TABLET EVERY 6 HOURS NEEDED FOR PAIN; Therapy: 16Jan2017 to (Evaluate:[id number]); Last Rx:16Jan2017 Ordered 3. Meloxicam 15 MG Oral Tablet; Therapy: (Recorded:16Jan2017) to Recorded 4. Metoclopramide HCl - 10 MG Oral Tablet; TAKE 1 TAB 3 TIMES A DAY [id number], THEN 1 TAB 2X A DAY, X1WEEK, [...] extremity. Right Foot: EXAM today reveals non tender, good ankle ROM, no ecchymosis, no swelling, NVI. Results/Data XR Foot 3+ View Rt 13Feb2017 01:50PM Cecilio Mata Test Name Result Flag Reference XR Foot 3+ View Rt (Report) [address] Patient Name: DENA AGUIRRE Date of : 1990 Med Rec #: [id number] Age/Sex: 26/F Pt. Location: ORTHO Attending Provider: CECILIO MATA NP Ordering Provider: CECILIO MATA NP Study Date Order Number Procedure 02/13/17 [id number] XR Foot 3 or more View Rt Signed EXAMINATION: XR Foot 3 or more View Rt HISTORY: Follow-up fracture DATE: 02/13/2017 12:00 AM COMPARISON: 01/30/2017 TECHNIQUE: AP, oblique and lateral views FINDINGS: Nondisplaced fracture of the proximal fifth metatarsal metaphysis/epiphysis are demonstrated. Alignment is unchanged. No significant interval healing change. The fracture line still visible. No other fracture identified. Question minimal developing endosteal sclerosis about the lateral aspect of the fracture line. No subluxation or dislocation. Joint spaces unremarkable. Fractured retained medial malleolar screw incidentally noted. IMPRESSION: Stable alignment of nondisplaced proximal fifth metatarsal fracture. Electronically Signed By: SIMRAN DAMON MD 02/13/17 1353 Dictated On: 02/13/17 1350 Interpreted By: SIMRAN DAMON MD Transcribed On: 02/13/17 1350 - INFCE Views: of the right foot. XRAY today reveals progressive healing in stable alignment Findings: Assessment 1. Closed nondisplaced fracture of fifth metatarsal bone of right foot, sequela (825.25) (S92.742S) Plan Closed nondisplaced fracture of fifth metatarsal bone of right foot, sequela 1. Continue with our present treatment plan.; Status:Complete; Done: 13Feb2017 2. You may continue or resume your normal level of activity.; Status:Complete; Done: 13Feb2017 3. XR Foot 3+ View Rt; Status:Resulted - Requires Verification; Done: 13Feb2017 01:50PM Encouraged to discontinue the post op shoe and wean into regular shoes. She will follow up in 2 weeks for reevaluation. To Do For Next Visit: xray. Signatures Electronically signed by : WICHO Chu; Feb 13 2017 5:48PM SALES REPRESENTATIVE EDUCATION COURSES (Author) documented in this encounter Plan of Treatment Not on file documented as of this encounter Procedures Procedure Name Priority Date/Time Associated Diagnosis Comments XR FOOT RT 3V Routine 02/13/2017 1:50 PM CDT documented in this encounter Results * XR FOOT RT 3V (02/13/2017 1:50 PM CDT) Anatomical Region Laterality Modality Foot Radiographic Vane ging 02/13/2017 1:50 PM CDT 02/13/2017 1:50 PM CDT Narrative 02/13/2017 1:55 PM CDT [facility] ?? [facility] [employer] ?? [place], [place] ? Patient Name: DENA AGUIRRE Date of : 1990 ?? Med Rec #: [id number] ??Age/Sex: 26/F ?Pt. Location: ORTHO ?? Attending Provider: CECILIO MATA NP ?? Ordering Provider: CECILIO MATA NP ? Study Date Order Number Procedure ?? 02/13/17 [id number] XR Foot 3 or more View Rt ? Signed ? EXAMINATION: XR Foot 3 or more View Rt ? HISTORY: Follow-up fracture ? DATE: 02/13/2017 12:00 AM ? COMPARISON: 01/30/2017 ? TECHNIQUE: AP, oblique and lateral views ? FINDINGS: ? Nondisplaced fracture of the proximal fifth metatarsal metaphysis/epiphysis are demonstrated. Alignment is unchanged. No significant interval healing change. The fracture line still visible. No other fracture identified. Question minimal developing endosteal sclerosis about the lateral aspect of the fracture line. No subluxation or dislocation. Joint spaces unremarkable. Fractured retained medial malleolar screw incidentally noted. ? IMPRESSION: Stable alignment of nondisplaced proximal fifth metatarsal fracture. ? Electronically Signed By: SIMRAN DAMON MD 02/13/17 1353 ? Dictated On: 02/13/17 1350 ?? Interpreted By: SIMRAN DAMON MD ?? Transcribed On: 02/13/17 1350 - INFCE ?? Procedure Note Ramon Quan MD - 01/08/[address] Patient Name: DENA AGUIRRE Date of : 1990 Med Rec #: [id number] Age/Sex: 26/F Pt. Location: ORTHO Attending Provider: CECILIO MATA NP Ordering Provider: CECILIO MATA NP Study Date Order Number Procedure 02/13/17 [id number] XR Foot 3 or more View Rt Signed EXAMINATION: XR Foot 3 or more View Rt HISTORY: Follow-up fracture DATE: 02/13/2017 12:00 AM COMPARISON: 01/30/2017 TECHNIQUE: AP, oblique and lateral views FINDINGS: Nondisplaced fracture of the proximal fifth metatarsalmetaphysis/epiphysis are demonstrated. Alignment is unchanged. No significant interval healing change. Thefracture line still visible. No other fracture identified. Question minimal developing endosteal sclerosisabout the lateral aspect of the fracture line. No subluxation or dislocation. Joint spacesunremarkable. Fractured retained medial malleolar screw incidentally noted. IMPRESSION: Stable alignment of nondisplaced proximal fifth metatarsalfracture. Electronically Signed By: SIMRAN DAMON MD 02/13/17 1353 Dictated On: 02/13/17 1350 Interpreted By: SIMRAN DAMON MD Transcribed On: 02/13/17 1350 - INFCE us Cecilio Mata AD TAKER-BC GENERAL IMAGING Final Resu lt documented in this encounter Visit Diagnoses Not on filedocumented in this encounter Care Teams Granulator Operator Relationship Specialty Start Date End Date Jose Elias Alexander MD INTERVENTIONAL CARDIOLOGY 08/27/18 9 Sid Solis MD [address] [place] [address] FAMILY [facility] 08/27/18 Mundo Raines MD [address] [phone] INTERVENTIONAL CARDIOLOGY 11/11/18 10/28/19 documented as of this encounter
--- OUTSIDE RECORDS SUMMARY | 2024-10-06 20:56 | XMS_ITS | Encounter Summary ---
Author Organization [facility] Address [address] [place] [address]. 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
--- OUTSIDE RECORDS SUMMARY | 2024-10-06 20:56 | XMS_ITS | Encounter Summary ---
Author Organization [facility] Address [address] [place] [address]. [place] [address] [place] [address] Care Team Providers Care Recycling Assistant Name Role Phone Jose Elias Alexander MD Unavailable Unavailab Sid Maldonado MD Unavailable [phone] Encounter Details Date Type Department Care Team (Late st Contact Info) Description 09/01/[address] [facility] [address] [place], [place] [id number] Sid Solis MD [address] [place] [address] Social History Tobacco Use Types Packs/Day Years Used Date Smoking Tobacco: Never Assessed Comments Unknown Sex and Gender Information Value Date Recorded Sex Assigned at Not on file Legal Sex Female 10:32 AM LABVIEW PROGRAMMER Gender Identity Not on file Sexual Orientation Not on file documented as of this encounter Plan of Treatment Not on file documented as of this encounter Visit Diagnoses Diagnosis Encounter for care or examination of mother immediately after delivery ([facility]) care and examination immediately after delivery documented in this encounter Care Teams Recycling Assistant Relationship Specialty Start Date End Date Jose Elias Alexander MD INTERVENTIONAL CARDIOLOGY 08/27/18 9 Sid Solis MD [address] [place] [address] FAMILY PRACTICE 08/27/18 documented as of this encounter
--- OUTSIDE RECORDS SUMMARY | 2024-10-06 20:56 | XMS_ITS | Encounter Summary ---
Author Organization [facility] Address [address] [place] [address]. [place], [place] [address] [place] [address] Care Team Providers Care Rn L And D Name Role Phone Sdi Ghosh MD Unavailable [phone] Sid Ghosh MD Primary Care Provider Reason for Referral * Imaging (Routine) - Closed Specialty Diagnoses / Procedures Referred By Contac t Referred To Contact RADIOLOGY Diagnoses (HHS/HCC) Procedures US OB COMP >14WKS Sid Roca MD [address] [place] [address] Phone: tel: fax: Referral ID Status Reason Start Date Expiration Date Visits Re quested Visits Authorized [id number] Closed 12/23/2020 01/23/2022 1 1 ING THERAPY TEACHER Reason for Visit * Imaging (Routine) - Closed Specialty Diagnoses / Procedures Referred By Tea kaufman Referred To Contact RADIOLOGY Diagnoses (HHS/HCC) Procedures US OB COMP >14WKS Sid Roca MD [address] [place] [address] Phone: tel: fax: Referral ID Status Reason Start Date Expiration Date Visits Re quested Visits Authorized [id number] Closed 12/23/2020 01/23/2022 1 1 Encounter Details Date Type Department Care Team (Late st Contact Info) Description 12/27/2020 2:24 PM HEARING THERAPY TEACHER - 12/27/2020 11:59 PM HEARING THERAPY TEACHER Hospital Encounter [facility] [address] [place] [address] Sid Ghosh MD [address] [place] [address] Discharge Disposition: Home or Self Care (Routine Discharge) Social History Tobacco Use Types Packs/Day Years Used Date Smoking Tobacco: Every Day Cigarettes Smokeless Tobacco: Never Comments Yes Sex and Gender Information Value Date Recorded Sex Assigned at Not on file Legal Sex Female 10:32 AM HEARING THERAPY TEACHER Gender Identity Not on file Sexual Orientation Not on file COVID-19 Exposure Response Date Recorded In the last month, have you been in contact with someone who was confirmed or suspected to have Coronavirus / COVID-19? No / Unsure 12/27/2020 2:21 PM HEARING THERAPY TEACHER documented as of this encounter Medications at Time of Discharge vitamin, low iron, 27-0.8 MG tablet Take 1 tablet by mouth daily. sucralfate 1 G tablet Take 1 tablet (1 g total) by mouth 4 (four) times daily as needed. 10 tablet 1 11/12/2020 02/03/2021 documented as of this encounter Plan of Treatment Not on file documented as of this encounter Procedures Procedure Name Priority Date/Time Associated Diagnosis Comments US OB COMP >14WKS TA Routine 12/27/2020 2:31 PM HEARING THERAPY TEACHER ([facility] documented in this encounter Results * US OB COMP >14WKS TA (12/27/2020 2:31 PM HEARING THERAPY TEACHER) Anatomical Region Laterality Modality Abdomen Ultrasound 12/29/2020 11:1 6 AM HEARING THERAPY TEACHER Impressions 12/29/2020 11:20 AM HEARING THERAPY TEACHER IMPRESSION: 1. Single live intrauterine gestation of approximate sonographic gestational age of 34 weeks and 0 days and with approximate heart rate of 127 beats per minute. 2. No evidence of placental abruption is seen. 3. Estimated weight: 4 lb and 13 oz, +/- 11 oz (35th percentile) 4. Normal amniotic fluid volume. Referred By: SID GHOSH Interpreted By: Ramiro Schumacher MD, 12/29/2020 11:16 AM Narrative 12/29/2020 11:20 AM HEARING THERAPY TEACHER EXAMINATION: Complete uterus greater than 14 weeks CLINICAL HISTORY: 30 years female with history of . growth. 4 ??Para 3 LMP= 05/06/2020 COMPARISON: None TECHNIQUE: Ultrasound examination of the pelvis was performed utilizing transabdominal approach to assess grayscale appearance, color doppler flow, and spectral waveform characteristics. FINDINGS: Number of fetuses: 1 Mean BPD: 8.7 cm. Mean HC of 30.7 cm. Mean AC of 29.2 cm. Mean FL of 6.3 cm. Approximate gestational age by LMP: 33 weeks and 4 days. GHADA: 02/10/2021 Approximate gestational age by ultrasound: 34 weeks and 0 days. GHADA: 02/07/2021. Estimated weight: 4 lb and 13 oz, +/- 11 oz (35th percentile) position: Cephalic cardiac activity: 127 beats per minute. movement: Present Placenta location: Fundus No evidence of placental abruption is seen. No evidence of placenta previa is seen. Amniotic fluid index: 8.9 cm. Maximum vertical pocket: 4.4 cm. Maternal uterus and adnexa are not distinctly visible. Procedure Note Ramiro Schumacher MD - 12/29/2020 EXAMINATION: Complete uterus greater than 14 weeks CLINICAL HISTORY: 30 years female with history of . Fetalgrowth. 4 Para 3 LMP= 05/06/2020 COMPARISON: None TECHNIQUE: Ultrasound examination of the pelvis was performed utilizing transabdominal approach to assess grayscale appearance, color dopplerflow, and spectral waveform characteristics. FINDINGS: Number of fetuses: 1 Mean BPD: 8.7 cm. Mean HC of 30.7 cm. Mean AC of 29.2 cm. Mean FL of 6.3 cm. Approximate gestational age by LMP: 33 weeks and 4 days. GHADA: 02/10/2021 Approximate gestational age by ultrasound: 34 weeks and 0 days. GHADA: 02/07/2021. Estimated weight: 4 lb and 13 oz, +/- 11 oz (35th percentile) position: Cephalic cardiac activity: 127 beats per minute. movement: Present Placenta location: Fundus No evidence of placental abruption is seen. No evidence of placenta previa is seen. Amniotic fluid index: 8.9 cm. Maximum vertical pocket: 4.4 cm. Maternal uterus and adnexa are not distinctly visible. IMPRESSION: 1. Single live intrauterine gestation of approximate sonographic gestational age of 34 weeks and 0 days and with approximate heart rate of 127 beats per minute. 2. No evidence of placental abruption is seen. 3. Estimated weight: 4 lb and 13 oz, +/- 11 oz (35th percentile) 4. Normal amniotic fluid volume. Referred By: SID GHOSH Interpreted By: Ramiro Schumacher MD, 12/29/2020 11:16 AM us Sid Ghosh MD ULTRASOUND Final Resul t documented in this encounter Visit Diagnoses Diagnosis (HHS/HCC) state, incidental documented in this encounter Care Teams Rn L And D Relationship Specialty Start Date End Date Sid Ghosh MD [address] [place] [phone] PCP - General FAMILY PRACTICE 08/11/20 Sid Ghosh MD [address] [place] [address] FAMILY PRACTICE 08/27/18 documented as of this encounter
--- OUTSIDE RECORDS SUMMARY | 2024-10-06 20:56 | XMS_ITS | Encounter Summary ---
Author Organization [facility] Address [address] [place] [address]. [place] [address] [place] [address] Care Team Providers Care Theatre Arts Professor Name Role Phone Jose Elias Alexander MD Unavailable Unavailab Sid Maldonado MD Unavailable [phone] Encounter Details Date Type Department Care Team (Late st Contact Info) Description 02/19/[address] 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
--- OUTSIDE RECORDS SUMMARY | 2024-10-06 20:56 | XMS_ITS | Encounter Summary ---
Author Organization [facility] Address [address] [place] [address]. [place] [address] [place] [address] Care Team Providers Care Inside Sales Manager Name Role Phone Sid Solis MD Unavailable [phone] Sid Solis MD Primary Care Provider Reason for Referral * (Routine) - Closed Specialty Diagnoses / Procedures Referred By Contac t Referred To Contact Diagnoses Racing heart beat Procedures Event Monitor 30 Day [facility] [address] [place] [address] Phone: tel: Referral ID Status Reason Start Date Expiration Date Visits Re quested Visits Authorized [id number] Closed 12/23/2020 01/23/2022 1 1 PROGRAMMER Encounter Details Date Type Department Care Team (Late st Contact Info) Description 12/23/2020 12:18 PM GAME PROGRAMMER - 12/23/2020 11:59 PM GAME PROGRAMMER Hospital Encounter [facility] [address] [place] [address] Sid Solis MD [address] [place] [address] Discharge Disposition: Home or Self Care (Routine Discharge) Social History Tobacco Use Types Packs/Day Years Used Date Smoking Tobacco: Every Day Cigarettes Smokeless Tobacco: Never Comments Yes Sex and Gender Information Value Date Recorded Sex Assigned at Not on file Legal Sex Female 10:32 AM GAME PROGRAMMER Gender Identity Not on file Sexual Orientation Not on file COVID-19 Exposure Response Date Recorded In the last month, have you been in contact with someone who was confirmed or suspected to have Coronavirus / COVID-19? No / Unsure 12/23/2020 12:14 PM GAME PROGRAMMER documented as of this encounter Medications at [...] Procedure Name Priority Date/Time Associated Diagnosis Comments EVENT MONITOR 30 DAYS Routine 01/10/2021 12:04 PM CDT Racing heart beat documented in this encounter Results * Event Monitor 30 Day (01/10/2021 12:04 PM CDT) 01/10/2021 12:0 4 PM CDT Narrative ESCRIPTION - 01/10/2021 12:48 PM CDT REASON: ??For tachycardia, unspecified. MONITORING PERIOD: ??From December 23, 2020 to January 05, 2021. ?? Baseline rhythm was sinus rhythm. During the course of the monitor, the patient had a number of episodes of lightheadedness, dizziness, chest pain, chest tightness and palpitations associated with normal sinus rhythm with PAC. ??There was no heart block identified, no VT, no SVT, no sinus node pause or any pathologic rhythm abnormality. D: ??01/10/2021 12:04 PM #[id number] T: ??01/10/2021 12:37 PM /NTS Procedure Note Pipo Vicente MD - 01/10/2021 REASON: For tachycardia, unspecified. MONITORING PERIOD: From December 23, 2020 to January 05, 2021. Baseline rhythm was sinus rhythm. During the course of the monitor, the patient had a number of episodes oflightheadedness, dizziness, chest pain, chest tightness and palpitationsassociated with normal sinus rhythm with PAC. There was no heart blockidentified, no VT, no SVT, no sinus node pause or any pathologic rhythmabnormality. #[id number] /NTS Sid Solis MD HOLTER Final Resul t ESCRIPTION documented in this encounter Visit Diagnoses Diagnosis Racing heart beat- Primary Tachycardia, unspecified documented in this encounter Care Teams Inside Sales Manager Relationship Specialty Start Date End Date Sid Solis MD [address] [place] [id number] PCP - General FAMILY PRACTICE 08/11/20 Sid Solis MD [address] [phone] FAMILY PRACTICE 08/27/18 documented as of this encounter
--- OUTSIDE RECORDS SUMMARY | 2024-10-06 20:56 | XMS_ITS | Encounter Summary ---
Author Organization [facility] Address [address] [place] [address]. [place], [place] [address] [place] [address] Care Team Providers Care Electrical Instrumentation Technician Name Role Phone Jose Elias Alexander MD Unavailable Unavailab Sid Maldonado MD Unavailable [phone] Encounter Details Date Type Department Care Team (Late st Contact Info) Description 01/16/2017 Abstract [facility] [address] [place], [place] [id number] Ann Mata, GOVERNMENT MINISTER- [address] [place] [address] Social History Tobacco Use Types Packs/Day Years Used Date Smoking Tobacco: Never Assessed Comments Unknown Sex and Gender Information Value Date Recorded Sex Assigned at Not on file 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 Sex Female 10:32 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 Gender Identity Not on file Sexual Orientation Not on file documented as of this encounter Plan of Treatment Not on file documented as of this encounter Visit Diagnoses Diagnosis Nondisplaced fracture of fifth right metatarsal bone with routine healing Aftercare for healing traumatic fracture of lower leg documented in this encounter Care Teams Electrical Instrumentation Technician Relationship Specialty Start Date End Date Jose Elias Alexander MD INTERVENTIONAL CARDIOLOGY 08/27/18 9 Sid Solis MD [address] [place] [address] FAMILY PRACTICE 08/27/18 documented as of this encounter
--- OUTSIDE RECORDS SUMMARY | 2024-10-06 20:56 | XMS_ITS | Encounter Summary ---
Author Organization [facility] Address [address] [place] [address]. [place] [address] [place] [address] Care Team Providers Care Fans Clerk Name Role Phone Sid Solis MD Unavailable [phone] Sid Solis MD Primary Care Provider Reason for Referral * Imaging (Emergency) - Closed Specialty Diagnoses / Procedures Referred By Contac t Referred To Contact RADIOLOGY Procedures US RENAL Chris Wetzel MD Phone: tel: fax: Referral ID Status Reason Start Date Expiration Date Visits Re quested Visits Authorized [id number] Closed 2020 09/11/2021 1 1 Reason for Visit * Reason Comments Flank Pain Encounter Details Date Type Department Care Team ([facility] st Contact Info) Description 2020 9:36 AM CDT - 2020 11:53 AM CDT Emergency [facility] [address] [place] [address] [place] [address] Chris Wetzel MD [address] [place] [address] [id number] Flank Pain Discharge Disposition: Home or Self Care (Routine Discharge) Social History Tobacco Use Types Packs/Day Years Used Date Smoking Tobacco: Every Day Cigarettes Smokeless Tobacco: Never Comments Yes Sex and Gender Information Value Date Recorded Sex Assigned at Not on file Legal Sex Female 10:32 AM DECKHAND TUNA BOAT Gender Identity Not on file Sexual Orientation Not on file COVID-19 Exposure Response Date Recorded In the last month, have you been in contact with someone who was confirmed or suspected to have Coronavirus / COVID-19? No / Unsure 2020 9:36 AM CDT documented as of this encounter Last Filed Vital Signs Vital Sign Reading Time Taken Comments Blood Pressure 106/63 2020 11:45 AM CDT Pulse 79 2020 11:45 AM CDT Temperature 36.6 ??C (97.9 ??F) 2020 9:43 AM CD T Respiratory Rate 20 2020 11:45 AM CDT Oxygen Saturation 100% 2020 11:45 AM CDT Inhaled Oxygen Concentration - - Weight 62.8 kg (138 lb 6 oz) 2020 9:43 AM CDT Height 160 cm (5' 3 ) 2020 9:43 AM CDT Body Mass Index 24.51 2020 9:43 AM CDT documented in this encounter Discharge Instructions * Discharge Instructions* Chris Wetzel MD - 2020 11:45 AM CDT See your OB doctor in 2 days. Return if pain worse or vaginal bleeding * Attachments The following attachments cannot be sent through Care Everywhere. * Flank Pain Discharge Instructions (Wallisian) * Blood in the Urine (Hematuria) Discharge Instructions, Adult (Wallisian) documented in this encounter Medications at Time of Discharge vitamin, low iron, 27-0.8 MG tablet Take 1 tablet by mouth daily. documented as of this encounter ED Notes * Chris Wetzel MD - 2020 10:04 AM CDT Chief Complaint Chief Complaint Patient presents with ??? Flank Pain History of Present Illness 30-year-old female complaining of left flank pain starting this morning. Patient complains of urgency to urinate since yesterday. Patient denies any blood in the urine. Patient is 13 weeks . Patient rates the pain as 8 on scale 10. Patient denies vomiting denies burning on urination denies fever denies bleeding. Patient says ultrasound has already documented her intrauterine . Medical History ALLERGIES: Allergies Allergen Reactions ??? Codeine Unknown MEDICATIONS: Prior to Admission medications Medication Sig Start Date End Date Taking? Authorizing Provider vitamin, low iron, 27-0.8 MG tablet Take 1 tablet by mouth daily. Yes Doc Abstract PAST MEDICAL HISTORY: History reviewed. No pertinent past medical history. PAST SURGICAL HISTORY: Past Surgical History: Procedure Laterality Date ??? ANKLE ARTHROSCOPY Right FAMILY HISTORY: No family history on file. SOCIAL HISTORY: Social History Tobacco Use ??? Smoking status: Current Every Day Smoker Years: 15.00 ??? Smokeless tobacco: Never Used Substance Use Topics ??? Alcohol use: Not on file ??? Drug use: Not on file Review of Systems Review of Systems Constitutional: Negative for chills and fever. HENT: Negative for voice change. Respiratory: Negative for wheezing. Cardiovascular: Negative for leg swelling. Genitourinary: Positive for flank pain. Skin: Negative for color change. Neurological: Negative for speech difficulty. Psychiatric/Behavioral: Negative for agitation. All other systems reviewed and are negative. Physical Exam Filed Vitals: 08/11/20 0943 08/11/20 1145 BP: 104/73 106/63 Pulse: 99 79 Resp: 16 20 Temp: 97.9 ??F (36.6 ??C) TempSrc: Temporal SpO2: 99% 100% Weight: 62.8 kg (138 lb 6 oz) Height: 5' 3 (1.6 m) Physical Exam Constitutional: Appearance: She is well-developed. HENT: Head: Atraumatic. Eyes: Extraocular Movements: Extraocular movements intact. Neck: Comments: Normal inspection Cardiovascular: Rate and Rhythm: Normal rate and regular rhythm. Pulmonary: Effort: No respiratory distress. Breath sounds: Normal breath sounds. No stridor. No wheezing. Abdominal: Palpations: There is no mass. Tenderness: There is no abdominal tenderness. There is no rebound. Comments: Gravid uterus Musculoskeletal: Normal range of motion. General: No tenderness. Right lower leg: No edema. Left lower leg: No edema. Comments: Back nontender Skin: General: Skin is dry. Neurological: General: No focal deficit present. Mental Status: She is alert. Psychiatric: Mood and Affect: Mood normal. Diagnostic Studies / Procedures ELECTROCARDIOGRAMS: No results found for this visit on 08/11/20. LABORATORY STUDIES: Results for orders placed or performed during the hospital encounter of 08/11/20 URINALYSIS Result Value Ref Range COLOR (U) DARK YELLOW TRANSPARENCY SLIGHTLY CLOUDY Specific [place] (U) 1.030 (H) 1.000 - 1.025 U PH 6.0 5.0 - 8.0 LEUKOCYTE ESTERASE NEGATIVE NEGATIVE NITRITES NEGATIVE NEGATIVE PROTEIN (U) NEGATIVE NEGATIVE URINE GLUCOSE NEGATIVE NEGATIVE U KETONES NEGATIVE NEGATIVE UROBILINOGEN 1.0 (H) <1.0 EU/DL BILIRUBIN (U) NEGATIVE NEGATIVE BLOOD 2+ (A) NEGATIVE WBC/HPF 0-5 0 - 5 /HPF RBC/HPF 20-50 (A) 0 - 5 /HPF EPI/HPF MODERATE /LPF BACTERIA (URINE) 1+ /HPF MUCUS PRESENT IMAGING STUDIES US RENAL Final Result by User, [id number] (08/11 3444) Examination: US RETROPERITONEAL LTD Exam time: 2020 11:02 AM Clinical history: Hematuria. Left flank pain. 13 weeks . Comparison: No prior exam Findings: Right kidney measures 11.6 cm in length and the left measures 11.8 cm. Renal parenchymal echogenicity appears unremarkable. No evidence of focal renal parenchymal defects or scarring. No sonographic evidence of focal cystic or solid renal lesions. No evidence of hydronephrosis. No evidence of focal or diffuse urinary bladder wall thickening. No evidence of abnormal intraluminal echogenicity. Bilateral urine Doppler jets are present. IMPRESSION: 1) Unremarkable sonographic appearance of each kidney and urinary bladder. Interpreted By: Zak Lizarraga MD, 2020 11:30 AM ED Course / Medical Decision Making heart tones 146 No vaginal bleeding prior to discharge, pain is mild to moderate prior to discharge MDM Number of Diagnoses or Management Options Flank pain: new and requires workup Hematuria, unspecified type: new and requires workup Amount and/or Complexity of Data Reviewed Clinical lab tests: reviewed Tests in the radiology section of CPT??: reviewed Risk of Complications, Morbidity, and/or Mortality Presenting problems: moderate Diagnostic procedures: moderate Management options: moderate Patient Progress Patient progress: stable Clinical Impression Flank pain (Primary) Hematuria, unspecified type Disposition: Discharge Follow-up with TEMPORARY OFFICE ASSISTANT in 2 days, likely a small kidney stone not seen on ultrasound Chris Wetzel MD 08/11/20 1211 Chris Wetzel MD 08/11/20 1211 * Alicia Hernández RN - 2020 9:45 AM CDT Pt arrives ambulatory w/ c/o of left flank pain starting this morning and urges of urinary frequency. Pt rates 8/10 pain scale and denies N/V/D, bleeding/spotting or fevers. documented in this encounter Plan of Treatment Not on file documented as of this encounter Procedures Procedure Name Priority Date/Time Associated Diagnosis Comments US RETROPERITONEAL LTD STAT 0 11:08 AM CDT HC URINALYSIS AUTO W/MICRO STAT 2020 10:04 AM CDT documented in this encounter Results * US RENAL (2020 11:08 AM CDT) Anatomical Region Laterality Modality Renal Ultrasound 2020 11:3 0 AM CDT Impressions 2020 11:33 AM CDT IMPRESSION: 1) Unremarkable sonographic appearance of each kidney and urinary bladder. Interpreted By: Zak Lizarraga MD, 2020 11:30 AM Narrative 2020 11:33 AM CDT Examination: US RETROPERITONEAL LTD Exam time: 2020 11:02 AM Clinical history: Hematuria. Left flank pain. 13 weeks . Comparison: No prior exam Findings: Right kidney measures 11.6 cm in length and the left measures 11.8 cm. Renal parenchymal echogenicity appears unremarkable. No evidence of focal renal parenchymal defects or scarring. No sonographic evidence of focal cystic or solid renal lesions. No evidence of hydronephrosis. No evidence of focal or diffuse urinary bladder wall thickening. No evidence of abnormal intraluminal echogenicity. Bilateral urine Doppler jets are present. Procedure Note Zak Lizarraga MD - 2020 Examination: US RETROPERITONEAL LTD Exam time: 2020 11:02 AM Clinical history: Hematuria. Left flank pain. 13 weeks . Comparison: No prior exam Findings: Right kidney measures 11.6 cm in length and the left measures 11.8 cm. Renal parenchymal echogenicity appears unremarkable. Noevidence of focal renal parenchymal defects or scarring. No sonographic evidenceof focal cystic or solid renal lesions. No evidence of hydronephrosis. No evidence of focal or diffuse urinary bladder wall thickening. No evidence of abnormal intraluminal echogenicity. Bilateral urine Doppler jets are present. IMPRESSION: 1) Unremarkable sonographic appearance of each kidney and urinarybladder. Interpreted By: Zak Lizarraga MD, 2020 11:30 AM us Chris Wetzel MD ULTRASOUND Final Result * (ABNORMAL) URINALYSIS (2020 10:04 AM CDT) COLOR (U) DARK YELLOW 2020 10:50 AM CDT [facility] TRANSPARENCY SLIGHTLY CLOUDY 2020 10:50 AM CDT [facility] SPECIFIC GRAVITY (U) 1.030(H) 1.000 - 1.025 2020 10:50 AM CDT [facility] Comment:EQUAL TO OR GREATER THAN U PH 6.0 5.0 - 8.0 2020 10:50 AM CDT [facility] LEUKOCYTES (U) NEGATIVE NEGATIVE 2020 10:50 AM CDT [facility] NITRITES NEGATIVE NEGATIVE 2020 10:50 AM CDT [facility] PROTEIN (U) NEGATIVE NEGATIVE 2020 10:50 AM CDT [facility] URINE GLUCOSE NEGATIVE NEGATIVE 2020 10:50 AM CDT [facility] KETONES MG/DL (U) NEGATIVE NEGATIVE 2020 10:50 AM CDT [facility] UROBILINOGEN 1.0(H) <1.0 EU/DL 2020 10:50 AM CDT [facility] BILIRUBIN (U) NEGATIVE NEGATIVE 2020 10:50 AM CDT [facility] BLOOD (U) 2+(A) NEGATIVE 2020 10:50 AM CDT [facility] WBC/HPF 0-5 0 - 5 /HPF 2020 10:50 AM CDT [facility] RBC/HPF 20-50(A) 0 - 5 /HPF 2020 10:50 AM CDT [facility] EPI/HPF MODERATE /LPF 2020 10:50 AM CDT [facility] BACTERIA (U) 1+ /HPF 2020 10:50 AM CDT [facility] MUCUS PRESENT 2020 10:50 AM CDT [facility] URINE SPECIMEN OBTAINED BY CLEAN CATCH PROCEDURE / Unknown 2020 10:04 AM CDT Chris Wetzel MD URINE ORDERABLES Final Result [facility] [address] [place] [address], documented in this encounter Visit Diagnoses Diagnosis Flank pain- Primary Abdominal pain, unspecified site Hematuria, unspecified type documented in this encounter Care Teams Fans Clerk Relationship Specialty Start Date End Date Sid Solis MD [address] [place] [phone] PCP - General FAMILY PRACTICE 08/11/20 Sid Solis MD [address] [place] [id number] FAMILY PRACTICE 08/27/18 documented as of this encounter
--- OUTSIDE RECORDS SUMMARY | 2024-10-06 20:56 | XMS_ITS | Encounter Summary ---
Author Organization [facility] Address [address] [place] [address]. [place] [address] [place] [address] Care Team Providers Care Allocation Analyst Name Role Phone Jose Elias Alexander MD Unavailable Unavailab Sid Maldonado MD Unavailable [phone] Encounter Details Date Type Department Care Team (Late st Contact Info) Description 07/04/2012 Abstract [facility] [address] [place] [address] Saw Salazar MD [address] [place], [place] [id number] Social History Tobacco Use Types Packs/Day Years Used Date Smoking Tobacco: Never Assessed Comments Unknown Sex and Gender Information Value Date Recorded Sex Assigned at Not on file 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
--- OUTSIDE RECORDS SUMMARY | 2024-10-06 20:56 | XMS_ITS | Encounter Summary ---
Author Organization [facility] Address [address] [place] [address]. [place] [address] [place] [address] Care Team Providers Care Client Evaluator Name Role Phone Sid Solis MD Unavailable [phone] Sid Solis MD Primary Care Provider [phone] Encounter Details Date Type Department Care Team (Late st Contact Info) Description 01/31/2021 11:44 AM CDT - 01/31/2021 11:59 PM CDT Hospital Encounter [facility] [address] [place] [address] Sid Solis MD [address] [place] [address] Discharge Disposition: Home or Self Care (Routine Discharge) Social History Tobacco Use Types Packs/Day Years Used Date Smoking Tobacco: Every Day Cigarettes Smokeless Tobacco: Never Comments Yes Sex and Gender Information Value Date Recorded Sex Assigned at Not on file Legal Sex Female 10:32 AM CAMPUS INTERVIEWS INTERN Gender Identity Not on file Sexual Orientation Not on file COVID-19 Exposure Response Date Recorded In the last month, have you been in contact with someone who was confirmed or suspected to have Coronavirus / COVID-19? No / Unsure 01/31/2021 11:44 AM CDT documented as of this encounter Medications at [...] Associated Diagnosis Comments CORONAVIRUS (COVID 19) Routine 01/31/2021 11:51 AM CDT Pre-op testing documented in this encounter Results * PRE-SURGICAL/PRE-PROCEDURE CORONAVIRUS (COVID 19) (01/31/2021 11:51 AM CDT) CORONAVIRUS SARS COV 2 PCR (RESP) NOT DETECTED NOT DETECTED 02/01/2021 3:25 PM CDT [employer] [facility] Comment: A Not Detected (negative) test [...] providers and patients using the following websites: https://www.[employer].com/home/Covid-19/HCP/QuestIVD/fact- sheet.html https://www.[employer].langtaojin/home/Covid-19/Patients/ QuestIVD/fact-sheet.html This test has been authorized by the FDA under an Emergency Use Authorization (EUA) for use by authorized laboratories. Due to the current public health emergency, [employer] is receiving a high volume of samples [...] about COVID-19 can be found at the [employer] website: www.[employer].langtaojin/Covid19. Test performed at [employer] [facility] [id number] [place] [address] ??[phone] Director: VANDANA MÉNDEZ DO,MPH FIRST TEST NO 01/31/2021 11:50 AM CDT [facility] EMPLOYED IN HEALTHCARE NO 01/31/2021 11:50 AM CDT [facility] SYMPTOMATIC DEFINED BY CDC NO 01/31/2021 11:50 AM CDT [facility] DATE OF SYMPTOM ONSET UNKNOWN 01/31/2021 11:52 AM CDT [facility] HOSPITALIZATION STATUS NO 01/31/2021 11:50 AM CDT [facility] PATIENT IN ICU NO 01/31/2021 11:50 AM CDT [facility] RESIDENT OF [facility] NO 01/31/2021 11:50 AM CDT [facility] 01/31/2021 11:50 AM CDT [facility] PATIENT'S RACE WHITE OR 01/31/2021 11:50 AM CDT [facility] ETHNICITY NONHISPANIC 01/31/2021 11:50 AM CDT [facility] SOURCE (QST) NASOPHARYNGEAL SWAB 01/31/2021 11:50 AM CDT [facility] NASOPHARYNGEAL SWAB / Unknown 01/31/2021 11:51 AM CDT us Sid Solis MD MICROBIOLOGY - GENERAL CAITLIN GODDARD Final Result [facility] [address] [place] [address], [employer] [address] [address] documented in this encounter Visit Diagnoses Diagnosis Pre-op testing Preoperative examination, unspecified documented in this encounter Additional Health Concerns Infection Onset Date Last Indicated Resolved Time COVID-19 Rule Out 01/31/2021 01/31/2021 02/01/2021 3:25 PM CDT documented as of this encounter Care Teams Client Evaluator Relationship Specialty Start Date End Date Sid Solis MD [address] [address] PCP - General FAMILY PRACTICE 08/11/20 Sid Solis MD [address] [id number] FAMILY PRACTICE 08/27/18 documented as of this encounter
--- OUTSIDE RECORDS SUMMARY | 2024-10-06 20:56 | XMS_ITS | Encounter Summary ---
Author Organization [facility] Address [address] [place] [address]. [place] [address] [place] [address] Care Team Providers Care Recreational Specialist Name Role Phone Jose Elias Alexander MD Unavailable Unavailab Sid Maldonado MD Unavailable [phone] Encounter Details Date Type Department Care Team (Late st Contact Info) Description 08/25/2018 Scan [facility] [address] [place] [address] Scanned, Documents Social History Tobacco Use Types Packs/Day Years Used Date Smoking Tobacco: Never Assessed Comments Unknown Sex and Gender Information Value Date Recorded Sex Assigned at Not on file Legal Sex Female 10:32 AM 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
--- OUTSIDE RECORDS SUMMARY | 2024-10-06 20:56 | XMS_ITS | Encounter Summary ---
Author Organization [facility] Address [address] [place] [address]. [place], [place] [address] [place] [address] Care Team Providers Care Engineering Instructor Name Role Phone Jose Elias Alexander MD Unavailable Unavailab Sid Maldonado MD Unavailable [phone] Reason for Visit * Reason Onset Date Comments Appointment Request 08/27/2018 Encounter Details Date Type Department Care Team (Late st Contact Info) Description 08/27/2018 Telephone [email or web address] [address] [place] [address] Jose Elias Alexander MD Appointment Request Social History Tobacco Use Types Packs/Day Years Used Date Smoking Tobacco: Never Assessed Comments Unknown Sex and Gender Information Value Date Recorded Sex Assigned at Not on file 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 Solis for zita castillo. Pt havng stress test 09/02/18 at [facility]. [facility] [place]. Records requested. Letter mailed. Scheduled with Dr. Alexander in [facility] on 09/17/18at 0920. TURBINE MECHANICAL ENGINEER documented in this encounter Plan of Treatment Not on file documented as of this encounter Visit Diagnoses Not on filedocumented in this encounter Care Teams Engineering Instructor Relationship Specialty Start Date End Date Jose Elias Alexander MD INTERVENTIONAL CARDIOLOGY 08/27/18 9 Sid Solis MD [address] [place] [address] [place] [address] FAMILY PRACTICE 08/27/18 documented as of this encounter
--- OUTSIDE RECORDS SUMMARY | 2024-10-06 20:56 | XMS_ITS | Encounter Summary ---
Author Organization [facility] Address [address] [place] [address]. [place] [address] [place] [address] Care Team Providers Care Furniture Cleaner Name Role Phone Jose Elias Alexander MD Unavailable Unavailab Sid Maldonado MD Unavailable [phone] Encounter Details Date Type Department Care Team (Late st Contact Info) Description 01/12/2017 Abstract [facility] [address] [place] [address] Stacy Goncalves MD [address] [facility] [address] [place] [address] Social History Tobacco Use Types Packs/Day Years Used Date Smoking Tobacco: Never Assessed Comments Unknown Sex and Gender Information Value Date Recorded Sex Assigned at Not on file 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
--- OUTSIDE RECORDS SUMMARY | 2024-10-06 20:56 | XMS_ITS | Encounter Summary ---
Author Organization [facility] Address [address] [place] [address]. 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
--- OUTSIDE RECORDS SUMMARY | 2024-10-06 20:56 | XMS_ITS | Encounter Summary ---
Author Organization [facility] Address [address] [place] [address]. [place], [place] [address] [place] [address] Care Team Providers Care Tongue And Quarter Stitcher Name Role Phone Unavailable Primary Care Provider Unavailabl e Reason for Visit * Reason Comments Echo (SCAN) Encounter Details Date Type Department Care Team (Late st Contact Info) Description 09/06/2016 Scan [facility] [address] [place] [address] Scanned, Documents Echo (SCAN) Social History Tobacco Use Types Packs/Day Years Used Date Smoking Tobacco: Never Assessed Comments Unknown Sex and Gender Information Value Date Recorded Sex Assigned at Not on file Legal Sex Female 10:32 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
--- OUTSIDE RECORDS SUMMARY | 2024-10-06 20:56 | XMS_ITS | Encounter Summary ---
Author Organization [facility] Address [address] [place] [address]. [place] [address] [place] [address] Care Team Providers Care Quality Process Auditor Name Role Phone Sid Solis MD Unavailable [phone] Sid Solis MD Primary Care Provider [phone] Encounter Details Date Type Department Care Team (Late st Contact Info) Description 11/12/2020 12:18 AM AUTOMATIC BUFFER - 11/12/2020 2:30 AM AUTOMATIC BUFFER Hospital Encounter [facility] [address] [place] [address] Sid Solis MD [address] [place] [address] Discharge Disposition: Home or Self Care (Routine Discharge) Social History Tobacco Use Types Packs/Day Years Used Date Smoking Tobacco: Every Day Cigarettes Smokeless Tobacco: Never Comments Yes Sex and Gender Information Value Date Recorded Sex Assigned at Not on file Legal Sex Female 10:32 AM AUTOMATIC BUFFER Gender Identity Not on file Sexual Orientation Not on file documented as of this encounter Last Filed Vital Signs Vital Sign Reading Time Taken Comments Blood Pressure 117/61 11/12/2020 12:20 AM AUTOMATIC BUFFER Pulse 75 11/12/2020 12:20 AM AUTOMATIC BUFFER Temperature 37.2 ??C (99 ??F) 11/12/2020 12:20 AM AUTOMATIC BUFFER Respiratory Rate 16 11/12/2020 12:20 AM AUTOMATIC BUFFER Oxygen Saturation - - Inhaled Oxygen Concentration - - Weight - - Height - - Body Mass Index - - documented in this encounter Medications at Time [...] Procedure Name Priority Date/Time Associated Diagnosis Comments NONSTRESS TEST Routine 11/12/2020 12:25 AM AUTOMATIC BUFFER ([facility] HC URINALYSIS AUTO W/MICRO STAT 11/12/2020 12:24 AM AUTOMATIC BUFFER ([facility]) documented in this encounter Results * (ABNORMAL) URINALYSIS (11/12/2020 12:24 AM AUTOMATIC BUFFER) COLOR (U) YELLOW 11/12/2020 12:49 AM [facility] TRANSPARENCY CLEAR 11/12/2020 12:49 AM [facility] SPECIFIC GRAVITY (U) 1.025 1.000 - 1.025 11/12/2020 12:49 AM [facility] U PH 7.0 5.0 - 8.0 11/12/2020 12:49 AM [facility] LEUKOCYTES (U) NEGATIVE NEGATIVE 11/12/2020 12:49 AM [facility] NITRITES NEGATIVE NEGATIVE 11/12/2020 12:49 AM [facility] PROTEIN (U) NEGATIVE NEGATIVE 11/12/2020 12:49 AM [facility] URINE GLUCOSE NEGATIVE NEGATIVE 11/12/2020 12:49 AM [facility] KETONES MG/DL (U) NEGATIVE NEGATIVE 11/12/2020 12:49 AM [facility] UROBILINOGEN 0.2 <1.0 EU/DL 11/12/2020 12:49 AM [facility] BILIRUBIN (U) NEGATIVE NEGATIVE 11/12/2020 12:49 AM [facility] BLOOD (U) 2+(A) NEGATIVE 11/12/2020 12:49 AM [facility] WBC/HPF 5-10(A) 0 - 5 /HPF 11/12/2020 12:49 AM AUTOMATIC BUFFER [facility] RBC/HPF 5-10(A) 0 - 5 /HPF 11/12/2020 12:49 AM AUTOMATIC BUFFER [facility] EPI/HPF MANY /LPF 11/12/2020 12:49 AM AUTOMATIC BUFFER [facility] AMORPHOUS SEDIMENT URATES 11/12/2020 12:49 AM AUTOMATIC BUFFER [facility] URINE SPECIMEN OBTAINED BY CLEAN CATCH PROCEDURE / Unknown 11/12/2020 12:24 AM AUTOMATIC BUFFER us Sid Solis MD URINE ORDERABLES Final Resu lt [facility] [address] [place] [address], documented in this encounter Visit Diagnoses Diagnosis (HHS/HCC)- Primary state, incidental documented in this encounter Administered Medications Inactive Administered Medications - up to 3 most recent administrations Medication Order MAR Action Action Date Dose Rate Site sucralfate (CARAFATE) tablet 1 g 1 g, Oral, Once, 1 dose, On 11/12/20 at 0130 Given 11/12/2020 1:07 AM AUTOMATIC BUFFER 1 g documented in this encounter Active and Recently Administered Medications Times are shown in AUTOMATIC BUFFER. Scheduled Medication Order 11/10/2020 11/11/2020 11/12/2020 sucralfate (CARAFATE) tablet 1 g (COMPLETED) 1 g, Oral, Once, 1 dose, On 11/12/20 at 0130 0107 (Given - Provid er: Luisa Mcdonald RN) documented in this encounter Care Teams Quality Process Auditor Relationship Specialty Start Date End [place] [address] PCP - General FAMILY PRACTICE 08/11/20 Sid Solis MD [address] [place] [address] FAMILY PRACTICE 08/27/18 documented as of this encounter
--- OUTSIDE RECORDS SUMMARY | 2024-10-06 20:56 | XMS_ITS | Encounter Summary ---
Author Organization [facility] Address [address] [place] [address]. [place], [place] [address] [place] [address] Care Team Providers Care Program Coordinator Name Role Phone Jose Elias Alexander MD Unavailable Unavailab Sid Maldonado MD Unavailable Encounter Details Date Type Department Care Team (Late st Contact Info) Description 01/30/2017 Abstract [facility] [address] [place], [place] [id number] Ann Mata, POULTRY HUSBANDRY TEACHER- [address] [place] [address] Social History Tobacco Use Types Packs/Day Years Used Date Smoking Tobacco: Never Assessed Comments Unknown Sex and Gender Information Value Date Recorded Sex Assigned at Not on file Legal Sex Female 10:32 AM 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
--- OUTSIDE RECORDS SUMMARY | 2024-10-06 20:56 | XMS_ITS | Encounter Summary ---
Author Organization [facility] Address [address] [place] [address]. 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
--- OUTSIDE RECORDS SUMMARY | 2024-10-06 20:56 | XMS_ITS | Encounter Summary ---
Author Organization [facility] Address [address] [place] [address]. [place] [address] [place] [address] Care Team Providers Care Corporate Specialist Name Role Phone Jose Elias Alexander MD Unavailable Unavailab Sid Maldonado MD Unavailable [phone] Encounter Details Date Type Department Care Team (Late st Contact Info) Description 09/02/[address] 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
--- OUTSIDE RECORDS SUMMARY | 2024-10-06 20:56 | XMS_ITS | Encounter Summary ---
Author Organization [facility] Address [address] [place] [address]. 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 No / Unsure 12/23/2020 12:14 PM LONGWALL FOREMAN documented as of this encounter Plan of Treatment Not on file documented as of this encounter Visit Diagnoses Not on filedocumented in this encounter Care Teams Daycare Manager Relationship Specialty Start Date End Date Sid Solis MD [address] [place] [address] PCP - General FAMILY PRACTICE 08/11/20 Sid Solis MD [address] [place] [phone] FAMILY PRACTICE 08/27/18 documented as of this encounter
--- OUTSIDE RECORDS SUMMARY | 2024-10-06 20:56 | XMS_ITS | Encounter Summary ---
Author Organization [facility] Address [address] [place] [address]. [place] [address] [place] [address] Care Team Providers Care Laborer Cheesemaking Name Role Phone Jose Elias Alexander MD Unavailable Unavailab Sid Maldonado MD Unavailable [phone] Reason for Visit * Reason Comments Image (SCAN) Encounter Details Date Type Department Care Team (Late st Contact Info) Description 08/25/2018 [facility] [address] [place] [address] Scanned, Documents Image (SCAN) Social History Tobacco Use Types Packs/Day Years Used Date Smoking Tobacco: Never Assessed Comments Unknown Sex and Gender Information Value Date Recorded Sex Assigned at Not on file Legal Sex Female 10:32 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 Gender Identity Not on file Sexual Orientation Not on file documented as of this encounter Plan of Treatment Not on file documented as of this encounter Procedures Procedure Name Priority Date/Time Associated Diagnosis Comments IMAGE GENERIC Routine 08/25/2018 documented in this encounter Results * IMAGE STUDY (08/25/2018) Anatomical Region Laterality Modality Other us Documents Scanned SCANNING Final Result documented in this encounter Visit Diagnoses Not on filedocumented in this encounter Care Teams Laborer Cheesemaking Relationship Specialty Start Date End Date Jose Elias Alexander MD INTERVENTIONAL CARDIOLOGY 08/27/18 9 Sid Solis MD [address] [facility] [place] [phone] FAMILY PRACTICE 08/27/18 documented as of this encounter
--- OUTSIDE RECORDS SUMMARY | 2024-10-06 20:56 | XMS_ITS | Encounter Summary ---
Author Organization [facility] Address [address] [place] [address]. [place], [place] [address] [place], [place] [phone] Care Team Providers Care Systems Requirements Planner Name Role Phone Jose Elias Alexander MD Unavailable Unavailab Sid Maldonado MD Unavailable [phone] Mundo Raines MD Unavailable Unavailable Encounter Details Date Type Department Care Team (Latest Contact Info) Description 01/17/2017 Abstract [facility], Generic Conversion, Social History Tobacco Use Types Packs/Day Years Used Date Smoking Tobacco: Never Assessed Comments Unknown Sex and Gender Information Value Date Recorded Sex Assigned at Not on file 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 [facility] ?? [place], [place] ? Patient Name: DENA AGUIRRE Date of : 1990 ?? Med Rec #: [id number] ??Age/Sex: 26/F ?Pt. Location: ORTHO ?? Attending Provider: CECILIO HATCH NP ?? Ordering Provider: CECILIO HATCH NP ? Study Date Order Number Procedure ?? 01/30/17 [id number] XR Foot 3 or more View Rt ? Signed ? Examination: Right foot. ? Exam time: 1410 hours. ? Clinical history: Fracture follow-up. ? Comparison: 01/16/2017. ? Technique: Three views. ? Findings: Transverse fracture through the base of the fifth metatarsal is again evident in stable, anatomic alignment. Allowing for minor technical differences, the appearance of the fracture line is not appreciably changed. No new fracture is identified. Screw fixation of the distal tibia is again noted. No other significant bone or joint abnormality is noted. The soft tissues are unremarkable. ? IMPRESSION: ?? Stable exam. ? Electronically Signed By: GEORGE RIVERA MD 01/30/17 1614 ? Dictated On: 01/30/17 1611 ?? Interpreted By: GEORGE RIVERA MD ?? Transcribed On: 01/30/17 1611 - [facility] ?? Procedure Note Ramon Quan MD - 01/08/[address] Patient Name: DENA AGUIRRE Date of : 1990 Med Rec #: [id number] Age/Sex: 26/F Pt. Location: ORTHO Attending Provider: CECILIO HATCH NP Ordering Provider: CECILIO HATCH NP Study Date Order Number Procedure 01/30/17 [id number] XR Foot 3 or more View Rt Signed Examination: Right foot. Exam time: 1410 hours. Clinical history: Fracture follow-up. Comparison: 01/16/2017. Technique: Three views. Findings: Transverse fracture through the base of the fifth metatarsal isagain evident in stable, anatomic alignment. Allowing for minor technical differences, theappearance of the fracture line is not appreciably changed. No new fracture is identified. Screw fixationof the distal tibia is again noted. No other significant bone or joint abnormality is noted. Thesoft tissues are unremarkable. IMPRESSION: Stable exam. Electronically Signed By: GEORGE RIVERA MD 01/30/171613 Dictated On: 01/30/171610 Interpreted By: GEORGE RIVERA MD Transcribed On: 01/30/171610 - [facility] us Cecilio M Adolfo MANUFACTURING ENGINEER-BC GENERAL IMAGING Final Resu lt documented in this encounter Visit Diagnoses Not on filedocumented in this encounter Care Teams Systems Requirements Planner Relationship Specialty Start Date End Date Jose Elias Alexander MD INTERVENTIONAL CARDIOLOGY 08/27/18 9 Sid Solis MD [address] [address] FAMILY PRACTICE 08/27/18 Mundo Raines MD [address] [address] INTERVENTIONAL CARDIOLOGY 11/11/18 10/28/19 documented as of this encounter
--- OUTSIDE RECORDS SUMMARY | 2024-10-06 20:56 | XMS_ITS | Encounter Summary ---
Author Organization [facility] Address [address] [place] [address]. [place] [address] [place] [address] Care Team Providers Care Marine Architect Name Role Phone Sid Solis MD Unavailable [phone] Sid Solis MD Primary Care Provider Reason for Visit * Reason Comments Vaginal Bleeding Encounter Details Date Type Department Care Team (Late st Contact Info) Description 10/05/2020 12:17 AM [facility] - 10/05/2020 1:10 AM [facility] Hospital Encounter [facility] [address] [place] [address] Sid Solis MD [address] [place] [address] Vaginal Bleeding Discharge Disposition: Home or Self Care (Routine Discharge) Social History Tobacco Use Types Packs/Day Years Used Date Smoking Tobacco: Every Day Cigarettes Smokeless Tobacco: Never Comments Yes Sex and Gender Information Value Date Recorded Sex Assigned at Not on file Legal Sex Female 10:32 AM [facility] Gender Identity Not on file Sexual Orientation Not on file documented as of this encounter Last Filed Vital Signs Vital Sign Reading Time Taken Comments Blood Pressure 103/57 10/05/2020 12:32 AM [facility] Pulse 77 10/05/2020 12:32 AM [facility] Temperature 36.8 ??C (98.2 ??F) 10/05/2020 12:[address] Respiratory Rate 18 10/05/2020 12:32 AM [facility] Oxygen Saturation - - Inhaled Oxygen Concentration - - Weight 62.6 kg (138 lb) 10/05/2020 12:20 AM [facility] Height 160 cm (5' 3 ) 10/05/2020 12:20 AM [facility] Body Mass Index 24.45 10/05/2020 12:20 AM [facility] documented in this encounter Discharge Instructions * Discharge Instructions* Courtney Munguia, SARA - 10/05/2020 12:43 AM [facility] Patient Education Activity During The Basics Written by the doctors and editors at [facility] What do I need to do differently while I am ???--??During , most people can be as active as they were before they got . This includes traveling, working, exercising, and having sex. If you have any questions about doing an activity during , be sure to ask your doctor or refrigerating engineer. People with certain conditions might need to limit their activity. If your doctor or refrigerating engineer thinksyou should limit your activity, they will let you know. Travel??--??You can drive and travel by car throughout your . But when traveling by car, it's important to: ?? Always wear your seat belt. The shoulder belt should go between your breasts and to the side of your belly. The lap belt should go under your belly. ?? Take plenty of breaks during long trips. Be sure to stop often so that you can walk and stretch your legs. This helps prevent blood clots, which can be dangerous. ?? Keep the car's air bags turned on. You can also travel by plane during . But if you are planning to fly toward the end of your , check with the airline. Most airlines don't allow people to fly during their last monthof . During long flights, be sure to shift your position while seated, and move your legs and feet often. You should also stand up and move around when it is safe to do so. This can prevent blood clots from forming in your legs. If you are planning to travel to another country, let your doctor or refrigerating engineer know. In some countries, infection is a concern. Ask your doctor or refrigerating engineer whether you can safely go there. For example, many health care providers recommend that people not travel to places in the world where malaria or Zika virus is common. Exercise??--??Doctors recommend that all adults get at least 30 minutes of exercise on all or most days of the week. This includes people who are . Exercise has many benefits during . It can help with your mood, energy level, and sleep. It can also help with symptoms such as constipation, bloating, swelling, and back pain. The type of exercise that is right for you depends on your current , past pregnancies, andhow active you were before you got . In general, doctors usually recommend walking and swimming as good types of exercise during . During , you should avoid activities in which you could easily fall or hurt your belly.These include hockey, soccer, basketball, horseback riding, downhill skiing, and gymnastics. To exercise safely, you should: ?? Avoid lying flat on your back (after the first 3 months of ) ?? Start off slowly and slowly increase your level of activity ?? Avoid exercising in hot or humid weather ?? Drink plenty of water ?? Wear a bra that supports your breasts ?? Stop exercising if you get out of breath and can't talk easily You should stop exercising and let your doctor or refrigerating engineer know if you have any of the following symptoms: ?? Bleeding from the vagina ?? Trouble breathing ?? Feeling light-headed or dizzy ?? A headache or chest pain ?? Muscle weakness ?? Contractions ?? Fluid leaking from vagina ?? Leg swelling, pain, redness, or warmth ?? Not feeling your baby move as much as usual Work??--??Whether or not you should stop working depends on your health, your baby's health, and what your work involves. People who have no problems during can usually work up until they go into labor. But it depends on your job and what it involves. Every employer has a Material Safety Data Sheet that contains information on the chemical properties and health effects of the substances used in the workplace. If you work with or near chemicals or other toxic substances, you should read this worksheet and discuss with your doctor. Sex??--??You can keep having sex during a normal . All topics are updated as new evidence becomes available and our peer review process is complete. This topic retrieved from [employer] on: Aug 18, 2020. Topic 03219 Version 7.0 Release: 28.5.3 - C28.419 ?2020??[employer]. and/or its affiliates.??All rights reserved. Consumer Information [...] that is right for you.The use of [employer] content is governed by the [employer] Terms of Use. ??2020 [employer]. All rights reserved. Copyright ?2019??[employer]. and/or its affiliates.??All rights reserved. Patient Education Movement About this topic Feeling your baby move for the first time is a good sign that your baby is doing well. You may begin to feel these movements between the 18th and 25th weeks of your . For first time moms, itmay be closer to 25 weeks. Your baby has been moving around before this, but the kicks have not been strong enough for you to feel. During the first weeks of feeling movement, you may start to see a pattern during the day when your baby is most active. You can track your baby's kicks each day at home. This is also known as kick counting. It is a good way to check on your baby's movements and wellbeing. Most often, kick counting is used in high-risk pregnancies. It may be useful for all pregnancies. Counting and writing down your baby's kicks, jabs, twists, flutters, rolls, turns, flips, and swishes may help find a problem that needs more evaluation. The [place] [employer] andGynec[employer], or ACOG, suggests that you record how much time it takes you to feel 10 of these movements. Ideally, you should be able to feel 10 movements within 2 hours. Many moms will track these movements in much less time. General How to Track Your Baby's Kick Counts Most often your doctor will want you to wait until the 28th to 30th weeks of your to start kick counting. Here are some tips to help you get started. ?? Find the time of day when your baby is most active. For some moms, this is right after eating. Others find their baby moving a lot after they have been exercising or more active. Some babies are more active in the evenings when the mom's blood sugar starts to lower. ?? Try to count kicks at about the same time each day. ?? Before you start counting, have something to eat or drink. Also take a short walk or do some light activity. ?? Choose a quiet place where you can focus on your baby's movements. Also get in a comfortable position. Try and lie on one side or the other. You may need to change positions until you find one that works best for you and your baby. ?? Keep a notebook to track your baby's kicks. Your doctor may give you a chart to use or you can make your own. Write down the date, time you started counting, and the time of each kick during a 2-hour period until you have felt 10 kicks. ?? Once you have recorded 10 kicks within 2 hours you can stop counting. ?? If you are not able to record 10 movements over 2 hours you should get up and move around or eatsomething and try again. ?? If you are not able to record 10 movements over 2 hours the second time, call your doctor. They may want you to go to the hospital to get your baby checked. When do I need to call the doctor? ?? You have felt less than 10 movements over a period of 2 hours. ?? It takes longer each day to record 10 movements. ?? There is a big change in the pattern of movements you are writing down. ?? You feel no movement for 2 hours even after eating a snack, light activity, and position changes. Teach Back: Helping You Understand The Teach Back Method helps you understand the information we are giving you. After you talk with the staff, tell them in your own words what you learned. This helps to make sure the staff has described each thing clearly. It also helps to explain things that may have been confusing. Before going home, make sure you can do these: ?? I can tell you about feeling my baby move. ?? I can tell you how I will track my baby???s kicks. ?? I can tell you what I will do if I feel less than 10 movements in 2 hours, it takes longer to feel my baby move 10 times, or there is a big change in how my baby is moving. Where can I learn more? [place] [employer] http://americanpregnancy.org/duringpregnancy/kickcounts.htm Last Reviewed Date 2019-10-05 Consumer Information Use and Disclaimer This information [...] or not to accept your health care provider???s advice, instructions or recommendations. Only your health care provider has the knowledge and training to provide advice that is right for you. Copyright Copyright ?? 2020 [employer]. and its affiliates and/or licensors. All rights reserved. Patient Education Bleeding In Early About this topic Many women have some type of vaginal bleeding in their first trimester when they are . The first trimester lasts until the end of week 12. Many things can cause you to have vaginal bleeding early in . The problem may be minor or a sign of a more serious problem. You may have spotty bleeding or your bleeding may be light to veryheavy. You may also pass blood clots. Bleeding may be a sign there is a problem with your baby. Call your doctor if you have bleeding at any time when you are . What are the causes? You may have a small amount of bleeding when the egg implants into the lining of the womb. While you are , you may also have bleeding from things like: ?? Sexual intercourse ?? Having an internal exam, like a Pap test ?? A vaginal or yeast infection ?? Cervical polyp You may have a problem with your that causes you to bleed. You may have: ?? An egg that implants outside the womb. Doctors call this an ectopic . ?? A mass that is not a baby forms in the womb. Doctors call this a molar . ?? A miscarriage. What can make this more likely to happen? You may be more likely to have bleeding if you have been before and had problems. You may be more at risk if you are older than 35. Some health problems, like high blood pressure, blood clotting diseases, or sickle cell anemia, may cause bleeding. If you are carrying more than one baby, your risk is higher. Using cocaine, heroin, or methamphetamines may make bleeding more likely to happen. How does the doctor diagnose this health problem? Your doctor will take your history and do an exam. The doctor will want to know how much bleeding you have had. Also, tell the doctor when the bleeding started and what color the blood is. The doctormay listen to the baby???s heartbeat and also order: ?? Lab tests ?? Ultrasound How does the doctor treat this health problem? Treatment is based on the cause of the bleeding. Your doctor may suggest: ?? Rest. You may need to be on full bedrest or even stay in the hospital. ?? Fewer activities ?? Avoiding sex ?? Keeping a record of your bleeding ?? IV fluids or a blood transfusion ?? Drugs ?? Surgery What drugs may be needed? The doctor may order drugs to: ?? Fight an infection ?? Help with pain What problems could happen? Miscarriage or a stillbirth What can be done to prevent this health problem? ?? Keep in close contact with your doctor, especially if you have had other pregnancies with bleeding problems. ?? Avoid smoking and use of illegal drugs. ?? Keep health problems, like high blood pressure, under control. When do I need to call the doctor? ?? If you have bleeding of any kind ?? Cramping or severe belly pain Where can I learn more? [place] [employer] https://familydoctor.org/vibwepct-zizhtlvpw-vecag-normal/ [place] [employer]etricians [employer] Gynecologists https://www.acog.org/patient-resources/faqs//tdwqptam-yufjck-pjqnuhpkv NHS Choices http://www.nhs.uk/conditions/dzldmhlxa-syh-ddzz/pages/ijousvh-oylbpspf-jhymdfhe. aspx#close Very Well Family https://www.[employer]/xmaxweke-eeuhnz-opuytekbe-yzbpibgkm-znl-vnknuur-2 639604 Last Reviewed Date 2020-02-23 Consumer Information Use and Disclaimer This information [...] or not to accept your health care provider???s advice, instructions or recommendations. Only your health care provider has the knowledge and training to provide advice that is right for you. Copyright Copyright ?? 2019 [employer] and its affiliates and/or licensors. All rights reserved. [facility] documented in this encounter Medications at Time of Discharge vitamin, low iron, 27-0.8 MG tablet Take 1 tablet by mouth daily. documented as of this encounter Plan of Treatment Not on file documented as of this encounter Procedures Procedure Name Priority Date/Time Associated Diagnosis Comments HC URINALYSIS AUTO W/MICRO Routine 10/05/2020 12:30 AM [facility] ([facility] NONSTRESS TEST Routine 10/05/2020 12:22 AM [facility] ([facility] documented in this encounter Results * (ABNORMAL) URINALYSIS (10/05/2020 12:30 AM [facility]) COLOR (U) STRAW 10/05/2020 12:45 AM [facility] TRANSPARENCY CLEAR 10/05/2020 12:45 AM [facility] SPECIFIC GRAVITY (U) 1.015 1.000 - 1.025 10/05/2020 12:45 AM [facility] U PH 7.5 5.0 - 8.0 10/05/2020 12:45 AM [facility] LEUKOCYTES (U) NEGATIVE NEGATIVE 10/05/2020 12:45 AM [facility] NITRITES NEGATIVE NEGATIVE 10/05/2020 12:45 AM [facility] PROTEIN (U) NEGATIVE NEGATIVE 10/05/2020 12:45 AM [facility] URINE GLUCOSE NEGATIVE NEGATIVE 10/05/2020 12:45 AM [facility] KETONES MG/DL (U) NEGATIVE NEGATIVE 10/05/2020 12:45 AM [facility] UROBILINOGEN 0.2 <1.0 EU/DL 10/05/2020 12:45 AM [facility] BILIRUBIN (U) NEGATIVE NEGATIVE 10/05/2020 12:45 AM [facility] BLOOD (U) 2+(A) NEGATIVE 10/05/2020 12:45 AM [facility] WBC/HPF 0-5 0 - 5 /HPF 10/05/2020 12:45 AM [facility] RBC/HPF 5-10(A) 0 - 5 /HPF 10/05/2020 12:45 AM [facility] EPI/HPF FEW /LPF 10/05/2020 12:45 AM [facility] URINE SPECIMEN OBTAINED BY CLEAN CATCH PROCEDURE / Unknown 10/05/2020 12:30 AM [facility] us Sid Solis MD URINE ORDERABLES Final Resu lt [facility] [address] [place] [address], documented in this encounter Visit Diagnoses Diagnosis (HHS/HCC)- Primary state, incidental documented in this encounter Care Teams Marine Architect Relationship Specialty Start Date End Date Sid Solis MD [address] [place] [phone] PCP - General FAMILY PRACTICE 08/11/20 Sid Solis MD [address] [place] [phone] FAMILY PRACTICE 08/27/18 documented as of this encounter
--- OUTSIDE RECORDS SUMMARY | 2024-10-06 20:57 | XMS_ITS | Encounter Summary ---
Author Organization [facility] Address [address] [place] [address]. 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
--- OUTSIDE RECORDS SUMMARY | 2024-10-06 20:57 | XMS_ITS | Encounter Summary ---
Author Organization [facility] Address [address] [place] [address]. 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
--- OUTSIDE RECORDS SUMMARY | 2024-10-06 20:57 | XMS_ITS | Encounter Summary ---
Author Organization [facility] Address [address] [place] [address]. 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
--- OUTSIDE RECORDS SUMMARY | 2024-10-06 20:57 | XMS_ITS | Encounter Summary ---
Author Organization [facility] Address [address] [place] [address]. 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
--- OUTSIDE RECORDS SUMMARY | 2024-10-06 20:57 | XMS_ITS | Encounter Summary ---
Author Organization [facility] Address [address] [place] [address]. 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
--- OUTSIDE RECORDS SUMMARY | 2024-10-06 20:57 | XMS_ITS | Encounter Summary ---
Author Organization [facility] Address [address] [place] [address]. 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
--- OUTSIDE RECORDS SUMMARY | 2024-10-06 20:57 | XMS_ITS | Encounter Summary ---
Author Organization [facility] Address [address] [place] [address]. 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
--- OUTSIDE RECORDS SUMMARY | 2024-10-06 20:57 | XMS_ITS | Encounter Summary ---
Author Organization [facility] Address [address] [place] [address]. 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
--- OUTSIDE RECORDS SUMMARY | 2024-10-06 21:21 | XMS_ITS | Data Portability ---
Author Organization [facility] Address [address] [place] [address] Care Team Providers Care Supervisor General Name Role Phone CALLY GHOSH Primary Care Provider [phone] Assessment Encounter Date Assessment Date Assessment LastModified by Organization Details LastModified Time 08/07/2024 08/07/2024 Patient is ___weeks . Discussed plan. Not available 08/07/2024 15:22:22 09/03/2024 09/03/2024 Patient is ___weeks . Discussed plan. Not available 09/03/2024 12:09:44 10/01/2024 10/01/2024 Patient is ___weeks . Discussed plan. Not available 10/01/2024 10:45:52 Plan of Treatment Reminders Order Date Submit Date Provider Last Modified By Organization Details Last Modified Time Details Appointments OB ROUTINE 2024 01:00P Dina STEELE MD Not available Not available Not available Lab hsv-2 igg Ab, serum 2023 024 [facility] (Lab), [address], [place], [address], 09/04/2024 15:24:00 hbcab (hepatiti s B core Ab) igm, serum 2023 024 [facility] (Lab), [address], [place], [address], 09/04/2024 15:24:00 HBsAg (hepatiti s B surface Ag), serum 2023 [facility] (Lab), [address], [place], [address], 09/04/2024 15:23:59 hepatitis C virus Ab, serum 2023 [facility] (Lab), [address], [place], [address], 09/04/2024 15:24:00 HIV 1+2 AB + HIV 1 p24 Ag, qualitati ve immunoass ay, serum 2023 024 [facility] (Lab), [address], [place], [address], 09/04/2024 15:23:59 RPR (rapid plasma reagin), serum 2023 024 [facility] (Lab), [address], [place], [address], 09/04/2024 15:24:01 CT + NG + TV, RNA, unspecifi ed specimen 2023 024 [facility] (Lab), [address], [place], [address], 09/04/2024 23:04:24 urinalysi s, dipstick 2023 024 , [address], [address], [place], [address], 09/03/2024 12:17:10 culture, urine 2023 024 [facility] (Lab), [address], [place], [address], 09/04/2024 23:04:25 Referral None recorded. Procedures None recorded. Surgeries None recorded. Imaging US, obstetric , nuchal transluce ncy 2023 024 [email or web address] [address], [address], [place], [address], 07/13/2024 14:06:21 US, obstetric , 1st trimester 2023 024 [email or web address] [address], [address], [place], [address], 07/13/2024 14:06:21 US, obstetric , 2nd or 3rd trimester 2023 024 [email or web address], [place], [address], 09/03/2024 14:34:30 Medication Orders Macrobid 100 mg capsule 2023 024 [facility]/Pharmacy #[id number], [address] [place], [address], 09/03/2024 12:25:29 Zithromax Z-Casimiro 250 mg tablet 2023 024 [facility]/Pharmacy #[id number], [address] [place], [address], 09/03/2024 12:24:13 Patient TargetsNo targets recorded. Patient InstructionsNo instructions recorded. Reason for Referral None Reported. Results Created Date Observation Date Name Description Value Unit Range Abnormal Flag Note LastModifiedBy Organization Detail LastModifiedTime 07/17/2024 [UNIT Y] ANEUP LOIDY NIPT fraction 10.8% normal Not Available [facility] [address] [facility], [place], [address], 07/17/2024 23:47:05 07/17/2024 [UNIT Y] ANEUP LOIDY NIPT Rh(D) nipt RhD DETECT ED normal Not Available [facility] [address] [facility], [place], [address], 07/17/2024 23:47:05 07/17/2024 [UNIT Y] ANEUP LOIDY NIPT sex chromosome aneuploidy NOT DETECT ED normal Not Available [facility] [address] [facility], [place], [address], 07/17/2024 23:47:05 07/17/2024 [UNIT Y] ANEUP LOIDY NIPT monosomy X LOW RISK <1 in 10,000 normal Not Available [facility] [address] [facility], [place], [address], 07/17/2024 23:47:05 07/17/2024 [UNIT Y] ANEUP LOIDY NIPT trisomy 13 LOW RISK <1 in 10,000 normal Not Available [facility] [address] [facility], [place], [address], 07/17/2024 23:47:05 07/17/2024 [UNIT Y] ANEUP LOIDY NIPT trisomy 18 LOW RISK <1 in 10,000 normal Not Available [facility] [address] [facility], [place], [address], 07/17/2024 23:47:05 07/17/2024 [UNIT Y] ANEUP LOIDY NIPT trisomy 21 LOW RISK <1 in 10,000 normal Not Available [facility] [address] [facility], [place], [address], 07/17/2024 23:47:05 07/17/2024 [UNIT Y] ANEUP LOIDY NIPT sex FEMALE normal Not Available [facility] [address] [facility], [place], [address], 07/17/2024 23:47:05 07/17/2024 [UNIT Y] ANEUP LOIDY NIPT gestation SINGLE TON normal Not Available [facility] [address] [facility], [place], [address], 07/17/2024 23:47:05 07/17/2024 [UNIT Y] ANEUP LOIDY NIPT for detailed report, see pdf See PDF normal Not Available [facility] [address] [facility], [place], [address], 07/17/2024 23:47:05 07/23/2024 [UNIT Y] GISELLE Covarrubias sickle cell disease/beta -thalassemia /hemoglobino pathies carrier screen NEGATI VE normal Not Available [facility] [address], [place], [address], 07/23/2024 02:35:23 07/23/2024 [UNIT Y] GISELLE Covarrubias alpha-thalas semia carrier screen NEGATI VE normal Not Available [facility] [address], [place], [address], 07/23/2024 02:35:23 07/23/2024 [UNIT Y] GISELLE Covarrubias cystic fibrosis carrier screen NEGATI VE normal Not Available [facility] [address], [place], [address], 07/23/2024 02:35:23 07/23/2024 [UNIT Y] GISELLE Covarrubias spinal muscular atrophy carrier screen NEGATI VE 2 SMN1 copies , SNP not presen t normal Not Available [facility] [address], [place], [address], 07/23/2024 02:35:23 07/23/2024 [UNIT Y] GISELLE Covarrubias for detailed report, see pdf See PDF normal Not Available [facility] [address], [place], [address], 07/23/2024 02:35:23 06/18/20 24 06/18/2024 CT/GC AND TRICH OMONA S VAGIN LYN (RRNA ), URINE chlamydia trachomatis, PCR Negati ve negati ve Not Available [facility] (Lab) [address], [place], [address], 06/19/2024 12:53:21 06/18/20 24 06/18/2024 CT/GC AND TRICH OMONA S VAGIN LYN (RRNA ), URINE neisseria gonorrhoeae, PCR Negati ve negati ve Not Available [facility] (Lab) [address], [place], [address], 06/19/2024 12:53:21 06/18/20 24 06/18/2024 CT/GC AND TRICH OMONA S VAGIN LYN (RRNA ), URINE trichomonas vaginalis ribosomal RNA (rrna) Negati ve negati ve Not Available [facility] (Lab) [address], [place], [address], 06/19/2024 12:53:21 07/13/20 24 07/13/2024 CBC W/DIF F WBC 8.2 10'3/ uL 3.5-10 .5 Not Available [facility] (Lab) [address], [place], [address], 07/14/2024 13:52:59 07/13/20 24 07/13/2024 CBC W/DIF F RBC 4.36 10'6/ uL (based on docume nted legal sex) 3.80-5 .20 Not Available [facility] (Lab) [address], [place], [address], 07/14/2024 13:52:59 07/13/20 24 07/13/2024 CBC W/DIF F HGB 12.1 g/dL (based on docume nted legal sex) 11.6-1 5.4 Not Available [facility] (Lab) [address], [place], [address], 07/14/2024 13:52:59 07/13/20 24 07/13/2024 CBC W/DIF F HCT 37.9 % (based on docume nted legal sex) 34.0-4 5.0 Not Available [facility] (Lab) [address], [place], [address], 07/14/2024 13:52:59 07/13/20 24 07/13/2024 CBC W/DIF F MCV 86.9 fL 80.0-9 9.0 Not Available [facility] (Lab) [address], [place], [address], 07/14/2024 13:52:59 07/13/20 24 07/13/2024 CBC W/DIF F MCH 27.8 pg 27.0-3 4.0 Not Available [facility] (Lab) [address], [place], [address], 07/14/2024 13:52:59 07/13/20 24 07/13/2024 CBC W/DIF F MCHC 31.9 g/dL 32.0-3 5.5 low Not Available [facility] (Lab) [address], [place], [address], 07/14/2024 13:52:59 07/13/20 24 07/13/2024 CBC W/DIF F RDW 14.6 % 11.0-1 5.0 Not Available [facility] (Lab) [address], [place], [address], 07/14/2024 13:52:59 07/13/20 24 07/13/2024 CBC W/DIF F plt 239 10'3/ uL 150-40 0 Not Available [facility] (Lab) [address], [place], [address], 07/14/2024 13:52:59 07/13/20 24 07/13/2024 CBC W/DIF F MPV 11.2 fL 8.8-12 .1 Not Available [facility] (Lab) [address], [place], [address], 07/14/2024 13:52:59 07/13/20 24 07/13/2024 CBC W/DIF F NRBC's 0.0 % 0.0 Not Available [facility] (Lab) [address], [place], [address], 07/14/2024 13:52:59 07/13/20 24 07/13/2024 CBC W/DIF F absolute NRBCs 0.0 10'3/ uL no refere nce range establ ished Not Available [facility] (Lab) [address] [facility], [place], [address], 07/14/2024 13:52:59 07/13/20 24 07/13/2024 CBC W/DIF F neutrophils 75.3 % 34.0-7 3.0 high Not Available [facility] (Lab) [address] [facility], [place], [address], 07/14/2024 13:52:59 07/13/20 24 07/13/2024 CBC W/DIF F lymphocytes 19.8 % 15.0-5 0.0 Not Available [facility] (Lab) [address] [facility], [place], [address], 07/14/2024 13:52:59 07/13/20 24 07/13/2024 CBC W/DIF F monocytes 3.2 % 1.0-15 .0 Not Available [facility] (Lab) [address] [facility], [place], [address], 07/14/2024 13:52:59 07/13/20 24 07/13/2024 CBC W/DIF F eosinophils 1.1 % 0.0-8. 0 Not Available [facility] (Lab) [address] [place], [address], 07/14/2024 13:52:59 07/13/20 24 07/13/2024 CBC W/DIF F basophils 0.2 % 0.0-2. 0 Not Available [facility] (Lab) [address] [facility], [place], [address], 07/14/2024 13:52:59 07/13/20 24 07/13/2024 CBC W/DIF F immature granulocytes 0.4 % no define d refere nce range Not Available [facility] (Lab) [address] [place], [address], 07/14/2024 13:52:59 07/13/20 24 07/13/2024 CBC W/DIF F absolute neutrophils 6.2 10'3/ uL 1.5-8. 0 Not Available [facility] (Lab) [address] [facility], [place], [address], 07/14/2024 13:52:59 07/13/20 24 07/13/2024 CBC W/DIF F absolute lymphocytes 1.6 10'3/ uL 1.0-4. 0 Not Available [facility] (Lab) [address] [facility], [place], [address], 07/14/2024 13:52:59 07/13/20 24 07/13/2024 CBC W/DIF F absolute monocytes 0.3 10'3/ uL 0.2-1. 0 Not Available [facility] (Lab) [address] [facility], [place], [address], 07/14/2024 13:52:59 07/13/20 24 07/13/2024 CBC W/DIF F absolute eosinophils 0.1 10'3/ uL 0.0-0. 6 Not Available [facility] (Lab) [address] [facility], [place], [address], 07/14/2024 13:52:59 07/13/20 24 07/13/2024 CBC W/DIF F absolute basophils 0.0 10'3/ uL 0.0-0. 3 Not Available [facility] (Lab) [address] [facility], [place], [address], 07/14/2024 13:52:59 07/13/20 24 07/13/2024 CBC W/DIF F absolute immature granulocytes 0.0 10'3/ uL 0.00-0 .10 2023 5:22 AM: P indic ates parti al resul ts on a panel have been relea sed. Addit ional resul ts will follo w. 2023 5:22 AM: This resul t has been final verif ied. No addit ional or bermudez ed resul ts are expec rafa. Not Available [facility] (Lab) [address] [facility], [place], [address], 07/14/2024 13:52:59 07/13/20 24 07/13/2024 HEMOG LOBIN A1C hemoglobin A1C 5.3 % 0-5.6 The Ameri can Diabe franko Assoc iatio n recom mends that a prima ry goal of thera py shoul d be a HBA1C of < 7% and that physi cians shoul d reeva luate the treat ment regim en in patie nts with HBA1C value s consi stent ly > 8%. <5.7% Gaby l 5.7 - 6.4% Incre ased risk for diabe franko >=6.5 % Diagn ostic of diabe franko <7.0% Goal of thera py >8.0% Actio n sugge sted Not Available [facility] (Lab) [address] , [place], [address], 07/14/2024 13:53:00 07/13/20 24 07/13/2024 HEPAT ITIS B SURFA CE ANTIG EN hepatitis B surface antigen Non-re active non-re active This assay was perfo rmed using [employer] ratio n reage nts and test kits. Value s obtai abbi with other assay metho ds or kits canno t be used inter bermudez eably . Not Available [facility] (Lab) [address] , [place], [address], 07/14/2024 13:53:01 07/13/20 24 07/13/2024 HIV 1/2 ANTIG EN/AN TIBOD Y, REFLE X CONFI RMATI ON HIV antigen/anti body Nonrea ctive nonrea ctive HIV-1 antig en and HIV-1 /HIV- 2 antib odies were not detec rafa. No labor atory evide nce of HIV infec tion. Not Available [facility] (Lab) [address], [place], [address], 07/14/2024 13:53:01 07/13/20 24 07/13/2024 HEPAT ITIS C ANTIB SAV SCREE N, REFLE X TO CONFI RMATI ON hepatitis C antibody Non-re active non-re active Antib odies to HCV Not Detec rafa, does not exclu de the possi bilit y of expos ure to HCV. Not Available [facility] (Lab) [address] , [place], [address], 07/14/2024 13:53:02 07/13/20 24 07/13/2024 RUBEL LA IGG ANTIB SAV, QUANT rubella antibodies, IgG Reacti ve reacti ve Not Available [facility] (Lab) [address], [place], [address], 07/14/2024 13:53:02 07/13/20 24 07/13/2024 RUBEL LA IGG ANTIB SAV, QUANT rubella antibodies, IgG quant 21.5 IU/mL >=10 Non-r eacti ve (Non- Immun e) <10 IU/mL React gilda (Immu ne) > or = 10 IU/mL Not Available [facility] (Lab) [address] , [place], [address], 07/14/2024 13:53:02 07/13/20 24 07/13/2024 TYPE/ RH/SC REEN ABO/Rh type B POS Not Available [facility] (Lab) [address], [place], [address], 07/14/2024 13:53:03 07/13/20 24 07/13/2024 TYPE/ RH/SC REEN antibody screen NEG Not Available [facility] (Lab) [address] , [place], [address], 07/14/2024 13:53:03 07/13/20 24 07/13/2024 TYPE/ RH/SC REEN exp date 2023 23:59 Not Available [facility] (Lab) [address] , [place], [address], 07/14/2024 13:53:03 07/13/20 24 07/13/2024 RPR SCREE N, REFLE X TITER /CONF IRMAT ION RPR screen Nonrea ctive nonrea ctive Not Available [facility] (Lab) [address] [facility], [place], [address], 07/14/2024 13:53:03 07/13/20 24 07/13/2024 LEAD, BLOOD (ADUL T/PED IATRI C) lead, whole blood <1.0 mcg/d L <3.5 See Note 1 Sunny sis was perfo rmed by Nitza Flores ed Plasm a Mass Spect romet ry (ICPM S) Note 1 This test was devel oped and its sunny tical perfo rmanc e rupa cteri stics have been deter mined by [employer]. It has not been clear ed or appro rob by the FDA. This assay has been valid ated pursu ant to the CLIA regul ation s and is used for clini marcell purpo ses. Ethni city: Not [facility] emilio or Latin o Perfo rming Organ izati on Infor matio n: Site ID: CB Name: [employer]-Mathews manuel Fitzgerald Addre ss: [address] [place] [address] Direc tor: Frankie islas V Deepika s Not Available [facility] (Lab) [address] [facility], [place], [address], 07/16/2024 10:44:30 09/03/20 24 09/03/2024 HEPAT ITIS B SURFA CE ANTIG EN hepatitis B surface antigen Non-re active non-re active This assay was perfo rmed using [employer] ratio n reage nts and test kits. Value s obtai abbi with other assay metho ds or kits canno t be used inter bermudez eably . Not Available [facility] (Lab) [address] [facility], [place], [address], 09/04/2024 15:23:59 09/03/20 24 09/03/2024 HIV 1/2 ANTIG EN/AN TIBOD Y, REFLE X CONFI RMATI ON HIV antigen/anti body Nonrea ctive nonrea ctive HIV-1 antig en and HIV-1 /HIV- 2 antib odies were not detec rafa. No labor atory evide nce of HIV infec tion. Not Available [facility] (Lab) [address], [place], [address], 09/04/2024 15:23:59 09/03/20 24 09/03/2024 HEPAT ITIS C ANTIB SAV SCREE N, REFLE X TO CONFI RMATI ON hepatitis C antibody Non-re active non-re active Antib odies to HCV Not Detec rafa, does not exclu de the possi bilit y of expos ure to HCV. Not Available [facility] (Lab) [address], [place], [address], 09/04/2024 15:24:00 09/03/20 24 09/03/2024 HERPE S SIMPL EX VIRUS TYPE 2 SPECI FIC AB, IGG herpes simplex virus 2 IgG Negati ve negati ve Not Available [facility] (Lab) [address], [place], [address], 09/04/2024 15:24:00 09/03/20 24 09/03/2024 HERPE S SIMPL EX VIRUS TYPE 2 SPECI FIC AB, IGG herpes simples virus 2 IgG, quant <0.2 ai 0.0-0. 8 Not Available [facility] (Lab) [address] [facility], [place], [address], 09/04/2024 15:24:00 09/03/20 24 09/03/2024 HEPAT ITIS B CORE, IGM hepatitis B core IgM antibody Non-re active non-re active IgM anti- HBc not detec rafa. Does not exclu de the possi bilit y of expos ure to or infec tion with HBV. Not Available [facility] (Lab) [address], [place], [address], 09/04/2024 15:24:00 09/03/20 24 09/03/2024 RPR SCREE N, REFLE X TITER /CONF IRMAT ION RPR screen Nonrea ctive nonrea ctive Not Available [facility] (Lab) [address] [facility], [place], [address], 09/04/2024 15:24:00 09/03/20 24 09/03/2024 CT/GC AND TRICH OMONA S VAGIN LYN (RRNA ), URINE chlamydia trachomatis, PCR Negati ve negati ve Not Available [facility] (Lab) [address] [facility], [place], [address], 09/04/2024 23:04:24 09/03/20 24 09/03/2024 CT/GC AND TRICH OMONA S VAGIN LYN (RRNA ), URINE neisseria gonorrhoeae, PCR Negati ve negati ve Not Available [facility] (Lab) [address] [facility], [place], [address], 09/04/2024 23:04:24 09/03/20 24 09/03/2024 CT/GC AND TRICH OMONA S VAGIN LYN (RRNA ), URINE trichomonas vaginalis ribosomal RNA (rrna) Negati ve negati ve Not Available [facility] (Lab) [address] [facility], [place], [address], 09/04/2024 23:04:24 09/03/20 24 09/03/2024 CULTU RE: URINE result report SEE RESULT S BELOW Test: Cultu re: Urine Speci men Sourc e: Urine - Clean Catch Speci men Type: Urine Speci men Date: 09/03 1137 Resul t Date: 09/04 2201 Resul t Statu s: Final resul t Abnor mal: No Resul ting Lab: [facility] [address] [facility] [address] Tel: CULTU RE ----- ----- ----- --- No growt h in 1 day (dete ction level of 10,00 0 colon ies / ml.) Not Available [facility] (Lab) [address] [facility], [place], [address], 09/04/2024 23:04:25 09/03/20 24 09/03/2024 urina lysis , dipst ick Leukocytes ++ Not Available [facility] [address], [place], [address], 09/03/2024 12:16:39 09/03/20 24 09/03/2024 urina lysis , dipst ick Urobilinogen + Not Available [facility] sim [address], [place], [address], 09/03/2024 12:16:39 09/03/20 24 09/03/2024 urina lysis , dipst ick Protein ++ Not Available [facility] [address], [place], [address], 09/03/2024 12:16:39 09/03/20 24 09/03/2024 urina lysis , dipst ick pH 5 Not Available [facility] [address], [place], [address], 09/03/2024 12:16:39 09/03/20 24 09/03/2024 urina lysis , dipst ick Blood +++ Not Available [facility] [address], [place], [address], 09/03/2024 12:16:39 09/03/20 24 09/03/2024 urina lysis , dipst ick Specific [place] 1.025 Not Available [facility] [address], [place], [address], 09/03/2024 12:16:39 09/03/20 24 09/03/2024 urina lysis , dipst ick Ketone ++ Not Available [facility] [address], [place], [address], 09/03/2024 12:16:39 06/18/20 24 06/18/2024 US, obste tric, 1st trime ster No observ ation record ed. [email or web address] [facility] [address], [place], [address], 06/19/2024 11:52:11 07/13/20 24 07/13/2024 US, obste tric, nucha l trans lucen cy No observ ation record ed. [address], [place], [address], 07/13/2024 13:06:07 07/13/20 24 07/13/2024 US, obste tric, 1st trime ster No observ ation record ed. [address], [place], [address], 07/13/2024 13:06:17 07/13/20 24 07/13/2024 US, obste tric, follo w-up No observ ation record ed. [email or web address] [facility] [address], [place], [address], 07/14/2024 09:13:23 09/03/20 24 09/03/2024 US, obste tric, 2nd or 3rd trime ster No observ ation record ed. [address], [place], [address], 09/03/2024 13:54:00 09/03/20 24 09/03/2024 US, obste tric, 2nd or 3rd trime ster No observ ation record ed. HAIR [facility] [address], [place], [address], 09/05/2024 02:22:00 Result Notes None recorded. Problems Name Problem SNOMED Code Status Onset Date Resolution Date Notes Provider Name and Address Organization Details Recorded Time 82153744 Active 2023 Michelle Bliss [facility] [place] - [facility] 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 4 15:43:59 hemorrhage 79292078 Active Rajinder Steele MD [address], [place], [address], [facility] 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 4 09:42:01 Borderline personality disorder 80145620 Active Rajinder Steele MD [address], [place], [address], [facility] 4 11:05:20 Mood disorder 96742486 Active Rajinder Steele MD [address], [place], [address], [facility] 4 11:05:29 Problem Notes None recorded. Procedures Surgical History Date Name Laterality Status Provider Name and Address Organization Details Recorded Time Date of Last Pap Smear completed [facility] 06/18/2024 12:04:30 procedure on ankle completed [facility] 06/18/2024 12:10:23 surgical procedure on eye proper using laser completed [facility] 06/18/2024 12:10:48 Imaging Results Imaging Date Name Status LastModified by Organization Details LastModified Time 06/18/2024 US, obstetric, 1st trimester completed [email or web address] [facility] [address], [place], [address], 06/19/2024 11:52:11 07/13/2024 US, obstetric, nuchal translucency completed [email or web address] [facility] [address], [place], [address], 07/13/2024 13:06:07 07/13/2024 US, obstetric, 1st trimester completed [email or web address] [facility] [address], [place], [address], 07/13/2024 13:06:17 07/13/2024 US, obstetric, follow-up completed [email or web address] [facility] [address], [place], [address], 07/14/2024 09:13:23 09/03/2024 US, obstetric, 2nd or 3rd trimester completed [email or web address] [facility] [address], [place], [address], 09/03/2024 13:54:00 09/03/2024 US, obstetric, 2nd or 3rd trimester completed [facility]IR [facility] [address], [place], [address], 09/05/2024 02:22:00 Procedure Notes None recorded. Medical Equipment None Reported. Allergies Allergen ID Allergen Name Allergen Category Reaction Reaction Severity Criticality Documentation Date Start Date Code Code System Note Provider Name and Address Organization Details Recorded Time 24073 codeine medicatio n Not available Not available Not available 06/18/2024 2670 RxNorm Michelle Bliss [facility] 12:05:10 Medications Name Sig Start Date Stop Date Status Note LastModified by Organization Details LastModified Time azithromyci n 250 mg tablet TAKE 2 TABLETS BY MOUTH TODAY, THEN TAKE 1 TABLET DAILY FOR 4 DAYS DIRECTED active Not Available Not Available No t Available methylergon ovine 0.2 mg tablet 06/18 completed Not Available Not Available Not Available folic acid 1 mg tablet TAKE 1 TABLET BY MOUTH DAILY 06/18 completed Not Available Not Available Not Available nitrofurant oin monohydrate /macrocryst als 100 mg capsule TAKE 1 CAPSULE BY MOUTH EVERY 12 HOURS active Not Available Not Available No t Available active Not Available Not Avai lable Not Available FeroSul 325 mg (65 mg iron) tablet TAKE 1 TABLET BY MOUTH DAILY WITH BREAKFAST 06/18 completed Not Available Not Available Not Available Fioricet 50 mg-300 mg-40 mg capsule Take 1 capsule every 4 hours by oral route. 2023 active Not Available Not Available Not Avai lable Vitals Date Recorded Body weight Body mass index (BMI) Body height Systolic blood pressure Diastolic blood pressure Provider Name and Address Organization Details Last Updated DateTime 08/07/2024 04495.07 839 g 26 kg/m2 160.02 cm 126 mm[Hg] 74 mm[Hg] [facility] 15:22:54 Date Recorded Body weight Systolic blood pressure Diastolic blood pressure Provider Name and Address Organization Details Last Updated DateTime 09/03/2024 76125.8936 5 g 114 mm[Hg] 73 mm[Hg] [facility] 09/03/2024 12:11:03 Date Recorded Body weight Systolic blood pressure Diastolic blood pressure Provider Name and Address Organization Details Last Updated DateTime 10/01/2024 74746.6707 6 g 96 mm[Hg] 60 mm[Hg] [facility] 10/01/2024 10:47:03 Social History Question Answer Notes LastModified by Organizat ion Details LastModified Time Tobacco Smoking Status Former Smoker [facility] 06/18/2024 12:09:23 What Is Your Level Of Alcohol Consumption? None Information not available 06/18/2024 What Is Your Level Of Caffeine Consumption? Occasional Information not available 06/18/2024 In The 14 Days Before Symptom Onset, Have You Had Close Contact With A Laboratory-confir med COVID-19 While That Case Was Ill? No Information not available 06/18/2024 In The 14 Days Before Symptom Onset, Have You Had Close Contact With A Person Who Is Under Investigation For COVID-19 While That Person Was Ill? No Information not available 06/18/2024 Have You Been To An Area Known To Be High Risk For COVID-19? No Information not available 06/18/2024 Do You Use Any Illicit Or Recreational Drugs? No Information not available 06/18/2024 Sex: Unknown Functional Status None recorded. Mental Status None recorded. Family History Relationship Description Onset Age of this Age Resolved Age Notes LastModified by Organization Details LastModified Time Father No current problems or disability Not available 06/18 12:09:05 Mother No current problems or disability Not available 06/18 12:09:05 Medical History Condition Response Allergies (Food, seasonal, environmental ) N Other N Breast Cancer N Drug/Latex Allergies/Reactions N Blood Transfusion N Dermatologic Disorders N Lung Disease N Defects or Inherited Disease N Breast Problem N Gestational Diabetes N Hematologic disorders N Anesthesia Complications N History of STI Y Deep Vein Thrombosis N Polycystic ovary syndrome N Anxiety Disorder N Autoimmune disease N Arthritis N Infertility N Polyps N Acid Reflux (GERD) N History of abnormal pap Y Cancer N Stroke N Varicosities N Neurologic/Epilepsy N Endometriosis N High Cholesterol N Headaches N Fibromyalgia N Kidney Disease N Heart Problems N Kidney or Bladder Problems N Thyroid Problems N GI Problems N Eating Disorder N Anemia Y Art (IVF or FET) N Psychiatric Illness N Ovarian Cancer N Diabetes N Pulmonary (TB, Asthma) N Hepatitis/Liver Disease N No Past Medical History N Eczema N Urinary Tract Infection N Abuse/Domestic Violence N Asthma N Trauma/Violence N Depression/ depression N Heart Disease N Pre-Eclampsia N Hypertension N Osteoporosis N Thrombophilias N Gynecological History Statement/Question Response Abnormal Pap Y Flow Moderate Date of LMP 04/13/2024 On BCP's at Conception? N Was last menstrual period normal Y STIs/STDs Y HPV Vaccine N Duration of Flow (days) 7 Current Control Method Age at First Child 18 Are cycles usually normal Y Frequency of Cycle (Q days) 28 Sexually Active? Y Menses Monthly Y Age of first menstrual cycle 14 Date of Last Pap Smear 03/21/2024 Sexual Problems? N LMP Approximate Obstetrics History GPAL:G 8 P 6 0 1 6 Type Value Full Term 6 Spontaneous 1 Living 6 Total 8 Past Encounters Encounter ID Performer Location Encounter Start Date Encounter Closed Date Diagnosis/Indication Diagnosis SNOMED-CT Code Diagnosis ICD10 Code [id number] [facility] [address] [address] 06/18/2024 10:48:20 06/18/2024 11:38:09 [id number] Rajinder Steele MD [facility] [address],[place] [address] 06/18/2024 10:59:37 06/18/2024 13:57:55 Headache 35283821 R51.9 Routine an tenatal care 279239249 Z34.90 Amenorrhea 75996316 N91. 2 [id number] [facility] [address],[place] [address] 07/13/2024 11:35:58 07/13/2024 13:34:09 screening 087501771 Z36.82 Z3A.13 [id number] Rajinder Steele MD [facility] [address],[place] [address] 08/07/2024 14:50:09 08/07/2024 15:52:06 Routine care 243885894 Z34.90 [id number] [facility] [address],[place] [address] 09/03/2024 10:54:10 09/03/2024 12:13:11 screening for malformation 164524397 Z36.3 Z3A.20 [id number] Rajinder Steele MD [facility] [address],[place] [address] 09/03/2024 10:54:23 09/03/2024 12:46:59 Urinary symptoms 926841153 R39.9 Sexually t ransmitted infectious disease 2460523 A64 Upper resp iratory infection 49389785 J06.9 [id number] Rajinder Steele MD [facility] [address],[place] [address] 10/01/2024 10:27:59 10/01/2024 11:06:56 Routine care 226490275 Z34.90 Health Concerns Section Related Observation LastModified by Organization Detai ls LastModified Time None Recorded Concern Status LastModified by Organization Details LastModified Time None Recorded Advance Directives Directive None Recorded Payers Encounter Date Sequence Insurance Name Policy Number Policy Aguayo Covered Member ID Aguayo Member ID Guarantor Name 07/13/2024 1 [facility] (MEDICAID HMO) [id number] Michelle Jeremiah [id number] [place] 08/07/2024 1 [facility] [id number] Michelle Jeremiah [id number] Michelle [place] 09/03/2024 1 [facility] (MEDICAID HMO) [id number] Michelle [place] [id number] Michelle Jeremiah 09/03/2024 1 [facility] (MEDICAID HMO) [id number] Michelle Jeremiah [id number] Michelle [place] 10/01/2024 1 [facility] (MEDICAID O) [id number] 0003 Michelle [place] [id number] Michelle Jeremiah OBGyn Episode Ob Episode Information Episode Created Date Number of Fetuses Patient Bloodtype Patient rh Status Prepregnancy Weight lbs Domestic Partner Domestic Partner Phone Father Name Environmental Health Nurse Status 06/18/20 24 1 CLOSED Fetus Data First Name Last Name Admitted to NICU Weight (g) Sex Living Outcome Pediatric Complications Fetus ID Race Codes Race Delivery Type 3515.33 8 Full Term 95275 Vaginal Delivery Ghada Calculation GHADA Calculation Method Initial Ghada Date Initial Exam Date Initial Exam Provider Initial Ultrasound Date Last Menstrual Period Date Ultra Sound Weeks Gestation Conception by IVF Embryo Age at Transfer Date of Transfer 0 Eighteen To Twenty Week Ghada Update Ultra Sound Date Fundal Height At Umbil Quickening Date Ultra Sound Latest Weeks Gestation Final Ghada Confirmed By Final Ghada Confirmed Date Final Ghada Date Ultra Sound Latest Days Gestation 0 0 Menstrual History Last Menstrual Date Menses Monthly On Bcp Conception Prior Menses Frequency Hcg Plus Date Menarche Onset Age Delivery Information Delivery Date Delivery Type Labor Anesthesia Weeks Gestation Incision Type Labor Labor Length Hrs Delivered By Post Complications Tubal Sterilization Discharge Date Comments 6 39 Discharge Information Feeding Method Contraceptive Method Maternal HG B and HCT Levels Ob Episode Information Episode Created Date Number of Fetuses Patient Bloodtype Patient rh Status Prepregnancy Weight lbs Domestic Partner Domestic Partner Phone Father Name Environmental Health Nurse Status 06/18/20 24 1 CLOSED Fetus Data First Name Last Name Admitted to NICU Weight (g) Sex Living Outcome Pediatric Complications Fetus ID Race Codes Race Delivery Type , Spontane ous [id number] Ghada Calculation GHADA Calculation Method Initial Ghada Date Initial Exam Date Initial Exam Provider Initial Ultrasound Date Last Menstrual Period Date Ultra Sound Weeks Gestation Conception by IVF Embryo Age at Transfer Date of Transfer 0 Eighteen To Twenty Week Ghada Update Ultra Sound Date Fundal Height At Umbil Quickening Date Ultra Sound Latest Weeks Gestation Final Ghada Confirmed By Final Ghada Confirmed Date Final Ghada Date Ultra Sound Latest Days Gestation 0 0 Menstrual History Last Menstrual Date Menses Monthly On Bcp Conception Prior Menses Frequency Hcg Plus Date Menarche Onset Age Delivery Information Delivery Date Delivery Type Labor Anesthesia Weeks Gestation Incision Type Labor Labor Length Hrs Delivered By Post Complications Tubal Sterilization Discharge Date Comments 2 Discharge Information Feeding Method Contraceptive Method Maternal HG B and HCT Levels Ob Episode Information Episode Created Date Number of Fetuses Patient Bloodtype Patient rh Status Prepregnancy Weight lbs Domestic Partner Domestic Partner Phone Father Name Environmental Health Nurse Status 06/18/20 24 1 CLOSED Fetus Data First Name Last Name Admitted to NICU Weight (g) Sex Living Outcome Pediatric Complications Fetus ID Race Codes Race Delivery Type 3515.33 8 Full Term 17215 Vaginal Delivery Ghada Calculation GHADA Calculation Method Initial Ghada Date Initial Exam Date Initial Exam Provider Initial Ultrasound Date Last Menstrual Period Date Ultra Sound Weeks Gestation Conception by IVF Embryo Age at Transfer Date of Transfer 0 Eighteen To Twenty Week Ghada Update Ultra Sound Date Fundal Height At Umbil Quickening Date Ultra Sound Latest Weeks Gestation Final Ghada Confirmed By Final Ghada Confirmed Date Final Ghada Date Ultra Sound Latest Days Gestation 0 0 Menstrual History Last Menstrual Date Menses Monthly On Bcp Conception Prior Menses Frequency Hcg Plus Date Menarche Onset Age Delivery Information Delivery Date Delivery Type Labor Anesthesia Weeks Gestation Incision Type Labor Labor Length Hrs Delivered By Post Complications Tubal Sterilization Discharge Date Comments 1 40 Discharge Information Feeding Method Contraceptive Method Maternal HG B and HCT Levels Ob Episode Information Episode Created Date Number of Fetuses Patient Bloodtype Patient rh Status Prepregnancy Weight lbs Domestic Partner Domestic Partner Phone Father Name Environmental Health Nurse Status 06/18/20 24 1 CLOSED Fetus Data First Name Last Name Admitted to NICU Weight (g) Sex Living Outcome Pediatric Complications Fetus ID Race Codes Race Delivery Type 3543.46 0704 F Full Term 71071 Vaginal Delivery Ghada Calculation GHADA Calculation Method Initial Ghada Date Initial Exam Date Initial Exam Provider Initial Ultrasound Date Last Menstrual Period Date Ultra Sound Weeks Gestation Conception by IVF Embryo Age at Transfer Date of Transfer 0 Eighteen To Twenty Week Ghada Update Ultra Sound Date Fundal Height At Umbil Quickening Date Ultra Sound Latest Weeks Gestation Final Ghada Confirmed By Final Ghada Confirmed Date Final Ghada Date Ultra Sound Latest Days Gestation 0 0 Menstrual History Last Menstrual Date Menses Monthly On Bcp Conception Prior Menses Frequency Hcg Plus Date Menarche Onset Age Delivery Information Delivery Date Delivery Type Labor Anesthesia Weeks Gestation Incision Type Labor Labor Length Hrs Delivered By Post Complications Tubal Sterilization Discharge Date Comments 9 41 Discharge Information Feeding Method Contraceptive Method Maternal HG B and HCT Levels Ob Episode Information Episode Created Date Number of Fetuses Patient Bloodtype Patient rh Status Prepregnancy Weight lbs Domestic Partner Domestic Partner Phone Father Name Environmental Health Nurse Status 08/07/20 24 1 B Positive OPEN Fetus Data First Name Last Name Admitted to NICU Weight (g) Sex Living Outcome Pediatric Complications Fetus ID Race Codes Race Delivery Type [id number] Problems Problem Notes Problem Name Start Date End Date Resolution Snomed Code Not e Borderline personality disorder [id number] Grand multipara [id number] hemorrhage [id number] Placenta circumvallata [id number] rpt 32wks Mood disorder 76209825 Ghada Calculation GHADA Calculation Method Initial Ghada Date Initial Exam Date Initial Exam Provider Initial Ultrasound Date Last Menstrual Period Date Ultra Sound Weeks Gestation Conception by IVF Embryo Age at Transfer Date of Transfer 08/07/20 25 06/18/2024 04/13/2024 9 Eighteen To Twenty Week Ghada Update Ultra Sound Date Fundal Height At Umbil Quickening Date Ultra Sound Latest Weeks Gestation Final Ghada Confirmed By Final Ghada Confirmed Date Final Ghada Date Ultra Sound Latest Days Gestation 0 [email or web address] 08/07/2024 01/19/20 25 0 Pre-jarred Flowsheet Flowsheet Date 08/07/2024 Mauricio Score Blood Edema Fundus Height Fundus Units Glucose Ketones Leukocytes Nitrite Labor Signs Protein Cervic Dilation Cervic Effacement Cervic Station Type Weight in lbs Pre/Post Dialysis Refused 147.465950491050 BP Diastolic BP Location Tested BP Systolic BP Type 74 126 Fetus Heart Rate Present A 145 Fetus Movement A No Comments no complaints, no problems, routine care, no contractions, no vaginal bleeding, no loss of fluid, no cramping Flowsheet Date 09/03/2024 Mauricio Score Blood Edema Fundus Height Fundus Units Glucose Ketones Leukocytes Nitrite Labor Signs Protein Cervic Dilation Cervic Effacement Cervic Station Type Weight in lbs Pre/Post Dialysis Refused BP Diastolic BP Location Tested BP Systolic BP Type Fetus Heart Rate Present Fetus Movement Comments Flowsheet Date 09/03/2024 Mauricio Score Blood Edema Fundus Height Fundus Units Glucose Ketones Leukocytes Nitrite Labor Signs Protein Cervic Dilation Cervic Effacement Cervic Station Type Weight in lbs Pre/Post Dialysis Refused 145.0845598895 BP Diastolic BP Location Tested BP Systolic BP Type 73 L arm 114 sitting Fetus Heart Rate Present A 145 Fetus Movement A Yes Comments Persistent respiratory tract infection. She was prescribed antibiotics. We discussed the risks, benefits, and alternatives, instructions, precautions. Patient has symptoms of urinary tract, her urine dip is positive for signs tract infection. To treat. We discussed the medication. Talked about risks, benefits, and alternatives. We discussed instructions and precautions., routine care, no contractions, no vaginal bleeding, no loss of fluid, no cramping Flowsheet Date 10/01/2024 Mauricio Score Blood Edema Fundus Height Fundus Units Glucose Ketones Leukocytes Nitrite Labor Signs Protein Cervic Dilation Cervic Effacement Cervic Station 145 cm Type Weight in lbs Pre/Post Dialysis Refused 148.949375124599 BP Diastolic BP Location Tested BP Systolic BP Type 60 L arm 96 sitting Fetus Heart Rate Present Fetus Movement A Yes Comments psychiatry would like to pre scribe Abilify for borderline personality disorder and mood disorder. We are to check with MFM and then contact the patient.no complaints, no problems, routine care, no contractions, no vaginal bleeding, no loss of fluid, no cramping Menstrual History Last Menstrual Date Menses Monthly On Bcp Conception Prior Menses Frequency Hcg Plus Date Menarche Onset Age 0604/13/2024 true Delivery Information Delivery Date Delivery Type Labor Anesthesia Weeks Gestation Incision Type Labor Labor Length Hrs Delivered By Post Complications Tubal Sterilization Discharge Date Comments Discharge Information Feeding Method Contraceptive Method Maternal HG B and HCT Levels Ob Episode Information Episode Created Date Number of Fetuses Patient Bloodtype Patient rh Status Prepregnancy Weight lbs Domestic Partner Domestic Partner Phone Father Name Environmental Health Nurse Status 06/18/20 24 1 CLOSED Fetus Data First Name Last Name Admitted to NICU Weight (g) Sex Living Outcome Pediatric Complications Fetus ID Race Codes Race Delivery Type 3685.43 5 F Full Term 52046 Vaginal Delivery Ghada Calculation GHADA Calculation Method Initial Ghada Date Initial Exam Date Initial Exam Provider Initial Ultrasound Date Last Menstrual Period Date Ultra Sound Weeks Gestation Conception by IVF Embryo Age at Transfer Date of Transfer 0 Eighteen To Twenty Week Ghada Update Ultra Sound Date Fundal Height At Umbil Quickening Date Ultra Sound Latest Weeks Gestation Final Ghada Confirmed By Final Ghada Confirmed Date Final Ghada Date Ultra Sound Latest Days Gestation 0 0 Menstrual History Last Menstrual Date Menses Monthly On Bcp Conception Prior Menses Frequency Hcg Plus Date Menarche Onset Age Delivery Information Delivery Date Delivery Type Labor Anesthesia Weeks Gestation Incision Type Labor Labor Length Hrs Delivered By Post Complications Tubal Sterilization Discharge Date Comments 4 39 hemorrha g e after Discharge Information Feeding Method Contraceptive Method Maternal HG B and HCT Levels Ob Episode Information Episode Created Date Number of Fetuses Patient Bloodtype Patient rh Status Prepregnancy Weight lbs Domestic Partner Domestic Partner Phone Father Name Environmental Health Nurse Status 06/18/20 24 1 CLOSED Fetus Data First Name Last Name Admitted to NICU Weight (g) Sex Living Outcome Pediatric Complications Fetus ID Race Codes Race Delivery Type 3572.03 7 Full Term 50468 Vaginal Delivery Ghada Calculation GHADA Calculation Method Initial Ghada Date Initial Exam Date Initial Exam Provider Initial Ultrasound Date Last Menstrual Period Date Ultra Sound Weeks Gestation Conception by IVF Embryo Age at Transfer Date of Transfer 0 Eighteen To Twenty Week Ghada Update Ultra Sound Date Fundal Height At Umbil Quickening Date Ultra Sound Latest Weeks Gestation Final Ghada Confirmed By Final Ghada Confirmed Date Final Ghada Date Ultra Sound Latest Days Gestation 0 0 Menstrual History Last Menstrual Date Menses Monthly On Bcp Conception Prior Menses Frequency Hcg Plus Date Menarche Onset Age Delivery Information Delivery Date Delivery Type Labor Anesthesia Weeks Gestation Incision Type Labor Labor Length Hrs Delivered By Post Complications Tubal Sterilization Discharge Date Comments 1 39 Discharge Information Feeding Method Contraceptive Method Maternal HG B and HCT Levels Ob Episode Information Episode Created Date Number of Fetuses Patient Bloodtype Patient rh Status Prepregnancy Weight lbs Domestic Partner Domestic Partner Phone Father Name Environmental Health Nurse Status 06/18/20 24 1 CLOSED Fetus Data First Name Last Name Admitted to NICU Weight (g) Sex Living Outcome Pediatric Complications Fetus ID Race Codes Race Delivery Type 3572.03 7 F Full Term 60953 Vaginal Delivery Ghada Calculation GHADA Calculation Method Initial Ghada Date Initial Exam Date Initial Exam Provider Initial Ultrasound Date Last Menstrual Period Date Ultra Sound Weeks Gestation Conception by IVF Embryo Age at Transfer Date of Transfer 0 Eighteen To Twenty Week Ghada Update Ultra Sound Date Fundal Height At Umbil Quickening Date Ultra Sound Latest Weeks Gestation Final Ghada Confirmed By Final Ghada Confirmed Date Final Ghada Date Ultra Sound Latest Days Gestation 0 0 Menstrual History Last Menstrual Date Menses Monthly On Bcp Conception Prior Menses Frequency Hcg Plus Date Menarche Onset Age Delivery Information Delivery Date Delivery Type Labor Anesthesia Weeks Gestation Incision Type Labor Labor Length Hrs Delivered By Post Complications Tubal Sterilization Discharge Date Comments 3 37 Discharge Information Feeding Method Contraceptive Method Maternal HG B and HCT Levels
--- OUTSIDE RECORDS SUMMARY | 2024-10-06 21:21 | XMS_ITS | Continuity of Care Document ---
Author Organization [facility] [place] Address [address] [place] [address] Care Team Providers Care Utilization Manager Name Role Phone CALLY GHOSH Primary Care Provider Assessment Encounter Date Assessment Date Assessment LastModified by Organization Details LastModified Time 10/01/2024 10/01/2024 Patient is ___weeks . Discussed plan. Not available 10/01/2024 10:45:52 Plan of Treatment Reminders Order Date Submit Date Provider Last Modified By Organization Details Last Modified Time Details Appointments OB ROUTINE 2024 01:00P Dina MCCARTY MD Not available Not available Not available Lab None recorded . Referral None recorded . Procedures None recorded . Surgeries None recorded . Imaging None recorded . Medication Orders None recorded . Patient TargetsNo targets recorded. Patient InstructionsNo instructions recorded. Reason for Referral None Reported. Results Created Date Observation Date Name Description Value Unit Range Abnormal Flag Note LastModifiedBy Organization Detail LastModifiedTime 09/03/2009/03/2024 US, obste tric, 2nd or 3rd trime ster No observ ation record ed. [email or web address] [place] [address], [place], [address], 09/03/2024 13:54:00 09/03/2009/03/2024 US, obste tric, 2nd or 3rd trime ster No observ ation record ed. [facility] [address], [place], [address], 09/05/2024 02:22:00 Result Notes None recorded. Problems Name Problem SNOMED Code Status Onset Date Resolution Date Notes Provider Name and Address Organization Details Recorded Time 29993932 Active 2023 Michelle Bliss [facility] 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 4 15:43:59 hemorrhage 04984576 Active Rajinder Mccarty MD [address], [place], [address], [facility] 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 4 09:42:01 Borderline personality disorder 04392283 Active Rajinder Mccarty MD [address], [place], [address], [facility] 4 11:05:20 Mood disorder 54277500 Active Rajinder Mccarty MD [address], [place], [address], [facility] 4 11:05:29 Problem Notes None recorded. Procedures Surgical History Date Name Laterality Status Provider Name and Address Organization Details Recorded Time 4 Date of Last Pap Smear completed Michelletunde Bliss [facility] 06/18/2024 12:04:30 procedure on ankle completed [facility] 06/18/2024 12:10:23 surgical procedure on eye proper using laser completed [facility] 06/18/2024 12:10:48 Imaging Results None recorded. Procedure Notes None recorded. Medical Equipment None Reported. Allergies Allergen ID Allergen Name Allergen Category Reaction Reaction Severity Criticality Documentation Date Start Date Code Code System Note Provider Name and Address Organization Details Recorded Time 41386 codeine medicatio n Not available Not available Not available 06/18/2024 2670 RxNorm [facility] 12:05:10 Medications Name Sig Start Date [...] Avai lable Vitals Date Recorded Body weight Systolic blood pressure Diastolic blood pressure Provider Name and Address Organization Details Last Updated DateTime 10/01/2024 29140.6707 6 g 96 mm[Hg] 60 mm[Hg] Michelle Bliss [facility] 10/01/2024 10:47:03 Social History Question Answer Notes LastModified by Organizat ion Details LastModified Time Tobacco Smoking Status Former Smoker [facility] 06/18/2024 12:09:23 What Is Your Level [...] (Food, seasonal, environmental ) N Other N Blood Transfusion N Breast Cancer N Drug/Latex Allergies/Reactions N Dermatologic Disorders N Lung Disease N Defects or Inherited Disease N Breast Problem N Gestational Diabetes N Hematologic disorders N Anesthesia Complications N History of STI Y Deep Vein Thrombosis N Polycystic ovary syndrome N Anxiety Disorder N Autoimmune disease N Arthritis N Polyps N Infertility N Acid Reflux (GERD) N History of abnormal pap Y Cancer N Varicosities N Stroke N Neurologic/Epilepsy N Endometriosis N High Cholesterol N Fibromyalgia N Headaches N Kidney Disease N Heart Problems N Thyroid Problems N Kidney or Bladder Problems N GI Problems N Eating Disorder [...] Diagnosis/Indication Diagnosis SNOMED-CT Code Diagnosis ICD10 Code [id number] Mary Grace Harp [place] [address] [address] 09/03/2024 10:54:10 09/03/2024 12:13:11 screening for malformation 769412614 Z36.3 Z3A.20 [id number] Rajinder Mccarty MD [place] [address] [address] 09/03/2024 10:54:23 09/03/2024 12:46:59 Urinary symptoms 396205350 R39.9 Sexually t ransmitted infectious disease 2174594 A64 Upper resp iratory infection 88813134 J06.9 528206 Rajinder Mccarty MD [place] [address] [address] 10/01/2024 10:27:59 10/01/2024 11:06:56 Routine care 129775214 Z34.90 Health Concerns Section Related Observation LastModified by Organization Detai ls LastModified Time None Recorded Concern Status LastModified by Organization Details LastModified Time None Recorded Payers Encounter Date Sequence Insurance Name Policy Number Policy Aguayo Covered Member ID Aguayo Member ID Guarantor Name 10/01/2024 1 [facility] (MEDICAID HMO) [id number] Michelle Daniels [id number] Michelle Daniels OBGyn Episode Ob Episode Information Episode Created Date Number of Fetuses Patient Bloodtype Patient rh Status Prepregnancy Weight lbs Domestic Partner Domestic Partner Phone Father Name Infusion Rn Status 08/07/20 24 1 B Positive OPEN Fetus Data First Name Last Name Admitted to NICU Weight (g) Sex Living Outcome Pediatric Complications Fetus ID Race Codes Race Delivery Type [id number] Problems Problem Notes Problem Name Start Date End Date Resolution Snomed Code Not e Borderline personality disorder Grand multipara 00858222 hemorrhage 62970524 Placenta circumvallata 7420013 rpt 32wks Mood disorder 30273880 Ghada Calculation GHADA Calculation Method Initial Ghada Date Initial Exam Date Initial Exam Provider Initial Ultrasound Date Last Menstrual Period Date Ultra Sound Weeks Gestation Conception by IVF Embryo Age at Transfer Date of Transfer 08/07/2006/18/2024 04/13/2024 9 Eighteen To Twenty Week Ghada [...] Type Weight in lbs Pre/Post Dialysis Refused 147.977878384757 BP Diastolic BP Location Tested BP Systolic [...] Type Weight in lbs Pre/Post Dialysis Refused 145.9564119078 BP Diastolic BP Location Tested BP Systolic [...] Type Weight in lbs Pre/Post Dialysis Refused 148.090563105620 BP Diastolic BP Location Tested BP Systolic [...]
--- OUTSIDE RECORDS SUMMARY | 2024-10-06 21:21 | XMS_ITS | Continuity of Care Document ---
Author Organization [facility] [place] Address [address] [place] [address] Care Team Providers Care Chemical Recovery Operator Name Role Phone CALLY GHOSH Primary Care Provider [phone] Assessment Encounter Date Assessment Date Assessment LastModified by Organization Details LastModified Time 09/03/2024 09/03/2024 Patient is ___weeks . Discussed plan. Not available 09/03/2024 12:09:44 Plan of Treatment Reminders Order Date Submit Date Provider Last Modified By Organization Details Last Modified Time Details Appointments OB ROUTINE 2024 01:00P Dina MCCARTY MD Not available Not available Not available Lab hsv-2 igg Ab, serum 2023 [facility] (Lab), [address] [place], [address], 09/04/2024 15:24:00 hbcab (hepatiti s B core Ab) igm, serum 2023 [facility] (Lab), [address] [place], [address], 09/04/2024 15:24:00 HBsAg (hepatiti s B surface Ag), serum 2023 [facility] (Lab), [address] [place], [address], 09/04/2024 15:23:59 hepatitis C virus Ab, serum 2023 024 [facility] (Lab), [address], [place], [address], 09/04/2024 15:24:00 HIV 1+2 AB + HIV 1 p24 Ag, qualitati ve immunoass ay, serum 2023 [facility] (Lab), [address], [place], [address], 09/04/2024 15:23:59 RPR (rapid plasma reagin), serum 2023 [facility] (Lab), [address], [place], [address], 09/04/2024 15:24:01 CT + NG + TV, RNA, unspecifi ed specimen 2023 [facility] (Lab), [address], [place], [address], 09/04/2024 23:04:24 urinalysi s, dipstick 2023 [place], [facility] [address], [place], [address], 09/03/2024 12:17:10 culture, urine 2023 [facility] (Lab), [address], [place], [address], 09/04/2024 23:04:25 Referral None recorded. Procedures None recorded. Surgeries None recorded. Imaging None recorded. Medication Orders Macrobid 100 mg capsule 2023 [facility]armacy #[id number], [address] [place], [address], 09/03/2024 12:25:29 Zithromax Z-Casimiro 250 mg tablet 2023 [facility]/Pharmacy #[id number], [address] [place], [address], 09/03/2024 12:24:13 Patient TargetsNo targets recorded. Patient InstructionsNo instructions recorded. Reason for Referral None Reported. Results Created Date Observation Date Name Description Value Unit Range Abnormal Flag Note LastModifiedBy Organization Detail LastModifiedTime 09/03/20 24 09/03/2024 urina lysis , dipst ick Leukocytes ++ Not Available [facility] [address], [place], [address], 09/03/2024 12:16:39 09/03/2009/03/2024 urina lysis , dipst ick Urobilinogen + Not Available [facility] [address], [place], [address], 09/03/2024 12:16:39 09/03/20 24 09/03/2024 urina lysis , dipst ick Protein ++ Not Available [place] [address], [place], [address], 09/03/2024 12:16:39 09/03/2009/03/2024 urina lysis , dipst ick pH 5 Not Available [place] [address], [place], [address], 09/03/2024 12:16:39 09/03/2009/03/2024 urina lysis , dipst ick Blood +++ Not Available [place] [address], [place], [address], 09/03/2024 12:16:39 09/03/20 24 09/03/2024 urina lysis , dipst ick Specific [place] 1.025 Not Available [facility] [address], [place], [address], 09/03/2024 12:16:39 09/03/20 24 09/03/2024 urina lysis , dipst ick Ketone ++ Not Available [place] [address], [place], [address], 09/03/2024 12:16:39 09/03/20 24 09/03/2024 US, obste tric, 2nd or 3rd trime ster No observ ation record ed. [email or web address] [place] [address], [place], [address], 09/03/2024 13:54:00 09/03/20 24 09/03/2024 US, obste tric, 2nd or 3rd trime ster No observ ation record ed. [facility] [address], [place], [address], 09/05/2024 02:22:00 Result Notes None recorded. Problems Name Problem SNOMED Code Status Onset Date Resolution Date Notes Provider Name and Address Organization Details Recorded Time 99307525 Active 2023 Michelle Bliss null, [facility] 4 15:22:25 Grand multipara 09110270 Active Rajinder Mccarty MD [address], [place], [address], , [facility] 4 15:43:59 hemorrhage 95182526 Active Rajinder Mccarty MD [address], [place], [address], , [facility] 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 4 09:42:01 Borderline personality disorder 97562464 Active Rajinder Mccarty MD [address], [place], [address], , P.C[facility] 4 11:05:20 Mood disorder 22049787 Active Rajinder Mccarty MD [address], [place], [address], [place] [facility] 4 11:05:29 Problem Notes None recorded. Procedures Surgical History Date Name Laterality Status Provider Name and Address Organization Details Recorded Time 4 Date of Last [facility] 12:04:30 procedure on ankle completed [facility] 06/18/2024 12:10:23 surgical procedure on eye proper using laser completed [facility] 06/18/2024 12:10:48 Imaging Results None recorded. Procedure Notes None recorded. Medical Equipment None Reported. Allergies Allergen ID Allergen Name Allergen Category Reaction Reaction Severity Criticality Documentation Date Start Date Code Code System Note Provider Name and Address Organization Details Recorded Time 18342 codeine medicatio n Not available Not available Not available 06/18/2024 2670 RxNorm [facility] 4 12:05:10 Medications Name Sig Start Date Stop [...] Address Organization Details Last Updated DateTime 09/03/2024 38569.8936 5 g 114 mm[Hg] 73 mm[Hg] Michelle Bliss [facility] 09/03/2024 12:11:03 Social History Question Answer Notes LastModified by Organizat ion Details LastModified Time Tobacco Smoking Status Former Smoker Michelle Bliss null, [facility] 06/18/2024 12:09:23 What Is Your Level [...] Diagnosis/Indication Diagnosis SNOMED-CT Code Diagnosis ICD10 Code [id number] Rajinder Mccarty MD [place] [address] [address] 08/07/2024 14:50:09 08/07/2024 15:52:06 Routine care 194646159 Z34.90 [id number] Mary Graceirina Harp [place] [address],[place] [address] 09/03/2024 10:54:10 09/03/2024 12:13:11 screening for malformation 557521935 Z36.3 Z3A.20 [id number] Rajinder Mccarty MD [place] [address],[place] [address] 09/03/2024 10:54:23 09/03/2024 12:46:59 Urinary symptoms 803875352 R39.9 Sexually t ransmitted infectious disease 9229094 A64 Upper resp iratory infection 44760927 J06.9 Health Concerns Section Related Observation LastModified by Organization Detai ls LastModified Time None Recorded Concern Status LastModified by Organization Details LastModified Time None Recorded Payers Encounter Date Sequence Insurance Name Policy Number Policy Aguayo Covered Member ID Aguayo Member ID Guarantor Name 09/03/2024 1 [facility] (MEDICAID HMO) [id number] Michelle Daniels [id number] Michelle Daniels OBGyn Episode Ob Episode Information Episode Created Date Number of Fetuses Patient Bloodtype Patient rh Status Prepregnancy Weight lbs Domestic Partner Domestic Partner Phone Father Name Genetic Coordinator Status 08/07/20 24 1 B Positive OPEN Fetus Data First Name Last Name Admitted to NICU Weight (g) Sex Living Outcome Pediatric Complications Fetus ID Race Codes Race Delivery Type [id number] Problems Problem Notes Problem Name Start Date End Date Resolution Snomed Code Not e Borderline personality disorder Grand multipara 43561504 hemorrhage 57574840 Placenta circumvallata 0017058 rpt 32wks Mood disorder 22145144 Ghada Calculation GHADA Calculation Method Initial Ghada [...] Gestation 0 [email or web address] 08/07/2024 01/19/20 25 0 Pre- Flowsheet Flowsheet Date 08/07/2024 Mauricio Score Blood Edema Fundus Height Fundus Units Glucose Ketones Leukocytes Nitrite Labor Signs Protein Cervic Dilation Cervic Effacement Cervic Station Type Weight in lbs Pre/Post Dialysis Refused 147.839380876074 BP Diastolic BP Location Tested BP Systolic [...] Type Weight in lbs Pre/Post Dialysis Refused 145.4594098776 BP Diastolic BP Location Tested BP Systolic [...] Type Weight in lbs Pre/Post Dialysis Refused 148.067469866506 BP Diastolic BP Location Tested BP Systolic [...]
--- OUTSIDE RECORDS SUMMARY | 2024-10-06 21:21 | XMS_ITS | Continuity of Care Document ---
Author Organization [facility] [place] Address [address] [address] Care Team Providers Care Chief Solution Architect Name Role Phone CALLY GHOSH Primary Care Provider [phone] Assessment Encounter Date Assessment Date Assessment LastModified by Organization Details LastModified Time 08/07/2024 08/07/2024 Patient is ___weeks . Discussed plan. Not available 08/07/2024 15:22:22 Plan of Treatment Reminders Order Date Submit [...] ster No observ ation record ed. [email or web address] [place] [address], [place], [address], 09/03/2024 13:54:00 09/03/2009/03/2024 US, obste tric, 2nd or 3rd trime ster No observ ation record ed. [facility] [address], [place], [address], 09/05/2024 02:22:00 Result Notes None recorded. Problems Name Problem SNOMED Code Status Onset Date Resolution Date Notes Provider Name and Address Organization Details Recorded Time 07681254 Active [address] [facility] 4 15:22:25 Grand multipara 79626383 Active Rajinder Mccarty MD [address], [place], [address], [facility] 4 15:43:59 hemorrhage 92947611 Active Rajinder Mccarty MD [address], [place], [address], [facility] 4 15:44:29 Placenta circumvallata 1719089 Active rpt 32wks Madan Olivarez [facility] 4 09:42:01 Borderline personality disorder 91477953 Active Rajinder Mccarty MD [address], [place], [address], [facility] 4 11:05:20 Mood disorder 57779561 Active Rajinder Mccarty MD [address], [place], [address], [facility] 4 11:05:29 Problem Notes None recorded. Procedures Surgical History Date Name Laterality Status Provider Name and Address Organization Details Recorded Time 4 Date of Last Pap Smear completed Michelletunde Bliss [facility] 06/18/2024 12:04:30 procedure on ankle completed [facility] 06/18/2024 12:10:23 surgical procedure on eye proper using laser completed [facility] 06/18/2024 12:10:48 Imaging Results None recorded. Procedure Notes None recorded. Medical Equipment None Reported. Allergies Allergen ID Allergen Name Allergen Category Reaction Reaction Severity Criticality Documentation Date Start Date Code Code System Note Provider Name and Address Organization Details Recorded Time 76938 codeine medicatio n Not available Not available Not available 06/18/2024 2670 RxNorm [facility] 12:05:10 Medications Name Sig Start Date [...] Address Organization Details Last Updated DateTime 08/07/2024 77262.07 839 g 26 kg/m2 160.02 cm 126 mm[Hg] 74 mm[Hg] Michelle Bliss [facility] 4 15:22:54 Social History Question Answer Notes LastModified by Organizat ion Details LastModified Time Tobacco Smoking Status Former Smoker Michelle del cid [facility] 06/18/2024 12:09:23 What Is Your Level Of Alcohol Consumption? None Information not available 06/18/2024 What Is Your Level Of Caffeine Consumption? Occasional Information not available 06/18/2024 In The 14 Days Before Symptom Onset, Have You Had Close Contact With A Laboratory-[facility] COVID-19 While That Case Was Ill? [...] Diagnosis/Indication Diagnosis SNOMED-CT Code Diagnosis ICD10 Code [id number] Mary Grace Harp [place] [address] [address] 07/13/2024 11:35:58 07/13/2024 13:34:09 screening 472636687 Z36.82 Z3A.13 [id number] Rajinder Mccarty MD [place] [address] [address] 08/07/2024 14:50:09 08/07/2024 15:52:06 Routine care 794500554 Z34.90 Health Concerns Section Related Observation LastModified by Organization Detai ls LastModified Time None Recorded Concern Status LastModified by Organization Details LastModified Time None Recorded Payers Encounter Date Sequence Insurance Name Policy Number Policy Aguayo Covered Member ID Aguayo Member ID Guarantor Name 08/07/2024 1 [facility] (MEDICAID HMO) [id number] Michelle Toneylogg [id number] Michelle Meeker OBGyn Episode Ob Episode Information Episode Created Date Number of Fetuses Patient Bloodtype Patient rh Status Prepregnancy Weight lbs Domestic Partner Domestic Partner Phone Father Name Stock Checkerer Status 08/07/20 24 1 B Positive OPEN Fetus Data First Name Last Name Admitted to NICU Weight (g) Sex Living Outcome Pediatric Complications Fetus ID Race Codes Race Delivery Type 26133 Problems Problem Notes Problem Name Start Date End Date Resolution Snomed Code Not e Borderline personality disorder 48830495 Grand multipara 44426433 hemorrhage 20445374 Placenta circumvallata 3629953 rpt 32wks Mood disorder 23577116 Ghada Calculation GHADA Calculation Method Initial Ghada [...] Type Weight in lbs Pre/Post Dialysis Refused 147.304367250604 BP Diastolic BP Location Tested BP Systolic [...] Type Weight in lbs Pre/Post Dialysis Refused 145.5994967411 BP Diastolic BP Location Tested BP Systolic [...] Type Weight in lbs Pre/Post Dialysis Refused 148.835846096970 BP Diastolic BP Location Tested BP Systolic [...]
--- OUTSIDE RECORDS SUMMARY | 2024-10-06 21:21 | XMS_ITS | Continuity of Care Document ---
Author Organization [facility] [place] Address [address] [place] [address] [place] [address] Care Team Providers Care Hospice Liaison Name Role Phone CALLY GHOSH Primary Care Provider [phone] Assessment No assessment recorded. Plan of Treatment Reminders Order Date Submit Date Provider Last Modified By Organization Details Last Modified Time Details Appointments OB ROUTINE 2024 01:00P Dina STEELE MD Not available Not available Not available Lab None recorded. Referral None recorded. Procedures None recorded. Surgeries None recorded. Imaging US, obstetric , 2nd or 3rd trimester 2023 024 [email or web address] [address], [address], [place], [address], 09/03/2024 14:34:30 Medication Orders None recorded. Patient TargetsNo targets recorded. Patient InstructionsNo instructions recorded. Reason for Referral None Reported. Results Created Date Observation Date Name Description Value Unit Range Abnormal Flag Note LastModifiedBy Organization Detail LastModifiedTime 09/03/2009/03/2024 US, obste tric, 2nd or 3rd trime ster No observ ation record ed. [email or web address] [place] [address], [place], [address], 09/03/2024 13:54:00 09/03/20 24 09/03/2024 US, obste tric, 2nd or 3rd trime ster No observ ation record ed. [facility] [address], [place], [address], 09/05/2024 02:22:00 Result Notes None recorded. Problems Name Problem SNOMED Code Status Onset Date Resolution Date Notes Provider Name and Address Organization Details Recorded Time 56728982 Active 2023 Michelle Bliss [facility] 4 15:22:25 Grand multipara 88943293 Active Rajinder Steele MD [address], [place], [address], [facility] 4 15:43:59 hemorrhage 27231079 Active Rajinder Steele MD [address], [place], [address], [facility] 4 15:44:29 Placenta circumvallata 8684877 Active rpt 32wks Madan Olivarez [facility] 4 09:42:01 Borderline personality disorder 30335886 Active Rajinder Steele MD [address], [place], [address], [facility] 4 11:05:20 Mood disorder 02555242 Active Rajinder Steele MD [address], [place], [address], [facility] 4 11:05:29 Problem Notes None recorded. Procedures Surgical History Date Name Laterality Status Provider Name and Address Organization Details Recorded Time Date of Last Pap Smear completed Michelletunde Bliss [facility] 06/18/2024 12:04:30 procedure on ankle completed Michelle Izaiah [facility] 06/18/2024 12:10:23 surgical procedure on eye proper using laser completed [facility] 06/18/2024 12:10:48 Imaging Results Imaging Date Name Status LastModified by Organiz ation Details LastModified Time 09/03/2024 US, obstetric, 2nd or 3rd trimester completed [email or web address] [place] [address], [place], [address], 09/03/2024 13:54:00 09/03/2024 US, obstetric, 2nd or 3rd trimester completed [facility] [address], [place], [address], 09/05/2024 02:22:00 Procedure Notes None recorded. Medical Equipment None Reported. Allergies Allergen ID Allergen Name Allergen Category Reaction Reaction Severity Criticality Documentation Date Start Date Code Code System Note Provider Name and Address Organization Details Recorded Time codeine medicatio n Not available Not available Not available 06/18/2024 2670 RxNorm Michelle Bliss [facility] 12:05:10 Medications Name Sig Start Date [...] Address Organization Details Last Updated DateTime 09/03/2024 39791.8936 5 g 114 mm[Hg] 73 mm[Hg] Michelle Bliss [facility] 09/03/2024 12:11:03 Social History Question Answer Notes LastModified by Organizat ion Details LastModified Time Tobacco Smoking Status Former Smoker Michelle Izaiah [facility] 06/18/2024 12:09:23 What Is [...] Diagnosis/Indication Diagnosis SNOMED-CT Code Diagnosis ICD10 Code [id number] Rajinder Steele MD [place] [address] [address] 08/07/2024 14:50:09 08/07/2024 15:52:06 Routine care 872115866 Z34.90 [id number] [facility] [address],[place] [address] 09/03/2024 10:54:10 09/03/2024 12:13:11 screening for malformation 148660283 Z36.3 Z3A.20 [id number] Rajinder Steele MD [place] [address],[place] [address] 09/03/2024 10:54:23 09/03/2024 12:46:59 Urinary symptoms 455802936 R39.9 Sexually t ransmitted infectious disease 3986706 A64 Upper resp iratory infection 73380877 J06.9 Health Concerns Section Related Observation LastModified by Organization Detai ls LastModified Time None Recorded Concern Status LastModified by Organization Details LastModified Time None Recorded Payers Encounter Date Sequence Insurance Name Policy Number Policy Aguayo Covered Member ID Aguayo Member ID Guarantor Name 09/03/2024 1 [facility] (MEDICAID HMO) [id number] Michelle Daniels [id number] Michelle Daniels OBGyn Episode Ob Episode Information Episode Created Date Number of Fetuses Patient Bloodtype Patient rh Status Prepregnancy Weight lbs Domestic Partner Domestic Partner Phone Father Name Guard Entrance Registrar Status 10/18/20 24 1 B Positive OPEN Fetus Data First Name Last Name Admitted to NICU Weight (g) Sex Living Outcome Pediatric Complications Fetus ID Race Codes Race Delivery Type [id number] Problems Problem Notes Problem Name Start Date End Date Resolution Snomed Code Not e Borderline personality disorder 85994197 Grand multipara 25423197 hemorrhage 04583138 Placenta circumvallata 3468238 rpt 32wks Mood disorder 90805026 Ghada Calculation GHADA Calculation Method Initial Ghada [...] Type Weight in lbs Pre/Post Dialysis Refused 147.202727647238 BP Diastolic BP Location Tested BP Systolic [...] Type Weight in lbs Pre/Post Dialysis Refused 145.2369321722 BP Diastolic BP Location Tested BP Systolic [...] Type Weight in lbs Pre/Post Dialysis Refused 148.121195024742 BP Diastolic BP Location Tested BP Systolic [...]
--- OUTSIDE RECORDS SUMMARY | 2024-10-06 21:22 | XMS_ITS | Continuity of Care Document ---
Author Organization [facility] [place] Address [address] [place] [address] [place] [address] Care Team Providers Care Barman Name Role Phone CALLY GHOSH Primary Care Provider [phone] Assessment No assessment recorded. Plan of Treatment Reminders Order Date Submit Date Provider Last Modified By Organization Details Last Modified Time Details Appointments OB ROUTINE 2024 01:00P Dina STEELE MD Not available Not available Not available Lab None recorded. Referral None recorded. Procedures None recorded. Surgeries None recorded. Imaging US, obstetric , nuchal transluce ncy 2023 024 [email or web address] [place], [address], [place], [address], 07/13/2024 14:06:21 US, obstetric , 1st trimester 2023 024 [email or web address] [place], [address], [place], [address], 07/13/2024 14:06:21 Medication Orders None recorded. Patient TargetsNo targets recorded. Patient InstructionsNo instructions recorded. Reason for Referral None Reported. Results Created Date Observation Date Name Description Value Unit Range Abnormal Flag Note LastModifiedBy Organization Detail LastModifiedTime 09/03/20 24 09/03/2024 US, obste tric, 2nd or 3rd trime ster No observ ation record ed. [email or web address] [place] [address], [place], [address], 09/03/2024 13:54:00 09/03/20 24 09/03/2024 US, obste tric, 2nd or 3rd trime ster No observ ation record ed. [facility] [place] [address], [place], [address], 09/05/2024 02:22:00 Result Notes None recorded. Problems Name Problem SNOMED Code Status Onset Date Resolution Date Notes Provider Name and Address Organization Details Recorded Time 97824513 Active 2023 Michelle Bliss [facility] 4 15:22:25 Grand multipara 70475355 Active Rajinder Steele MD [address], [place], [address], [facility] 4 15:43:59 hemorrhage 76428977 Active Rajinder Steele MD [address], [place], [address], [facility] 4 15:44:29 Placenta circumvallata 0889650 Active rpt 32wks Madan Olivarez [facility] 4 09:42:01 Borderline personality disorder 70739938 Active Rajinder Steele MD [address], [place], [address], [facility] 4 11:05:20 Mood disorder 96798890 Active Rajinder Steele MD [address], [place], [address], [facility] 4 11:05:29 Problem Notes None recorded. Procedures Surgical History Date Name Laterality Status Provider Name and Address Organization Details Recorded Time Date of Last Pap Smear completed Michelle Bliss [facility] 06/18/2024 12:04:30 procedure on ankle completed Michelle Bliss [facility] 06/18/2024 12:10:23 surgical procedure on eye proper using laser completed Michelle Bliss [facility] 06/18/2024 12:10:48 Imaging Results Imaging Date Name Status LastModified by Organization Details LastModified Time 07/13/2024 US, obstetric, nuchal translucency completed [email or web address] [place] [address], [place], [address], 07/13/2024 13:06:07 07/13/2024 US, obstetric, 1st trimester completed [email or web address] [place] [address], [place], [address], 07/13/2024 13:06:17 07/13/2024 US, obstetric, follow-up completed [email or web address] [facility] [address], [place], [address], 07/14/2024 09:13:23 Procedure Notes None recorded. Medical Equipment None Reported. Allergies Allergen ID Allergen Name Allergen Category Reaction Reaction Severity Criticality Documentation Date Start Date Code Code System Note Provider Name and Address Organization Details Recorded Time 64608 codeine medicatio n Not available Not available Not available 06/18/2024 2670 RxNorm Michelle Bliss [place], [facility] 12:05:10 Medications Name Sig Start [...] Available Not Available Not Avai lable Vitals None Recorded Social History Question Answer Notes LastModified by Organizat ion Details LastModified Time Tobacco Smoking Status Former Smoker Michelle Bliss [place], [facility] 06/18/2024 12:09:23 What Is Your [...] Diagnosis/Indication Diagnosis SNOMED-CT Code Diagnosis ICD10 Code [id number] [facility] [address],[place] [address] 06/18/2024 10:48:20 06/18/2024 11:38:09 [id number] Rajinder Steele MD [place] [address],[place] [address] 06/18/2024 10:59:37 06/18/2024 13:57:55 Headache 75643522 R51.9 Routine an tenatal care 641906844 Z34.90 Amenorrhea 24944063 N91. 2 [id number] [facility] [address],[place] [address] 07/13/2024 11:35:58 07/13/2024 13:34:09 screening 034083732 Z36.82 Z3A.13 Health Concerns Section Related Observation LastModified by Organization Detai ls LastModified Time None Recorded Concern Status LastModified by Organization Details LastModified Time None Recorded Payers Encounter Date Sequence Insurance Name Policy Number Policy Aguayo Covered Member ID Aguayo Member ID Guarantor Name 07/13/2024 1 [employer] (MEDICAID HMO) [id number] Michelle Daniels [id number] Michelle Daniels OBGyn Episode Ob Episode Information Episode Created Date Number of Fetuses Patient Bloodtype Patient rh Status Prepregnancy Weight lbs Domestic Partner Domestic Partner Phone Father Name Customs Examiner Status 08/07/20 24 1 B Positive OPEN Fetus Data First Name Last Name Admitted to NICU Weight (g) Sex Living Outcome Pediatric Complications Fetus ID Race Codes Race Delivery Type [id number] Problems Problem Notes Problem Name Start Date End Date Resolution Snomed Code Not e Borderline personality disorder 88250456 Grand multipara 78637393 hemorrhage 15330085 Placenta circumvallata 5203514 rpt 32wks Mood disorder 06560630 Ghada Calculation GHADA Calculation Method Initial Ghada [...] Type Weight in lbs Pre/Post Dialysis Refused 147.656733687493 BP Diastolic BP Location Tested BP Systolic [...] Type Weight in lbs Pre/Post Dialysis Refused 145.7883645290 BP Diastolic BP Location Tested BP Systolic [...] Type Weight in lbs Pre/Post Dialysis Refused 148.609498584933 BP Diastolic BP Location Tested BP Systolic [...]
--- NOTE | 2024-10-24 11:31 | PM.OBTRLD ---
OB - Triage/Final Diagnosis Visit Information Comments/Additional reasons for admission: I have assessed the risk for this patient, Michelle Alan Daniels, and determined that she would benefit from observation care. Final Diagnosis (1) Abdominal trauma: Code(s): S39.91XA - Unspecified injury of abdomen, initial encounter Status: Acute
== END 2024-10-03 09:15 | disposition home or self-care (01) ==
PROVIDERS: Admitting Provider Obstetrics & Gynecology; PCP Nurse Practitioner Family; Visit Provider Obstetrics & Gynecology
DX: O99.891 Other specified diseases and conditions complicating pregnancy (principal); S39.91XA Unspecified injury of abdomen, initial encounter; Z3A.24 24 weeks gestation of pregnancy
CPT/HCPCS: G0378; G0379

== ENCOUNTER 2025-01-08 21:12 | Observation (INO) | payer OTHER, SELFPAY ==
--- OUTSIDE RECORDS SUMMARY | 2025-01-08 21:57 | XMS_ITS | Encounter Summary ---
Author Organization [facility] Address [address] [place] [address] Care Team Providers Care Marketing Teacher Name Role Phone Sid Solis MD Unavailable [phone] Mundo Raines MD Unavailable Unavailable Sid Solis MD Primary Care Provider [phone] Encounter Details Date Type Department Care Team (Late st Contact Info) Description 03/28/2019 Abstract SFL CONVERSION [address] [place] [address] , Generic Conversion, Social History Tobacco Use Types Packs/Day Years Used Date Smoking Tobacco: Never Assessed Comments Unknown Sex and Gender Information Value Date Recorded Sex Assigned at Not on file 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
--- OUTSIDE RECORDS SUMMARY | 2025-01-08 21:58 | XMS_ITS | Clinical Summary ---
Author Organization [facility] Address [address] [place] [address] Care Team Providers Care Busgirl Name Role Phone Unavailable Primary Care Provider Unavailabl e Source Comments [facility],non-owned Affiliates and Associated Physician Practices is amultiple site organization consisting of ambulatory clinics and hospital sitesin [place], [place], [place] and [place]. This disclosure is being madepursuant to the Care Everywhere program and may not contain all information available regarding this patient. Last updated 18.[facility] Allergies No known active allergies Medications * Be aware that medications may not be up to date on this document. Alwaysverify current medications with the patient. Medication Sig Dispensed Refills Start Date End Date Status butalbital-acetaminop hen-caffeine (Fioricet) 50-325-40 MG tablet Take 1 (one) tablet by mouth every 4 hours as needed for Headache Active Vit-DSS-Fe Fum-FA ( vitamin with iron) tablet Take 1 (one) tablet by mouth once daily Active Social History Tobacco Use Types Packs/Day Years Used Date Smoking Tobacco: Never Assessed Estimated Date of Delivery Comme nts Yes 01/18/2025 Based on last me nstrual period of 04/13/2024 Sex and Gender Information Value Date Recorded Sex Assigned at Not on file Gender Identity Not on file Sexual Orientation Not on file Plan of Treatment Health Maintenance Due Date Last Done Comments PAP SMEAR 1991 HEPATITIS C SCREENING 08/06/2009 DTAP/TDAP/TD VACCINES (1 - Tdap) 2010 HEPATITIS B VACCINE (1 of 3 - 19+ 3-dose series) 2010 COVID-19 VACCINE (2023-2 5 season) 2024 05/17/2023, 03/24/2022, 03/03/2022 INFLUENZA VACCINE (#1) 2024 OB-ONE HOUR GLUCOSE 10/12/2024 OB-TDAP CURRENT 10/19/2024 DEPRESSION SCREENING 10/21/2024 OB-RHOGAM INJECTION 10/26/2024 OB-GROUP B STREP SCREEN 12/14/2024 ZOSTER VACCINE (1 of 2) 2041 HIV SCREENING Completed 09/03/2024 HIB VACCINE Aged Out No longer eligi ble based on patient's age to complete this topic HPV VACCINE Aged Out No longer eligi ble based on patient's age to complete this topic MENINGOCOCCAL (Group B) VACCINE SHARED DECISION-MAKING Aged Out No longer eligible based on patient's age to complete this topic MENINGOCOCCAL GROUPS A/C/Y/W VACCINE Aged Out No longer eligible b ased on patient's age to complete this topic PNEUMOCOCCAL VACCINE Aged Out No long er eligible based on patient's age to complete this topic Respiratory Syncytial Virus (RSV) Vaccine Pt: or over 60 yrs (No Doses Required) Completed
--- OUTSIDE RECORDS SUMMARY | 2025-01-08 21:58 | XMS_ITS | Clinical Summary ---
Author Organization [facility] Address [facility] [place] [address] Care Team Providers Care Inspector Experimental Assembly Name Role Phone Sid Solis MD Unavailable [phone] Sid Solis MD Primary Care Provider Allergies [...] Noted Date Diagnosed Date Hemorrhage affecting sixth ([facility]) 0 02/01/2024 Overview (02/01/2024): Started about five hours after delivery. The placenta had delivered intact. hemorrhage ([facility]) 02/01/2024 Uterine contractions ([facility]) 01/17/2023 Cramping affecting , antepartum ([facility]) 11/13/2022 28 weeks gestation of ([facility]) 2022 Dehydration 11/13/2022 Overview (11/13/2022): Specific gravity 1.030 Dark colored urine Pyelonephritis affecting ([facility]) ([facility]) 02/10/2021 Normal labor and delivery ([facility]) 02/10/2021 Term ([facility]) 02/10/2021 Overview (02/10/2021): EDC 02/10/2021 Smoker 02/10/2021 Encounter for elective induction of labor ([facility]) 02/03/2021 Social History Tobacco Use Types [...] from your doctor or pharmacy? Sometimes 02/01/2024 [facility] Utilities Answer Date Recorded In the past 12 months has e [employer], gas, oil, or water [facility] threatened to shut off services in your [...] often do you attend chur ch or druze services? Never 02/01/2024 Do you belong to any clubs o r organizations such as rastafari groups, unions, fraternal or athletic groups, or [...] and heating? Not hard at all 02/01/2024 [facility] [place] [facility] - Occupational Stress [...] any time in the past 12 m [facility], were you homeless or living in a care home (including now)? 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 Gender Identity Not on file Sexual Orientation Not on file Last Filed Vital Signs Vital Sign Reading Time Taken Comments Blood Pressure 115/68 02/02/2024 4:35 PM CDT Pulse 62 02/02/2024 4:35 PM CDT Temperature 36.6 C (97.8 F) 02/02/2024 4:35 PM CDT Respiratory Rate 17 02/02/2024 4:35 PM CDT [...] Cancer Screening with HPV 2021 COVID-19 Vaccine (2023- season) 2024 Influenza Adult (#1) 2024 Meningococcal B Vaccine Aged Out No l onger eligible based on patient's age to complete this topic Meningococcal Vaccine Aged Out No anup rainer eligible based on patient's age to complete this topic RSV Immunizations Under 20 Months Aged Out No longer eligible based on patient's age to complete this topic [place] [place] [address] Advance Directives * Full Code (Latest Code [...] 6:31 AM 02/10/2021 6:29 PM Care Teams Inspector Experimental Assembly Relationship Specialty Start Date End Date Sid Solis MD [address] [place] [address] PCP - General FAMILY PRACTICE 08/11/20 Sid Solis MD [address] [address] FAMILY PRACTICE 08/27/18
--- OUTSIDE RECORDS SUMMARY | 2025-01-08 21:58 | XMS_ITS | Encounter Summary ---
Author Organization [facility] Address [address] [place] [address] Care Team Providers Care Oil Drilling Engineer Name Role Phone Sid Solis MD Unavailable [phone] Sid Solis MD Primary Care Provider [phone] Encounter Details Date Type Department Care Team (Late st Contact Info) Description 02/09/2021 Pre-Procedure Call 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 No 02/10/2021 6:38 AM CDT Courntey Munguia RN A ctive * Question Answer [...] on filedocumented in this encounter Care Teams Oil Drilling Engineer Relationship Specialty Start Date End Date Sid Solis MD [address] [place] [phone] PCP - General FAMILY PRACTICE 08/11/20 Sid Solis MD [address] [address] FAMILY PRACTICE 08/27/18 documented as of this encounter
--- OUTSIDE RECORDS SUMMARY | 2025-01-08 21:58 | XMS_ITS | Data Portability ---
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 Discussed plan. Not available 10/01/2024 10:45:52 11/23/2024 11/23/2024 Patient is ___weeks . Discussed plan. Not available 11/23/2024 16:35:16 12/07/2024 12/07/2024 Patient is ___weeks . Discussed plan. Not available 12/07/2024 17:26:08 12/24/2024 12/24/2024 Patient is ___weeks . Discussed plan. Not available 12/24/2024 17:28:41 Plan of Treatment Reminders Order Date Submit Date Provider Last Modified By Organization Details Last Modified Time Details Appointments INDUCTION 2024 05:00A Dina STEELE MD Not available Not available Not available Lab CBC [address] [facility] (Lab), [address], [place], [address], 12/31/2024 04:01:33 Referral None recorded. Procedures None recorded. Surgeries None recorded. Imaging US, obstetric , follow-up 2024 025 [email or web address] [place] [facility] [address], [place], [address], 11/23/2024 20:45:50 Medication Orders None recorded. Patient TargetsNo targets recorded. Patient InstructionsNo instructions recorded. Reason for Referral None Reported. Results Created Date Observation Date Name Description Value Unit Range Abnormal Flag Note LastModifiedBy Organization Detail LastModifiedTime 09/03/20 24 09/03/2024 HEPAT ITIS B SURFA CE ANTIG EN hepatitis B surface antigen Non-re active non-re active This assay was perfo rmed using [employer] ratio n reage nts and test kits. Value s obtai abbi with other assay metho ds or kits canno t be used inter bermudez eably . Not Available [facility] (Lab) [address], [place], [address], 09/04/2024 15:23:59 09/03/20 24 09/03/2024 HIV 1/2 ANTIG EN/AN TIBOD Y, REFLE X CONFI RMATI ON HIV antigen/anti body Nonrea ctive nonrea ctive HIV-1 antig en and HIV-1 /HIV- 2 antib odies were not detec rafa. No labor atory evide nce of HIV infec tion. Not Available [facility] (Lab) [address], [place], [address], 09/04/2024 15:23:59 09/03/20 24 09/03/2024 HEPAT ITIS C ANTIB SAV SCREE N, REFLE X TO CONFI RMATI ON hepatitis C antibody Non-re active non-re active Antib odies to HCV Not Detec rafa, does not exclu de the possi bilit y of expos ure to HCV. Not Available [facility] (Lab) [address], [place], [address], 09/04/2024 15:24:00 09/03/20 24 09/03/2024 HERPE S SIMPL EX VIRUS TYPE 2 SPECI FIC AB, IGG herpes simplex virus 2 IgG Negati ve negati ve Not Available [facility] (Lab) [address], [place], [address], 09/04/2024 15:24:00 09/03/20 24 09/03/2024 HERPE S SIMPL EX VIRUS TYPE 2 SPECI FIC AB, IGG herpes simples virus 2 IgG, quant <0.2 ai 0.0-0. 8 Not Available [facility] (Lab) [address], [place], [address], 09/04/2024 15:24:00 09/03/20 24 09/03/2024 HEPAT ITIS B CORE, IGM hepatitis B core IgM antibody Non-re active non-re active IgM anti- HBc not detec rafa. Does not exclu de the possi bilit y of expos ure to or infec tion with HBV. Not Available [facility] (Lab) [address], [place], [address], 09/04/2024 15:24:00 09/03/20 24 09/03/2024 RPR SCREE N, REFLE X TITER /CONF IRMAT ION RPR screen Nonrea ctive nonrea ctive Not Available [facility] (Lab) [address], [place], [address], 09/04/2024 15:24:00 09/03/20 24 09/03/2024 CT/GC AND TRICH OMONA S VAGIN LYN (RRNA ), URINE chlamydia trachomatis, PCR Negati ve negati ve Not Available [facility] (Lab) [address], [place], [address], 09/04/2024 23:04:24 09/03/20 24 09/03/2024 CT/GC AND TRICH OMONA S VAGIN LYN (RRNA ), URINE neisseria gonorrhoeae, PCR Negati ve negati ve Not Available [facility] (Lab) [address], [place], [address], 09/04/2024 23:04:24 09/03/20 24 09/03/2024 CT/GC AND TRICH OMONA S VAGIN LYN (RRNA ), URINE trichomonas vaginalis ribosomal RNA (rrna) Negati ve negati ve Not Available [facility] (Lab) [address], [place], [address], 09/04/2024 23:04:24 09/03/20 24 09/03/2024 CULTU RE: URINE result report SEE RESULT S BELOW Test: Cultu re: Urine Speci men Sourc e: Urine - Clean Catch Speci men Type: Urine Speci men Date: 09/03 1137 Resul t Date: 09/041 Resul t Statu s: Final resul t Abnor mal: No Resul ting Lab: [facility] [address] [facility] [address] Tel: CULTU RE ----- ----- ----- --- No growt h in 1 day (dete ction level of 10,00 0 colon ies / ml.) Not Available [facility] (Lab) [address], [place], [address], 09/04/2024 23:04:25 09/03/20 24 09/03/2024 urina lysis , dipst ick Leukocytes ++ Not Available Vivi philippe [address], [place], [address], 09/03/2024 12:16:39 09/03/20 24 09/03/2024 urina lysis , dipst ick Urobilinogen + Not Available Tha montemayor [address], [place], [address], 09/03/2024 12:16:39 09/03/20 24 09/03/2024 urina lysis , dipst ick Protein ++ Not Available [address], [place], [address], 09/03/2024 12:16:39 09/03/20 24 09/03/2024 urina lysis , dipst ick pH 5 Not Available Gloria [address], [place], [address], 09/03/2024 12:16:39 09/03/20 24 09/03/2024 urina lysis , dipst ick Blood +++ Not Available [place] [address], [place], [address], 09/03/2024 12:16:39 09/03/20 24 09/03/2024 urina lysis , dipst ick Specific [place] 1.025 Not Available [facility] [address], [place], [address], 09/03/2024 12:16:39 09/03/20 24 09/03/2024 urina lysis , dipst ick Ketone ++ Not Available [place] [address], [place], [address], 09/03/2024 12:16:39 11/23/19 25 11/23/2024 HEMAT OCRIT (HCT) HCT 28.9 % (based on docume nted legal sex) 34.0-4 5.0 low Not Available [facility] (Lab) [address] [place], [address], 11/24/2024 14:20:49 11/23/19 25 11/23/2024 HEMOG LOBIN (HGB) HGB 9.4 g/dL (based on docume nted legal sex) 11.6-1 5.4 low Not Available [facility] (Lab) [address], [place], [address], 11/24/2024 14:20:49 11/23/19 25 11/23/2024 GTT - GESTA PUNEET Dylon Covarrubias, ACOG OB glucose, 1 hour screen 118 mg/dL 70-135 Not Available [facility] (Lab) [address] [place], [address], 11/24/2024 14:20:50 11/23/19 25 11/23/2024 HIV 1/2 ANTIG EN/AN TIBOD Y, REFLE X CONFI RMATI ON HIV antigen/anti body Nonrea ctive nonrea ctive HIV-1 antig en and HIV-1 /HIV- 2 antib odies were not detec rafa. No labor atory evide nce of HIV infec tion. Not Available [facility] (Lab) [address], [place], [address], 11/24/2024 14:20:51 11/23/19 25 11/23/2024 RPR SCREE N, REFLE X TITER /CONF IRMAT ION RPR screen Nonrea ctive nonrea ctive Not Available [facility] (Lab) [address], [place], [address], 11/24/2024 14:20:51 12/25/19 25 12/24/2024 CULTU RE: GROUP B STREP SCREE N, REFLE X SUSCE PTIBI LITY result report SEE RESULT S BELOW Test: Cultu re: Group B Strep , Refle x Susce ptibi lity ([facility]/ [facility] ) Speci men Sourc e: Vagin a/Rec fernie Speci men Type: Vagin al/Re ctal Speci men Date: 025 1657 Resul t Date: 025 1446 Resul t Statu s: Final resul t Abnor mal: No Resul ting Lab: [facility] [address] [facility] [address] Tel: CULTU RE ----- ----- ----- --- No Group B strep isola rafa at 2 days (shyanne ctive broth enhan cemen t) Not Available [facility] (Lab) [address], [place], [address], 12/27/2024 15:49:57 09/03/20 24 09/03/2024 US, obste tric, 2nd or 3rd trime ster No observ ation record ed. [email or web address] [place] [address], [place], [address], 09/03/2024 13:54:00 09/03/20 24 09/03/2024 US, obste tric, 2nd or 3rd trime ster No observ ation record ed. [facility] [address], [place], [address], 09/05/2024 02:22:00 11/23/19 25 11/23/2024 US, obste tric, follo w-up No observ ation record ed. [email or web address] [place] [address], [place], [address], 11/23/2024 18:35:58 11/23/19 25 11/23/2024 US, obste tric, follo w-up No observ ation record ed. [facility] [address], [place], [address], 11/24/2024 12:57:00 Result Notes None recorded. Problems Name Problem SNOMED Code Status Onset Date Resolution Date Notes Provider Name and Address Organization Details Recorded Time 58661163 Active 2023 Michelle del cid, [facility] 4 15:22:25 Grand multipara 76292592 Active Rajinder Steele MD [address], [place], [address], [facility] 4 15:43:59 Postpartu m hemorrhag e 73651592 Active Rajinder Steele MD [address], [place], [address], [facility] 4 15:44:29 Placenta circumval esther 1073080 Active rpt 32wks Madan del cid, [facility] 4 09:42:01 Borderlin e personali ty disorder 04158554 Active Rajinder Steele MD [address], [place], [address], [place] [facility] 4 11:05:20 Mood disorder 64430734 Active Rajinder Steele MD [address], [place], [address], [facility] 4 11:05:29 Anemia 545996519 Active Iron infusion - Order faxed 11/27 Martha del cid, [facility] 5 10:48:06 Anemia 481799538 Active Iron infusion - Order faxed 11/27 Martha del cid, [facility] 5 10:48:06 Problem Notes None recorded. Procedures Surgical History Date Name Laterality Status Provider Name and Address Organization Details Recorded Time 4 Date of Last Pap Smear completed [facility] 06/18/2024 12:04:30 procedure on ankle completed [facility] 06/18/2024 12:10:23 surgical procedure on eye proper using laser completed [facility] 06/18/2024 12:10:48 Imaging Results Imaging Date Name Status LastModified by Organiz ation Details LastModified Time 09/03/2024 US, obstetric, 2nd or 3rd trimester completed [email or web address] [place] [address], [place], [address], 09/03/2024 13:54:00 09/03/2024 US, obstetric, 2nd or 3rd trimester completed [facility] [address], [facility] [place], [address], 09/05/2024 02:22:00 11/23/2024 US, obstetric, follow-up completed [email or web address] [place] [address], [place], [address], 11/23/2024 18:35:58 11/23/2024 US, obstetric, follow-up completed [facility] [address], [place], [address], 11/24/2024 12:57:00 Procedure Notes None recorded. Medical Equipment None Reported. Allergies Allergen ID Allergen Name Allergen Category Reaction Reaction Severity Criticality Documentation Date Start Date Code Code System Note Provider Name and Address Organization Details Recorded Time 01453 codeine medicatio n Not available Not available Not available 06/18/2024 2670 RxNorm Michelle Bliss [facility] 12:05:10 Medications Name Sig Start Date Stop Date Status Note LastModified by Organization Details LastModified Time azithromyci n 250 mg tablet TAKE 2 TABLETS BY MOUTH TODAY, THEN TAKE 1 TABLET DAILY FOR 4 DAYS DIRECTED 12/24 completed Not Available Not Available Not Available methylergon ovine 0.2 mg tablet 06/18 completed Not Available Not Available Not Available folic acid 1 mg tablet TAKE 1 TABLET BY MOUTH DAILY 06/18 completed Not Available Not Available Not Available nitrofurant oin monohydrate /macrocryst als 100 mg capsule TAKE 1 CAPSULE BY MOUTH EVERY 12 HOURS 12/24 completed Not Available Not Available Not Available active Not Available Not Avai lable [...] Address Organization Details Last Updated DateTime 10/01/2024 14872.6707 6 g 96 mm[Hg] 60 mm[Hg] Michelle Bliss [facility] 10/01/2024 10:47:03 Date Recorded Body weight Systolic blood pressure Diastolic blood pressure Provider Name and Address Organization Details Last Updated DateTime 11/23/2024 77099.4478 7 g 110 mm[Hg] 68 mm[Hg] Michelle Bliss [facility] 11/23/2024 16:36:08 Date Recorded Body weight Systolic blood pressure Diastolic blood pressure Provider Name and Address Organization Details Last Updated DateTime 12/07/2024 72864.8555 g 113 mm[Hg] 74 mm[Hg] Michelle [facility] 12/07/2024 17:26:54 Date Recorded Body weight Systolic blood pressure Diastolic blood pressure Provider Name and Address Organization Details Last Updated DateTime 12/24/2024 83743.4478 7 g 105 mm[Hg] 65 mm[Hg] Michelle [facility] 12/24/2024 17:29:18 Social History Question Answer Notes LastModified by Organizat ion Details LastModified Time Tobacco Smoking Status Former Smoker [facility] 06/18/2024 12:09:23 What Is [...] ) N Other N Blood Transfusion N Drug/Latex Allergies/Reactions N Breast Cancer N Dermatologic Disorders N Lung Disease N [...] Diagnosis/Indication Diagnosis SNOMED-CT Code Diagnosis ICD10 Code Diagnosis Note [id number] [facility] [address] [address] 06/18/2024 10:48:20 06/18/2024 11:38:09 [id number] Rajinder Steele MD [place] [address] [address] 06/18/2024 10:59:37 06/18/2024 13:57:55 Headache 77896398 R51.9 Routine an tenatal care 884233304 Z34.90 Amenorrhea 29032897 N91. 2 [id number] [facility] [address],[place] [address] 07/13/2024 11:35:58 07/13/2024 13:34:09 screening 044954480 Z36.82 Z3A.13 [id number] Rajinder Steele MD [place] [address],[place] [address] 08/07/2024 14:50:09 08/07/2024 15:52:06 Routine care 771260851 Z34.90 [id number] [facility] [address],[place] [address] 09/03/2024 10:54:10 09/03/2024 12:13:11 screening for malformation 943301858 Z36.3 Z3A.20 [id number] Rajinder Steele MD [place] [address],[place] [address] 09/03/2024 10:54:23 09/03/2024 12:46:59 Urinary symptoms 616330222 R39.9 Sexually t ransmitted infectious disease 3249335 A64 Upper resp iratory infection 56774309 J06.9 [id number] Rajinder Steele MD [place] [address],[place] [address] 10/01/2024 10:27:59 10/01/2024 11:06:56 Routine care 599037949 Z34.90 [id number] Rajinder Steele MD [place] [address],[place] [address] 11/23/2024 16:03:37 11/23/2024 17:20:01 Routine care 411413010 Z34.90 [id number] [facility] [address],[place] [address] 11/23/2024 17:07:37 11/23/2024 17:10:17 Placenta circumvallata 3953096 O43.113 Z3A.32 [id number] MD Gloria Latham [address],[place] [address] 12/07/2024 17:11:13 12/07/2024 17:37:48 Routine care 264969371 Z34.90 [id number] Rajinder Steele MD [place] [address] [address] 12/24/2024 16:55:47 12/24/2024 17:44:26 Anemia 356079961 D64.9 Routine an tenatal care 638356066 Z34.90 Health Concerns Section Related Observation LastModified by Organization Detai ls LastModified Time None Recorded Concern Status LastModified by Organization Details LastModified Time None Recorded Advance Directives Directive None Recorded Payers Encounter Date Sequence Insurance Name Policy Number Policy Aguayo Covered Member ID Aguayo Member ID Guarantor Name 10/01/2024 1 [facility] (MEDICAID HMO) [id number] Michelle Jeremiah [id number] Michelle Jeremiah 11/23/2024 1 [facility] (MEDICAID HMO) [id number] Michelle Livingston [id number] Michelle Jeremiah 11/23/2024 1 [facility] (MEDICAID HMO) [id number] Michelle Jeremiah [id number] Michelle Jeremiah 12/07/2024 1 [facility] (MEDICAID HMO) [id number] Michelle Livingston [id number] Michelle Livingston 12/24/2024 1 [facility] (MEDICAID HMO) [id number] Michelle Livingston [id number] Michelle Jeremiah OBGyn Episode Ob Episode Information Episode Created Date Number of Fetuses Patient Bloodtype Patient rh Status Prepregnancy Weight lbs Domestic Partner Domestic Partner Phone Father Name Duct Layer Status 06/18/20 24 1 CLOSED Fetus Data First Name Last Name Admitted to NICU Weight (g) Sex Living Outcome Pediatric Complications Fetus ID Race Codes Race Delivery Type 3515.33 8 Full Term 84597 Vaginal Delivery Flash Calculation Initial Flash Date Initial Exam Date Initial Exam Provider Initial Ultrasound Date Last Menstrual Period Date Ultra Sound Weeks Gestation 0 Eighteen To Twenty Week Flash Update Ultra Sound Date Fundal Height At Umbil Quickening Date Ultra Sound Latest Weeks Gestation Final Flash Confirmed By Final Flash Confirmed Date Final Flash Date Ultra Sound Latest Days Gestation 0 [...] Domestic Partner Domestic Partner Phone Father Name Duct Layer Status 06/18/20 24 1 CLOSED Fetus Data First Name Last Name Admitted to NICU Weight (g) Sex Living Outcome Pediatric Complications Fetus ID Race Codes Race Delivery Type , Spontane ous 63738 Flash Calculation Initial Flash Date Initial Exam Date Initial Exam Provider Initial Ultrasound Date Last Menstrual Period Date Ultra Sound Weeks Gestation 0 Eighteen To Twenty Week Flahs Update Ultra Sound Date Fundal Height At Umbil Quickening Date Ultra Sound Latest Weeks Gestation Final Flash Confirmed By Final Flash Confirmed Date Final Flash Date Ultra Sound Latest Days Gestation 0 [...] Domestic Partner Domestic Partner Phone Father Name Duct Layer Status 06/18/20 24 1 CLOSED Fetus Data First Name Last Name Admitted to NICU Weight (g) Sex Living Outcome Pediatric Complications Fetus ID Race Codes Race Delivery Type 3515.33 8 Full Term 53172 Vaginal Delivery Flash Calculation Initial Flash Date Initial Exam Date Initial Exam Provider Initial Ultrasound Date Last Menstrual Period Date Ultra Sound Weeks Gestation 0 Eighteen To Twenty Week Flash Update Ultra Sound Date Fundal Height At Umbil Quickening Date Ultra Sound Latest Weeks Gestation Final Flash Confirmed By Final Flash Confirmed Date Final Flash Date Ultra Sound Latest Days Gestation 0 [...] Domestic Partner Domestic Partner Phone Father Name Duct Layer Status 06/18/20 24 1 CLOSED Fetus Data First Name Last Name Admitted to NICU Weight (g) Sex Living Outcome Pediatric Complications Fetus ID Race Codes Race Delivery Type 3543.46 0704 F Full Term 86682 Vaginal Delivery Flash Calculation Initial Flash Date Initial Exam Date Initial Exam Provider Initial Ultrasound Date Last Menstrual Period Date Ultra Sound Weeks Gestation 0 Eighteen To Twenty Week Flash Update Ultra Sound Date Fundal Height At Umbil Quickening Date Ultra Sound Latest Weeks Gestation Final Flash Confirmed By Final Flash Confirmed Date Final Flash Date Ultra Sound Latest Days Gestation 0 [...] Domestic Partner Domestic Partner Phone Father Name Duct Layer Status 08/07/20 24 1 B Positive OPEN Fetus Data First Name Last Name Admitted to NICU Weight (g) Sex Living Outcome Pediatric Complications Fetus ID Race Codes Race Delivery Type [id number] Problems Problem Notes [facility] in - [facility] eferral faxed 10/02 pt scheduled [facility] 10/20 1030 Level II us and consult Problem Name Start Date End Date Resolution Snomed Code Not e Borderline personality disorder 33667353 Grand multipara 33534781 hemorrhage 20386873 Placenta circumvallata 6357721 rpt 32wks Mood disorder 43940361 Anemia 798329416 Iron infus ion - Order faxed 11/27 Flash Calculation Initial Flash Date Initial Exam Date Initial Exam Provider Initial Ultrasound Date Last Menstrual Period Date Ultra Sound Weeks Gestation 08/07/2024 06/18/2024 04/13/2024 9 Eighteen To Twenty Week Flash Update Ultra Sound Date Fundal Height At Umbil Quickening Date Ultra Sound Latest Weeks Gestation Final Flash Confirmed By Final Flash Confirmed Date Final Flash Date Ultra Sound Latest Days Gestation 0 [email or web address] 08/07/2024 01/19/20 25 0 Pre-jarred Flowsheet Flowsheet Date 08/07/2024 Mauricio Score Blood Edema Fundus Height Fundus Units Glucose Ketones Leukocytes Nitrite Labor Signs Protein Cervic Dilation Cervic Effacement Cervic Station Type Weight in lbs Pre/Post Dialysis Refused 147.335957938156 BP Diastolic BP Location Tested BP Systolic [...] Type Weight in lbs Pre/Post Dialysis Refused 145.8184269820 BP Diastolic BP Location Tested BP Systolic [...] Type Weight in lbs Pre/Post Dialysis Refused 148.875955870752 BP Diastolic BP Location Tested BP Systolic [...] loss of fluid, no cramping Flowsheet Date 11/23/2024 Mauricio Score Blood Edema Fundus Height Fundus Units Glucose Ketones Leukocytes Nitrite Labor Signs Protein Cervic Dilation Cervic Effacement Cervic Station Type Weight in lbs Pre/Post Dialysis Refused 151.213215754620 BP Diastolic BP Location Tested BP Systolic BP Type 68 L arm 110 sitting Fetus Heart Rate Present A 142 Fetus Movement A Yes Comments no complaints, no problems, routine care, no contractions, no vaginal bleeding, no loss of fluid, no cramping Flowsheet Date 11/23/2024 Mauricio Score Blood Edema Fundus Height Fundus Units Glucose Ketones Leukocytes Nitrite Labor Signs Protein Cervic Dilation Cervic Effacement Cervic Station Type Weight in lbs Pre/Post Dialysis Refused BP Diastolic BP Location Tested BP Systolic BP Type Fetus Heart Rate Present Fetus Movement Comments Flowsheet Date 12/07/2024 Mauricio Score Blood Edema Fundus Height Fundus Units Glucose Ketones Leukocytes Nitrite Labor Signs Protein Cervic Dilation Cervic Effacement Cervic Station 34 cm Type Weight in lbs Pre/Post Dialysis Refused 150.087848792339 BP Diastolic BP Location Tested BP Systolic BP Type 74 L arm 113 sitting Fetus Heart Rate Present A 138 Present Fetus Movement A Yes Comments no complaints, no problems, routine care, no contractions, no vaginal bleeding, no loss of fluid, no cramping Flowsheet Date 12/24/2024 Mauricio Score Blood Edema Fundus Height Fundus Units Glucose Ketones Leukocytes Nitrite Labor Signs Protein Cervic Dilation Cervic Effacement Cervic Station 3cm 50% Type Weight in lbs Pre/Post Dialysis Refused 151.695029753217 BP Diastolic BP Location Tested BP Systolic BP Type 65 L arm 105 sitting Fetus Heart Rate Present A 135 Present Fetus Movement A Yes Comments no complaints, no problems, routine care, [...] Domestic Partner Domestic Partner Phone Father Name Duct Layer Status 06/18/20 24 1 CLOSED Fetus Data First Name Last Name Admitted to NICU Weight (g) Sex Living Outcome Pediatric Complications Fetus ID Race Codes Race Delivery Type 3685.43 5 F Full Term 18616 Vaginal Delivery Flash Calculation Initial Flash Date Initial Exam Date Initial Exam Provider Initial Ultrasound Date Last Menstrual Period Date Ultra Sound Weeks Gestation 0 Eighteen To Twenty Week Flash Update Ultra Sound Date Fundal Height At Umbil Quickening Date Ultra Sound Latest Weeks Gestation Final Flash Confirmed By Final Flash Confirmed Date Final Flash Date Ultra Sound Latest Days Gestation 0 [...] Domestic Partner Domestic Partner Phone Father Name Duct Layer Status 06/18/20 24 1 CLOSED Fetus Data First Name Last Name Admitted to NICU Weight (g) Sex Living Outcome Pediatric Complications Fetus ID Race Codes Race Delivery Type 3572.03 7 Full Term 03225 Vaginal Delivery Flash Calculation Initial Flash Date Initial Exam Date Initial Exam Provider Initial Ultrasound Date Last Menstrual Period Date Ultra Sound Weeks Gestation 0 Eighteen To Twenty Week Flash Update Ultra Sound Date Fundal Height At Umbil Quickening Date Ultra Sound Latest Weeks Gestation Final Flash Confirmed By Final Flash Confirmed Date Final Flash Date Ultra Sound Latest Days Gestation 0 [...] Domestic Partner Domestic Partner Phone Father Name Duct Layer Status 06/18/20 24 1 CLOSED Fetus Data First Name Last Name Admitted to NICU Weight (g) Sex Living Outcome Pediatric Complications Fetus ID Race Codes Race Delivery Type 3572.03 7 F Full Term [address] Vaginal Delivery Flash Calculation Initial Flash Date Initial Exam Date Initial Exam Provider Initial Ultrasound Date Last Menstrual Period Date Ultra Sound Weeks Gestation 0 Eighteen To Twenty Week Flash Update Ultra Sound Date Fundal Height At Umbil Quickening Date Ultra Sound Latest Weeks Gestation Final Flash Confirmed By Final Flash Confirmed Date Final Flash Date Ultra Sound Latest Days Gestation 0 [...]
[2025-01-08 21:59] VITALS: BMI 26.5
[2025-01-08 22:11] LABS: OBXCEM ROM Plus Negative (Negative)
[2025-01-08 22:19] VITALS: BP 115/63; PULSE 87
--- NOTE | 2025-01-11 18:28 | PM.OBTRLD ---
OB - Triage/Final Diagnosis Visit Information Reason for evaluation: threatened labor Comments/Additional reasons for admission: I have assessed the risk for this patient, Michelle Daniels, and determined that she would benefit from observation care. Evaluation Laboratory results: Laboratory Tests 01/08/25 22:09 Membranes Rupture Rom plus negative
== END 2025-01-08 22:09 | disposition home or self-care (01) ==
PROVIDERS: Advanced Practice Midwife; Admitting Provider Obstetrics & Gynecology; PCP Nurse Practitioner Family; Visit Provider Obstetrics & Gynecology
DX: O47.1 False labor at or after 37 completed weeks of gestation (principal); Z3A.38 38 weeks gestation of pregnancy
CPT/HCPCS: 59025; 84112; G0378; G0379

== ENCOUNTER 2025-01-11 05:10 | Inpatient (IN) | payer OTHER, SELFPAY ==
[2025-01-11] VITALS (105 sets, daily range): BP systolic 71–120; BP diastolic 19–97; PULSE 30–98; RESP 16; TEMP 36.3–37.3; O2SAT 96–100; BMI 27.3
--- NOTE | ~2025-01-11 | US_ITS ---
EXAMINATION:US venous doppler LE BI INDICATION:Chest pain and elevated d-dimer TECHNIQUE: Multiple grayscale, color flow and Doppler images of the right and left lower extremity de ep venous systems were obtained and reviewed. COMPARISON:No prior studies for comparison. FINDINGS: The common femoral, superficial femoral and popliteal veins demonstrate normal respiratory variation, augmentation and compressibility. Color flow is also seen within the posterior tibial, pe roneal, greater saphenous and profunda veins. IMPRESSION: 1: No lower extremity deep venous thrombosis. Reviewed, dictated and finalized at location A.
--- NOTE | ~2025-01-11 | CT_ITS ---
EXAMINATION: CTA chest PE protocol DATE: 01/13/2025 13:33 CDT INDICATION: Chest pain. Positive d-dimer. TECHNIQUE: Computed tomographic angiography (CTA) of the chest was performed with 100 mL Omnipaque-35 0 intravenous contrast. The dose-length product was 204.18 mGy-cm. Maximum intensity projection 3D-re constructions of the aorta and other arteries were constructed by the technologist on a separate work station. Automated exposure control and iterative reconstruction technique were employed. COMPARISON: Chest x-ray dated 01/13/2025. FINDINGS: Cardiomegaly. There is pectus excavatum. No significant vascular abnormality. There is pulm onary embolism involving the left upper lobe segmental and subsegmental pulmonary arteries. Small hia luis manuel hernia. Upper abdomen is unremarkable. There is dependent atelectasis. IMPRESSION: 1. Left upper lobe pulmonary embolism, small thrombus burden. 2: Cardiomegaly. Reviewed, dictated and finalized at location A.
--- NOTE | ~2025-01-11 | XR_ITS ---
EXAMINATION: XR chest 2V DATE: 01/13/2025 04:05 INDICATION: Dyspnea. TECHNIQUE: Frontal and lateral views of the chest were obtained. COMPARISON: None. FINDINGS: There is no pneumonia, pleural effusion, or pneumothorax. The heart size is normal. Pectus excavatum is noted. IMPRESSION: 1. No acute cardiopulmonary disease. Reviewed, dictated and finalized at location A.
--- OUTSIDE RECORDS SUMMARY | 2025-01-11 05:19 | XMS_ITS | Encounter Summary ---
Author Organization [facility] Address [address] [place] [address] Care Team Providers Care Organ Fixer Name Role Phone Sid Solis MD Unavailable [phone] Sid Solis MD Primary Care Provider [phone] Encounter Details Date Type Department Care Team (Late st Contact Info) Description 02/09/2021 Pre-Procedure Call 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
--- OUTSIDE RECORDS SUMMARY | 2025-01-11 05:19 | XMS_ITS | Clinical Summary ---
Author Organization [facility] Address [facility] [place] [address] Care Team Providers Care Hosiery Looper Name Role Phone Sid Solis MD Unavailable [phone] Sid Solis MD Primary Care Provider Allergies [...] Noted Date Diagnosed Date Hemorrhage affecting sixth ([facility]) 0 02/01/2024 Overview (02/01/2024): Started about five hours after delivery. The placenta had delivered intact. hemorrhage ([facility]) 02/01/2024 Uterine contractions ([facility]) 01/17/2023 Cramping affecting , antepartum ([facility]) 11/13/2022 28 weeks gestation of ([facility]) 2022 Dehydration 11/13/2022 Overview (11/13/2022): Specific gravity 1.030 Dark colored urine Pyelonephritis affecting ([facility]) ([facility]) 02/10/2021 Normal labor and delivery ([facility]) 02/10/2021 Term ([facility]) 02/10/2021 Overview (02/10/2021): EDC 02/10/2021 Smoker 02/10/2021 Encounter for elective induction of labor ([facility]/ [facility]) 02/03/2021 Social History Tobacco Use [...] Sometimes 02/01/2024 [facility] Utilities Answer Date Recorded In the past 12 months has e [employer], gas, oil, or water [employer] threatened to shut off services in your [...] often do you attend chur ch or christian services? Never 02/01/2024 Do you belong to any clubs o r organizations such as worship groups, unions, fraternal or athletic groups, or [...] and heating? Not hard at all 02/01/2024 [facility] [employer] [facility] - Occupational Stress [...] any time in the past 12 m [facility], were you homeless or living in a care home (including now)? 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
--- OUTSIDE RECORDS SUMMARY | 2025-01-11 05:19 | XMS_ITS | Clinical Summary ---
Author Organization [facility] Address [address] [place] [address] Care Team Providers Care Dining Room Supervisor Name Role Phone Unavailable Primary Care Provider Unavailabl e Source Comments [facility] [employer],non-owned Affiliates and Associated Physician Practices is amultiple site organization consisting of ambulatory clinics and hospital sitesin [place], [place], [place] and [place]. This disclosure is being madepursuant to the Care Everywhere program and may not contain all information available regarding this patient. Last updated 18.[facility] [employer] Allergies No known active allergies Medications * [...]
--- OUTSIDE RECORDS SUMMARY | 2025-01-11 05:19 | XMS_ITS | Encounter Summary ---
Author Organization [facility] Address [address] [place] [address] Care Team Providers Care Ground Crewman Name Role Phone Sid Solis MD Unavailable [phone] Mundo Raines MD Unavailable Unavailable Sid Solis MD Primary Care Provider [phone] Encounter Details Date Type Department Care Team (Late st Contact Info) Description 03/28/2019 Abstract [facility] CONVERSION [address] [place] [address] , Generic Conversion, Social History Tobacco Use Types Packs/Day Years Used Date Smoking Tobacco: Never Assessed Comments Unknown Sex and Gender Information Value Date Recorded Sex Assigned at Not on file 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
--- OUTSIDE RECORDS SUMMARY | 2025-01-11 05:19 | XMS_ITS | Data Portability ---
Author Organization [facility] Address [address] [place] [address] [place] [address] Care Team Providers Care Terrazzo Polisher Helper Name Role Phone CALLY GHOSH Primary Care Provider [phone] Assessment Encounter Date Assessment Date Assessment LastModified [...] available Not available Lab CBC 2024 025 [facility] (Lab), [address], [place], [address], 12/31/2024 04:01:33 Referral None recorded. Procedures None recorded. Surgeries None recorded. Imaging US, obstetric , follow-up 2024 025 [email or web address] [place] [facility] [address], [place], [address], 11/23/2024 20:45:50 Medication Orders None recorded. Patient [...] used inter bermudez eably . Not Available [facility] (Lab) [address], [place], [address], 09/04/2024 15:23:59 09/03/20 24 09/03/2024 HIV 1/2 ANTIG EN/AN TIBOD Y, REFLE X CONFI RMATI ON HIV antigen/anti body Nonrea ctive nonrea ctive HIV-1 antig en and HIV-1 /HIV- 2 antib odies were not detec rafa. No labor atory evide nce of HIV infec tion. Not Available [facility] (Lab) [address], [place], [address], 09/04/2024 15:23:59 09/03/20 24 09/03/2024 HEPAT ITIS C ANTIB SAV SCREE N, REFLE X TO CONFI RMATI ON hepatitis C antibody Non-re active non-re active Antib odies to HCV Not Detec rafa, does not exclu de the possi bilit y of expos ure to HCV. Not Available [facility] (Lab) [address], [place], [address], 09/04/2024 15:24:00 09/03/20 24 09/03/2024 HERPE S SIMPL EX VIRUS TYPE 2 SPECI FIC AB, IGG herpes simplex virus 2 IgG Negati ve negati ve Not Available [facility] (Lab) [address], [place], [address], 09/04/2024 15:24:00 09/03/20 24 09/03/2024 HERPE S SIMPL EX VIRUS TYPE 2 SPECI FIC AB, IGG herpes simples virus 2 IgG, quant <0.2 ai 0.0-0. 8 Not Available [facility] (Lab) [address] [facility], [place], [address], 09/04/2024 15:24:00 09/03/20 24 09/03/2024 HEPAT ITIS B CORE, IGM hepatitis B core IgM antibody Non-re active non-re active IgM anti- HBc not detec rafa. Does not exclu de the possi bilit y of expos ure to or infec tion with HBV. Not Available [facility] (Lab) [address] [facility], [place], [address], 09/04/2024 15:24:00 09/03/20 24 09/03/2024 RPR SCREE N, REFLE X TITER /CONF IRMAT ION RPR screen Nonrea ctive nonrea ctive Not Available [facility] (Lab) [address] [facility], [place], [address], 09/04/2024 15:24:00 09/03/20 24 09/03/2024 CT/GC AND TRICH OMONA S VAGIN LYN (RRNA ), URINE chlamydia trachomatis, PCR Negati ve negati ve Not Available [facility] (Lab) [address] [facility], [place], [address], 09/04/2024 23:04:24 09/03/20 24 09/03/2024 CT/GC AND TRICH OMONA S VAGIN LYN (RRNA ), URINE neisseria gonorrhoeae, PCR Negati ve negati ve Not Available [facility] (Lab) [address] [facility], [place], [address], 09/04/2024 23:04:24 09/03/20 24 09/03/2024 CT/GC AND TRICH OMONA S VAGIN LYN (RRNA ), URINE trichomonas vaginalis ribosomal RNA (rrna) Negati ve negati ve Not Available [facility] (Lab) [address] [facility], [place], [address], 09/04/2024 23:04:24 09/03/20 24 09/03/2024 CULTU RE: URINE result report SEE RESULT S BELOW Test: Cultu re: Urine Speci men Sourc e: Urine - Clean Catch Speci men Type: Urine Speci men Date: 09/03 1137 Resul t Date: 09/041 Resul t Statu s: Final resul t Abnor mal: No Resul ting Lab: [facility] [address] [facility] [address] Tel: CULTU RE ----- ----- ----- --- No growt h in 1 day (dete ction level of 10,00 0 colon ies / ml.) Not Available [facility] (Lab) [address], [place], [address], 09/04/2024 23:04:25 09/03/20 24 09/03/2024 urina lysis , dipst ick Leukocytes ++ Not Available Vivi philippe [address], [place], [address], 09/03/2024 12:16:39 09/03/20 24 09/03/2024 urina lysis , dipst ick Urobilinogen + Not Available Tha montemayor [address], [place], [address], 09/03/2024 12:16:39 09/03/20 24 09/03/2024 urina lysis , dipst ick Protein ++ Not Available [address], [place], [address], 09/03/2024 12:16:39 09/03/20 24 09/03/2024 urina lysis , dipst ick pH 5 Not Available Gloria [address], [place], [address], 09/03/2024 12:16:39 09/03/20 24 09/03/2024 urina lysis , dipst ick Blood +++ Not Available [place] [address], [place], [address], 09/03/2024 12:16:39 09/03/20 24 09/03/2024 urina lysis , dipst ick Specific [place] 1.025 Not Available [facility] [address], [place], [address], 09/03/2024 12:16:39 09/03/20 24 09/03/2024 urina lysis , dipst ick Ketone ++ Not Available [place] [address], [place], [address], 09/03/2024 12:16:39 11/23/19 25 11/23/2024 HEMAT OCRIT (HCT) HCT 28.9 % (based on docume nted legal sex) 34.0-4 5.0 low Not Available [facility] (Lab) [address] [place], [address], 11/24/2024 14:20:49 11/23/19 25 11/23/2024 HEMOG LOBIN (HGB) HGB 9.4 g/dL (based on docume nted legal sex) 11.6-1 5.4 low Not Available [facility] (Lab) [address] [facility], [place], [address], 11/24/2024 14:20:49 11/23/19 25 11/23/2024 GTT - GESTA PUNEET Dylon Covarrubias, ACOG OB glucose, 1 hour screen 118 mg/dL 70-135 Not Available [facility] (Lab) [address] [place], [address], 11/24/2024 14:20:50 11/23/19 25 11/23/2024 HIV 1/2 ANTIG EN/AN TIBOD Y, REFLE X CONFI RMATI ON HIV antigen/anti body Nonrea ctive nonrea ctive HIV-1 antig en and HIV-1 /HIV- 2 antib odies were not detec rafa. No labor atory evide nce of HIV infec tion. Not Available [facility] (Lab) [address] [facility], [place], [address], 11/24/2024 14:20:51 11/23/19 25 11/23/2024 RPR SCREE N, REFLE X TITER /CONF IRMAT ION RPR screen Nonrea ctive nonrea ctive Not Available [facility] (Lab) [address] [facility], [place], [address], 11/24/2024 14:20:51 12/25/19 25 12/24/2024 CULTU RE: [...] Resul ting Lab: [facility] [address] [facility] [address] Tel: CULTU RE ----- ----- ----- --- No Group B strep isola rafa at 2 days (shyanne ctive broth enhan cemen t) Not Available [facility] (Lab) [address] [facility], [place], [address], 12/27/2024 15:49:57 09/03/20 24 09/03/2024 US, obste tric, 2nd or 3rd trime ster No observ ation record ed. [email or web address] [place] [address], [place], [address], 09/03/2024 13:54:00 09/03/20 24 09/03/2024 US, obste tric, 2nd or 3rd trime ster No observ ation record ed. [facility] [address], [place], [address], 09/05/2024 02:22:00 11/23/19 25 11/23/2024 US, obste tric, follo w-up No observ ation record ed. [email or web address] [place] [address], [place], [address], 11/23/2024 18:35:58 11/23/19 25 11/23/2024 US, obste tric, follo w-up No observ ation record ed. [facility] [address], [place], [address], 11/24/2024 12:57:00 01/09/20 25 01/08/2025 imagi ng/di agnos tic resul t No observ ation record ed. [address] [facility] [address], [place], [address], 01/10/2025 22:09:49 Result Notes None recorded. Problems Name Problem SNOMED Code Status Onset Date Resolution Date Notes Provider Name and Address Organization Details Recorded Time 13131290 Active 2023 Michelle del cid, [facility] 4 15:22:25 Grand multipara 01289212 Active Rajinder Steele MD [address], [place], [address], [facility] 4 15:43:59 Postpartu m hemorrhag e 24278596 Active Rajinder Steele MD [address], [place], [address], [facility] 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 4 09:42:01 Otoniel dowdi ty disorder Active Rajinder Steele MD [address], [place], [address], [facility] 4 11:05:20 Mood disorder 47539106 Active Rajinder Steele MD [address], [place], [address], [facility] 4 11:05:29 Anemia 799638222 Active Iron infusion - Order faxed 11/[address] [facility] 5 10:48:06 Anemia 187249655 Active Iron infusion - Order faxed 11/27 Martha Burnham [facility], [facility] 5 10:48:06 Problem Notes None recorded. Procedures Surgical History Date Name Laterality Status Provider Name and Address Organization Details Recorded Time 4 Date of Last Pap Smear completed [facility] 06/18/2024 12:04:30 procedure on ankle completed [facility] 06/18/2024 12:10:23 surgical procedure on eye proper using laser completed [facility] 06/18/2024 12:10:48 Imaging Results Imaging Date Name Status LastModified by Organiz ation Details LastModified Time 09/03/2024 US, obstetric, 2nd or 3rd trimester completed [email or web address] [place] [address], [place], [address], 09/03/2024 13:54:00 09/03/2024 US, obstetric, 2nd or 3rd trimester completed [facility] [address], [place], [address], 09/05/2024 02:22:00 11/23/2024 US, obstetric, follow-up completed [email or web address] [place] [address], [place], [address], 11/23/2024 18:35:58 11/23/2024 US, obstetric, follow-up completed [facility] [address] [facility], [place], [address], 11/24/2024 12:57:00 01/08/2025 imaging/diagno stic result active [email or web address] [facility] [address], [place], [address], 01/10/2025 22:09:49 Procedure Notes None recorded. Medical Equipment None Reported. Allergies Allergen ID Allergen Name Allergen Category Reaction Reaction Severity Criticality Documentation Date Start Date Code Code System Note Provider Name and Address Organization Details Recorded Time 20478 codeine medicatio n Not available Not available Not available 06/18/2024 2670 RxNorm Michelle Bliss [facility], [place] - [facility] 12:05:10 Medications Name Sig Start Date [...] Address Organization Details Last Updated DateTime 10/01/2024 36607.6707 6 g 96 mm[Hg] 60 mm[Hg] Michelle [facility] 10/01/2024 10:47:03 Date Recorded Body weight Systolic blood pressure Diastolic blood pressure Provider Name and Address Organization Details Last Updated DateTime 11/23/2024 82440.4478 7 g 110 mm[Hg] 68 mm[Hg] [facility] 11/23/2024 16:36:08 Date Recorded Body weight Systolic blood pressure Diastolic blood pressure Provider Name and Address Organization Details Last Updated DateTime 12/07/2024 47596.8555 g 113 mm[Hg] 74 mm[Hg] [facility] 12/07/2024 17:26:54 Date Recorded Body weight Systolic blood pressure Diastolic blood pressure Provider Name and Address Organization Details Last Updated DateTime 12/24/2024 15810.4478 7 g 105 mm[Hg] 65 mm[Hg] [facility] 12/24/2024 17:29:18 Social History Question Answer Notes LastModified by Organizat ion Details LastModified Time Tobacco Smoking Status Former Smoker [facility] 06/18/2024 12:09:23 What Is Your Level [...] SNOMED-CT Code Diagnosis ICD10 Code Diagnosis Note [id number] Mary Grace Harp [place] [address] [address] 06/18/2024 10:48:20 06/18/2024 11:38:09 [id number] Rajinder Steele MD [place] [address],[place] [address] 06/18/2024 10:59:37 06/18/2024 13:57:55 Headache 43876183 R51.9 Routine an tenatal care 515540654 Z34.90 Amenorrhea 70160729 N91. 2 830598 [facility] [address],[place] [address] 07/13/2024 11:35:58 07/13/2024 13:34:09 screening 017556024 Z36.82 Z3A.13 [id number] Rajinder Steele MD [place] [address],[place] [address] 08/07/2024 14:50:09 08/07/2024 15:52:06 Routine care 558170383 Z34.90 155196 [facility] [address],[place] [address] 09/03/2024 10:54:10 09/03/2024 12:13:11 screening for malformation 272033391 Z36.3 Z3A.20 [id number] Rajinder Steele MD [place] [address],[place] [address] 09/03/2024 10:54:23 09/03/2024 12:46:59 Urinary symptoms 936331681 R39.9 Sexually t ransmitted infectious disease 5253207 A64 Upper resp iratory infection 40160768 J06.9 [id number] MD Gloria Latham [address],[place] [address] 10/01/2024 10:27:59 10/01/2024 11:06:56 Routine care 825536923 Z34.90 [id number] MD Gloria Latham [address],[place] [address] 11/23/2024 16:03:37 11/23/2024 17:20:01 Routine care 359514676 Z34.90 315854 Mary Grace Harp [place] [address],[facility] [place] [address] 11/23/2024 17:07:37 11/23/2024 17:10:17 Placenta circumvallata 4913545 O43.113 Z3A.32 685353 Rajinder Steele MD [place] [address],[place] [address] 12/07/2024 17:11:13 12/07/2024 17:37:48 Routine care 563880830 Z34.90 [id number] Rajinder Steele MD [place] [address],[place] [address] 12/24/2024 16:55:47 12/24/2024 17:44:26 Anemia 866598377 D64.9 Routine an tenatal care 335231418 Z34.90 Health Concerns Section Related Observation LastModified by Organization Detai ls LastModified Time None Recorded Concern Status LastModified by Organization Details LastModified Time None Recorded Advance Directives Directive None Recorded Payers Encounter Date Sequence Insurance Name Policy Number Policy Aguayo Covered Member ID Aguayo Member ID Guarantor Name 10/01/2024 1 [employer] [place] ([place] [id number] Michelle Amarillo [id number] Michelle Jeremiah 11/23/2024 1 [employer] [place] [id number] Michelle Amarillo [id number] Michelle Jeremiah 11/23/2024 1 [employer] [place] [id number] Michelle Amarillo [id number] Michelle Jeremiah 12/07/2024 1 [facility] (MEDICAID HMO) [id number] Michelle Jeremiah [id number] Michelle Amarillo 12/24/2024 1 [employer] [place] [id number] Michelle Jeremiah [id number] Michelle Jeremiah OBGyn Episode Ob Episode Information Episode Created Date Number of Fetuses Patient Bloodtype Patient rh Status Prepregnancy Weight lbs Domestic Partner Domestic Partner Phone Father Name Pocket Assembler Status 06/18/20 24 1 CLOSED Fetus Data First Name Last Name Admitted to NICU Weight (g) Sex Living Outcome Pediatric Complications Fetus ID Race Codes Race Delivery Type 3515.33 8 Full Term 83564 Vaginal Delivery Flash Calculation Initial Flash Date [...] Domestic Partner Domestic Partner Phone Father Name Pocket Assembler Status 06/18/20 24 1 CLOSED Fetus Data First Name Last Name Admitted to NICU Weight (g) Sex Living Outcome Pediatric Complications Fetus ID Race Codes Race Delivery Type , Spontane ous 64590 Flash Calculation Initial Flash Date Initial Exam [...] Domestic Partner Domestic Partner Phone Father Name Pocket Assembler Status 06/18/20 24 1 CLOSED Fetus Data First Name Last Name Admitted to NICU Weight (g) Sex Living Outcome Pediatric Complications Fetus ID Race Codes Race Delivery Type 3515.33 8 Full Term 67967 Vaginal Delivery Flash Calculation Initial Flash Date [...] Domestic Partner Domestic Partner Phone Father Name Pocket Assembler Status 06/18/20 24 1 CLOSED Fetus Data First Name Last Name Admitted to NICU Weight (g) Sex Living Outcome Pediatric Complications Fetus ID Race Codes Race Delivery Type 3543.46 0704 F Full Term 03731 Vaginal Delivery Flash Calculation Initial Flash Date [...] Domestic Partner Domestic Partner Phone Father Name Pocket Assembler Status 08/07/20 24 1 B Positive OPEN Fetus Data First Name Last Name Admitted to NICU Weight (g) Sex Living Outcome Pediatric Complications Fetus ID Race Codes Race Delivery Type 64053 Problems Problem Notes [facility] in - [facility]ed [facility] 1030 Level II us and consult Problem Name Start Date End Date Resolution Snomed Code Not e Borderline personality disorder 04592618 Grand multipara 51810287 hemorrhage 85207983 Placenta circumvallata 8845459 rpt 32wks Mood disorder 67373617 Anemia 743828494 Iron infus ion - Order faxed 2/7 Flash Calculation Initial Flash Date Initial Exam [...] Type Weight in lbs Pre/Post Dialysis Refused 147.438422069532 BP Diastolic BP Location Tested BP Systolic [...] Type Weight in lbs Pre/Post Dialysis Refused 145.6178327884 BP Diastolic BP Location Tested BP Systolic [...] Type Weight in lbs Pre/Post Dialysis Refused 148.425729990870 BP Diastolic BP Location Tested BP Systolic [...] Type Weight in lbs Pre/Post Dialysis Refused 151.572034936857 BP Diastolic BP Location Tested BP Systolic [...] Type Weight in lbs Pre/Post Dialysis Refused 150.956897095550 BP Diastolic BP Location Tested BP Systolic [...] Type Weight in lbs Pre/Post Dialysis Refused 151.230963698097 BP Diastolic BP Location Tested BP Systolic [...] Domestic Partner Domestic Partner Phone Father Name Pocket Assembler Status 06/18/20 1 CLOSED Fetus Data First Name Last Name Admitted to NICU Weight (g) Sex Living Outcome Pediatric Complications Fetus ID Race Codes Race Delivery Type 3685.43 5 F Full Term 16333 Vaginal Delivery Flash Calculation Initial Flash Date [...] Domestic Partner Domestic Partner Phone Father Name Pocket Assembler Status 06/18/20 1 CLOSED Fetus Data First Name Last Name Admitted to NICU Weight (g) Sex Living Outcome Pediatric Complications Fetus ID Race Codes Race Delivery Type 3572.03 7 Full Term 31194 Vaginal Delivery Flash Calculation Initial Flash Date [...] Domestic Partner Domestic Partner Phone Father Name Pocket Assembler Status 06/18/20 24 1 CLOSED Fetus Data First Name Last Name Admitted to NICU Weight (g) Sex Living Outcome Pediatric Complications Fetus ID Race Codes Race Delivery Type 3572.03 7 F Full Term 70878 Vaginal Delivery Flash Calculation Initial Flash Date [...]
[2025-01-11] MEDS: OXYTOCIN 30 UNITS/NS 500 ML 30 UNITS/500 ML BAG IV CONT (06:04)
[2025-01-11] MEDS: LACTATED RINGERS 1,000 ML 125 ML IV CONT ×2 (06:04→07:21)
[2025-01-11 06:15] LABS: Basophils Percent Auto 0.2 % (0.2-1.2); Eosinophils Absolute Auto 0.1 K/mm3 (0-0.3); Eosinophils Percent Auto 1.4 % (0-4.4); Hematocrit 31.2 % (37.0-47.0); Hemoglobin 10.2 g/dL (12.0-15.0); Immature Granulocyte Absolute 0.11 K/mm3 (0.00-0.031); Immature Granulocyte Percent A 1.1 % (0-0.5); Lymphocytes Absolute Auto 2.95 K/mm3 (0.9-3.2); Lymphocytes Percent Auto 29.4 % (18.3-44.2); Mean Corpuscular HGB Conc 32.7 g/dl (32-36); Mean Corpuscular Hemoglobin 30.4 pg (26-34); Mean Corpuscular Volume 93.1 fl (80-100); Mean Platelet Volume 11.4 fl (7.4-10.4); Monocytes Absolute Auto 0.6 K/mm3 (0.1-0.6); Monocytes Percent Auto 6.2 % (2.6-8.5); Neutrophils Absolute Auto 6.2 K/mm3 (1.3-6.7); Neutrophils Percent Auto 61.7 % (45.5-73.1); Platelet Count Result 147 k/mm3 (150-375); Red Blood Count 3.35 M/mm3 (4.2-5.4); Red Cell Distribution Width 15.8 % (11.5-14.5)
--- NOTE | 2025-01-11 06:34 | LDADM ---
This patient, Michelle Daniels, was admitted to Labor/Delivery/Recovery 107 on 01/11/25 at 05:10. Plans for labor, pain management and were discussed with patient. Patient/family oriented to hospital policies and general routines including ID bracelet, bed and alarms, visiting hours, pain management, procedures, bathroom and other care routines, personal items, smoking policy, room service/diet and guest tray routines, security routines, and visiting hours. Patient/Family are encouraged to report perceived risks to care and to ask questions if they do not understand what they are told or what they should do. See OBIX for further documentation.
[2025-01-11 07:01] LABS: Syphilis IgG/IgM Antibody Negative (Negative)
--- NOTE | 2025-01-11 07:02 | WPDANESEPP ---
Anes - Eval Pre Procedure Procedure: labor epidural Date/Time: 01/11/25 07:02 Surgeon: dago Preop Diagnosis: pain during labor Pre Op Diagnosis: IOL Patient Data Age: 34 Gender: F Height: 1.6 m Weight: 70 kg Last Vital Signs Pulse 74 01/11/25 07:00 BP 112/61 01/11/25 07:00 O2 Del Method Room Air 01/11/25 06:21 Allergies Allergy/AdvReac Type Severity Reaction Status Date / Time codeine Allergy Intermediate rash Verified 12/24/24 14:36 Home Medications ?Medication ?Instructions ?Recorded ?Confirmed ?Type No Home Medications 12/10/24 01/11/25 History Laboratory Tests 01/11/25 05:56 WBC 10.0 K/mm3 (4.5-10.0) RBC 3.35 L M/mm3 (4.2-5.4) Hgb 10.2 L g/dL (12.0-15.0) Hct 31.2 L % (37.0-47.0) MCV 93.1 fl (80-100) MCH 30.4 pg (26-34) MCHC 32.7 g/dl (32-36) RDW 15.8 H % (11.5-14.5) Plt Count 147 L k/mm3 (150-375) MPV 11.4 H fl (7.4-10.4) Immature Gran % (Auto) 1.1 H % (0-0.5) Neut % (Auto) 61.7 % (45.5-73.1) Lymph % (Auto) 29.4 % (18.3-44.2) [place] % (Auto) 6.2 % (2.6-8.5) Eos % (Auto) 1.4 % (0-4.4) Baso % (Auto) 0.2 % (0.2-1.2) Lymph # (Auto) 2.95 K/mm3 (0.9-3.2) [place] # (Auto) 0.6 K/mm3 (0.1-0.6) Eos # (Auto) 0.1 K/mm3 (0-0.3) Baso # (Auto) 0.0 K/mm3 (0.0-0.1) Abs Immat Gran (auto) 0.11 H K/mm3 (0.00-0.031) Absolute Neuts (auto) 6.2 K/mm3 (1.3-6.7) Absolute Nucleated RBC 0.000 K/mm3 (0.0-0.012) Nucleated RBC % 0.0 % (0.0-0.2) Syphilis IgG/IgM Ab Negative (Negative) HIV 1&2 Ab/P24 Ag 4thGn Pending Patient hx anesthesia problems: none Family hx anesthesia problems: none Results Review: All pre-operative results and documents have been reviewed as part of the pre-operative evaluation. [facility] Surgical History Surgical History History of ankle surgery right ankle fracture repair. History of ankle surgery History of eye surgery left eye -lazy eye. Family History Family History (Updated 01/11/25 @ 06:35 by Zena Solano RN) Sibling Acute myocardial infarction Social History Social History Smoking packs per day: 0.5 Smoking cigarettes per day: 10.0 Years smoked: 20 Smoking pack-years: 10.00 Smoking status: Heavy tobacco smoker Tobacco type: cigarettes Second hand tobacco smoke exposure: Yes Alcohol intake: current Alcohol use details: social Substance use: former Substance use type: does not use Do You Feel Safe in your Home?: Yes Lack of Transportation: No Lack of Food: Never True Current Housing: I Have Housing Concerned About Future Housing: No Difficulty Paying Gas/Electric Bills: No Difficulty Paying for Meds: No Currently Unemployed: No Education: High School Diploma/GED Difficulty w/ Childcare or Family Care: No Living arrangements: with family Additional living arrangements comments: , has 4 children Spiritual care concerns: No Exam Day of Procedure 01/11/25 07:02
[2025-01-11 07:09] LABS: HIV 1/2 Ab P24 Ag Result Negative (Negative)
[2025-01-11] MEDS: fentaNYL CITRATE INJ (*CRX) 100 MCG/2 ML VIAL 50 MCG IV PUSH (07:20)
--- NOTE | 2025-01-11 08:35 | WPDHPUPDATE1 ---
History and Physical Update Update Date/Time: 01/11/25 08:35 34-year-old female who presents for elective induction of labor. Artificial rupture membranes was performed. Active management of labor with Pitocin is underway. Reassuring status. History and Physical has been reviewed, including an updated exam of the patient. There are NO changes in the patient's condition. Risks, benefits, and alternatives have been discussed and questions answered. Patient agrees to proceed with procedure.
[2025-01-11] MEDS: ACETAMINOPHEN 325 MG TABLET 650 MG PO ×2 (09:01→17:18)
[2025-01-11] MEDS: LORATADINE 10 MG TABLET PO (12:15)
--- NOTE | 2025-01-11 12:59 | PM.OBPRVD ---
OB - Vaginal Delivery Note Procedure Delivery date: 01/11/25 Induction method: AROM and Per Pitocin Protocol Delivery monitor: External FHT and Internal Uterine Route of delivery: Episiotomy description: None Laceration Description: None Specimen: No Quantitative Blood Loss (ml): 400 Anesthesia type: Epidural Disposition: Floor
[2025-01-11] MEDS: OXYTOCIN 30 UNITS/NS 500 ML 30 UNITS/500 ML BAG 125 UNITS IV CONT (13:16)
[2025-01-11] MEDS: WITCH HAZEL 40 PADS 1 PAD TOPICAL (15:38)
--- NOTE | 2025-01-11 16:10 | OBPPTRN ---
Patient transferred to post room # 282 via wheelchair. Support person present. Oriented to unit, room, information board, rooming in, admission packet and security measures. Patient verbalizes understanding.
[2025-01-11] MEDS: IBUPROFEN 600 MG TABLET PO (17:18)
--- NOTE | 2025-01-11 17:26 | PC.NURSE ---
1700. Provided patient with a carseat per their request. Infants father reports they have everything else: crib, diapers, wipes, etc. But they forgot to get a carseat and would like one if the hospital could provide one. Reported to primary RN.
--- NOTE | 2025-01-11 17:48 | PC.NURSE ---
1645. Introductions were made, then consulted with patient to assess needs related to . Mom reports she plans to pump and feed her infant colostrum, and then she would like to switch to bottle feeding with formula. SHe reports she has her own pump at home she plans on using. She did explain that she needs a carseat, but she has everything else for the baby at home. She expressed she feels prepared for bringing baby home except for a carseat. Encouraged mother to express any questions or concerns she has regarding feedings. Advised her to call out for a latch check or if she needs assistance waking or positioning baby. Reviewed the blue feeding worksheet for required output and feeding at least 8-12 times every 24 hours. Resources provided for inpatient and outpatient services with the feeding sheet, mom/baby guide, admission packet and name/number written on the communication board. Mother voiced understanding of information and will call if there is a request for assistance. Reported to the Primary RN.
--- NOTE | 2025-01-11 17:55 | PC.NURSE ---
1700. Breast pump provided due to moms preference to pump and feed colostrum. Instructions given on cleaning, care, usage, that there should be no pain, pumping schedule for milk production, collection, and storage of human milk. Patient was assessed for correct placement, flange size, to pump for comfort and nipple stretching/stimulation for adequate milk production every 3 hours (8 times in 24 hours) 1-2 times at night. Parents are encouraged to record the pumping schedule on the feeding sheet.?Mother voiced understanding of the education shared along with mom/baby guide and the pump measurement, flange fit handout for additional resource information. Reported to the Primary RN.
[2025-01-11] MEDS: HYDROcodone/acetaminophen (*CRX) 5-325 MG TABLET 1 TAB PO (22:48)
[2025-01-12 00:35] VITALS: BP 111/47; PULSE 51; RESP 16; TEMP 36.6; O2SAT 98
[2025-01-12] MEDS: IBUPROFEN 600 MG TABLET PO ×4 (02:19→23:18)
[2025-01-12] MEDS: ACETAMINOPHEN 325 MG TABLET 650 MG PO ×4 (02:20→23:17)
[2025-01-12] MEDS: HYDROcodone/acetaminophen (*CRX) 5-325 MG TABLET 1 TAB PO ×3 (04:44→19:53)
[2025-01-12 04:59] VITALS: BP 97/50; PULSE 45; RESP 16; TEMP 36.8; O2SAT 97
[2025-01-12 06:19] LABS: Hematocrit 25.1 % (37.0-47.0); Hemoglobin 8.2 g/dL (12.0-15.0)
--- NOTE | 2025-01-12 08:16 | ECG_ITS ---
Test Date: 2025-01-12 09:16:13 Measurements Intervals [place] Rate: 42 P: -7 RI: 170 QRS: 50 QRSD: 77 T: 40 QT: 464 QTc: 388 Interpretive Statements SINUS BRADYCARDIA No previous ECG available for comparison Electronically Signed On 01-12-2025 16:41:42 CDT by Allen Aguilar M.D.
[2025-01-12 08:19] VITALS: BP 100/63; PULSE 50; RESP 14; TEMP 36.5; O2SAT 100
--- NOTE | 2025-01-12 08:21 | P.PNOB_ITS ---
OB - PN: Subj Subjective Date/time seen: 01/12/25 08:21 Patient comments: no complaints, pain well controlled, incisional pain, tolerating diet and flatus present Narrative: reports chest pain, with cramping, wants cardiac eval OB - PN: Obj Data Labs 01/12/25 04:49 Labs: Laboratory Results - last 24 hr 01/12/25 04:49 Hgb 8.2 L Hct 25.1 L OB - PN A/P Assessment and Plan (1) Chest pain: Code(s): R07.9 - Chest pain, unspecified Status: Acute Assessment and Plan: to evaluate Plan day: 1 Plan: routine care Comments: No problems, routine care Time Spent With Patient Time: Total time spent is greater than 50% in coordination of care (as documented) at patient's floor/unit and/or counseling patient: Exam 2 Const: General: comfortable, no acute distress and alert Resp: Effort & Inspection: normal respiratory effort Auscultation: no crackles, no rales and no rhonchi Cardio: Rate: regular rate Heart sounds: no click, no murmurs and no rubs GI: Inspection: non-distended GI Palp: No Tenderness to palpation present (GI) Auscultation: normal bowel sounds Other: Incision - CDI Extrem: General: normal to inspection, no pedal edema and no calf tenderness
--- NOTE | 2025-01-12 08:40 | PC.NURSE ---
Mother verbalizes she is able to independently latch with appropriate positioning and alignment. She denies any nipple discomfort and is responsively . Infant is currently meeting outcomes for weight, output, jaundice, blood sugar and feeding frequencies of 8-12 times in 24 hours. Mom chooses to pump and supplement in addition to . Mother declines any additional assistance or education at this time. She has a breast pump at home and is already signed up with [facility]. Mother is encouraged to call for assistance if her infant doesn?t latch, pain with latching, questions or concerns. Mother voiced understanding of information shared along with the mom/baby guide for an additional resource. Reported to the Primary RN.
[2025-01-12] MEDS: DOCUSATE SODIUM 100 MG CAPSULE PO ×2 (09:00→16:41)
[2025-01-12] MEDS: MULTIVIT/MIN/PREN/FOL AC/IRON TABLET 1 TAB PO (09:01)
[2025-01-12] MEDS: POLYSACCHARIDE IRON COMPLEX 150 MG CAPSULE PO ×2 (09:01→16:41)
[2025-01-12 10:40] LABS: Creatine Kinase 37 U/L (30-135)
[2025-01-12 10:53] LABS: Troponin I < 0.012 ng/mL (0.000-0.034)
[2025-01-12 11:43] VITALS: BP 90/52; PULSE 57; RESP 14; TEMP 36.4; O2SAT 98
--- NOTE | 2025-01-12 13:45 | PC.NURSE ---
pt had been complaining of chest pressure and lower back pain. Pt has a lot going on at home right now, she has 6 children at home, her is currently in the ER being seen with bowel issues. I asked if she thought it was anxiety, she thought it possibly could be. I gave her pain meds and told her to try and rest and sleep if possible. An hour later I checked on her and she states that the chest pain is gone and her back pain is better. She feels like it may have been anxiety related.
[2025-01-12 19:35] VITALS: BP 103/58; PULSE 68; RESP 16; TEMP 36.7; O2SAT 98
[2025-01-13] VITALS (14 sets, daily range): BP systolic 101–115; BP diastolic 57–71; PULSE 42–59; RESP 16; TEMP 36.6–37; O2SAT 96–99
--- NOTE | 2025-01-13 | ECHO_ITS ---
Patient Info Name: Michelle Daniels Age: 34 years : 1990 Gender: Female Ht: 63 in Wt: 154 lbs BSA: 1.78 m2 HR: 60 bpm BP: 106 / 57 mmHg Heart Rhythm: Sinus Rhythm Technical Quality: Good Exam Date: 01/13/2025 11:03 AM Exam Location: Echo Lab Patient Status: Inpatient Admit Date: 01/11/2025 Staff Ordering Physician: Shy Pike APRN Basket Person: Shabana Ruiz RDCS Attending Provider: Rajinder Steele MD Referring Physician: Shahzad DOWNS; Exam Type: CA echo doppler color flow Study Info Indications - Chest Pain Complete two-dimensional, color flow and Doppler transthoracic echocardiogram is performed. Strain analysis performed. Summary 1. Complete two-dimensional, color flow and Doppler transthoracic echocardiogram is performed. 2. Left ventricular chamber dimension is normal. 3. Left ventricular systolic function is normal, estimated at 60-65%. 4. The left ventricular diastolic function is normal. 5. Right ventricular systolic function is normal. 6. There is mild mitral valve regurgitation. Left Ventricle Left ventricular chamber dimension is normal. Left ventricular systolic function is normal, estimated at 60-65%. There is no increased left ventricular wall thickness. The left ventricular diastolic function is normal. Global longitudinal strain is normal at -24 %. Right Ventricle Right ventricular chamber dimension is normal. Right ventricular systolic function is normal. Left Atria Left atrial chamber dimension is normal. Right Atria Right atrial chamber dimension is normal. Atrial Septum Intact interatrial septum visualized by color flow imaging. Aortic Valve The aortic valve is not well visualized. There is no aortic valve stenosis. There is no aortic valve regurgitation. Pulmonic Valve The pulmonic valve is not well visualized. There is no pulmonic regurgitation. Mitral Valve There is mild mitral valve regurgitation. Tricuspid Valve There is trace tricuspid valve regurgitation. Pericardium/Pleural There is no pericardial effusion. Inferior Vena Cava Normal inferior vena cava with >50% collapse upon inspiration consistent with normal right atrial pressure, 3 mmHg. Aorta The aortic root size at the sinus of Valsalva is normal. Left Ventricular Outflow Tract Name Value Normal LVOT 2D LVOT Diameter 2.3 cm LVOT Doppler LVOT Peak Gradient 5 mmHg LVOT Mean Gradient 3 mmHg LVOT VTI 29 cm LVOT VTI/AV VTI Ratio 0.7 LVOT Stroke Volume 118 ml LVOT CO 21.1 l/min LVOT CI 12.2 l/min/m2 Pulmonic Valve Name Value Normal PV Doppler PV Peak Gradient 4 mmHg Mitral Valve Name Value Normal MV Doppler MV Decel [facility] 554 cm/s2 MV PHT 70 ms MV Area (PHT) 3.2 cm2 4.0-5.0 MV Diastolic Function MV E Peak Velocity 133 cm/s MV A Peak Velocity 53 cm/s MV E/A 2.5 MV Decel Time 241 ms MV Annular TDI MV E/e' (Septal) 14.2 <=8.0 MV E/e' (Lateral) 7.5 <=8.0 MV E/e' (Average) 10.9 Tricuspid Valve Name Value Normal TV Regurgitation Doppler TR Peak Velocity 309 cm/s TR Peak Gradient 30 mmHg Estimated PAP/RSVP RA Pressure 3 mmHg <=5 PA Systolic Pressure 41 mmHg <36 RV Systolic Pressure 41 mmHg <36 Aorta Name Value Normal Ascending Aorta Ao Root Diameter (MM) 2.4 cm Ao Root Diam Index (MM) 1.3 cm/m2 Aortic Valve Name Value Normal AV Doppler AV Peak Velocity 172 cm/s AV Peak Gradient 12 mmHg AV Mean Gradient 8 mmHg AV VTI 44 cm AV Area (Cont Eq VTI) 2.7 cm2 >=3.0 AV Area (Cont Eq Celestino) 2.7 cm2 AV Regurgitation 2D LVOT Area 4.1 cm2 Ventricles Name Value Normal LV Dimensions 2D/MM IVS Diastolic Thickness (2D) 0.7 cm 0.6-1.0 LVID Diastole (2D) 5.6 cm 3.8-5.2 LVIW Diastolic Thickness (2D) 0.8 cm 0.6-0.9 LVID Systole (2D) 4.0 cm 2.2-3.5 LVOT Diameter 2.3 cm LV Mass (2D Cubed) 149.22 g 67.00-162.00 LV Mass Index (2D Cubed) 84 g/m2 43-95 Relative Wall Thickness (2D) 0.27 LV Fractional Shortening/Ejection Fraction 2D/MM LV Fractional Shortening (2D) 28 % 27-45 LV EF (2D Teichtriciaz) 53 % 54-74 LV Diastolic Volume (4C MOD) 174 ml LV EF (4C MOD) 61 % LV Diastolic Volume (2C MOD) 178 ml LV EF (2C MOD) 66 % LV Diastolic Volume (BP MOD) 183 ml 46-106 LV Diastolic Volume Index (BP MOD) 103 ml/m2 29-61 LV Systolic Volume (BP MOD) 63 ml 14-42 LV Systolic Volume Index (BP MOD) 35 ml/m2 8-24 LV EF (BP MOD) 66 % 54-74 LV Diastolic Length (4C) 8.3 cm LV Systolic Length (4C) 6.8 cm LV Stroke Volume (4C MOD) 106 ml Atria Name Value Normal LA Dimensions LA Dimension (MM) 4.0 cm 2.7-3.8 LA Volume (4C A-L) 101 ml LA Volume (BP A-L) 80 ml RA Dimensions RA Area (4C) 17.9 cm2 <=18.0 EchoPAC Name Value Normal AutoEF LVCO_BiP_Q (Xcnw1FLG) 5.8 l/min LVEF_BiP_Q (Plzk4LEH) 63 % LVSV_BiP_Q (Dznk1HCC) 102 ml LVVED_BiP_Q (Wjga9RYX) 161 ml LVVES_BiP_Q (Oiok5WXJ) 59 ml HR_4Ch_Q (Lmmz1NKT) 51 bpm LVCO_4Ch_Q (Vgnu8ZEM) 4.2 l/min LVEF_4Ch_Q (Zrwt3WYE) 60 % LVLd_4Ch_Q (Thno9UID) 8.0 cm LVLs_4Ch_Q (Otle8BWV) 6.3 cm LVSV_4Ch_Q (Klaf6AWU) 82 ml LVVED_4Ch_Q (Tjbc6GGJ) 137 ml LVVES_4Ch_Q (Qflg7JKK) 55 ml HR_2Ch_Q (Xmdz3NQJ) 55 bpm LVCO_2Ch_Q (Irxd1NRX) 7.3 l/min LVEF_2Ch_Q (Brce7JTO) 67 % LVLd_2Ch_Q (Hrdw1SAY) 9.3 cm LVLs_2Ch_Q (Crwo0ZZS) 7.3 cm LVSV_2Ch_Q (Uycf1IDU) 133 ml LVVED_2Ch_Q (Ardg7GGV) 198 ml LVVES_2Ch_Q (Lhyg4RII) 65 ml NERI AA peak sys SL (AWMA) 31.7 % AAS peak sys SL (AWMA) 32.8 % AI peak sys SL (AWMA) 30.9 % AP peak sys SL (AWMA) 31.5 % peak sys SL (AWMA) 32.1 % AVC (AWMA) 432 ms BA peak sys SL (AWMA) 16.1 % BAS peak sys SL (AWMA) 16.0 % BI peak sys SL (AWMA) 21.1 % BL peak sys SL (AWMA) 23.7 % BP peak sys SL (AWMA) 22.5 % BS peak sys SL (AWMA) 17.3 % G peak SL(A2C) (AWMA) 24.1 % G peak SL(A4C) (AWMA) 21.8 % G peak SL(APLAX) (AWMA) 24.6 % G peak SL(Avg) (AWMA) 23.5 % MA peak sys SL (AWMA) 25.0 % MAS peak sys SL (AWMA) 24.5 % NV peak sys SL (AWMA) 20.1 % ML peak sys SL (AWMA) 16.1 % MP peak sys SL (AWMA) 23.8 % MS peak sys SL (AWMA) 19.1 % Report Signatures
[2025-01-13] MEDS: HYDROcodone/acetaminophen (*CRX) 5-325 MG TABLET 1 TAB PO ×3 (02:49→21:57)
--- NOTE | 2025-01-13 03:33 | ECG_ITS ---
Test Date: 2025-01-13 03:49:04 Measurements Intervals [place] Rate: 42 P: -4 AK: 177 QRS: 65 QRSD: 85 T: 63 QT: 478 QTc: 401 Interpretive Statements SINUS BRADYCARDIA BASELINE ARTIFACT PRESENT Compared to ECG 01/12/2025 09:16:13 NO SIGNIFICANT CHANGES Electronically Signed On 01-13-2025 12:45:05 CDT by Allen Aguilar M.D.
[2025-01-13 04:21] LABS: Hematocrit 24.5 % (37.0-47.0); Hemoglobin 8.1 g/dL (12.0-15.0); Mean Corpuscular HGB Conc 33.1 g/dl (32-36); Mean Corpuscular Hemoglobin 30.9 pg (26-34); Mean Corpuscular Volume 93.5 fl (80-100); Mean Platelet Volume 11.1 fl (7.4-10.4); Platelet Count Result 129 k/mm3 (150-375); Red Blood Count 2.62 M/mm3 (4.2-5.4); Red Cell Distribution Width 15.3 % (11.5-14.5); White Blood Count 9.4 K/mm3 (4.5-10.0)
[2025-01-13 04:31] LABS: Anion Gap 4 mmol/L (4-12); Blood Urea Nitrogen 10 mg/dL (7-17); Calcium 8.3 mg/dL (8.4-10.2); Carbon Dioxide 22 mmol/L (22-30); Chloride 108 mmol/L (98-107); Estimated CRCL calculation 117 ml/min; Estimated Glomerular Filt Rate > 60; Glucose 81 mg/dL (65-110); Potassium 4.3 mmol/L (3.4-5.0); Sodium 134 mmol/L (137-145)
[2025-01-13 04:43] LABS: Troponin I < 0.012 ng/mL (0.000-0.034)
[2025-01-13] MEDS: DOCUSATE SODIUM 100 MG CAPSULE PO (07:55)
[2025-01-13] MEDS: POLYSACCHARIDE IRON COMPLEX 150 MG CAPSULE PO ×2 (07:55→17:08)
[2025-01-13] MEDS: MULTIVIT/MIN/PREN/FOL AC/IRON TABLET 1 TAB PO (07:55)
[2025-01-13] MEDS: IBUPROFEN 600 MG TABLET PO (07:56)
--- NOTE | 2025-01-13 08:50 | PC.NURSE ---
Mother verbalizes she is able to independently latch with appropriate positioning and alignment. She denies any nipple discomfort and is responsively . She feels like her milk is in today. is currently meeting outcomes for weight, output, jaundice, blood sugar and feeding frequencies of 8-12 times in 24 hours. Mother declines any additional assistance or education at this time. Mother is encouraged to call for assistance if her doesn?t latch, pain with latching, questions or concerns. Mother voiced understanding of information shared along with the mom/baby guide for an additional resource. Name/number on communication board. Reported to the Primary RN.
--- NOTE | 2025-01-13 10:29 | P.PNOB_ITS ---
OB - PN: Subj Subjective Date/time seen: 01/13/25 10:29 Interval history: Patient has been complaining of chest pain. She has normal cardiac enzymes. An equivocal EKG and is being seen by the hospitalist service. Patient comments: pain well controlled and tolerating diet OB - PN: Obj Data Labs 01/13/25 04:16 01/13/25 04:17 Labs: Laboratory Results - last 24 hr 01/12/25 01/13/25 01/13/25 08:32 04:16 04:17 WBC 9.4 RBC 2.62 L Hgb 8.1 L Hct 24.5 L MCV 93.5 MCH 30.9 MCHC 33.1 RDW 15.3 H Plt Count 129 L MPV 11.1 H Sodium 134 L Potassium 4.3 Chloride 108 H Carbon Dioxide 22 Anion Gap 4 BUN 10 Creatinine 0.54 L Estim Creat Clear Calc 117 Estimated GFR > 60 Glucose 81 Calcium 8.3 L Total Creatine Kinase 37 CK-MB (CK-2) Cancelled Troponin I < 0.012 < 0.012 Imaging Radiologist's impression: Impressions Chest X-Ray 01/13/25 05:18 IMPRESSION: 1. No acute cardiopulmonary disease. OB - PN A/P Plan day: 2 Plan: routine care and discharge home Comments: Patient has been complaining of chest pain. She has normal cardiac enzymes. An equivocal EKG and is being seen by the hospitalist service. We will consider discharge if evaluation is completed and stable. Time Spent With Patient Time: Total time spent is greater than 50% in coordination of care (as documented) at patient's floor/unit and/or counseling patient: Exam 2 Const: General: comfortable and no acute distress Resp: Effort & Inspection: normal respiratory effort Auscultation: no rales, no rhonchi and no wheezes Cardio: Rate: regular rate Heart sounds: no click, no murmurs and no rubs GI: GI Palp: Yes Soft to palpation and No Tenderness to palpation present (GI) Auscultation: normal bowel sounds Extrem: General: normal to inspection, no pedal edema and no calf tenderness
--- NOTE | 2025-01-13 10:30 | P.CONIM_ITS ---
Assessment and Plan Assessment and plan (1) Pulmonary embolus, left: Code(s): I26.99 - Other pulmonary embolism without acute cor pulmonale Status: Acute Assessment and Plan: * EKG showed Sinus bradycardia 42 with QTc 401. * Echocardiogram: Summary 1. Complete two-dimensional, color flow and Doppler transthoracic echocardiogram is performed. 2. Left ventricular chamber dimension is normal. 3. Left ventricular systolic function is normal, estimated at 60-65%. 4. The left ventricular diastolic function is normal. 5. Right ventricular systolic function is normal. 6. There is mild mitral valve regurgitation. * Trop negative x 2. * d dimer 3.31 * Chest CTA: IMPRESSION: 1. Left upper lobe pulmonary embolism, small thrombus burden. 2: Cardiomegaly. * Transfer to IMU to be monitored. * Lovenox 70 mg subq q 12. * LE dopplers negative. HPI Date of Consult Consult date: 01/13/25 Requesting Physician: Rajinder Steele MD Primary Care Provider: Amina Bear, SHOT GRINDER OPERATOR Consult Narrative Reason for consult: Chest pain Narrative: Michelle Daniels is a 34 year old female day 2. Patient started having chest pain last evening. Pain is worse when she lies on her left side or lays on her back. Pain is in left side of chest and goes up into her left neck, patient rates that pain a 2 , constant, pressure, and dull at present. Patient reports shortness of breath at times. Patient reports that 3 deliveries ago she developed chest pain and she thought that they told her that her heart was enlarged. Reports an occasional cough. Denies dizziness, headache, nausea, or vomiting. is at the bedside. Review of Systems 2 Review of Systems: All systems reviewed & are unremarkable except as noted in HPI and below [facility] Surgical History Surgical History History of ankle surgery right ankle fracture repair. History of ankle surgery History of eye surgery left eye -lazy eye. Family History Family History (Updated 01/11/25 @ 06:35 by Zena Solano RN) Sibling Acute myocardial infarction Social History Social History Smoking packs per day: 0.5 Smoking cigarettes per day: 10.0 Years smoked: 20 Smoking pack-years: 10.00 Smoking status: Heavy tobacco smoker Tobacco type: cigarettes Second hand tobacco smoke exposure: Yes Alcohol intake: current Alcohol use details: social Substance use: former Substance use type: does not use Do You Feel Safe in your Home?: Yes Lack of Transportation: No Lack of Food: Never True Current Housing: I Have Housing Concerned About Future Housing: No Difficulty Paying Gas/Electric Bills: No Difficulty Paying for Meds: No Currently Unemployed: No Education: High School Diploma/GED Difficulty w/ Childcare or Family Care: No Living arrangements: with family Additional living arrangements comments: , has 4 children Spiritual care concerns: No Meds Home Medications and Allergies Home Medications ?Medication ?Instructions ?Recorded ?Confirmed ?Type No Home Medications 12/10/24 01/11/25 History Allergies Allergy/AdvReac Type Severity Reaction Status Date / Time codeine Allergy Intermediate rash Verified 12/24/24 14:36 Vital Signs Vital Signs - 24 hr 01/12/25 11:43 01/12/25 19:35 01/12/25 19:35 Temperature 97.5 F L 98.0 F Pulse Rate 57 L 68 68 Respiratory Rate 14 16 16 Blood Pressure 90/52 L 103/58 L Pulse Oximetry 98 98 98 Oxygen Delivery Room Air 01/13/25 02:50 01/13/25 02:59 01/13/25 07:50 Temperature 98.6 F 98.6 F 98.2 F Pulse Rate 47 L 47 L 50 L Respiratory Rate 16 16 16 Blood Pressure 101/63 101/63 106/57 L Pulse Oximetry 96 96 98 Oxygen Delivery Room Air Exam 2 Const: General: no acute distress and uncomfortable Resp: Effort & Inspection: normal respiratory effort Auscultation: clear to auscultation bilaterally Cardio: Rate: regular rate Rhythm: regular rhythm Skin: General skin exam: no rashes or lesions noted Neuro: General: gait normal Speech: normal speech Extrem: General: pedal edema bilaterally (trace edema) Psych: Mental Status: mental status grossly normal Affect: normal affect Results Labs 01/13/25 04:16 01/13/25 04:17 Labs: Short CBC 01/13/25 Range/Units 04:16 WBC 9.4 (4.5-10.0) K/mm3 Hgb 8.1 L (12.0-15.0) g/dL Hct 24.5 L (37.0-47.0) % Plt Count 129 L (150-375) k/mm3 BMP 01/13/25 04:17 Sodium 134 L Potassium 4.3 Chloride 108 H Carbon Dioxide 22 BUN 10 Creatinine 0.54 L Glucose 81 Calcium 8.3 L Cardiac Enzymes 01/12/25 01/13/25 Range/Units 08:32 04:17 Total Creatine Kinase 37 (30-135) U/L Troponin I < 0.012 < 0.012 (0.000-0.034) ng/mL Quality VTE Prophylaxis VTE prophylaxis: pharmacologic ordered Hospitalist MIPS Advance Care Plan I have confirmed that the patient's Advanced Care Plan is present, code status is documented, or surrogate decision maker is listed in patient medical record.: Yes Medication Reconciliation I have utilized all available resources to obtain, update and review the patients current medications (includes all prescriptions, OTC, herbals, cannabis, and nutritional supplements).: Yes
--- NOTE | 2025-01-13 10:30 | PM.OBDSVD ---
DS: Admitting Diagnosis Discharge Date January 13, 2025 Admitting Diagnosis Term DS: Discharge Diagnosis Discharge Diagnosis (1) Term delivered: Code(s): O80 - Encounter for full-term uncomplicated delivery Status: Acute OB - DS: Summary OB Procedures : None OB Procedures Intrapartum: Spontaneous Vag Delivery OB Procedures: : None Peripartum Data Laceration Description: None Episiotomy description: None Time Spent with Patient Time attestation: Total time spent providing and/or coordinating discharge services: DS: Data Data Completed and Pending Labs on day of discharge: Labs from last 24 hours 01/13/25 01/13/25 01/12/25 04:17 04:16 08:32 WBC 9.4 RBC 2.62 L Hgb 8.1 L Hct 24.5 L MCV 93.5 MCH 30.9 MCHC 33.1 RDW 15.3 H Plt Count 129 L MPV 11.1 H Sodium 134 L Potassium 4.3 Chloride 108 H Carbon Dioxide 22 Anion Gap 4 BUN 10 Creatinine 0.54 L Estim Creat Clear Calc 117 Estimated GFR > 60 Glucose 81 Calcium 8.3 L Total Creatine Kinase 37 Troponin I < 0.012 < 0.012 Discharge Plan Discharge Consulting providers: Jaylyn Glover Discharging Clinician: Rajinder Steele Patient Disposition: Home, Self-Care Activity: pelvic rest Diet: regular Patient Instructions: Antibiotic Form Patient Language: [place] Citizen Stand Alone Forms: General Discharge Information Follow-up/Referrals: Rajinder Steele MD [Physician] - Discharge Medications: No Action No Home Medications Date of admission: 01/11/25 05:10 Primary Care Provider: Chema,Amina Kapoor Admitting Provider: Rajinder Steele Attending physician on admission: Rajinder Steele Condition: Stable
[2025-01-13 11:18] LABS: Magnesium 1.6 mg/dL (1.6-2.3)
[2025-01-13 12:29] LABS: D Dimer 3.31 ug/mL (<0.48)
[2025-01-13] MEDS: SODIUM CHLORIDE 0.9% IV 250 ML 100 ML (14:10)
[2025-01-13] MEDS: MAGNESIUM SULF 2 GM/WATER 50ML 2 GM/50 ML BAG IVPB (14:18)
[2025-01-13] MEDS: WITCH HAZEL 40 PADS 1 PAD TOPICAL (15:33)
[2025-01-13] MEDS: ENOXAPARIN 80 MG/0.8 ML SYRINGE 70 MG SUB-Q (15:45)
--- NOTE | 2025-01-13 16:47 | PC.NURSE ---
This patient, Michelle Daniels, was received from [facility] on 01/13/25 at 1615. Patient/family oriented to unit policies and routines
[2025-01-13] MEDS: ACETAMINOPHEN 325 MG TABLET 650 MG PO (17:08)
--- NOTE | 2025-01-13 17:12 | PC.NURSE ---
1020 Shy Pike NP, here to see patient. Direct phone number given #[phone] to call if needed. She will order Echo and labs. 1100 Labs done and sent, Cardiology here to do Echo in patient's room. 1251 Shy Pike NP, called RN with positive D-Dimer lab, she will put in further orders. 1325 Received call from CAT scan, patient will need new IV (either 18 or 20 gauge) before CT done. RN will insert new IV and then take patient down to CT. 1400 Spoke w/ Bladimir in pharmacy, asked if ok to hang normal saline with the Magnesium piggy back ordered. Ok per Bladimir. 1430 Hospitalist here to see patient. 1500 Shy Pike NP, called and she will put in order for Lovenox, patient should receive first dose before transferring to IMU. 1555 Spoke with SARA Choudhury, in IMU and report given. 1615 Patient arrived via stretcher to room 211 on IMU.
--- NOTE | 2025-01-13 18:05 | P.HP_ITS ---
H&P: HPI History of Present Illness Date/Time: 01/13/25 18:05 Chief Complaint: Chest pain Narrative: 34 F with no significant PMHx was admitted for . Patient had her 7th on 01/11. As per patient there was not significant amount bleeding . Her HgB dropped from 10.2 to 8.1. Patient complained of chest pain yesterday and hospitalist was consulted. Trops were ordered which was negative. CTA shows Left upper lobe pulmonary embolism, small thrombus burden and cardiomegaly. LE shows no DVT. Patient is chronic smoker and with which is a hypercoagulable state triggered PE.Will call [facility] for thrombectomy as per patient request. Patient has bradycardia and will monitor. I called to confirm no right heart strain on echo. Review of Systems Review of Systems: All systems reviewed & are unremarkable except as noted in HPI and below PMFSH Surgical History Surgical History History of ankle surgery right ankle fracture repair. History of ankle surgery History of eye surgery left eye -lazy eye. Family History Family History (Updated 01/11/25 @ 06:35 by Zena Solano RN) Sibling Acute myocardial infarction Social History Social History Smoking packs per day: 0.5 Smoking cigarettes per day: 10.0 Years smoked: 20 Smoking pack-years: 10.00 Smoking status: Heavy tobacco smoker Tobacco type: cigarettes Second hand tobacco smoke exposure: Yes Alcohol intake: current Alcohol use details: social Substance use: former Substance use type: does not use Do You Feel Safe in your Home?: Yes Lack of Transportation: No Lack of Food: Never True Current Housing: I Have Housing Concerned About Future Housing: No Difficulty Paying Gas/Electric Bills: No Difficulty Paying for Meds: No Currently Unemployed: No Education: High School Diploma/GED Difficulty w/ Childcare or Family Care: No Living arrangements: with family Additional living arrangements comments: , has 4 children Spiritual care concerns: No Meds Home Medications and Allergies Home Medications ?Medication ?Instructions ?Recorded ?Confirmed ?Type No Home Medications 12/10/24 01/11/25 History Allergies Allergy/AdvReac Type Severity Reaction Status Date / Time codeine Allergy Intermediate rash Verified 12/24/24 14:36 Vital Signs Vital Signs - 24 hr 01/12/25 19:35 01/12/25 19:35 01/13/25 02:50 Temperature 98.0 F 98.6 F Pulse Rate 68 68 47 L Respiratory Rate 16 16 16 Blood Pressure 103/58 L 101/63 Pulse Oximetry 98 98 96 Oxygen Delivery Room Air 01/13/25 02:59 01/13/25 07:50 01/13/25 14:12 Temperature 98.6 F 98.2 F 98.6 F Pulse Rate 47 L 50 L 52 L Respiratory Rate 16 16 16 Blood Pressure 101/63 106/57 L 115/71 Pulse Oximetry 96 98 99 Oxygen Delivery Room Air 01/13/25 14:45 01/13/25 15:00 01/13/25 15:15 Temperature Pulse Rate 44 L 48 L 50 L Respiratory Rate 16 16 Blood Pressure Pulse Oximetry 99 99 99 Oxygen Delivery 01/13/25 15:30 01/13/25 15:45 01/13/25 16:00 Temperature Pulse Rate 44 L 42 L 43 L Respiratory Rate 16 Blood Pressure Pulse Oximetry 98 99 98 Oxygen Delivery Exam Const: General: no acute distress and uncomfortable Resp: Effort & Inspection: normal respiratory effort Auscultation: clear to auscultation bilaterally Cardio: Rate: regular rate Rhythm: regular rhythm Skin: General skin exam: no rashes or lesions noted Neuro: General: gait normal Speech: normal speech Extrem: General: pedal edema bilaterally (trace edema) Psych: Mental Status: mental status grossly normal Affect: normal affect H&P: Results Labs Labs: Short CBC 01/13/25 Range/Units 04:16 WBC 9.4 (4.5-10.0) K/mm3 Hgb 8.1 L (12.0-15.0) g/dL Hct 24.5 L (37.0-47.0) % Plt Count 129 L (150-375) k/mm3 BMP 01/13/25 04:17 Sodium 134 L Potassium 4.3 Chloride 108 H Carbon Dioxide 22 BUN 10 Creatinine 0.54 L Glucose 81 Calcium 8.3 L Cardiac Enzymes 01/13/25 Range/Units 04:17 Troponin I < 0.012 (0.000-0.034) ng/mL Assessment and Plan Assessment and plan (1) Pulmonary embolus, left: Code(s): I26.99 - Other pulmonary embolism without acute cor pulmonale Status: Acute Assessment and Plan: -EKG showed Sinus bradycardia 42 with QTc 401. -Start NSS @ 125ml/hr -Echocardiogram: Left ventricular systolic function is normal, estimated at 60-65%. Trop negative x 2. D-dimer 3.31 -Chest CTA: 1. Left upper lobe pulmonary embolism, small thrombus burden.2: Cardiomegaly. -Transfer to IMU to be monitored. -Lovenox 70 mg subq q 12. -LE dopplers negative for DVT -Monitor H and H -Can continue . -Order PT,PTT,INR -Trigger factor: Smoking and -Will call [facility] for thrombectomy as per patient request Quality VTE Prophylaxis VTE prophylaxis: pharmacologic ordered Hospitalist [facility] Advance Care Plan I have confirmed that the patient's Advanced Care Plan is present, code status is documented, or surrogate decision maker is listed in patient medical record.: Yes Medication Reconciliation I have utilized all available resources to obtain, update and review the patients current medications (includes all prescriptions, OTC, herbals, cannabis, and nutritional supplements).: Yes
[2025-01-13] MEDS: SODIUM CHLORIDE 0.9% IV 1,000 ML 125 ML IV CONT (18:14)
[2025-01-13 19:29] LABS: Hematocrit 26.4 % (37.0-47.0); Hemoglobin 8.9 g/dL (12.0-15.0)
[2025-01-13 19:42] LABS: Prothrombin Time 13.3 Seconds (11.1-14.7)
--- NOTE | 2025-01-14 19:08 | P.TS_ITS ---
Transfer Discharge Sum: Prov Provider Date of admission: 01/11/25 05:10 Primary care physician: Amina Bear, [employer] Admitting clinician: Rajinder Steele MD Consults: 01/11/25 05:24 Consult to Anesthesiology Routine Reason for consultation: NOEMI Has provider been notified: Yes 01/13/25 Consult to Physician Routine Comment: Consulting Provider: Jaylyn Glover Reason for consultation: Patient can not breath when laying on back and sides. Has provider been notified: No DS: Admitting Diagnosis Discharge Date 01/13/25 Admitting Diagnosis Pulmonary Embolism DS: Discharge Diagnosis Discharge Diagnosis (1) Pulmonary embolus, left: Code(s): I26.99 - Other pulmonary embolism without acute cor pulmonale Status: Acute Assessment and Plan: -EKG showed Sinus bradycardia 42 with QTc 401. -Start NSS @ 125ml/hr -Echocardiogram: Left ventricular systolic function is normal, estimated at 60-65%. Trop negative x 2. D-dimer 3.31 -Chest CTA: 1. Left upper lobe pulmonary embolism, small thrombus burden.2: Cardiomegaly. -Transfer to IMU to be monitored. -Lovenox 70 mg subq q 12. -LE dopplers negative for DVT -Monitor H and H -Can continue . -Order PT,PTT,INR -Trigger factor: Smoking and Called [facility] for thrombectomy as per patient request and accepted the patient,although no thrombectomy will be performed. Transfer Discharge Sum: Med Medications Active and Home Medications: Home Medications No Home Medications 12/10/24 [History Confirmed 01/11/25] Transfer Discharge Sum: Hosp Hospital Course Hospital course: Michelle Daniels is a 34 F with no significant PMHx was admitted for . Patient had her 7th on 01/11. As per patient there was not significant amount bleeding . Her HgB dropped from 10.2 to 8.1. Patient complained of chest pain yesterday and hospitalist was consulted. Trops were ordered which was negative. CTA shows Left upper lobe pulmonary embolism, small thrombus burden and cardiomegaly. LE shows no DVT. Patient is chronic smoker and with which is a hypercoagulable state triggered PE. Patient has lily cardia and will monitor. I called to confirm no right heart strain on echo. -EKG showed Sinus bradycardia 42 with QTc 401. -Start NSS @ 125ml/hr -Echocardiogram: Left ventricular systolic function is normal, estimated at 60-65%. Trop negative x 2. D-dimer 3.31 -Chest CTA: 1. Left upper lobe pulmonary embolism, small thrombus burden.2: Cardiomegaly. -Transfer to IMU to be monitored. -Lovenox 70 mg subq q 12. -LE dopplers negative for DVT -Monitor H and H -Can continue . -Order PT,PTT,INR -Trigger factor: Smoking and Called [facility] for thrombectomy as per patient request and accepted the patient,although no thrombectomy will be performed. Time Spent with Patient Time attestation: Total time spent providing and/or coordinating transfer services:45 minutes Exam Const: General: no acute distress and uncomfortable Resp: Effort & Inspection: normal respiratory effort Auscultation: clear to auscultation bilaterally Cardio: Rate: regular rate Rhythm: regular rhythm Skin: General skin exam: no rashes or lesions noted Neuro: General: gait normal Speech: normal speech Extrem: General: pedal edema bilaterally (trace edema) Psych: Mental Status: mental status grossly normal Affect: normal affect DS: Data Data Completed and Pending Labs on day of discharge: Labs from last 24 hours 01/13/25 19:21 Hgb 8.9 L Hct 26.4 L PT 13.3 INR 1.0 Imaging Radiologist's impression: ITS Impressions Chest X-Ray 01/13/25 05:18 IMPRESSION: 1. No acute cardiopulmonary disease. Chest CTA 01/13/25 13:33 IMPRESSION: 1. Left upper lobe pulmonary embolism, small thrombus burden. 2: Cardiomegaly. Venous Doppler Study 01/13/25 13:55 IMPRESSION: 1: No lower extremity deep venous thrombosis.
== END 2025-01-13 23:11 | disposition short-term general hospital (02) | DRG 560 ==
LOC: ANHLDR 05:35 → ANHOB2 01-13 10:31 → ANHIMU 01-14 09:51 → ANHLDR 01-14 09:51 → ANHOB2 01-14 09:51
PROVIDERS: Internal Medicine; Nurse Practitioner Family; Admitting Provider Obstetrics & Gynecology; PCP Nurse Practitioner Family; Visit Provider General Practice
DX: O99.334 Smoking (tobacco) complicating childbirth (principal); O88.23 Thromboembolism in the puerperium; I26.99 Other pulmonary embolism without acute cor pulmonale; Z3A.39 39 weeks gestation of pregnancy; Z37.0 Single live birth; F17.210 Nicotine dependence, cigarettes, uncomplicated
CPT/HCPCS: 36415; 71046; 71275; 80048; 82550; 82553; 83735; 84484; 85014; 85018; 85025; 85027; 85380; 85610; 86593; 86703; 86850; 86900; 86901; 93005; 93306; 93970; A9270; G0432; J1650; J2590; J2795; J3010; J3475; J7030; J7050; J7120; Q9967

== ENCOUNTER 2025-04-16 14:06 | Outpatient (CLI) | payer OTHER, SELFPAY | END 2025-04-16 14:07 | disposition home or self-care (01) | LOC: ANHAUDIO 14:06 | PROVIDERS: PCP Nurse Practitioner Family; Visit Provider Registered Nurse | DX: H93.11 Tinnitus, right ear (principal) | CPT/HCPCS: 92557; 92567 ==

== ENCOUNTER 2025-05-08 22:32 | Emergency (ER) | payer OTHER, SELFPAY ==
[2025-05-08 22:34] VITALS: BP 109/73; PULSE 85; RESP 18; TEMP 36.2; O2SAT 96
--- OUTSIDE RECORDS SUMMARY | 2025-05-08 22:34 | XMS_ITS | Data Portability ---
Author Organization [facility] Address [address] [place] [address] Care Team Providers Care Rail Signal Mechanic Name Role Phone CALLY GHOSH Primary Care Provider Assessment Encounter Date Assessment Date Assessment LastModified by Organization Details LastModified Time 11/23/2024 11/23/2024 Patient is ___weeks . Discussed plan. Not available 11/23/2024 16:35:16 12/07/2024 12/07/2024 Patient is ___weeks . Discussed plan. Not available 12/07/2024 17:26:08 12/24/2024 12/24/2024 Patient is ___weeks . Discussed plan. Not available 12/24/2024 17:28:41 Plan of Treatment Reminders Order Date Submit Date Provider Last Modified By Organization Details Last Modified Time Details Appointments None record ed. Lab CBC 025 12/25/19 25 [facility] (Lab), [address], [place], [address], 5 04:01:33 Referral None record ed. Procedures None record ed. Surgeries None record ed. Imaging US, obstet nubia, follow -up 025 11/23/19 25 [email or web address] [place], [address], [address], [place], [address], 5 20:45:50 Medication Orders None record ed. Patient TargetsNo targets recorded. Patient InstructionsNo instructions recorded. Reason for Referral None Reported. Results Created Date Observation Date Name Description Value Unit Range Abnormal Flag Note LastModifiedBy Organization Detail LastModifiedTime 11/23/1911/23/2024 HEMAT OCRIT (HCT) HCT 28.9 % (based on docume nted legal sex) 34.0-4 5.0 low Not Available [facility] (Lab) [address], [place], [address], 11/24/2024 14:20:49 11/23/19 25 11/23/2024 HEMOG LOBIN (HGB) HGB 9.4 g/dL (based on docume nted legal sex) 11.6-1 5.4 low Not Available [facility] (Lab) [address] [place], [address], 11/24/2024 14:20:49 11/23/19 25 11/23/2024 GTT - GESTA PUNEET L PANKAJ Covarrubias, ACOG OB glucose, 1 hour screen 118 mg/dL 70-135 Not Available [facility] (Lab) [address] [place], [address], 11/24/2024 14:20:50 11/23/19 25 11/23/2024 HIV 1/2 ANTIG EN/AN TIBOD Y, REFLE X CONFI RMATI ON HIV antigen/anti body Nonrea ctive nonrea ctive HIV-1 antig en and HIV-1 /HIV- 2 antib odies were not detec rafa. No labor atory evide nce of HIV infec tion. Not Available [facility] (Lab) [address], [place], [address], 11/24/2024 14:20:51 11/23/19 25 11/23/2024 RPR SCREE N, REFLE X TITER /CONF IRMAT ION RPR screen Nonrea ctive nonrea ctive Not Available [facility] (Lab) [address] [place], [address], 11/24/2024 14:20:51 12/25/19 25 12/24/2024 CULTU RE: GROUP B STREP SCREE N, REFLE X SUSCE PTIBI LITY result report SEE RESULT S BELOW Test: Cultu re: Group B Strep , Refle x Susce ptibi lity ([facility]/ [facility] ) Speci men Sourc e: Vagin a/Rec fernie Speci men Type: Vagin al/Re ctal Speci men Date: 1657 Resul t Date: 1446 Resul t Statu s: Final resul t Abnor mal: No Resul ting Lab: [facility] [address] [facility] [address] Tel: CULTU RE ----- ----- ----- --- No Group B strep isola rafa at 2 days (shyanne ctive broth enhan cemen t) Not Available [facility] (Lab) [address], [place], [address], 12/27/2024 15:49:57 11/23/19 25 11/23/2024 US, obste tric, follo w-up No observ ation record ed. [email or web address] [place] [address], [place], [address], 11/23/2024 18:35:58 11/23/19 25 11/23/2024 US, obste tric, follo w-up No observ ation record ed. [address], [facility], [place], [address], 11/24/2024 12:57:00 01/09/20 25 01/08/2025 non-s tress test No observ ation record ed. [address] [facility] [address], [place], [address], 01/13/2025 09:43:32 01/14/20 25 01/13/2025 XR, chest , 2 view No observ ation record ed. [address], [place], [address], 01/15/2025 13:13:20 01/14/20 25 01/13/2025 imagi ng/di agnos tic resul t No observ ation record ed. [address], [place], [address], 01/19/2025 23:09:12 01/14/20 25 01/13/2025 CT, chest + abdom en + pelvi s, w/ contr ast No observ ation record ed. [address], [place], [address], 01/19/2025 22:48:34 01/14/20 25 01/13/2025 US, doppl er, venou s No observ ation record ed. [address], [place], [address], 01/15/2025 15:31:18 Result Notes None recorded. Problems Name Problem SNOMED Code Status Onset Date Resolution Date Notes Provider Name and Address Organization Details Recorded Time Grand multipar a 30379087 Completed Rajinder Steele MD [address], [place], [address], [facility] 4 15:43:59 Postpart um hemorrha ge 12200024 Completed Rajinder Steele MD [address], [place], [address], [facility] 4 15:44:29 Placenta circumva llata 4898314 Completed rpt 32wks Madan del cid, [facility] 4 09:42:01 Borderli ne personal ity disorder 54332138 Completed Rajinder Steele MD [address], [place], [address], [facility] 4 11:05:20 Mood disorder 33845160 Completed Rajinder Steele MD [address], [place], [address], [facility] 4 11:05:29 Anemia 231372506 Completed Iron infusion - Order faxed 11/27 Martha Burnham [facility] 5 10:48:06 Anemia 441821841 Active Iron infusion - Order faxed 11/27 Martha Burnham [facility] 5 10:48:06 Pregnanc y 20398700 Completed 202301/30/2025 Minnie Altamirano [facility] 5 08:31:05 Problem Notes None recorded. Procedures Surgical History Date Name Laterality Status Provider Name and Address Organization Details Recorded Time 4 Date of Last Pap Smear completed [facility] 06/18/2024 12:04:30 procedure on ankle completed [facility] 06/18/2024 12:10:23 surgical procedure on eye proper using laser completed [facility] 06/18/2024 12:10:48 Imaging Results None recorded. Procedure Notes None recorded. Medical Equipment None Reported. Allergies Allergen ID Allergen Name Allergen Category Reaction Reaction Severity Criticality Documentation Date Start Date Code Code System Note Provider Name and Address Organization Details Recorded Time 02020 codeine medicatio n Not available Not available Not available 06/18/2024 2670 RxNorm [facility] 4 12:05:10 Medications Name Sig Start [...] lable Vitals Date Recorded Body weight Systolic And Diastolic Provider Name and Address Organization Details Last Updated DateTime 11/23/2024 90479.81063 g 110/68 mm[Hg] Michelle Bliss [facility] 11/23/2024 16:36:08 Date Recorded Body weight Systolic And Diastolic Provider Name and Address Organization Details Last Updated DateTime 12/07/2024 95779.8555 g 113/74 mm[Hg] Michelle Izaiah [facility] 12/07/2024 17:26:54 Date Recorded Body weight Systolic And Diastolic Provider Name and Address Organization Details Last Updated DateTime 12/24/2024 97049.33858 g 105/65 mm[Hg] Michelle Izaiah [facility] 12/24/2024 17:29:18 Social History Question Answer Notes LastModified by Organizat ion Details LastModified Time Tobacco Smoking Status Former Smoker Michelle Izaiah [facility] 06/18/2024 12:09:23 What Is Your Level Of Caffeine Consumption? [...] For COVID-19? No Information not available 06/18/2024 Sex: Unknown Functional Status Question Answer Note LastModified by Organizat ion Details LastModified Time Do you use any illicit or recreational drugs? No Information not available 06/18/2024 What is your level of alcohol consumption? None Information not available 06/18/2024 Mental Status None recorded. Family History Relationship Description Onset Age of this Age Resolved Age Notes LastModified by Organization Details LastModified Time Father No current problems or disability Not available 06/18 12:09:05 Mother No current problems or disability Not available 06/18 12:09:05 Medical History Condition Response Other N Blood Transfusion N Dermatologic Disorders N Gestational Diabetes N Anxiety Disorder N Autoimmune disease N Arthritis N Polyps N Infertility N Acid Reflux (GERD) N Cancer N Varicosities N Stroke N Neurologic/Epilepsy N Fibromyalgia N Headaches N Kidney Disease N Heart Problems N Kidney or Bladder Problems N Eating Disorder N Art (IVF or FET) N Hepatitis/Liver Disease N No Past Medical History N Urinary Tract Infection N Asthma N Trauma/Violence N Thrombophilias N Allergies (Food, seasonal, environmental ) N Breast Cancer N Drug/Latex Allergies/Reactions N Lung Disease N Defects or Inherited Disease N Breast Problem N Hematologic disorders N Anesthesia Complications N History of STI Y Deep Vein Thrombosis N Polycystic ovary syndrome N History of abnormal pap Y Endometriosis N High Cholesterol N Thyroid Problems N GI Problems N Anemia Y Psychiatric Illness N Ovarian Cancer N Diabetes N Pulmonary (TB, Asthma) N Eczema N Abuse/Domestic Violence N Depression/ depression N Heart Disease N Pre-Eclampsia N Hypertension N Osteoporosis N Gynecological History Statement/Question Response Abnormal Pap [...] LMP Approximate Obstetrics History GPAL:G 8 P 7 0 1 7 Type Value Full Term 7 Spontaneous 1 Living 7 Total 8 Past Encounters Encounter ID Performer Location Encounter Start Date Encounter Closed Date Diagnosis/Indication Diagnosis SNOMED-CT Code Diagnosis ICD10 Code Diagnosis Note [id number] MD Gloria Lahtam [address],[place] [address] 06/18/2024 10:48:20 06/18/2024 11:38:09 [id number] MD Gloria Latham [address],[place] [address] 06/18/2024 10:59:37 06/18/2024 13:57:55 Headache 31113785 R51.9 Routine an tenatal care 784707741 Z34.90 Amenorrhea 93222626 N91. 2 [id number] MD Gloria Latham [address],[place] [address] 07/13/2024 11:35:58 07/13/2024 13:34:09 screening 904964130 Z36.82 Z3A.13 [id number] MD Gloria Latham [address],[place] [address] 08/07/2024 14:50:09 08/07/2024 15:52:06 Routine care 611051705 Z34.90 [id number] MD Gloria Latham [address],[place] [address] 09/03/2024 10:54:10 09/03/2024 12:13:11 screening for malformation 586287833 Z36.3 Z3A.20 [id number] MD Gloria Latham [address],[place] [address] 09/03/2024 10:54:23 09/03/2024 12:46:59 Urinary symptoms 713775358 R39.9 Sexually t ransmitted infectious disease 5054058 A64 Upper resp iratory infection 51239587 J06.9 [id number] MD Gloria Latham [address],[place] [address] 10/01/2024 10:27:59 10/01/2024 11:06:56 Routine care 771033937 Z34.90 [id number] Rajinder Steele MD [place] [address],[place] [address] 11/23/2024 16:03:37 11/23/2024 17:20:01 Routine care 837260850 Z34.90 [id number] MD Gloria Latham [address],[place] [address] 11/23/2024 17:07:37 11/23/2024 17:10:17 Placenta circumvallata 1581923 O43.113 Z3A.32 [id number] MD Gloria Latham [address],[place] [address] 12/07/2024 17:11:13 12/07/2024 17:37:48 Routine care 448524896 Z34.90 [id number] MD Gloria Latham [address],[place] [address] 12/24/2024 16:55:47 12/24/2024 17:44:26 Anemia 150587733 D64.9 Routine an tenatal care 012472943 Z34.90 [id number] Rajinder Steele MD [place] [address],[place] [address] 01/11/2025 08:37:57 01/12/2025 09:24:17 Health Concerns Section Related Observation LastModified by Organization Detai ls LastModified Time None Recorded Concern Status LastModified by Organization Details LastModified Time None Recorded Advance Directives Directive None Recorded Payers Insurance Date Sequence Insurance Name Policy Number Policy Aguayo Covered Member ID Aguayo Member ID Guarantor Name 01/12/2025 1 [facility] (MEDICAID HMO) [id number] Michelle Daniels [id number] Michelle Daniels OBGyn Episode Ob Episode Information Episode Created Date Number of Fetuses Patient Bloodtype Patient rh Status Prepregnancy Weight lbs Domestic Partner Domestic Partner Phone Father Name Highway Patrol Pilot Status 06/18/20 24 1 CLOSED Fetus Data First Name Last Name Admitted to NICU Weight (g) Sex Living Outcome Pediatric Complications Fetus ID Race Codes Race Delivery Type 3515.33 8 Full Term 53111 Vaginal Delivery Flash Calculation Initial Flash Date [...] Domestic Partner Domestic Partner Phone Father Name Highway Patrol Pilot Status 06/18/20 24 1 CLOSED Fetus Data First Name Last Name Admitted to NICU Weight (g) Sex Living Outcome Pediatric Complications Fetus ID Race Codes Race Delivery Type , Spontane ous 90917 Flash Calculation Initial Flash Date Initial Exam [...] Domestic Partner Domestic Partner Phone Father Name Highway Patrol Pilot Status 06/18/20 24 1 CLOSED Fetus Data First Name Last Name Admitted to NICU Weight (g) Sex Living Outcome Pediatric Complications Fetus ID Race Codes Race Delivery Type 3515.33 8 Full Term 95871 Vaginal Delivery Flash Calculation Initial Flash Date [...] Domestic Partner Domestic Partner Phone Father Name Highway Patrol Pilot Status 06/18/20 24 1 CLOSED Fetus Data First Name Last Name Admitted to NICU Weight (g) Sex Living Outcome Pediatric Complications Fetus ID Race Codes Race Delivery Type 3543.46 0704 F Full Term 79197 Vaginal Delivery Flash Calculation Initial Flash Date [...] Domestic Partner Domestic Partner Phone Father Name Highway Patrol Pilot Status 08/07/20 24 1 B Positive CLOSED Fetus Data First Name Last Name Admitted to NICU Weight (g) Sex Living Outcome Pediatric Complications Fetus ID Race Codes Race Delivery Type 3118.44 5 F true Full Term 16823 Vaginal Delivery Problems Problem Notes [facility] in - [facility] eferral [facility]ed [facility]/02 pt scheduled [facility] 10/20 1030 Level II us and consult Problem Name Start Date End Date Resolution Snomed Code Not e Borderline personality disorder 24348161 Grand multipara 79593571 hemorrhage 13509107 Placenta circumvallata 4654440 rpt 32wks Mood disorder 90243071 Anemia 089805406 Iron infus ion - Order faxed 11/27 [...] Type Weight in lbs Pre/Post Dialysis Refused 147.997488280803 BP Diastolic BP Location Tested BP Systolic [...] Type Weight in lbs Pre/Post Dialysis Refused 145.0201014754 BP Diastolic BP Location Tested BP Systolic [...] Type Weight in lbs Pre/Post Dialysis Refused 148.011593522767 BP Diastolic BP Location Tested BP Systolic [...] Type Weight in lbs Pre/Post Dialysis Refused 151.494344734146 BP Diastolic BP Location Tested BP Systolic [...] Type Weight in lbs Pre/Post Dialysis Refused 150.608193641859 BP Diastolic BP Location Tested BP Systolic [...] Type Weight in lbs Pre/Post Dialysis Refused 151.630462896417 BP Diastolic BP Location Tested BP Systolic BP Type 65 L arm 105 sitting Fetus Heart Rate Present A 135 Present Fetus Movement A Yes Comments no complaints, no problems, routine care, no contractions, no vaginal bleeding, no loss of fluid, no cramping Flowsheet Date 01/11/2025 Mauricio Score Blood Edema Fundus Height Fundus Units Glucose Ketones Leukocytes Nitrite Labor Signs Protein Cervic Dilation Cervic Effacement Cervic Station Type Weight in lbs Pre/Post Dialysis Refused BP Diastolic BP Location Tested BP Systolic BP Type Fetus Heart Rate Present Fetus Movement Comments Menstrual History Last Menstrual Date Menses Monthly On Bcp Conception Prior Menses Frequency Hcg Plus Date Menarche Onset Age 0604/13/2024 true Delivery Information Delivery Date Delivery Type Labor Anesthesia Weeks Gestation Incision Type Labor Labor Length Hrs Delivered By Post Complications Tubal Sterilization Discharge Date Comments 5 Induce d 39 4.2 Rajinder Steele MD Discharge Information Feeding Method Contraceptive Method Maternal HG B and HCT Levels Ob Episode Information Episode Created Date Number of Fetuses Patient Bloodtype Patient rh Status Prepregnancy Weight lbs Domestic Partner Domestic Partner Phone Father Name Highway Patrol Pilot Status 06/18/20 1 CLOSED Fetus Data First Name Last Name Admitted to NICU Weight (g) Sex Living Outcome Pediatric Complications Fetus ID Race Codes Race Delivery Type 3685.43 5 F Full Term 27281 Vaginal Delivery Flash Calculation Initial Flash Date [...] Domestic Partner Domestic Partner Phone Father Name Highway Patrol Pilot Status 06/18/20 1 CLOSED Fetus Data First Name Last Name Admitted to NICU Weight (g) Sex Living Outcome Pediatric Complications Fetus ID Race Codes Race Delivery Type 3572.03 7 Full Term 97546 Vaginal Delivery Flash Calculation Initial Flash Date [...] Domestic Partner Domestic Partner Phone Father Name Highway Patrol Pilot Status 06/18/20 24 1 CLOSED Fetus Data First Name Last Name Admitted to NICU Weight (g) Sex Living Outcome Pediatric Complications Fetus ID Race Codes Race Delivery Type 3572.03 7 F Full Term 89886 Vaginal Delivery Flash Calculation Initial Flash Date [...]
--- OUTSIDE RECORDS SUMMARY | 2025-05-08 22:34 | XMS_ITS | Clinical Summary ---
Author Organization [facility] Address [address] [place] [address] Care Team Providers Care Label Printer Name Role Phone Sid Solis MD Unavailable [phone] Sid Solis MD Primary Care Provider Allergies [...] Noted Date Diagnosed Date Hemorrhage affecting sixth ([facility]) 0 02/01/2024 Overview (02/01/2024): Started about five hours after delivery. The placenta had delivered intact. hemorrhage ([facility]) 02/01/2024 Uterine contractions ([facility]) 01/17/2023 Cramping affecting , antepartum ([facility]) 11/13/2022 28 weeks gestation of ([facility]) 2022 Dehydration 11/13/2022 Overview (11/13/2022): Specific gravity 1.030 Dark colored urine Pyelonephritis affecting ([facility]) ([facility]) 02/10/2021 Normal labor and delivery ([facility]) 02/10/2021 Term ([facility]) 02/10/2021 Overview (02/10/2021): EDC 02/10/2021 Smoker 02/10/2021 Encounter for elective induction of labor ([facility]) 02/03/2021 Social History Tobacco Use Types [...] from your doctor or pharmacy? Sometimes 02/01/2024 [facility] Utilities Answer Date Recorded In the past 12 months has [facility] [employer], or [employer] threatened to shut off services in your [...] week 02/01/2024 How often do you attend [facility] or amish services? Never 02/01/2024 Do you belong to any clubs o r organizations such as yarsani groups, unions, fraternal or athletic groups, or [...] and heating? Not hard at all 02/01/2024 [facility] - Occupational Stress Questionnaire Answer Date Recorded [...] place to sleep or slept in a jail (including now)? No 01/17/2023 Housing Stability Vital Sign Answer Titus e Recorded In the last 12 months, was t here a time when you were not able to pay the mortgage or rent on time? No 02/01/2024 In the past 12 months, how m any times have you moved where you were living? 1 02/01/2024 At any time in the past 12 m [facility], were you homeless or living in a jail (including now)? 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 Gender Identity Not on file Sexual Orientation [...] 6:17 AM CDT Height 160 cm (5' 3) 02/01/2024 6:17 AM CDT Body Mass Index 27.81 02/01/2024 6:17 AM CDT Plan of Treatment Health Maintenance Due Date Last Done Comments Cervical Cancer Screening Pap Smear (Age 30 to 64) Every 3 Years 1991 Annual Physical 1994 HPV Vaccines (2 - 3-dose series) 07/23/2007 06/25/2007 Hepatitis C 2009 DTaP, Tdap and Td Vaccines (1 - Tdap) 2010 03/21/1996, 05/21/1993, 05/31/1992, Additional history exists Hepatitis B Vaccines (1 of 3 - 19+ 3-dose series) 2010 Pneumococcal Vaccine: Pediatrics (0 to 5 Years) and At-Risk Patients (6 to 49 Years) (1 of 2 - PCV) 2010 Cervical Cancer Screening Pap with HPV Testing (Age 30 to 64) Every 5 Years 2021 Cervical Cancer Screening with HPV 2021 COVID-19 Vaccine ( season) 2024 Meningococcal B Vaccine Aged Out No [...] 6:31 AM 02/10/2021 6:29 PM Care Teams Label Printer Relationship Specialty Start Date End Date Sid Solis MD [address] [place] [id number] PCP - General FAMILY PRACTICE 08/11/20 Sid Solis MD [address] [place] [id number] FAMILY PRACTICE 08/27/18
--- OUTSIDE RECORDS SUMMARY | 2025-05-08 22:34 | XMS_ITS | Clinical Summary ---
Author Organization [facility] Address [address] [address] Care Team Providers Care Corporate Traffic Manager Name Role Phone Unavailable Primary Care Provider Unavailabl e Source Comments [facility] [employer],non-owned Affiliates and Associated Physician Practices is amultiple site organization consisting of ambulatory clinics and hospital sitesin [place], [place], [place] and [place]. This disclosure is being madepursuant to the Care Everywhere program and may not contain all information available regarding this patient. Last updated 18.[facility] [employer] Allergies No known active allergies Medications * Be aware that medications may not be up to date on this document. Alwaysverify current medications with the patient. 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
--- OUTSIDE RECORDS SUMMARY | 2025-05-08 22:34 | XMS_ITS | Encounter Summary ---
Author Organization [facility] Address [address] [place] [address] Care Team Providers Care Atomic Physics Teacher Name Role Phone Sid Solis MD Unavailable [phone] Mundo Raines MD Unavailable Unavailable Sid Solis MD Primary Care Provider Encounter Details Date Type Department Care Team (Late st Contact Info) Description 03/28/2019 Abstract SFL CONVERSION [address] [place] [address] , Generic Conversion, Social History Tobacco Use Types Packs/Day Years Used Date Smoking Tobacco: Never Assessed Comments Unknown Sex and Gender Information Value Date Recorded Sex Assigned at Not on file 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
--- OUTSIDE RECORDS SUMMARY | 2025-05-08 22:34 | XMS_ITS | Encounter Summary ---
Author Organization [facility] Address [address] [place] [address] Care Team Providers Care Silk Weaver Name Role Phone Sid Solis MD Unavailable [phone] Sid Solis MD Primary Care Provider Encounter Details Date Type Department Care Team (Late st Contact Info) Description 02/09/2021 Pre-Procedure Call 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
--- NOTE | 2025-05-08 22:37 | PC.NURSE ---
pt ambulated to bathroom for urine specimen
--- NOTE | 2025-05-08 22:40 | ED.PSYCH ---
HPI - Psych General Chief Complaint: Psychiatric Symptoms Stated Complaint: psych symptoms Time Seen by Provider: 05/08/25 22:34 Source: patient and EMS Mode of arrival: EMS Limitations: no limitations History of Present Illness HPI Narrative: 34 year old female arrives to the Emergency Department via EMS. Patient was fighting with her and police were called [by patient]. She made statements to the police about wanting to harm herself. She stated she wanted to cut her wrists and asked the police to shoot her. She admits to drinking alcohol tonight. Upon arrival to the Emergency Department she states she does not really want to hurt herself. 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 complaint: suicidal ideation Onset (ago): minute(s) Exacerbating factors: alcohol Context: recent alcohol abuse Treatments prior to arrival: none Related Data Home Medications ?Medication ?Instructions ?Recorded ?Confirmed ?Last Taken ?Type No Home Medications 12/10/24 01/11/25 Unknown History Allergies Allergy/AdvReac Type Severity Reaction Status Date / Time codeine Allergy Intermediate rash Verified 05/09/25 00:12 Review of Systems Review of Systems: All systems reviewed & are unremarkable except as noted in HPI and below Constitutional: Constitutional: Reports as per HPI, Denies chills and Denies fever(s) Eyes: Eyes: Reports as per HPI ENT: Reports system reviewed and no additional complaints, except as documented Cardiovascular: Cardiovascular: Reports as per HPI and Denies chest pain Respiratory: Respiratory: Reports as per HPI and Denies dyspnea Gastrointestinal: Gastrointestinal: Reports as per HPI, Denies abdominal pain, Denies diarrhea, Denies nausea and Denies vomiting Genitourinary: Genitourinary: Reports no additional female genitourinary complaints Musculoskeletal: Musculoskeletal: Reports no additional musculoskeletal complaints Integumentary/Breasts: Skin/Breast: Reports system reviewed and no additional complaints, except as docu Neurologic: Reports system reviewed and no additional complaints, except as documented Psychiatric: Psychiatric: Reports suicidal ideation Endocrine: Endocrine: Reports no additional endocrine complaints Hematologic/Lymphatic: Hematologic/Lymphatic: Reports no additional hematologic/lymphatic complaints Allergic/Immunologic: Allergic/Immunologic: Reports no additional allergic/immunologic complaints PMFSH Surgical History Surgical History History of ankle surgery History of ankle surgery right ankle fracture repair. History of eye surgery left eye -lazy eye. Family History Family History Sibling Acute myocardial infarction Social History Social History Smoking packs per day: 0.5 Smoking cigarettes per day: 10.0 Years smoked: 20 Smoking pack-years: 10.00 Smoking status: Heavy tobacco smoker Tobacco type: cigarettes Second hand tobacco smoke exposure: Yes Alcohol intake: current Drinks per week: 0 Alcohol use details: social Substance use: never Substance use type: does not use Do You Feel Safe in your Home?: Yes Lack of Transportation: YES Lack of Food: Never True Current Housing: I Do Not Have Housing Concerned About Future Housing: No Difficulty Paying Gas/Electric Bills: No Difficulty Paying for Meds: YES Currently Unemployed: No Education: Associate Degree Difficulty w/ Childcare or Family Care: No Living arrangements: with family Additional living arrangements comments: , has 4 children Spiritual care concerns: No Exam Const: General: healthy appearing and no acute distress Nutritional Appearance: well nourished Orientation/consciousness: patient oriented x3 Limitations: no limitations HENMT: Head: normal to inspection Ears: external ears normal Face/Nose/Sinus: Normal external nose present Face and sinus: normal facial exam Mouth: Yes Normal oral and palatal mucosa present Teeth and gingiva: dentition normal Throat: posterior oropharynx normal Eyes: Pupils: Equal, round and reactive pupils present EOM: EOMs intact bilaterally Direct Ophthalmoscopy: no photophobia Neck: Neck: normal visual inspection and no meningeal signs Chest: Chest palpation & inspection: normal inspection of the chest Resp: Effort & Inspection: normal respiratory effort Auscultation: clear to auscultation bilaterally Cardio: Rate: regular rate Rhythm: regular rhythm Heart sounds: no murmurs GI: Inspection: non-distended GI Palp: Yes Soft to palpation and No Tenderness to palpation present (GI) : General: Yes bladder normal to palpation Back/Spine/Pelvis: Back: no CVA tenderness Skin: General skin exam: normal color Rashes: no rashes Wounds: no wounds Neuro: General: patient oriented x3, moves all extremities, no meningeal signs, no focal motor deficits and CN's II-XI intact bilaterally Cranial nerves: Yes Nystagmus not present Speech: normal speech Gait exam (Neuro): Normal gait present Extrem: General: normal to inspection and no clubbing, cyanosis or edema Psych: Other: intoxicated Course Vital Signs Vital signs: Vital Signs Temperature 36.2 C L 05/08/25 22:34 Pulse Rate 85 05/08/25 22:34 Respiratory Rate 18 05/08/25 22:34 Blood Pressure 109/73 05/08/25 22:34 Pulse Oximetry 96 05/08/25 22:34 Oxygen Delivery Room Air 05/08/25 22:34 Temperature 36.3 C L 05/09/25 02:30 Pulse Rate 81 05/09/25 02:30 Respiratory Rate 18 05/09/25 02:30 Blood Pressure 105/69 05/09/25 02:30 Pulse Oximetry 100 05/09/25 02:30 Oxygen Delivery Room Air 05/09/25 02:30 MDM - Psych MDM Narrative Medical decision making narrative: 34 year old female arrives to the ED via EMS. Patient and her were fighting tonight and she has been drinking alcohol. Police were at scene and patient made statements about wanting to harm herself [cut her wrists] and asked the police to shoot her. Upon arrival to the ED patient states she does not really want to harm herself. PE: alcohol intoxication CBC: H/H 12.5/38.9, Plt 258; wbc 7 with 61 S, 32 L, 5 M CMP: Na 141, K 3.6, Cl 108, CO2 28, Glc 83, BUN 12, Cr 0.79; LFT's normal TSH/T4: Acetaminophen: <10 ASA: <1 Etoh: 112 UA: 3+ blood UDS: +THC UPreg: negative *Patient is medically cleared for Mental Health evaluation, treatment and disposition (0007) Mental Health notified. Will come evaluate patient. (0505) Patient has been evaluated by Mental Health and patient will be deflected home with OP f/u Lab Data 05/08/25 22:53 05/08/25 22:54 Labs: Lab Results 05/08/25 05/08/25 Range/Units 22:53 22:54 WBC 7.0 (4.8-10.8) K/mm3 RBC 4.37 (4.20-5.40) M/mm3 Hgb 12.5 (12.0-15.0) g/dL Hct 38.9 (35.0-49.0) % MCV 89.0 (78.0-102.0) fL MCH 28.6 (27.0-31.0) pg MCHC 32.1 (32-36) g/dL RDW 13.8 (11.6-14.4) % Plt Count 258 (150-420) K/mm3 MPV 10.1 (9.2-11.8) fl Immature Gran % (Auto) 0.3 H (0.0-0.0) % Neut % (Auto) 61.4 (50.0-70.0) % Lymph % (Auto) 31.9 (18.0-42.0) % Flagler % (Auto) 5.0 (2.0-11.0) % Eos % (Auto) 1.1 (1.0-6.0) % Baso % (Auto) 0.3 (0.0-1.0) % Lymph # (Auto) 2.24 (1.10-4.50) K/mm3 Flag[place] # (Auto) 0.35 (0.10-0.90) K/mm3 Eos # (Auto) 0.08 (0.02-0.50) K/mm3 Baso # (Auto) 0.02 (0.00-0.10) K/mm3 Abs Immat Gran (auto) 0.02 H (0.00-0.00) K/mm3 Absolute Neuts (auto) 4.31 (1.70-7.20) K/mm3 Absolute Nucleated RBC 0.00 (0.00-0.00) K/mm3 Nucleated RBC % 0.0 (0-0.0) % Sodium 141 (137-145) mmol/L Potassium 3.6 (3.4-5.0) mmol/L Chloride 108 H (98-107) mmol/L Carbon Dioxide 28 (22-30) mmol/L Anion Gap 5 (4-12) mmol/L BUN 12 (7-17) mg/dL Creatinine 0.79 (0.7-1.0) mg/dL Estim Creat Clear Calc 73 ml/min Estimated GFR > 60 (59 - ) Glucose 83 (65-110) mg/dL Calculated Osmolality 290 (285-295) mOsm/kg Calcium 8.6 (8.4-10.2) mg/dL Total Bilirubin 0.3 (0.2-1.3) mg/dL AST 23 (14-36) U/L ALT 14 (6-35) U/L Alkaline Phosphatase 47 (38-126) U/L Total Protein 7.4 (6.3-8.2) g/dL Albumin 4.4 (3.5-5.1) g/dL TSH 1.690 (0.465-4.680) uIU/mL Free T4 1.50 (0.78-2.19) ng/dL Urine Color Light yellow (Yellow) Urine Appearance Clear (Clear) Urine pH 6.0 (5.0-8.0) Ur Specific Creight[place] <= 1.005 L (1.010-1.020) Urine Protein Negative (Negative) Urine Glucose (UA) Negative (Negative) Urine Ketones Negative (Negative) Ur Blood (Man) 3+ H (Negative) Urine Nitrate Negative (Negative) Urine Bilirubin Negative (Negative) Urine Urobilinogen 0.2 (0.2-1.0) mg/dL Ur Leukocyte Esterase Negative (Negative) Urine RBC 0-2 (0-2) /hpf Urine Test Negative Salicylates < 1.0 L (2-20) mg/dL Urine Opiates Screen Negative (Negative) Urine Methadone Screen Negative (Negative) Acetaminophen < 10 L (10-30) ug/mL Ur Barbiturates Screen Negative (Negative) Ur Phencyclidine Scrn Negative (Negative) Ur Amphetamine Screen Negative (Negative) U Benzodiazepines Scrn Negative (Negative) Urine Cocaine Screen Negative (Negative) U Cannabinoids Screen Positive A (Negative) Ethyl Alcohol 112 (<10) mg/dL Discharge Plan Discharge Clinical Impression: Suicide ideation, Alcohol intoxication Patient Disposition: Home Condition: Stable Instructions: Alcohol Intoxication (ED), Suicide Prevention (ED) Additional Instructions: Follow up with Mental Health as arranged Follow up with your Primary Care Provider Patient Language: Czech Prescriptions: No Action No Home Medications Follow-up/Referrals: UNKNOWN,DOCTOR [Non-Staff] - Time of Disposition: 05:13
[2025-05-08 22:58] LABS: Add Urine Microscopic? YES; Appearance Urine Clear (Clear); Glucose Urine UA Negative (Negative); Hematocrit 38.9 % (35.0-49.0); Hemoglobin 12.5 g/dL (12.0-15.0); Immature Granulocyte Percent A 0.3 % (0.0-0.0); Leukocyte Esterase Ur Negative (Negative); Lymphocytes Absolute Auto 2.24 K/mm3 (1.10-4.50); Mean Corpuscular HGB Conc 32.1 g/dL (32-36); Mean Corpuscular Hemoglobin 28.6 pg (27.0-31.0); Mean Corpuscular Volume 89.0 fL (78.0-102.0); Nitrate Urine Negative (Negative); Nucleated Red Blood Cells Absolute Auto 0.00 K/mm3 (0.00-0.00); Nucleated Red Blood Cells Perc 0.0 % (0-0.0); Platelet Count Result 258 K/mm3 (150-420); Red Blood Count 4.37 M/mm3 (4.20-5.40); Specific Grav Ur <= 1.005 (1.010-1.020); White Blood Count 7.0 K/mm3 (4.8-10.8)
[2025-05-08 23:01] LABS: Pregnancy On Board Control Positive
--- OUTSIDE RECORDS SUMMARY | 2025-05-08 23:05 | XMS_ITS | Encounter Summary ---
Author Organization [facility] Address [address] [place] [address] Care Team Providers Care Daycare Assistant Name Role Phone Sid Solis MD Unavailable [phone] Sid Solis MD Primary Care Provider Encounter Details Date Type Department Care Team (Late st Contact Info) Description 02/09/2021 Pre-Procedure Call 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
--- OUTSIDE RECORDS SUMMARY | 2025-05-08 23:05 | XMS_ITS | Clinical Summary ---
Author Organization [facility] Address [address] [place] [address] Care Team Providers Care Paradi Tender Name Role Phone Sid Solis MD Unavailable [phone] Sid Solis MD Primary Care Provider Allergies [...] Noted Date Diagnosed Date Hemorrhage affecting sixth ([facility]) 0 02/01/2024 Overview (02/01/2024): Started about five hours after delivery. The placenta had delivered intact. hemorrhage ([facility]) 02/01/2024 Uterine contractions ([facility]) 01/17/2023 Cramping affecting , antepartum ([facility]/ C) 11/13/2022 28 weeks gestation of ([facility]) 2022 Dehydration 11/13/2022 Overview (11/13/2022): Specific gravity 1.030 Dark colored urine Pyelonephritis affecting ([facility]) ([facility]) 02/10/2021 Normal labor and delivery ([facility]) 02/10/2021 Term ([facility]) 02/10/2021 Overview (02/10/2021): EDC 02/10/2021 Smoker 02/10/2021 Encounter for elective induction of labor ([facility]) 02/03/2021 Social History Tobacco Use Types [...] from your doctor or pharmacy? Sometimes 02/01/2024 [facility] Utilities Answer Date Recorded In the past 12 months has [facility] [employer], [employer], [employer], or water [employer] threatened to shut off services in your [...] week 02/01/2024 How often do you attend [facility] or mormon services? Never 02/01/2024 Do you belong to any clubs o r organizations such as hoahaoism groups, unions, fraternal or athletic groups, or [...] and heating? Not hard at all 02/01/2024 [facility] - Occupational Stress Questionnaire Answer Date Recorded [...] a long term (including now)? No 01/17/2023 Housing Stability Vital [...] time in the past [facility], were you homeless or living in a long term (including now)? 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
--- OUTSIDE RECORDS SUMMARY | 2025-05-08 23:05 | XMS_ITS | Encounter Summary ---
Author Organization [facility] Address [address] [place] [address] Care Team Providers Care Correspondence Representative Name Role Phone Sid Solis MD Unavailable [phone] Mundo Raines MD Unavailable Unavailable Sid Solis MD Primary Care Provider Encounter Details Date Type Department Care Team (Late st Contact Info) Description 03/28/2019 Abstract SFL CONVERSION [address] [place] [address] , Generic Conversion, Social History Tobacco Use Types Packs/Day Years Used Date Smoking Tobacco: Never Assessed Comments Unknown Sex and Gender Information Value Date Recorded Sex Assigned at Not on file 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
--- OUTSIDE RECORDS SUMMARY | 2025-05-08 23:05 | XMS_ITS | Clinical Summary ---
Author Organization [facility] Address [address] [place] [address] Care Team Providers Care Belt Notcher Name Role Phone Unavailable Primary Care Provider Unavailabl e Source Comments [facility] [employer],non-owned Affiliates and Associated Physician Practices is amultiple site organization consisting of ambulatory clinics and hospital sitesin [place], [place], [place] and [place]. This disclosure is being madepursuant to the Care Everywhere program and may not contain all information available regarding this patient. 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
[2025-05-08 23:07] LABS: Acetaminophen < 10 ug/mL (10-30); Salicylate < 1.0 mg/dL (2-20)
[2025-05-08 23:22] LABS: Cannabinoid Screen Urine Positive (Negative); Potassium 3.6 mmol/L (3.4-5.0); Sodium 141 mmol/L (137-145)
[2025-05-08 23:23] LABS: Anion Gap 5 mmol/L (4-12); Bilirubin,Total 0.3 mg/dL (0.2-1.3); Blood Urea Nitrogen 12 mg/dL (7-17); Calcium 8.6 mg/dL (8.4-10.2); Carbon Dioxide 28 mmol/L (22-30); Chloride 108 mmol/L (98-107); Estimated CRCL calculation 73 ml/min; Estimated Glomerular Filt Rate > 60; Glucose 83 mg/dL (65-110); Osmolality Calculated 290 mOsm/kg (285-295)
[2025-05-08 23:24] LABS: Alanine Aminotransferase 14 U/L (6-35); Albumin Level 4.4 g/dL (3.5-5.1); Alkaline Phosphatase 47 U/L (38-126); Aspartate Amino Transferase 23 U/L (14-36); Total Protein 7.4 g/dL (6.3-8.2)
--- NOTE | 2025-05-08 23:40 | PC.NURSE ---
Patient requested to speak to RN. This RN responded to patient. Patient asking how long its going to take to have her mental health evaluation done, she is wanting to go home. Patient was updated on process. Patient then began yelling at staff that she had no rights and that she wanted nicotine and wanted to go outside an d smoke. Patient was told that this is a no smoking facility and we are not allowed to take patients out to smoke. Patient was educated on how psych process works, patient began getting louder and yelling more. Dr. Deluna then entered the room and let patient know that he does not prescribe nicotine to patients in the hospital. Patient then started yelling and being belligerent with staff stating that she works in a [employer] and this isn't how things work. Patient was then educated further that the psych process has tests that have to be cleared before she can have her mental health evaluation done. Patient stated that none of this process is helping her and its complete bullshit. She doesn't understand that she has revoked her rights has soon as she stated to police that she wanted them to shoot her. Patient continues to yell stating that she has a shit ton of kids at home to take care of and she has to work tomorrow. This RN asked patient to stop yelling so that this RN could talk to her about the process further, patient continued to yell and be belligerent to staff. Patient then asked if she could have a visitor and if it could be her significant other that she had gotten into an argument with. Patient was advised against having him come here by this RN but he could if the patient wanted him too. Patient asked if she could have her phone back and patient was educated again on policy for psych patients that they cannot have any belongings like that in their rooms or in possession. Patient began yelling at this RN again. Patient was asked to keep her voice down and patient continued to yell over this RN speaking. Patient was politely told that we do not condone her yelling and this RN walked out of the room.
[2025-05-09 00:11] LABS: Free T4 Free Thyroxine 1.50 ng/dL (0.78-2.19)
[2025-05-09 00:12] LABS: Thyroid Stimulating Hormone 1.690 uIU/mL (0.465-4.680)
[2025-05-09 02:30] VITALS: BP 105/69; PULSE 81; RESP 18; TEMP 36.3; O2SAT 100
[2025-05-09 05:25] VITALS: BP 107/68; PULSE 62; RESP 16; O2SAT 98
== END 2025-05-09 05:25 | disposition home or self-care (01) ==
PROVIDERS: Emergency Provider Emergency Medicine; PCP Registered Nurse
DX: R45.851 Suicidal ideations (principal); F10.129 Alcohol abuse with intoxication, unspecified; Y90.5 Blood alcohol level of 100-119 mg/100 ml; F17.210 Nicotine dependence, cigarettes, uncomplicated
CPT/HCPCS: 36415; 80053; 80143; 80179; 80307; 81001; 81025; 82077; 84439; 84443; 85025; 99284